=== PATIENT | female | born 1940 | race Caucasian/White ===

== ENCOUNTER → 2016-09-15 | Outpatient (REF) | payer MEDICARE ==
[~2016-09-15] MED LIST: ALPR0.5T3 OR; AMLO5TAB OR; ARTISOL OP; ASPI81TA83 OR; CALCCHW12 OR; CALCCHW12 PO; CELE20TA OR; DIGO0.12 PO; DIOV160T6 PO; GENTGEL OU; GLUC500T OR; GLUC500T PO; LOPE2TAB PO; LOPERAMIDE OR; LOPR50TA OR; MELOPOW OR; PENT500C PO; PENTASA OR; PRAV40TA PO; PRED10TA PO; PRED10TA2 OR; PRED10TA2 PO; PRED1TA PO; SPIR25TA2 PO; TEKTURNA OR; VIT D 2000 OR; VITAMIN B COMPLE1 OR; WELCHOL OR; cholecaciferol; prednisone
== END | disposition home or self-care (01) ==
LOC: M LAB REF 12:19
PROVIDERS: ATTEND Internal Medicine
DX: I48.0 Paroxysmal atrial fibrillation (principal); E78.00 Pure hypercholesterolemia, unspecified

== ENCOUNTER 2016-10-02 08:24 | Outpatient (RCR) | payer MEDICARE | END 2016-10-07 | LOC: M CR 08:24 | PROVIDERS: ATTEND Internal Medicine | DX: Z51.89 Encounter for other specified aftercare (principal); I25.10 Atherosclerotic heart disease of native coronary artery without angina pectoris ==

== ENCOUNTER 2016-10-17 12:54 | Outpatient (RCR) | payer MEDICARE | END 2016-11-07 | LOC: M CR 12:54 | PROVIDERS: ATTEND Internal Medicine | DX: Z51.89 Encounter for other specified aftercare (principal); I25.10 Atherosclerotic heart disease of native coronary artery without angina pectoris ==

== ENCOUNTER → 2017-03-16 | Outpatient (REF) | payer MEDICARE ==
[~2017-03-16] MED LIST changes: -ALPR0.5T3 OR; +ALPR0.5T3 PO; -ARTISOL OP; +ARTISOL OU; +ATOR40TA75 PO; +AZEL0.1S3; +CEFU1TAB20 PO; +CELE20TA PO; +CITA10TA5 PO; +COLE625TAB PO; +ELIQ2.5T PO; +LOPE2CAP PO; -LOPE2TAB PO; +MELO15TA4 PO; +METO25TA4 PO; +PANT40TA2 PO; +PRED20TA PO; +PRED5TA PO; +VITA100066 PO; -VITAMIN B COMPLE1 OR; +VITAMIN B COMPLE1 PO; +VITMTA PO
== END ==
LOC: M LAB REF 12:24
PROVIDERS: ATTEND Internal Medicine
DX: I48.0 Paroxysmal atrial fibrillation (principal)

== ENCOUNTER 2017-05-09 21:36 | Inpatient (IN) | payer MEDICARE ==
[~2017-05-09] VITALS: Ht 160 cm; Wt 92.1 kg
[~2017-05-09 21:36] MED LIST changes: -ATOR40TA75 PO; -AZEL0.1S3; -CEFU1TAB20 PO; -CELE20TA PO; -CITA10TA5 PO; -COLE625TAB PO; -ELIQ2.5T PO; -MELO15TA4 PO; -METO25TA4 PO; -PANT40TA2 PO; -PRED20TA PO; -PRED5TA PO; -VITA100066 PO; -VITMTA PO
--- NOTE | 2017-05-09 21:56 | ECGEPIP ---
Stationary ECG Study [facility] - ED Test Date: 2017-05-09 Pat Name: NEELA ARTIS Department: Room: - Gender: F Asset Protection Assistant: PetersonB: 1940 Requested By: NEELA Fleming Order Number: [id number] Reading MD: Hugo Vicente Measurements Intervals [place] Rate: 65 P: 33 MN: 134 QRS: 26 QRSD: 98 T: 33 QT: 371 QTc: 386 Interpretive Statements SINUS RHYTHM NONSPECIFIC ST & T-WAVE ABNORMALITY SIMILAR TO 09/15/14 Electronically Signed On 05-09-2017 21:55:43 EDT by Hugo Vicente
[2017-05-09] MEDS ORDERED: COLE625TAB PO (22:00)
[2017-05-09] MEDS ORDERED: CEFU1TAB20 PO (22:00)
[2017-05-09] MEDS ORDERED: METO25TA4 PO (22:00)
[2017-05-09] MEDS ORDERED: PRED20TA PO (22:00)
[2017-05-09] MEDS ORDERED: CELE20TA PO (22:00)
[2017-05-09] MEDS ORDERED: ASPIRIN 81 MG CHEW TABLET PO ONE (22:15)
[2017-05-09 22:26] LABS: MEAN CORPUSCULAR HGB CONC 31.4 g/dl (32.0-36.5); MEAN CORPUSCULAR VOLUME 98.5 fl (80.0-96.0); PLATELET COUNT, AUTOMATED 312 10^3/uL (150-450); RED CELL DISTRIBUTION WIDTH 14.4 % (11.5-14.5)
[2017-05-09 22:27] LABS: WHITE BLOOD COUNT 15.6 10^3/uL (4.0-10.0)
[2017-05-09 22:28] LABS: ADD MANUAL DIFFER YES; DIFF SLIDE NUMBER 196
[2017-05-09 22:39] LABS: ANION GAP 10 MEQ/L (8-16); BLOOD UREA NITROGEN 19 MG/DL (7-18); CALCIUM LEVEL 9.1 MG/DL (8.8-10.2); CARBON DIOXIDE LEVEL 23 MEQ/L (21-32); CHLORIDE LEVEL 107 MEQ/L (98-107); CREATININE FOR GFR 1.17 MG/DL (0.55-1.02); GLUCOSE, FASTING 256 MG/DL (83-110); POTASSIUM SERUM 4.1 MEQ/L (3.5-5.1); SODIUM LEVEL 140 MEQ/L (136-145)
[2017-05-09 22:50] LABS: DIGOXIN LEVEL 0.7 NG/ML (0.5-2.0)
[2017-05-10] MEDS ORDERED: GLUCOSE 4 GM CHEW TABLET PO PRN (04:45)
[2017-05-10] MEDS ORDERED: ACETAMINOPHEN TAB 650MG DOSE (2X325MG) PO PRN (04:45)
[2017-05-10] MEDS ORDERED: GLUCAGON FOR INJ 1 MG VIAL (J1610) SC PRN (04:45)
[2017-05-10] MEDS ORDERED: DEXTROSE 50% 50 ML SYRINGE IV PRN (04:45)
[2017-05-10] MEDS ORDERED: HEPARIN DRIP 25,000 UNITS in APPROPRIATE DILUENT 1 EA IV SCH (04:57)
[2017-05-10] MEDS ORDERED: VITA100066 PO (04:58)
[2017-05-10] MEDS ORDERED: CITA10TA5 PO (04:58)
[2017-05-10] MEDS ORDERED: AZELASTINE 137MCG NASAL SPY 30 ML (ASTELIN) PRN (05:00)
[2017-05-10] MEDS ORDERED: MELO15TA4 PO (05:00)
[2017-05-10] MEDS ORDERED: ATOR40TA75 PO (05:00)
[2017-05-10] MEDS ORDERED: VITMTA PO (05:00)
[2017-05-10] MEDS ORDERED: PANT40TA2 PO (05:00)
[2017-05-10] MEDS ORDERED: LOPERAMIDE 2 MG CAP PO PRN (05:00)
[2017-05-10] MEDS ORDERED: PRED5TA PO (05:00)
[2017-05-10] MEDS ORDERED: HEPARIN SOD (PORCINE) 5000 UNITS/ML VIAL IV PRN (05:00)
[2017-05-10] MEDS ORDERED: AZEL0.1S3 (05:00)
--- NOTE | 2017-05-10 06:06 | HPE ---
DATE OF ADMISSION: 05/10/2017 PRIMARY CARE PROVIDER: Dr. Jose Elias Keen. PIPE SMOKING MACHINE OFFBEARER: Dr. Gaston covered by Dr. Joel at [facility]. Cardiology at [facility], Dr. Jose Claros. CHIEF COMPLAINT: Chest discomfort, palpitations and racing heart. HISTORY OF PRESENT ILLNESS: This is a 76-year-old female patient with underlying medical history of paroxysmal atrial fibrillation not on anticoagulation, diabetes, Crohn's disease, coronary artery disease with stent April 2016, initially on aspirin, Plavix, Plavix was recently discontinued by patient's primary care provider, dyslipidemia. Patient, at around 9:15, developed an episode of chest discomfort, substernal pressure, no radiating, exacerbating factor, with also sensation of the heart is racing, similar to her previous atrial fibrillation episodes. Subsequently, presented to the emergency department (ED). Upon arrival, which is about 30 minutes later, patient reported that her chest pressure and palpitations have resolved. Subsequently, patient was evaluated in the emergency room. EKG that was done in the emergency room shows sinus rhythm with nonspecific ST segment changes. The patient was monitored in the emergency room with initially cardiac enzymes at 9:50 that were negative, but repeat cardiac enzymes 6 hours at 2:15 shows troponin elevation of 0.15. Subsequently, Dr. Jsoe Claros at [facility] was contacted for potential transfer and for possible cardiac catheterization. Patient, in the emergency room, denies any chest pain, pressure or discomfort. Denies any nausea, vomiting. Recently treated for sore throat with Ceftin. Currently reports that her sore throat has resolved. Denies any fevers, chills, nausea, vomiting, abdominal pain, diarrhea, constipation. Denies any shortness of breath. No history of congestive heart failure (CHF). No history of stroke or gastrointestinal (GI) bleed. The patient reported not on anticoagulation, but does not know why. She believes possibly related to her steroids she was told by her doctor. Case discussed with [facility] by ED provider. As per ED provider, [place] [facility] refused transfer. Recommending monitoring the patient with serial cardiac enzymes at [facility]. Subsequently, hospitalist was called for admission. ALLERGIES: To HYDROCHLOROTHIAZIDE, SULFA, and SULFA DRUG CROSS REACTORS. PAST MEDICAL HISTORY: 1. Atrial fibrillation. 2. Diabetes. 3. Dyslipidemia. 4. Crohn's disease. 5. Coronary artery disease. PAST SURGICAL HISTORY: 1. Breast biopsy times three times. 2. Cholecystectomy. 3. Hysterectomy. 4. Bowel resection times two. 5. Right knee replacement. 6. Right hip replacement. 7. Cardiac catheterization April 2016. SOCIAL HISTORY: Denies smoking, drinking or illicit drug use. FAMILY HISTORY: Noncontributory. REVIEW OF SYSTEMS: Initially reported palpitations, racing heart and chest pressure. All other review of systems have been negative. HOME MEDICATION: - Xanax 0.5 mg by mouth nightly - aspirin 81 mg by mouth daily - calcium/vitamin D one tablet by mouth daily - Keflex 250 mg by mouth twice a day - Celexa 30 mg by mouth daily - Welchol 625 mg by mouth daily - digoxin 0.25 mg by mouth daily - loperamide 4 mg by mouth four times a day as needed - Pentasa 1000 mg by mouth three times a day - metformin 500 mg by mouth daily - metoprolol 25 mg by mouth twice a day - artificial tears three times a day - Pravachol 40 mg by mouth nightly - prednisone 20 mg by mouth daily - spironolactone 12.5 mg by mouth every 2 hours - valsartan 160 mg by mouth daily - vitamin B complex by mouth daily - vitamin D 1000 units by mouth daily PHYSICAL EXAMINATION: VITAL SIGNS: Temperature 97.6, pulse on initial documentation was 144, but everything subsequent was around 66, respiration rate 20, blood pressure initial 193/125, pulse oximetry 98%. Repeat blood pressure is 170/76. GENERAL: Patient alert and oriented times three in no acute distress. HEENT: Normocephalic, atraumatic. PULMONARY: Bilaterally clear to auscultation. CARDIAC: Regular rate and rhythm. Normal S1, S2. No murmurs detected. ABDOMEN: Soft, nontender. Positive bowel sounds. EXTREMITIES: No clubbing, cyanosis or edema. EKG sinus rhythm at 57 with T wave inversions V4, V6. LABORATORY: WBC 15.6, hemoglobin and hematocrit 12.8/40.7, platelets 312. Chemistry: Sodium 140, potassium 4.1, chloride 107, bicarbonate 23, BUN 19, creatinine 1.17. Troponin 0.02, 0.15. Chest x-ray within normal limits. ASSESSMENT AND PLAN: This is a 76-year-old female patient with underlying medical history of paroxysmal atrial fibrillation, coronary artery disease, stent April 2016, diabetes, dyslipidemia, Crohn's disease, presented to the hospital with episode of palpitations and chest discomfort lasting 30 minutes, believed to be due to her atrial fibrillation, is currently in sinus. 1. Chest discomfort. Possibly secondary to atrial fibrillation with rapid ventricular response. Patient currently in sinus. Telemetry monitoring. Echocardiogram. Troponin mildly elevated at 0.15. Possibly secondary to demand ischemia. Case was presented to [facility] for potential transfer. Emergency room provider discussed the case with Dr. Jose Claros, who denied acute transfer, wanted to trend cardiac enzymes. If continue to elevate, will reconsider. Will continue digoxin, metoprolol. Echocardiogram has been ordered. Thyroid-stimulating hormone (TSH) has been ordered. Serial cardiac enzymes. Telemetry monitoring. Aspirin 81. Case was also discussed with Dr. Joel, flight reservations manager at [facility]. Given patient with elevated troponin, as well as CHADS-VASc 2 score of 6 with significant stroke risk, patient will need to be on anticoagulation. Patient was particularly concerned because she is on prednisone at home, which she was told by her doctor not to be on blood thinners. The patient denies history of intracranial hemorrhage, bleeding in the brain or bleeding from anywhere else on her body with stable hemoglobin and hematocrit. Therefore, will place the patient on heparin drip pending further assessment in terms of cardiac enzymes and further discussion with patient's primary care provider regarding anticoagulation. 2. Leukocytosis. Possibly secondary to steroids versus recently being treated for pharyngitis with Ceftin. Patient reported that her symptoms of pharyngitis have resolved. Will complete her course of Ceftin and followup cultures as ordered. 3. Elevated troponin. Possibly secondary to demand ischemia. Patient on aspirin, statin and heparin drip. Case discussed with [facility] cardiology, as well as Dr. Joel. Serial cardiac enzymes. Telemetry monitoring. Repeat EKG. 4. Hypertension. Will continue valsartan, spironolactone, metoprolol. Monitor blood pressure. 5. Paroxysmal atrial fibrillation. Continue digoxin, metoprolol. Patient on heparin drip. CHADS-VASc score of 2. This case discussed with Dr. Joel. Patient will need anticoagulation. Will also discuss with Dr. Keen during daytime to confirm that patient has no further contraindication, but given the history that was provided by the patient, further discussing with Dr. Joel, patient has no contraindication to anticoagulation. 6. Mild elevation of creatinine. Will continue to monitor. Oral hydration. 7. Diabetes. Holding oral medication, insulin as per protocol. 8. Dyslipidemia. Continue statin. 9. Coronary artery disease. Management as above. 10. Crohn's disease. Continue current medication. DISPOSITION: Pending repeat labs, echocardiogram. Will discuss the case with patient's primary care provider, Dr. Keen to determine if there is any additional contraindication for long-term anticoagulation. Will discuss with [place] if cardiac enzymes continue to be up-trending. Case discussed with Dr. Joel, as well as [place]'s cardiology, Dr. Jose Claros.
[2017-05-10 06:16] LABS: MEAN CORPUSCULAR HEMOGLOBIN 30.5 pg (27.0-33.0); MEAN CORPUSCULAR HGB CONC 31.6 g/dl (32.0-36.5); MEAN CORPUSCULAR VOLUME 96.3 fl (80.0-96.0); RED CELL DISTRIBUTION WIDTH 14.2 % (11.5-14.5); WHITE BLOOD COUNT 9.6 10^3/uL (4.0-10.0)
[2017-05-10 06:18] LABS: INR 1.14
[2017-05-10 06:28] LABS: ANION GAP 7 MEQ/L (8-16); BLOOD UREA NITROGEN 19 MG/DL (7-18); CALCIUM LEVEL 8.6 MG/DL (8.8-10.2); CARBON DIOXIDE LEVEL 25 MEQ/L (21-32); CHLORIDE LEVEL 110 MEQ/L (98-107); CREATININE FOR GFR 0.83 MG/DL (0.55-1.02); GLOMERULAR FILTRATION RATE > 60.0 (>39); GLUCOSE, FASTING 158 MG/DL (83-110); MAGNESIUM LEVEL 1.3 MG/DL (1.8-2.4); POTASSIUM SERUM 4.2 MEQ/L (3.5-5.1); SODIUM LEVEL 142 MEQ/L (136-145); T UPTAKE 39 % (30-39); THYROXINE (T4) 7.8 UG/DL (4.5-12.0)
[2017-05-10 06:35] VITALS: BP 183/78
[2017-05-10] MEDS: HumaLOG INSULIN (NovoLOG) PER UNIT SC SCH ×3 (07:54→17:48)
[2017-05-10 08:00] VITALS: BP 168/74
--- NOTE | 2017-05-10 08:11 | REP ---
Chest one-view HISTORY: Chest pain Comparison: 09/14/2014 The lungs are clear. The heart is normal in size. The pulmonary vasculature is normal in appearance. Impression: No acute disease. Signed by Henrik Jules MD 05/10/2017 08:03 A
[2017-05-10] MEDS ORDERED: VALSARTAN 80 MG TAB (DIOVAN) PO SCH (09:00)
[2017-05-10] MEDS: SENOKOT S TAB PO SCH ×2 (09:00→20:35)
[2017-05-10] MEDS: predniSONE 5 MG TAB PO SCH (09:02)
[2017-05-10] MEDS: MULTIVITAMINS/MINERALS THERAP 1 TAB PO SCH (09:02)
[2017-05-10] MEDS: ASPIRIN 81 MG ENTERIC TAB PO SCH (09:02)
[2017-05-10] MEDS: CEFUROXIME 250 MG TAB PO SCH ×2 (09:02→20:21)
[2017-05-10] MEDS: ATORVASTATIN 20 MG TAB PO SCH (09:02)
[2017-05-10] MEDS: COLESEVELAM 625 MG TAB (WELCHOL) PO SCH ×2 (09:02→17:49)
[2017-05-10] MEDS: PANTOPRAZOLE 40MG TAB (PROTONIX) PO SCH (09:02)
[2017-05-10] MEDS: MESALAMINE 250 MG CR CAP PO SCH ×3 (09:03→20:21)
[2017-05-10] MEDS: METOPROLOL TART 25 MG TABLET PO SCH ×2 (09:04→17:50)
[2017-05-10] MEDS: DIGOXIN 0.125 MG TAB PO SCH (09:04)
[2017-05-10] MEDS: POLYVINYL ALCOHOL OPHTH SOLN 15 ML(LIQUITEARS) OU SCH ×3 (09:06→20:22)
[2017-05-10] MEDS ORDERED: VALSARTAN 80 MG TAB (DIOVAN) PO ONE (09:45)
--- NOTE | 2017-05-10 11:07 | ECGEPIP ---
Stationary ECG Study [facility] Test Date: 2017-05-10 Pat Name: NEELA ARTIS Department: Room: [place] [address] Gender: F Skein Yarn Dyer: vandana : 1940 Requested By: MARIA A Montilla Order Number: [id number] Reading MD: Marco Joel Measurements Intervals [place] Rate: 58 P: -11 OR: 138 QRS: 4 QRSD: 93 T: -30 QT: 378 QTc: 374 Interpretive Statements SINUS BRADYCARDIA LOW QRS VOLTAGE IN PRECORDIAL LEADS NONSPECIFIC ST-T ABNORMALITY (Consider digoxin effect) Electronically Signed On 05-10-2017 11:07:15 EDT by Marco Joel
[2017-05-10 12:00] VITALS: BP 159/71
--- NOTE | 2017-05-10 15:08 | ECGEPIP ---
Stationary ECG Study [facility] - ED Test Date: 2017-05-10 Pat Name: NEELA ARTIS Department: Room: [place] [address] Gender: F Jacquard Fixer: PetersonB: 1940 Requested By: NELEA Fleming Order Number: [id number] Reading MD: Jacklyn Valentino Measurements Intervals [place] Rate: 52 P: 16 RI: 132 QRS: 22 QRSD: 98 T: -18 QT: 410 QTc: 383 Interpretive Statements SINUS BRADYCARDIA WITH SINUS ARRHYTHMIA NONSPECIFIC ST & T-WAVE ABNORMALITY SIMILAR 05/10/17 07:49 Electronically Signed On 05-10-2017 15:08:36 EDT by Jacklyn Valentino
--- NOTE | 2017-05-10 15:29 | IPN ---
DATE: 05/10/2017 76-year-old female patient of Dr. Keen's who presents to the emergency department with chest discomfort, palpitations, which is resolved. She does have a known history of atrial fibrillation and a CHADS2-Vasc score of 6. She is not currently anticoagulated. She does have a prior history of stent placement through [facility] She did have a slight increase in her troponin but no changes in her EKG and was admitted for observation for any further deterioration. The emergency room (ER) physician did contact cardiology at [facility] and recommended that this would be an acceptable course to monitor her. OBJECTIVE: Temperature is 98.1, pulse 71, respiratory rate 18, blood pressure is 159/71, SpO2 is 95% on room air. GENERAL: The patient appears to be in no acute distress, alert and oriented. HEENT: Unremarkable. LUNGS: Clear. HEART: Regular rate and rhythm. ABDOMEN: Soft. EXTREMITIES: No edema. No calf tenderness. LABORATORY DATA: White count is 9.6, hemoglobin 10.6, platelets 221. Sodium 142, potassium 4.2, chloride 110, bicarbonate 25, anion gap 7, BUN is 19, creatinine 0.83, glucose 158, hemoglobin A1c 8.4, magnesium 1.3, which was repleted, troponin 0.15, 0.19, 0.15. ASSESSMENT/PLAN: 1. Chest discomfort, resolved. She did have a slight increase in her troponin which does appear to be trending down. 12-lead EKG is not showing any significant change. We will continue to watch. 2. Atrial fibrillation. She does remain on telemetry. She does have a CHADS2-Vasc score of 6. I did discuss with her primary care provider Dr. Keen who agrees she needs to be anticoagulated. 3. Leukocytosis. Likely due to steroids. Was placed on Ceftin for pharyngitis. She appears to be doing well otherwise. 4. Elevated troponin. As outlined above, does appear to be trending down. She can followup with outpatient cardiology and we will watch her another 24 hours and likely discharge her home tomorrow. 5. Hypertension. Valsartan, spironolactone, metoprolol. Continue to monitor blood pressure. 6. Paroxysmal atrial fibrillation as outlined with CHADS2-Vasc score of 6. Will anticoagulate. 7. Mild elevation of creatinine. Does appear to be doing well with oral hydration. Continue to monitor her renal function. 8. Diabetes. Holding her oral medications. Continue with sliding scale insulin, fingersticks and consistent carbohydrate diet. 9. Dyslipidemia. Continue statin. 10. Coronary artery disease. Continue management as previously stated. 11. Crohn's disease. Continue current management. DISPOSITION: We will watch her overnight on telemetry. If she is doing well tomorrow, we will plan on discharging her. If she develops chest pain again or elevated troponin, would consider transfer to [facility].
[2017-05-10 16:22] VITALS: BP 155/68
[2017-05-10] MEDS: MAG SULF 1GM/100ML (MAG RUN) 1 GM in APPROPRIATE DILUENT 1 EA IV SCH ×2 (17:09→18:17)
[2017-05-10] MEDS ORDERED: CitaloPRAM (CeleXA) 10 MG TABLET PO SCH (18:00)
[2017-05-10] MEDS ORDERED: SPIRONOLACTONE 25 MG TAB PO SCH (18:00)
[2017-05-10] MEDS ORDERED: VITAMIN D 1,000 INTERNATIONAL UNITS TABLET PO SCH (18:00)
[2017-05-10 18:09] VITALS: BP 145/65
[2017-05-10] MEDS ORDERED: SLF 3 ML SYR IV PRN (19:00)
[2017-05-10 20:00] VITALS: BP 132/69
[2017-05-10] MEDS: APIXABAN 2.5 MG TAB (ELIQUIS) PO SCH (20:21)
[2017-05-10] MEDS: SLF 3 ML SYR IV SCH (20:23)
[2017-05-10] MEDS ORDERED: ALPRAZolam 0.5 MG TAB PO SCH (21:00)
[2017-05-10] MEDS ORDERED: HumaLOG INSULIN (NovoLOG) PER UNIT SC SCH (21:00)
[2017-05-11] VITALS: BP 138/61
[2017-05-11 04:00] VITALS: BP 163/71
[2017-05-11 05:07] LABS: MEAN CORPUSCULAR HEMOGLOBIN 31.3 pg (27.0-33.0); MEAN CORPUSCULAR HGB CONC 32.6 g/dl (32.0-36.5); RED CELL DISTRIBUTION WIDTH 14.3 % (11.5-14.5); WHITE BLOOD COUNT 8.9 10^3/uL (4.0-10.0)
[2017-05-11 05:27] LABS: INR 1.15
[2017-05-11 05:35] LABS: ANION GAP 6 MEQ/L (8-16); BLOOD UREA NITROGEN 15 MG/DL (7-18); CALCIUM LEVEL 8.5 MG/DL (8.8-10.2); CARBON DIOXIDE LEVEL 27 MEQ/L (21-32); CHLORIDE LEVEL 109 MEQ/L (98-107); CREATININE FOR GFR 0.82 MG/DL (0.55-1.02); GLOMERULAR FILTRATION RATE > 60.0 (>39); GLUCOSE, FASTING 108 MG/DL (83-110); MAGNESIUM LEVEL 1.8 MG/DL (1.8-2.4); POTASSIUM SERUM 3.9 MEQ/L (3.5-5.1); SODIUM LEVEL 142 MEQ/L (136-145)
[2017-05-11] MEDS: SLF 3 ML SYR IV SCH (05:47)
[2017-05-11 08:00] VITALS: BP 143/65
[2017-05-11 08:44] VITALS: BP 143/65
[2017-05-11] MEDS: MESALAMINE 250 MG CR CAP PO SCH ×2 (08:44→12:13)
[2017-05-11] MEDS: CEFUROXIME 250 MG TAB PO SCH (08:45)
[2017-05-11] MEDS: MULTIVITAMINS/MINERALS THERAP 1 TAB PO SCH (08:45)
[2017-05-11] MEDS: ASPIRIN 81 MG ENTERIC TAB PO SCH (08:45)
[2017-05-11] MEDS: predniSONE 5 MG TAB PO SCH (08:45)
[2017-05-11] MEDS: APIXABAN 2.5 MG TAB (ELIQUIS) PO SCH (08:45)
[2017-05-11] MEDS: DIGOXIN 0.125 MG TAB PO SCH (08:45)
[2017-05-11] MEDS: ATORVASTATIN 20 MG TAB PO SCH (08:46)
[2017-05-11] MEDS: SENOKOT S TAB PO SCH (08:46)
[2017-05-11] MEDS: PANTOPRAZOLE 40MG TAB (PROTONIX) PO SCH (08:46)
[2017-05-11] MEDS: COLESEVELAM 625 MG TAB (WELCHOL) PO SCH (08:46)
[2017-05-11] MEDS: POLYVINYL ALCOHOL OPHTH SOLN 15 ML(LIQUITEARS) OU SCH (08:46)
[2017-05-11] MEDS: METOPROLOL TART 25 MG TABLET PO SCH (08:46)
[2017-05-11] MEDS: HumaLOG INSULIN (NovoLOG) PER UNIT SC SCH ×2 (08:47→12:13)
[2017-05-11] MEDS ORDERED: VALSARTAN 80 MG TAB (DIOVAN) PO SCH (09:00)
[2017-05-11] MEDS ORDERED: ELIQ2.5T PO ×2 (09:19→10:05)
--- NOTE | 2017-05-11 10:25 | DSES ---
DATE OF ADMISSION: 05/10/2017 DATE OF DISCHARGE: PRIMARY CARE PROVIDER: Dr. Jose Elias Keen PRINCIPAL DIAGNOSIS: Atrial fibrillation, paroxysmal, converted to sinus rhythm in the emergency room. SECONDARY DIAGNOSES: 1. Elevated troponin/troponin "leak." 2. Hypertension. 3. History of Crohn's disease. 4. Chronic steroid therapy with mild leukocytosis. 5. Non Streptococcal pharyngitis, being treated with Ceftin with subsequent intertrigo. 6. Intertrigo in inguinal folds. 7. History of coronary artery disease. 8. History of hyperlipidemia. 9. History of type 2 diabetes. HISTORY: Rachael Vicente is a 76-year-old. She presented to the emergency room with chest discomfort, substernal pressure. She has a history of atrial fibrillation and it felt like atrial fibrillation to her. In the emergency room, her daughter was a bit aggressive wheeling her into her examination room, the wheelchair struck the entrance to the room. The patient received a "jolt" and felt herself convert back to sinus rhythm. She remained in sinus rhythm for the duration of her hospitalization. HOSPITAL COURSE: The patient was admitted to a telemetry bed. She converted to sinus rhythm in the emergency room with the wheelchair incident. She remained in strict sinus rhythm for the duration of her hospitalization. Her cardiac enzymes were normal on admission but she developed a slight rise in her troponin, going from less than 0.02 up to 0.15, peak was 0.19. She had no chest pain for the rest of her hospitalization. She was anticoagulated with Eliquis. She tolerated this well. She developed some intertrigo. She had been treated with Ceftin as an outpatient for pharyngitis. She did not have a strep screen done, apparently it was a clinical diagnosis. Her sore throat resolved and it was associated with nasal congestion and cough so it was unlikely to be strep, so I took the liberty of stopping her Ceftin, as it was causing some intertrigo. On the day of discharge, she is eager to go home. She is in sinus rhythm. Her blood pressure is 143/65, pulse 67, respiratory rate 18, 92% oxygen saturation. She has no jugular venous distention (JVD). Pharynx is unremarkable. LUNGS: Clear. HEART: Regular rate and rhythm. 1/6 systolic ejection murmur. ABDOMEN: Soft, nontender. There is trace peripheral edema. LABORATORY DATA: Sodium 142, potassium 3.9, BUN 15, creatinine 0.8, hemoglobin A1/c was 8.4 on admission. Magnesium was low on admission, 1.3 and it is up to 1.8 today. White count was 15.6 on admission, hemoglobin 10.9, platelets 230, INR 1.1. Blood sugars have been in the 200 range. Stool for occult blood is negative. Echocardiogram was performed, the results are pending. DISPOSITION: The patient is going to be discharged home to followup with Dr. Gaston, her coach wirer (I have a text out for him to call so I can discuss the case), as well as Dr. Keen. She should followup with each of them within 1 week. She is on a DASH diet. Her activity is as tolerated. Slight troponin leak can be evaluated by Dr. Gaston as an outpatient. I do not know when her last cardiac testing was. MEDICATIONS: Will continue to be: - alprazolam 0.5 mg at night - atorvastatin 40 mg daily - Astelin spray as needed - calcium with vitamin D - vitamin D 1000 units daily - Celexa 30 mg daily - WelChol 625 mg twice a day - Digoxin 0.125 mg daily - lopiramide 4 mg four times a day after each loose stool - Pentasa 1000 mg three times a day - metformin 500 mg twice a day - metoprolol 25 mg twice a day - Protonix 40 mg daily - prednisone 15 mg daily - spironolactone 25 mg daily - Diovan 160 mg daily - multivitamin - aspirin 81 mg daily The only new medication is Eliquis 2.5 mg twice a day. I have stopped her Ceftin 250 mg twice a day and meloxicam 15 mg daily due to increased bleeding risk on the anticoagulant. The only pending study at the time of this dictation is her echocardiogram.
[2017-05-11 12:00] VITALS: BP 128/58
== END 2017-05-11 12:52 | disposition home or self-care (01) | DRG 310 ==
LOC: M ED 21:36 → M ED INP 05-10 04:31 → M ICU 05-10 16:18
PROVIDERS: ADMIT Hospitalist; ATTEND Hospitalist
DX: I48.0 Paroxysmal atrial fibrillation (principal); E11.9 Type 2 diabetes mellitus without complications; J02.9 Acute pharyngitis, unspecified; I25.10 Atherosclerotic heart disease of native coronary artery without angina pectoris; D72.829 Elevated white blood cell count, unspecified; E78.5 Hyperlipidemia, unspecified; Z88.2 Allergy status to sulfonamides; Z88.8 Allergy status to other drugs, medicaments and biological substances; Z90.49 Acquired absence of other specified parts of digestive tract; Z90.710 Acquired absence of both cervix and uterus; Z96.651 Presence of right artificial knee joint; Z96.641 Presence of right artificial hip joint; Z79.82 Long term (current) use of aspirin; Z79.84 Long term (current) use of oral hypoglycemic drugs; Z79.52 Long term (current) use of systemic steroids; Z79.899 Other long term (current) drug therapy; Z95.9 Presence of cardiac and vascular implant and graft, unspecified

== ENCOUNTER → 2017-09-21 | Outpatient (REF) | payer MEDICARE | LOC: M LAB REF 13:09 | DX: I48.0 Paroxysmal atrial fibrillation (principal) | CPT/HCPCS: 80162 ==

== ENCOUNTER 2017-10-12 04:20 | Emergency (ER) | payer MEDICARE ==
[2017-10-12] MEDS: NS 1,000 ML IV (04:45)
[2017-10-12 05:12] LABS: BASO % 0.2 % (0.0-1.0); EOS # 0.1 10^3/uL (0.0-0.50); EOS % 0.5 % (0.0-3.0); HEMATOCRIT 36.4 % (36.0-47.0); HEMOGLOBIN 11.6 g/dl (12.0-16.0); IMMATURE GRANULOCYTE % 0.9 % (0-3.0); LYMPH # 2.6 10^3/uL (1.5-4.5); LYMPH % 25.6 % (24.0-44.0); MEAN CORPUSCULAR HEMOGLOBIN 30.9 pg (27.0-33.0); MEAN CORPUSCULAR HGB CONC 31.9 g/dl (32.0-36.5); MEAN CORPUSCULAR VOLUME 96.8 fl (80.0-96.0); MONO # 1.1 10^3/uL (0.0-0.8); MONO % 11.4 % (0.0-5.0); NEUTROPHILS # 6.2 10^3/uL (1.8-7.7); NEUTROPHILS % 61.4 % (36.0-66.0); PLATELET COUNT, AUTOMATED 238 10^3/uL (150-450); RED BLOOD COUNT 3.76 10^6/uL (4.00-5.40); RED CELL DISTRIBUTION WIDTH 14.3 % (11.5-14.5)
[2017-10-12 05:43] LABS: ALBUMIN 2.9 GM/DL (3.2-5.2); ALBUMIN/GLOBULIN RATIO 0.88 (1.00-1.93); ALKALINE PHOSPHATASE 78 U/L (45-117); ALT/SGPT 35 U/L (12-78); ANION GAP 11 MEQ/L (8-16); AST/SGOT 37 U/L (7-37); BILIRUBIN,DIRECT 0.3 MG/DL (0.0-0.2); BILIRUBIN,TOTAL 1.1 MG/DL (0.2-1.0); BLOOD UREA NITROGEN 30 MG/DL (7-18); CALCIUM LEVEL 8.5 MG/DL (8.8-10.2); CARBON DIOXIDE LEVEL 23 MEQ/L (21-32); CHLORIDE LEVEL 106 MEQ/L (98-107); CREATININE FOR GFR 1.02 MG/DL (0.55-1.30); GLOMERULAR FILTRATION RATE 56.1 (>39); GLUCOSE, FASTING 182 MG/DL (70-100); LIPASE 104 U/L (73-393); POTASSIUM SERUM 4.1 MEQ/L (3.5-5.1); SODIUM LEVEL 140 MEQ/L (136-145); TOTAL PROTEIN 6.2 GM/DL (6.4-8.2)
[2017-10-12 05:44] LABS: LACTIC ACID SEPSIS PROTOCOL 3.9 MMOL/L (0.4-2.0)
[2017-10-12] MEDS: METOPROLOL SUCC *XL* 25MG TAB (TopROL *XL*) PO (06:00)
[2017-10-12] MEDS: APIXABAN 2.5 MG TAB (ELIQUIS) PO (06:00)
[2017-10-12] MEDS: DIGOXIN 0.25 MG TAB PO (06:00)
[2017-10-12] MEDS ORDERED: DIGOXIN 0.125 MG TAB PO (06:00)
[2017-10-12 06:13] LABS: DIGOXIN LEVEL 0.5 NG/ML (0.5-2.0)
[2017-10-12] MEDS: ONDANSETRON 4MG/2ML VIAL (J2405) IV (06:35)
[2017-10-12] MEDS: NS 500 ML IV (06:40)
== END 2017-10-12 09:48 | disposition home or self-care (01) ==
LOC: M ED 04:20
DX: K52.9 Noninfective gastroenteritis and colitis, unspecified (principal); E11.9 Type 2 diabetes mellitus without complications; I10 Essential (primary) hypertension; I48.91 Unspecified atrial fibrillation; E78.5 Hyperlipidemia, unspecified; K50.90 Crohn's disease, unspecified, without complications; Z79.899 Other long term (current) drug therapy; Z79.82 Long term (current) use of aspirin; Z79.01 Long term (current) use of anticoagulants; Z88.2 Allergy status to sulfonamides; Z88.8 Allergy status to other drugs, medicaments and biological substances
CPT/HCPCS: J2405

== ENCOUNTER → 2018-02-08 | Outpatient (REF) | payer MEDICARE ==
[2018-02-08 12:58] LABS: DIGOXIN LEVEL 0.7 NG/ML (0.5-2.0)
== END ==
LOC: M LAB REF 12:12
DX: I48.0 Paroxysmal atrial fibrillation (principal)
CPT/HCPCS: 80162

== ENCOUNTER → 2018-05-31 | Outpatient (REF) | payer MEDICARE ==
[2018-05-31 18:20] LABS: DIGOXIN LEVEL 0.9 NG/ML (0.5-2.0)
== END ==
LOC: M LAB REF 16:37
DX: I48.0 Paroxysmal atrial fibrillation (principal)
CPT/HCPCS: 80162

== ENCOUNTER → 2018-11-08 | Outpatient (REF) | payer MEDICARE ==
[~2018-11-08] MED LIST changes: +ATOR40TA75 PO; +AZEL0.1S3; +CEFU1TAB20 PO; +CELE20TA PO; +CITA10TA5 PO; +COLE625TAB PO; +ELIQ2.5T PO; +MELO15TA28 PO; +METO25TA4 PO; +PANT40TA3 PO; +PRED20TA PO; +PRED5TA PO; +VITA100066 PO; +VITMTA PO; +ZOFR4TAB14 PO
[2018-11-08 17:30] LABS: PERCENT SATURATION 7.9 % (13.2-45.0)
== END ==
LOC: M LAB REF 16:42
PROVIDERS: ATTEND Internal Medicine
DX: D64.9 Anemia, unspecified (principal)

== ENCOUNTER → 2018-12-16 | Outpatient (REF) | payer MEDICARE ==
[~2018-12-16] MED LIST changes: +PRED-351 PO; -PRED10TA PO
[2018-12-16 17:34] LABS: PERCENT SATURATION 29.7 % (13.2-45.0)
== END ==
LOC: M LAB REF 17:02
PROVIDERS: ATTEND Internal Medicine
DX: D50.9 Iron deficiency anemia, unspecified (principal)

== ENCOUNTER → 2019-02-21 | Outpatient (REF) | payer MEDICARE ==
[2019-02-21 12:59] LABS: DIGOXIN LEVEL 0.7 NG/ML (0.5-2.0); TOTAL PROTEIN 6.4 GM/DL (6.4-8.2)
[2019-02-22 11:55] LABS: ALBUMIN 3.42 GM/DL (3.29-5.55); ALBUMIN % 53.5 % (55.8-66.1); ALPHA-1-GLOBULIN % 5.1 % (2.9-4.9); ALPHA-1-GLOBULINS 0.33 GM/DL (0.17-0.41); ALPHA-2-GLOBULINS 0.86 GM/DL (0.42-0.99); ALPHA-2-GLOBULINS % 13.5 % (7.1-11.8); BETA-1-GLOBULINS 0.53 GM/DL (0.28-0.60); BETA-1-GLOBULINS % 8.3 % (4.7-7.2); BETA-2-GLOBULINS 0.37 GM/DL (0.19-0.55); BETA-2-GLOBULINS % 5.8 % (3.2-6.5); GAMMA GLOBULIN % 13.8 % (11.1-18.8); GAMMA GLOBULINS 0.88 GM/DL (0.65-1.58)
[2019-02-22 12:57] LABS: IMMUNOTYPING SERUM IGG ABNORMAL (NORMAL); IMMUNOTYPING SERUM KAPPA ABNORMAL (NORMAL)
== END ==
LOC: M LAB REF 12:21
PROVIDERS: ATTEND Internal Medicine
DX: I48.0 Paroxysmal atrial fibrillation (principal); N18.3 Chronic kidney disease, stage 3 (moderate)

== ENCOUNTER → 2019-03-11 | Outpatient (CLI) | payer MEDICARE ==
--- NOTE | 2019-03-11 13:05 | REP ---
Clinical: Mid thoracic pain. Technique: AP, lateral views of the thoracic spine. Findings: Alignment and kyphosis is maintained. Vertebral bodies intact. No acute fracture / compression injury or subluxation. No degenerative changes. Paravertebral soft tissues are normal. Evidence of prior cholecystectomy. Impression: Normal thoracic spine series. Electronically Signed by Eduin Valdes MD 03/11/2019 12:57 P
--- NOTE | 2019-03-11 13:07 | REP ---
Neck pain. Technique: AP, lateral, flexion/extension, bilateral oblique, and open-mouth views of the cervical spine. Findings: Age-related osteopenia is appreciated. Advanced focal degenerative disc osteophyte complex at C5-6 noted. Grade 1 anterolisthesis suggested at C4-5 and C6-7 up to approximately 2.5 mm. No acute fracture / compression injury. Prevertebral soft tissues are within normal limits. Spinous processes are intact. Neural foraminal narrowing due to hypertrophic facet changes suggested. Open mouth view demonstrates normal C1-C2 articulation and odontoid process. Impression: Osteopenia and moderate to advanced multilevel degenerative spondylosis. Electronically Signed by Eduin Valdes MD 03/11/2019 12:59 P
== END ==
LOC: M WUC 12:27
PROVIDERS: ATTEND Internal Medicine
DX: M85.89 Other specified disorders of bone density and structure, multiple sites (principal); M47.892 Other spondylosis, cervical region

== ENCOUNTER → 2019-05-02 | Outpatient (REF) | payer MEDICARE ==
[~2019-05-02] MED LIST changes: +ACET-683 PO; +ALPR0.5T6 PO; +B-10TAB2 PO; +CALCCAP4 PO; +ELIQ5TAB PO; +FERR325T3 PO; +FOLGTAB5 PO; +GLIP-163 PO; +GNP250TA9 PO; +METO50TA7 PO; +OMEP40CA2 PO; +PRED10PA PO; +RANI1TAB38 PO; +SPIR-10 PO; +VALS1TAB68 PO
== END ==
LOC: M LAB REF 16:15
PROVIDERS: ATTEND Internal Medicine
DX: I48.0 Paroxysmal atrial fibrillation (principal)

== ENCOUNTER 2019-06-24 00:42 | Emergency (ER) | payer MEDICARE ==
[~2019-06-24] VITALS: Ht 157.5 cm; Wt 81.8 kg
[~2019-06-24 00:42] MED LIST changes: -OMEP40CA2 PO; +OMEP40CA97 PO
[2019-06-24] MEDS ORDERED: ASPIRIN 81 MG CHEW TABLET PO ONE ×2 (01:15→08:45)
[2019-06-24 01:33] LABS: BASO # 0.1 10^3/uL (0.0-0.2); BASO % 0.5 % (0.0-1.0); EOS # 0.1 10^3/uL (0.0-0.5); EOS % 0.6 % (0.0-3.0); LYMPH # 3.4 10^3/uL (1.5-5.0); MEAN CORPUSCULAR HEMOGLOBIN 30.5 pg (27.0-33.0); MEAN CORPUSCULAR HGB CONC 30.8 g/dl (32.0-36.5); MONO # 1.3 10^3/uL (0.0-0.8); MONO % 11.7 % (0.0-5.0); NEUTROPHILS % 54.2 % (36.0-66.0); PLATELET COUNT, AUTOMATED 247 10^3/uL (150-450); RED BLOOD COUNT 3.94 10^6/uL (4.00-5.40); WHITE BLOOD COUNT 11.1 10^3/uL (4.0-10.0)
[2019-06-24] MEDS: METOPROLOL 5 MG/5 ML VIAL IV SCH ×3 (01:33→02:02)
[2019-06-24 01:45] LABS: INR 1.17; PROTHROMBIN TIME 14.6 SECONDS (11.8-14.0)
[2019-06-24 01:46] LABS: PARTIAL THROMBOPLASTIN TIME 30.7 SECONDS (25.0-38.4)
[2019-06-24 02:02] VITALS: BP 166/83
[2019-06-24 02:13] LABS: BLOOD UREA NITROGEN 35 MG/DL (7-18); CALCIUM LEVEL 9.2 MG/DL (8.8-10.2); CARBON DIOXIDE LEVEL 28 MEQ/L (21-32); CHLORIDE LEVEL 104 MEQ/L (98-107); CK-MB VALUE MASS 2.2 NG/ML (<3.6); CPK CREATINE PHOSPHOKINASE 59 U/L (26-192); CREATININE FOR GFR 1.53 MG/DL (0.55-1.30); DIGOXIN LEVEL 0.6 NG/ML (0.5-2.0); GLUCOSE, FASTING 157 MG/DL (70-100); MAGNESIUM LEVEL 1.5 MG/DL (1.8-2.4); MB/CK RELATIVE INDEX 3.73 (< OR =4); SODIUM LEVEL 139 MEQ/L (136-145); TROPONIN I < 0.02 NG/ML (< 0.10)
[2019-06-24] MEDS ORDERED: MAG SULF 1GM/100ML (MAG RUN) 1 GM in IV 1 EA IV ONE (03:15)
[2019-06-24] MEDS ORDERED: MAGNESIUM OXIDE 400 MG TAB (MAG-OX) PO ONE (03:15)
[2019-06-24] MEDS ORDERED: METAL LOCK LOOP XX ONE (04:21)
[2019-06-24 05:25] LABS: CK-MB VALUE MASS 3.9 NG/ML (<3.6); MB/CK RELATIVE INDEX 5.27 (< OR =4); TROPONIN I 0.61 NG/ML (< 0.10)
[2019-06-24 08:34] LABS: CK-MB VALUE MASS 5.3 NG/ML (<3.6); MB/CK RELATIVE INDEX 6.31 (< OR =4); TROPONIN I 1.63 NG/ML (< 0.10)
--- NOTE | 2019-06-24 08:38 | REP ---
Portable chest x-ray: Single view. History: Chest pain. Comparison chest x-ray: May 09, 2017. Findings: The lungs are symmetrically aerated and clear. Pleural angles are sharp. Heart is not enlarged. The aorta is tortuous. Pleural angles are sharp. Pulmonary vasculature is not increased. Impression: No acute disease. Electronically Signed by Pacheco Parks MD 06/24/2019 08:30 A
[2019-06-24] MEDS ORDERED: CLOPIDOGREL 300 MG TAB (PLAVIX) PO ONE (08:45)
[2019-06-24] MEDS ORDERED: HEPARIN SOD (PORCINE) 5000 UNITS/ML VIAL IV ONE (08:45)
[2019-06-24] MEDS ORDERED: FAMOTIDINE 20 MG TAB PO ONE (08:45)
[2019-06-24] MEDS ORDERED: HEPARIN DRIP 25,000 UNITS in IV 1 EA IV SCH (08:45)
[2019-06-24 11:15] VITALS: BP 162/67
--- NOTE | 2019-06-24 19:00 | ECGEPIP ---
[facility] - ED Test Date: 2019-06-24 Pat Name: NEELA ARTIS Department: Room: - Gender: Female Chief Chemist: sb : 1940 Requested By: KIRAN Galvin Order Number: [id number] Reading MD: Jacklyn Valentino Measurements Intervals [place] Rate: 134 P: [place]: 0 QRS: 28 QRSD: 85 T: 0 QT: 242 QTc: 362 Interpretive Statements ATRIAL FIBRILLATION WITH RAPID VENTRICULAR RESPONSE NONSPECIFIC ST & T-WAVE ABNORMALITY ABNORMAL RHYTHM ECG PRIOR SINUS RHYTHM 05/10/17 Electronically Signed on 06-24-2019 18:59:37 EST by Jacklyn Valentino
--- NOTE | 2019-06-27 17:49 | ECGEPIP ---
[facility] - ED Test Date: 2019-06-24 Pat Name: NEELA ARTIS Department: Room: - Gender: Female Staffing Consultant: : 1940 Requested By: KIRAN Galvin Order Number: [id number] Reading MD: Jacklyn Valentino Measurements Intervals [place] Rate: 66 P: -23 UT: 150 QRS: 6 QRSD: 85 T: -5 QT: 368 QTc: 388 Interpretive Statements SINUS RHYTHM NONSPECIFIC ST & T-WAVE ABNORMALITY PRIOR 06/24/19 0:57 ATRIAL FIBRILLATION Electronically Signed on 06-27-2019 17:48:51 EST by Jacklyn Valentino
== END 2019-06-24 11:18 | disposition short-term general hospital (02) ==
LOC: M ED 00:42
DX: I21.4 Non-ST elevation (NSTEMI) myocardial infarction (principal); I48.91 Unspecified atrial fibrillation; R00.0 Tachycardia, unspecified; E11.9 Type 2 diabetes mellitus without complications; I10 Essential (primary) hypertension; E78.5 Hyperlipidemia, unspecified; K50.90 Crohn's disease, unspecified, without complications; Z95.5 Presence of coronary angioplasty implant and graft; Z88.2 Allergy status to sulfonamides; Z88.8 Allergy status to other drugs, medicaments and biological substances; Z79.899 Other long term (current) drug therapy; Z79.01 Long term (current) use of anticoagulants; Z79.52 Long term (current) use of systemic steroids
CPT/HCPCS: 71045; 80048; 80162; 82550; 82553; 83735; 84484; 85025; 85610; 85730; 93005; 93041; 94760; 96365; 96375; 99285; J3475

== ENCOUNTER 2019-07-02 23:54 | Emergency (ER) | payer MEDICARE ==
[~2019-07-02] VITALS: Ht 157.5 cm; Wt 81.8 kg
[2019-07-03 01:13] LABS: BASO % 0.2 % (0.0-1.0); EOS % 0.2 % (0.0-3.0); HEMATOCRIT 35.6 % (36.0-47.0); LYMPH # 2.5 10^3/uL (1.5-5.0); LYMPH % 24.5 % (24.0-44.0); MEAN CORPUSCULAR HEMOGLOBIN 30.2 pg (27.0-33.0); MEAN CORPUSCULAR HGB CONC 30.9 g/dl (32.0-36.5); MEAN CORPUSCULAR VOLUME 97.8 fl (80.0-96.0); MONO % 9.4 % (0.0-5.0); NEUTROPHILS # 6.6 10^3/uL (1.5-8.5); NEUTROPHILS % 64.2 % (36.0-66.0); PLATELET COUNT, AUTOMATED 307 10^3/uL (150-450); RED BLOOD COUNT 3.64 10^6/uL (4.00-5.40); WHITE BLOOD COUNT 10.3 10^3/uL (4.0-10.0)
[2019-07-03 01:38] LABS: CALCIUM LEVEL 8.9 MG/DL (8.8-10.2); CK-MB VALUE MASS 1.2 NG/ML (<3.6); CREATININE FOR GFR 1.6 MG/DL (0.55-1.30); GLOMERULAR FILTRATION RATE 33.3 (>39); MB/CK RELATIVE INDEX 1.64 (< OR =4); POTASSIUM SERUM 5.3 MEQ/L (3.5-5.1); TROPONIN I 0.05 NG/ML (< 0.10)
[2019-07-03] MEDS: SOD POLYSTYRENE SULFONATE SUSP 15 GM/60 ML UD PO ONE (02:09)
[2019-07-03 02:45] VITALS: BP 173/76
--- NOTE | 2019-07-03 06:35 | ECGEPIP ---
[facility] - ED Test Date: 2019-07-03 Pat Name: NEELA ARTIS Department: Room: - Gender: Female Cementer: : 1940 Requested By: ALVA BERMUDEZ Order Number: [id number] Reading MD: Raina Duvall Measurements Intervals [place] Rate: 63 P: -18 CO: 140 QRS: -7 QRSD: 84 T: -29 QT: 385 QTc: 395 Interpretive Statements SINUS RHYTHM WITH OCCASIONAL SUPRAVENTRICULAR PREMATURE COMPLEXES SHORT CO INTERVAL LEFT VENTRICULAR HYPERTROPHY AND ST-T CHANGE POOR R WAVE PROGRESSION NONSPECIFIC ST T WAVE CHANGES CW O9 RATE DECREASED NONSPECIFIC ST T WAVE CHANGES Electronically Signed on 07-03-2019 6:35:20 EST by Raina Duvall
--- NOTE | 2019-07-03 09:34 | REP ---
REASON: Chest pain. COMPARISON: 06/24/2019 The technique utilized in obtaining the radiograph has magnified the cardiac silhouette and accentuated the interstitial markings. The cardiac silhouette is magnified by technique. There is evidence of mild cardiomegaly. The lung malcolm are unchanged. No acute patchy parenchymal opacities or pleural effusions have developed. There is no change in the osseous structures. IMPRESSION: Cardiomegaly. No evidence of acute cardiopulmonary disease. Electronically Signed by Jairo Rodriguez DO 07/03/2019 09:53 A
== END 2019-07-03 03:04 | disposition home or self-care (01) ==
LOC: M ED 23:54
DX: E87.5 Hyperkalemia (principal); R94.31 Abnormal electrocardiogram [ECG] [EKG]; E11.9 Type 2 diabetes mellitus without complications; I10 Essential (primary) hypertension; I25.110 Atherosclerotic heart disease of native coronary artery with unstable angina pectoris; K21.9 Gastro-esophageal reflux disease without esophagitis; K50.90 Crohn's disease, unspecified, without complications; D50.9 Iron deficiency anemia, unspecified; Z79.899 Other long term (current) drug therapy; Z95.5 Presence of coronary angioplasty implant and graft; Z88.8 Allergy status to other drugs, medicaments and biological substances; Z88.2 Allergy status to sulfonamides

== ENCOUNTER 2019-07-07 01:20 | Emergency (ER) | payer MEDICARE ==
[~2019-07-07] VITALS: Ht 157.5 cm; Wt 83.6 kg
[2019-07-07] MEDS ORDERED: METOPROLOL 5 MG/5 ML VIAL IV SCH (01:30)
[2019-07-07] MEDS ORDERED: METOPROLOL TART 25 MG TABLET PO ONE (01:30)
[2019-07-07 01:37] LABS: HEMOGLOBIN 11.8 g/dl (12.0-15.5); MEAN CORPUSCULAR HEMOGLOBIN 30.6 pg (27.0-33.0); MEAN CORPUSCULAR HGB CONC 31.1 g/dl (32.0-36.5); MEAN CORPUSCULAR VOLUME 98.4 fl (80.0-96.0); PLATELET COUNT, AUTOMATED 379 10^3/uL (150-450); RED BLOOD COUNT 3.86 10^6/uL (4.00-5.40); WHITE BLOOD COUNT 13.9 10^3/uL (4.0-10.0)
[2019-07-07] MEDS ORDERED: METAL LOCK LOOP XX ONE (01:49)
[2019-07-07 01:52] LABS: ATYPICAL LYMPH 1 % (0-5); LYMPHOCYTES 32 % (16-44); METAMYELOCYTES 1 % (0-0); MONOCYTES 7 % (0-5); MYELOCYTES 1 % (0-0); NEUTROPHILS 57 % (28-66)
[2019-07-07 01:53] LABS: PLATELET ESTIMATE NORMAL (NORMAL)
[2019-07-07 02:14] LABS: BLOOD UREA NITROGEN 40 MG/DL (7-18); CALCIUM LEVEL 9.2 MG/DL (8.8-10.2); CARBON DIOXIDE LEVEL 19 MEQ/L (21-32); CHLORIDE LEVEL 106 MEQ/L (98-107); CK-MB VALUE MASS 2.1 NG/ML (<3.6); CPK CREATINE PHOSPHOKINASE 73 U/L (26-192); CREATININE FOR GFR 1.91 MG/DL (0.55-1.30); DIGOXIN LEVEL 0.8 NG/ML (0.5-2.0); GLOMERULAR FILTRATION RATE 27.1 (>39); GLUCOSE, FASTING 224 MG/DL (70-100); MAGNESIUM LEVEL 1.9 MG/DL (1.8-2.4); MB/CK RELATIVE INDEX 2.88 (< OR =4); NT-PRO BNP 564 PG/ML (<450); POTASSIUM SERUM 4.5 MEQ/L (3.5-5.1); SODIUM LEVEL 138 MEQ/L (136-145); TROPONIN I < 0.02 NG/ML (< 0.10)
[2019-07-07 03:07] VITALS: BP 124/64
[2019-07-07 04:15] VITALS: BP 171/75
--- NOTE | 2019-07-07 06:47 | REP ---
Clinical: Chest pain . Comparison: 07/03/2019 . Findings: The mediastinum and cardiac silhouette are stable and within normal limits for portable technique. The lung malcolm are clear without acute consolidation, effusion, or pneumothorax. Skeletal structures are intact. Impression: No acute cardiopulmonary process appreciated. Electronically Signed by Eduin Valdes MD 07/07/2019 06:38 A
--- NOTE | 2019-07-07 07:39 | ECGEPIP ---
[facility] - ED Test Date: 2019-07-07 Pat Name: NEELA ARTIS Department: Room: - Gender: Female Fur Stylist: sb : 1940 Requested By: KIRAN Galvin Order Number: [id number] Reading MD: Hugo Vicente Measurements Intervals [place] Rate: 137 P: [place]: 0 QRS: 42 QRSD: 82 T: -60 QT: 259 QTc: 392 Interpretive Statements ATRIAL FIBRILLATION WITH RAPID VENTRICULAR RESPONSE WIDESPREAD ST DEPRESSION WITH ST ELEVATION IN AVR: CONSIDER LMCA OCCLUSION Electronically Signed on 07-07-2019 7:39:32 EST by Hugo Vicente
--- NOTE | 2019-07-07 07:40 | ECGEPIP ---
[facility] - ED Test Date: 2019-07-07 Pat Name: NEELA ARTIS Department: Room: - Gender: Female Maltster: lr : 1940 Requested By: KIRAN Galvin Order Number: [id number] Reading MD: Hugo Vicente Measurements Intervals [place] Rate: 62 P: -14 ID: 143 QRS: 7 QRSD: 97 T: 0 QT: 298 QTc: 304 Interpretive Statements SINUS RHYTHM WITH OCCASIONAL SUPRAVENTRICULAR PREMATURE COMPLEXES NONSPECIFIC ST & T-WAVE ABNORMALITY RATE/RHYTHM CHANGE, WITH RESOLUTION OF ST CHANGES EXCEPT NONSPECIFIC LATERAL ST DEPRESSION Electronically Signed on 07-07-2019 7:40:36 EST by Hugo Vicente
== END 2019-07-07 04:39 | disposition home or self-care (01) ==
LOC: M ED 01:20
DX: I48.91 Unspecified atrial fibrillation (principal); E87.5 Hyperkalemia; E83.42 Hypomagnesemia; I25.10 Atherosclerotic heart disease of native coronary artery without angina pectoris; Z79.899 Other long term (current) drug therapy; Z79.01 Long term (current) use of anticoagulants; Z88.1 Allergy status to other antibiotic agents; Z88.2 Allergy status to sulfonamides; Z88.8 Allergy status to other drugs, medicaments and biological substances

== ENCOUNTER → 2019-12-09 | Outpatient (REF) | payer MEDICARE ==
[~2019-12-09] MED LIST changes: +DIGO0.123 PO
[2019-12-09 19:13] LABS: PERCENT SATURATION 11.3 % (13.2-45.0)
== END ==
LOC: M LAB REF 17:12
PROVIDERS: ATTEND Nurse Practitioner Adult Health
DX: M54.9 Dorsalgia, unspecified (principal); D50.9 Iron deficiency anemia, unspecified

== ENCOUNTER → 2019-12-12 | Outpatient (CLI) | payer MEDICARE ==
--- NOTE | 2019-12-12 14:56 | REP ---
REASON FOR EXAM: Pain. The latest prior for comparison is 07/07/2019. There is cardiomegaly. There is mild interstitial fibrotic change, status quo. No acute patchy parenchymal opacities or pleural effusions have developed. Degenerative change is seen involving the imaged spine. IMPRESSION: Chronic changes. Electronically Signed by Jairo Rodriguez DO 12/12/2019 04:05 P
--- NOTE | 2019-12-12 14:59 | REP ---
REASON FOR EXAM: Back pain. COMPARISON: 03/11/2019 A mild anterior wedge compression deformity might have developed involving T5 compared to the prior exam. This area is difficult to evaluate due to superimposition of other osseous structures. Vertebral body height and alignment is otherwise unchanged and again seen to be within normal limits. There is anterior lipping and anterior disc space narrowing, status quo. IMPRESSION: Possible T5 compression deformity, as described above. Consider MRI to search for marrow edema if an acute vertebral body compression abnormality is of clinical concern. Electronically Signed by Jairo Rodriguez DO 12/12/2019 04:05 P
== END ==
LOC: M WUC 13:53
PROVIDERS: ATTEND Internal Medicine
DX: I51.7 Cardiomegaly (principal); J84.10 Pulmonary fibrosis, unspecified; R93.7 Abnormal findings on diagnostic imaging of other parts of musculoskeletal system

== ENCOUNTER 2020-01-03 18:26 | Inpatient (IN) | payer MEDICARE ==
[~2020-01-03] VITALS: Ht 160 cm; Wt 90.9 kg
--- NOTE | 2020-01-03 19:11 | ECGEPIP ---
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
[2020-01-03 19:19] LABS: BASO % 0.1 % (0.0-1.0); HEMATOCRIT 33.6 % (36.0-47.0); HEMOGLOBIN 10.3 g/dl (12.0-15.5); LYMPH # 2.3 10^3/uL (1.5-5.0); LYMPH % 19.8 % (24.0-44.0); MEAN CORPUSCULAR HEMOGLOBIN 29.5 pg (27.0-33.0); MEAN CORPUSCULAR HGB CONC 30.7 g/dl (32.0-36.5); MEAN CORPUSCULAR VOLUME 96.3 fl (80.0-96.0); MONO # 0.7 10^3/uL (0.0-0.8); MONO % 5.5 % (0.0-5.0); NEUTROPHILS # 8.5 10^3/uL (1.5-8.5); NEUTROPHILS % 72.9 % (36.0-66.0); PLATELET COUNT, AUTOMATED 371 10^3/uL (150-450); RED BLOOD COUNT 3.49 10^6/uL (4.00-5.40); WHITE BLOOD COUNT 11.7 10^3/uL (4.0-10.0)
[2020-01-03 19:34] LABS: INR 1.53; PARTIAL THROMBOPLASTIN TIME 32.6 SECONDS (25.0-38.4); PROTHROMBIN TIME 18.1 SECONDS (11.8-14.0)
[2020-01-03] MEDS ORDERED: LIDOCAINE 5% (LIDODERM) PATCH TD STA (19:37)
[2020-01-03] MEDS ORDERED: MORPHINE 2 MG/ML 1ML VIAL (J2270) As Ordered ONE (19:39)
[2020-01-03] MEDS ORDERED: MORPHINE 2 MG/ML 1ML VIAL (J2270) IV ONE (19:45)
[2020-01-03 20:13] LABS: ALBUMIN 2.7 GM/DL (3.2-5.2); ALT/SGPT 28 U/L (12-78); BILIRUBIN,DIRECT 0.2 MG/DL (0.0-0.2); BILIRUBIN,TOTAL 0.7 MG/DL (0.2-1.0); BLOOD UREA NITROGEN 30 MG/DL (7-18); CALCIUM LEVEL 8.6 MG/DL (8.8-10.2); CARBON DIOXIDE LEVEL 23 MEQ/L (21-32); CHLORIDE LEVEL 104 MEQ/L (98-107); CK-MB VALUE MASS 1.9 NG/ML (<3.6); CPK CREATINE PHOSPHOKINASE 64 U/L (26-192); CREATININE FOR GFR 1.61 MG/DL (0.55-1.30); GLOMERULAR FILTRATION RATE 32.9 (>39); GLUCOSE, FASTING 232 MG/DL (70-100); MB/CK RELATIVE INDEX 2.97 (< OR =4); NT-PRO BNP 481 PG/ML (<450); POTASSIUM SERUM 5.2 MEQ/L (3.5-5.1); SODIUM LEVEL 136 MEQ/L (136-145); THYROID STIMULATING HORMONE 0.537 uIU/ML (0.358-3.740); TOTAL PROTEIN 6.2 GM/DL (6.4-8.2); TROPONIN I < 0.02 NG/ML (< 0.10)
--- NOTE | 2020-01-03 20:28 | REPVR ---
PROCEDURE INFORMATION: Exam: CT Thoracic Spine Without Contrast Exam date and time: 01/03/2020 8:12 PM Age: 79 years old Clinical indication: Pain in thoracic spine; Additional info: Severe mid back pain TECHNIQUE: Imaging protocol: Computed tomography images of the thoracic spine without contrast. Radiation optimization: All CT scans at this facility use at least one of these dose optimization techniques: automated exposure control; mA and/or kV adjustment per patient size (includes targeted exams where dose is matched to clinical indication); or iterative reconstruction. COMPARISON: CR SPINE THORACIC 3 VIEW 12/12/2019 2:05 PM FINDINGS: Vertebrae: Age-indeterminate compression deformity at T5. Mild anterolisthesis of T2 on T3 and T4 on T5. Findings likely degenerative. Discs/Spinal canal/Neural foramina: The spine demonstrates mild degenerative changes. Other bones/joints: Osteoporosis. Soft tissues: Unremarkable. Lungs: Bibasilar atelectasis. IMPRESSION: 1. Age-indeterminate compression deformity at T5. If acute fracture is suspected correlation with MRI of the spine suggested. 2. Mild anterolisthesis of T2 on T3 and T4 on T5. Findings likely degenerative. Electronically signed by: Andreas Hoyt On 01/03/2020 20:28:06 PM
[2020-01-03] MEDS ORDERED: **NOTE PATIENT COMMENT** MISC XX SCH (21:00)
[2020-01-03] MEDS: ATORVASTATIN 20 MG TAB PO SCH (21:00)
[2020-01-03] MEDS: MORPHINE 2 MG/ML 1ML VIAL (J2270) IV PRN ×2 (21:42→22:10)
[2020-01-03] MEDS ORDERED: ISOVUE-370 76% 100ML VIAL As Ordered ONE (22:32)
[2020-01-03] MEDS ORDERED: NS 500 ML IV ONE (23:00)
--- NOTE | 2020-01-03 23:23 | REPVR ---
PROCEDURE INFORMATION: Exam: CT Angiography Chest With Contrast Exam date and time: 01/03/2020 11:02 PM Age: 79 years old Clinical indication: Chest pain; Additional info: Severe mid back pain; R/O aaa/taa TECHNIQUE: Imaging protocol: Computed tomographic angiography of the chest with intravenous contrast. 3D rendering: MIP and/or 3D reconstructed images were created by the technologist. Radiation optimization: All CT scans at this facility use at least one of these dose optimization techniques: automated exposure control; mA and/or kV adjustment per patient size (includes targeted exams where dose is matched to clinical indication); or iterative reconstruction. Contrast material: ISO 370; Contrast volume: 100 ml; Contrast route: IV; COMPARISON: CT ANGIO CHEST 09/15/2014 2:42 AM FINDINGS: Pulmonary arteries: Normal. No pulmonary emboli. Aorta: Moderate atherosclerotic disease. No aortic aneurysm. No aortic dissection. Tracheobronchial tree: Visualized airway is unremarkable. Lungs: Dependent atelectasis in the lung. No acute consolidation. Pleural space: Unremarkable. No pneumothorax. No pleural effusion. Heart: Unremarkable. No cardiomegaly. No pericardial effusion. Lymph nodes: Unremarkable. No enlarged lymph nodes. Bones/joints: Degenerative changes of the left shoulder. Moderate degenerative spine. No acute fracture. Chronic compression deformity of T5 with moderate loss of height. There are incidental 13 rib-bearing vertebrae. Soft tissues: Unremarkable. IMPRESSION: 1. No aortic aneurysm or dissection. 2. Moderate atherosclerotic disease. 3. Chronic compression deformity of T5 with moderate loss of height. 4. Additional findings as described. 5. See also CT abdomen pelvis report. Electronically signed by: Gerardo Shaffer On 01/03/2020 23:23:05 PM
--- NOTE | 2020-01-03 23:34 | REPVR ---
PROCEDURE INFORMATION: Exam: CT Angiography Abdomen and Pelvis With Contrast Exam date and time: 01/03/2020 11:02 PM Age: 79 years old Clinical indication: Abdominal pain; Generalized; Additional info: Severe mid back pain; R/O aaa/taa TECHNIQUE: Imaging protocol: Computed tomographic angiography of the abdomen and pelvis with intravenous contrast material. 3D rendering: MIP and/or 3D reconstructed images were created by the technologist. Radiation optimization: All CT scans at this facility use at least one of these dose optimization techniques: automated exposure control; mA and/or kV adjustment per patient size (includes targeted exams where dose is matched to clinical indication); or iterative reconstruction. Contrast material: ISO 370; Contrast volume: 100 ml; Contrast route: IV; COMPARISON: No relevant prior studies available. FINDINGS: Lungs: Dependent atelectasis in the lung. Atherosclerotic [place]: Moderate atherosclerotic disease. Aorta: No aortic aneurysm. No aortic dissection. Celiac trunk and mesenteric arteries: Severe focal stenosis of the origin of the celiac trunk. Diffuse severe stenosis of the proximal 3.8 cm of the SMA. Inferior mesenteric artery is patent. Renal arteries: Severe focal stenosis or occlusion of the proximal right renal artery. Likely chronic. Right renal artery is otherwise diffusely small in caliber. Left renal artery is patent Right iliac arteries: Mild focal stenosis in the origin of the right common iliac artery. Moderate focal stenosis of the right internal iliac artery. Severe focal stenosis in the origin of the right external iliac artery. Right femoral/popliteal arteries: No occlusion or significant stenosis of the visualized common femoral artery. Left iliac arteries: Mild focal stenosis in the origin of the left common iliac artery. Moderate focal stenosis in the mid left common iliac artery. Left femoral/popliteal arteries: No occlusion or significant stenosis of the visualized common femoral artery. Liver: No mass. Gallbladder and bile ducts: Status post cholecystectomy. CBD measures 8 mm in diameter. Pancreas: Unremarkable. No mass. No ductal dilation. Spleen: Unremarkable. No splenomegaly. Adrenals: Unremarkable. No mass. Kidneys and ureters: Atrophic right kidney. Several benign-appearing cysts in the left kidney measuring up to 4.0 cm. Fatty lesion in the midpole of the left kidney measuring 11 mm. Stomach and bowel: No abnormal bowel dilatation. No abnormal bowel wall thickening. Copious stool in the colon. No evidence of bowel obstruction. Appendix: Status post appendectomy. Intraperitoneal space: Unremarkable. No free air. No significant fluid collection. Lymph nodes: Unremarkable. No enlarged lymph nodes. Bladder: Unremarkable. No mass. Reproductive: Status post hysterectomy. Bones/joints: Status post right hip arthroplasty. No acute fracture. Incidental 13 rib-bearing vertebrae. Severe degenerative spine. 5 mm anterolisthesis of L3-L4 and 7 mm anterolisthesis of L4-L5. Severe spinal stenosis at L3-L4 and L4-L5. There is suspected large extruded disc fragment at the L4-L5 level. Soft tissues: Status post ventral abdominal surgery. Small lower ventral abdominal hernia containing loop of small bowel just left of midline. No evidence of incarceration or obstruction. IMPRESSION: 1. No aortic aneurysm or dissection. 2. Severe focal stenosis of the origin of the celiac trunk. 3. Diffuse severe stenosis of the proximal 3.8 cm of the SMA. Stenosis appears chronic. 4. Atrophic right kidney. 5. Benign appearing left renal cysts. No follow-up is necessary. 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 No follow-up is necessary. 7. Small lower ventral abdominal hernia containing loop of small bowel just left of midline. No evidence of incarceration or obstruction. 8. Severe spinal stenosis at L3-L4 and L4-L5. 9. There is suspected large extruded disc fragment at the L4-L5 level. 10. Additional findings as described. Electronically signed by: Gerardo Shaffer On 01/03/2020 23:34:13 PM
[2020-01-04] MEDS ORDERED: MAALOX 30 ML SUSP *UDC PO PRN (01:00)
[2020-01-04] MEDS ORDERED: PERCOCET 5MG/325MG TAB PO PRN ×2 (01:00)
[2020-01-04] MEDS ORDERED: GLUCOSE 4GM CHEW TABLET PO PRN (01:00)
[2020-01-04] MEDS ORDERED: MOM 30ML SUSPENSION UDC PO PRN (01:00)
[2020-01-04] MEDS ORDERED: DEXTROSE 50% 50 ML SYRINGE IV PRN (01:00)
[2020-01-04] MEDS ORDERED: GLUCAGON INJ 1MG VIAL SC PRN (01:00)
[2020-01-04] MEDS ORDERED: ACETAMINOPHEN TAB 650MG DOSE (2X325MG) PO PRN (01:00)
[2020-01-04] MEDS ORDERED: OXYC-517 PO (01:09)
[2020-01-04] MEDS ORDERED: MAGN400T2 PO (01:09)
[2020-01-04] MEDS ORDERED: FAMO20TA PO (01:09)
[2020-01-04] MEDS ORDERED: PRED10TA2 PO (01:09)
[2020-01-04] MEDS ORDERED: GLIP5TAB8 PO (01:09)
[2020-01-04] MEDS ORDERED: SYST1SOL4 OU (01:09)
--- NOTE | 2020-01-04 01:15 | HPEPDOC ---
General Date of Admission January 03, 2020 at 18:27 Date of Service: January 04, 2020 Chief Complaint The patient is a 79-year-old female admitted with a reason for visit of Intractable Back Pain, Spinal Stenosis Of Lumbar. Source: Patient Timing/Duration: Other Severity: Moderate Associated Symptoms: Other (, back pain) History of Present Illness This is a 79 years old white female with past medical history of proximal atrial fibrillation, diabetes mellitus Crohn's disease, coronary artery disease with stent placement in 2016 has been following up with Dr. Keen follow her back pain and today again. She presented in ED chief complaints of back pain, upper and lower in nature with difficulty breathing, leg swelling last few days. She called Dr. Keen office and she was told to come to ED. At present, patient denies any chest pain, shortness of breath, nausea, vomiting. Patient's back pain has resolved with multiple doses of IV morphine given in the emergency room. Home Medications Scheduled Acetaminophen (Acetaminophen) 500 Mg Tablet, 2 TAB PO Q6H for fever, (Reported) Apixaban (Eliquis) 5 Mg Tablet, 1 TAB PO BID, (Reported) Atorvastatin Calcium (Atorvastatin Calcium) 40 Mg Tablet, 40 MG PO QPM, (Reported) Calcium Carbonate/Vitamin D3 (Calcium 600 + Vit D 400 Softgl) 1 Each Capsule, 1 CAP PO BID, (Reported) Citalopram Hydrobromide (Celexa) 20 Mg Tablet, 1.5 TAB PO DAILY, (Reported) Glipizide (Glipizide Xl) 2.5 Mg Tab.er.24, 1 TAB PO DAILY, (Reported) Mesalamine (Pentasa) 500 Mg Capsule.er, 1,000 MG PO DAILY, (Reported) Metoprolol Tartrate (Metoprolol Tartrate) 50 Mg Tablet, 50 MG PO BID, (Reported) Omeprazole (Omeprazole) 40 Mg Capsule.dr, 40 MG PO DAILY, (Reported) Prednisone (Prednisone) 10 Mg Tab.ds.pk, 15 MG PO DAILY, (Reported) Spironolactone (Spironolactone) 25 Mg Tablet, 0.5 MG PO DAILY, (Reported) Valsartan (Valsartan) 320 Mg Tablet, 160 MG PO DAILY, (Reported) Vit B Complex 100 Combo No.2 (B-100 Complex) 100 Mg Tablet.er, 1 TAB PO DAILY, (Reported) Scheduled PRN Alprazolam (Alprazolam ER) 0.5 Mg Tab.er.24h, 0.5 MG PO DAILYPRN PRN for ANXIETY, (Reported) Miscellaneous Medications Ferrous Sulfate (Ferrous Sulfate) 325 Mg Tablet.dr, 325 MG PO, (Reported) Allergies Coded Allergies: hydrocodone (Verified Allergy, Intermediate, 01/03/20) Sulfa (Sulfonamide Antibiotics) (Verified Allergy, Unknown, 07/03/19) hydrochlorothiazide (Verified Allergy, Unknown, 07/03/19) Past Medical History Medical History A. fib, diabetes mellitus, dyslipidemia, Crohn's disease, coronary artery disease Surgical History Breast biopsy 3, cholecystectomy, hysterectomy, bowel resection 2, right knee replacement, right hip replacement, cardiac catheterization 2015 Family History Family history reviewed. No history of diabetes or cancer Social History * Smoker: Denies Alcohol: Denies Drugs: denies A-FIB/CHADSVASC A-FIB History Current/History of A-Fib/PAF?: Yes Current PO Anticoag Therapy: Yes Review of Systems Constitutional: Denies: Chills, Fever, Malaise, Night Sweats, Weakness, Fatigue, Weight Loss, Lethargy, Other Eyes: Denies: Pain, Vision change, Conjunctivae inflammation, Eyelid inflammation, Redness, Other ENT: Denies: Head Aches, Ear Pain, Dysphagia, Sinus Congestion, Post Nasal Drip , Sore Throat, Epistaxis, Other Symptoms Skin: Denies: Rash, Lesions, Jaundice, Bruising, Itching, Dry, Breakdown, Nail Changes, Other Pulmonary: Reports: Dyspnea Cardiovascular: Reports: Edema Gastrointestinal: Denies: Nausea, Vomiting, Abdominal Pain, Diarrhea, Constipation, Melena, Hematochezia, Other Symptoms Genitourinary: Denies: Dysuria, Frequency, Incontinence, Hematuria, Retention, Other Symptoms Hematologic: Denies: Bruising, Bleeding Excessively Endocrine: Denies: Polydipsia, Polyphagia, Polyuria, Heat Intolerance, Cold Intolerance, Other Endocrine Sx Musculoskeletal: Reports: Back Pain, Other Symptoms (, bilateral leg swelling) Neurological: Denies: Weakness, Numbness, Incoordination, Change in speech, Confusion, Seizures, Other Symptoms Psych: Denies: Mood Normal, Anxiety, Depression, Memory Issues, Thoughts of Self Harm, Anger, Thoughts of Harming Other, Other Psych Physical Examination General Exam: Positive: Alert, Cooperative Eye Exam: Positive: PERRLA, Conjunctiva & lids normal ENT Exam: Positive: Atraumatic, Mucous membr. moist/pink Neck Exam: Positive: Supple Chest Exam: Positive: Clear to auscultation Heart Exam: Positive: Rate Normal, Normal S2 (`) Abdomen Exam: Positive: Normal bowel sounds, Soft Extremity Exam: Positive: Edema (1+ bipedal edema) Skin Exam: Positive: Nl turgor and temperature Neuro Exam: Positive: Strength at 5/5 X4 ext, Cranial Nerves 3-12 NL Psych Exam: Positive: Mood NL, Oriented x 3 Vital Signs Vital Signs Date Time Temp Pulse Resp B/P (MAP) Pulse Ox O2 Delivery O2 Flow Rate FiO2 01/03/20 23:53 54 18 166/64 (98) 96 Nasal Cannula 2.0 01/03/20 22:40 98.4 Laboratory Data Labs 24H Laboratory Tests 2 01/03/20 19:00: Immature Granulocyte % (Auto) 1.7, Neutrophils (%) (Auto) 72.9H, Lymphocytes (%) (Auto) 19.8L, Monocytes (%) (Auto) 5.5H, Eosinophils (%) (Auto) 0.0, Basophils (%) (Auto) 0.1, Neutrophils # (Auto) 8.5, Lymphocytes # (Auto) 2.3, Monocytes # (Auto) 0.7, Eosinophils # (Auto) 0.0, Basophils # (Auto) 0.0, Nucleated Red Blood Cells % (auto) 0.0, Prothrombin Time 18.1H, Prothromb Time International Ratio 1.53, Activated Partial Thromboplast Time 32.6, Anion Gap 9, Glomerular Filtration Rate 32.9L, Calcium Level 8.6L, Magnesium Level 2.0, Total Bilirubin 0.7, Direct Bilirubin 0.2, Aspartate Amino Transf (AST/SGOT) 22, Alanine A minotransferase (ALT/SGPT) 28, Alkaline Phosphatase 75, Total Creatine Kinase 64, Creatine Kinase MB 1.9, Creatine Kinase MB Relative Index 2.97, Troponin I < 0.02, FV-Pkl-Y-Type Natriuretic Peptide 481H, Total Protein 6.2L, Albumin 2.7L, Albumin/Globulin Ratio 0.8L, Thyroid Stimulating Hormone (TSH) 0.537 CBC/BMP Laboratory Tests 01/03/20 19:00 Problems (1) Intractable back pain Status: Acute Problem Text: Intractable back pain. She had a CTA in February of chest and abdomen and pelvis done in ED which showed no PE, no aortic aneurysm, but the stenosis of proximal 3.8 cm sma, also showed a spinal stenosis L3-L4, L4-L5, large extruded disc fragment L4-L5 , CBC, CMP, BNP and INR are within normal range Admit patient to observation to medical floor for pain management Are pain has improved with the multiple morphine sulfate injection in the emergency room Will continue lidocaine patch to lower back . Percocet tablets as per orders Physical therapy consultation has been requested Patient might benefit from transfer to the rehabilitation facility for some time before she is discharged back home Continue all home meds Activity ambulation with campus administrative assistant DVT prophylaxis Ev is already on anticoagulation for A. fib Diet consistent carbohydrate diet (2) Spinal stenosis of lumbar region Status: Acute Problem Text: Physical therapy consultation has been requested Pain management as per orders (3) Atrial fibrillation Status: Chronic Problem Text: Atrial fibrillation with controlled ventricular rate Continue home meds (4) Diabetes mellitus Status: Chronic Problem Text: Fingerstick blood sugar every before meals and at bedtime with coverage Continue home meds (5) Hyperlipidemia Status: Chronic Problem Text: Continue home meds Plan / VTE VTE Prophylaxis Ordered?: Yes SARWAT KAY MD January 04, 2020 01:15
[2020-01-04] MEDS ORDERED: FUROSEMIDE 40MG/4ML VIAL (J1940) As Ordered ONE (01:31)
--- NOTE | 2020-01-04 01:34 | REP ---
PORTABLE CHEST X-RAY, SINGLE VIEW: HISTORY: Dyspnea and cough. COMPARISON STUDY: 12/12/2019 FINDINGS: Monitoring electrodes are seen. The lungs are symmetrically aerated and free of infiltrate. Heart size is unchanged. Pleural angles are sharp. Pulmonary vasculature is not increased. The aorta is tortuous, as before. IMPRESSION: Mildly prominent heart, unchanged from the prior study. No active disease. Electronically Signed by Pacheco Parks MD 01/04/2020 08:24 A
[2020-01-04] MEDS ORDERED: FUROSEMIDE 20MG/2ML VIAL (J1940) IV ONE (01:45)
[2020-01-04] MEDS: HumaLOG INSULIN (NovoLOG) PER UNIT SC SCH ×5 (01:55→20:22)
[2020-01-04 02:00] LABS: HEMATOCRIT 32.1 % (36.0-47.0); HEMOGLOBIN 9.7 g/dl (12.0-15.5); MEAN CORPUSCULAR HEMOGLOBIN 29.2 pg (27.0-33.0); MEAN CORPUSCULAR HGB CONC 30.2 g/dl (32.0-36.5); MEAN CORPUSCULAR VOLUME 96.7 fl (80.0-96.0); PLATELET COUNT, AUTOMATED 309 10^3/uL (150-450); RED BLOOD COUNT 3.32 10^6/uL (4.00-5.40); WHITE BLOOD COUNT 10.9 10^3/uL (4.0-10.0)
[2020-01-04 02:35] VITALS: BP 151/58
[2020-01-04 02:39] LABS: ALBUMIN 2.6 GM/DL (3.2-5.2); BILIRUBIN,TOTAL 0.5 MG/DL (0.2-1.0); CALCIUM LEVEL 8.3 MG/DL (8.8-10.2); CREATININE FOR GFR 1.52 MG/DL (0.55-1.30); GLOMERULAR FILTRATION RATE 35.2 (>39); TOTAL PROTEIN 5.9 GM/DL (6.4-8.2)
[2020-01-04 06:00] VITALS: BP 152/49
[2020-01-04] MEDS: glipiZIDE (GLUCOTROL) 5 MG TAB PO SCH ×2 (07:52→17:38)
[2020-01-04] MEDS: MESALAMINE 250 MG CR CAP PO SCH ×3 (07:52→20:18)
[2020-01-04] MEDS: CitaloPRAM (CeleXA) 10 MG TABLET PO SCH (07:52)
[2020-01-04] MEDS: OMEPRAZOLE 20 MG CAP PO SCH (07:52)
[2020-01-04] MEDS: DOCUSATE SODIUM 100 MG CAP PO SCH ×2 (07:53→20:18)
[2020-01-04] MEDS: FAMOTIDINE 20 MG TAB PO SCH (07:53)
[2020-01-04] MEDS: MAGNESIUM OXIDE 400 MG TAB (MAG-OX) PO SCH ×2 (07:53→20:18)
[2020-01-04] MEDS: predniSONE 5 MG TAB PO SCH (07:54)
[2020-01-04] MEDS: METOPROLOL TART 50 MG TAB PO SCH ×2 (07:54→20:24)
[2020-01-04] MEDS: APIXABAN 5 MG TAB (ELIQUIS) PO SCH ×2 (07:54→20:20)
[2020-01-04] MEDS: VALSARTAN 80 MG TAB (DIOVAN) PO SCH (07:54)
[2020-01-04] MEDS: FERROUS SULFATE 325MG TAB PO SCH (07:54)
[2020-01-04] MEDS: SPIRONOLACTONE 12.5MG PER 1/2 TABLET PO SCH (07:55)
[2020-01-04] MEDS ORDERED: PREVNAR 13 VACCINE SYRINGE (CPT CODE:90670) IM ONE (09:00)
[2020-01-04] MEDS: **NOTE PATIENT COMMENT** MISC XX SCH (09:11)
[2020-01-04] MEDS ORDERED: MIRALAX *UNIT DOSE* 17GM PACKET PO PRN (10:45)
[2020-01-04] MEDS ORDERED: SENOKOT S TAB PO PRN (10:45)
[2020-01-04] MEDS ORDERED: BISACODYL 5 MG TAB PO PRN (10:45)
[2020-01-04] MEDS: ACETAMINOPHEN 500 MG TAB PO SCH ×3 (13:04→20:19)
[2020-01-04] MEDS: oxyCODONE 5MG TAB PO PRN ×2 (13:05→20:21)
[2020-01-04 14:00] VITALS: BP 141/75
[2020-01-04] MEDS ORDERED: ENTER DRUG NAME HERE (PATIENT'S OWN MED) OU SCH ×2 (17:00)
[2020-01-04] MEDS: LIDOCAINE 5% (LIDODERM) PATCH TD SCH (20:20)
[2020-01-04] MEDS: ATORVASTATIN 20 MG TAB PO SCH (20:20)
[2020-01-04 22:00] VITALS: BP 137/50
[2020-01-05] MEDS: oxyCODONE 5MG TAB PO PRN ×2 (01:01→07:57)
[2020-01-05 06:00] VITALS: BP 134/67
[2020-01-05] MEDS: HumaLOG INSULIN (NovoLOG) PER UNIT SC SCH ×4 (07:30→20:14)
[2020-01-05] MEDS: ACETAMINOPHEN 500 MG TAB PO SCH ×4 (07:53→20:36)
[2020-01-05] MEDS: CitaloPRAM (CeleXA) 10 MG TABLET PO SCH (07:53)
[2020-01-05] MEDS: MESALAMINE 250 MG CR CAP PO SCH ×3 (07:53→20:35)
[2020-01-05] MEDS: glipiZIDE (GLUCOTROL) 5 MG TAB PO SCH ×2 (07:54→18:00)
[2020-01-05] MEDS: DOCUSATE SODIUM 100 MG CAP PO SCH (07:55)
[2020-01-05] MEDS: FERROUS SULFATE 325MG TAB PO SCH (07:55)
[2020-01-05] MEDS: VALSARTAN 80 MG TAB (DIOVAN) PO SCH (07:55)
[2020-01-05] MEDS: predniSONE 5 MG TAB PO SCH (07:55)
[2020-01-05] MEDS: APIXABAN 5 MG TAB (ELIQUIS) PO SCH ×2 (07:56→20:35)
[2020-01-05] MEDS: OMEPRAZOLE 20 MG CAP PO SCH (07:56)
[2020-01-05] MEDS: FAMOTIDINE 20 MG TAB PO SCH (07:56)
[2020-01-05] MEDS: MAGNESIUM OXIDE 400 MG TAB (MAG-OX) PO SCH ×2 (07:56→20:35)
[2020-01-05] MEDS: METOPROLOL TART 50 MG TAB PO SCH ×2 (07:56→20:38)
[2020-01-05] MEDS: SPIRONOLACTONE 12.5MG PER 1/2 TABLET PO SCH (07:57)
[2020-01-05] MEDS: **NOTE PATIENT COMMENT** MISC XX SCH (07:57)
[2020-01-05] MEDS: POLYVINYL ALCOHOL OPHTH SOLN 15 ML(LIQUITEARS) OU PRN ×2 (07:58→11:58)
[2020-01-05] MEDS: oxyCODONE 10 MG CR TAB PO SCH ×2 (10:39→20:36)
[2020-01-05 14:00] VITALS: BP 133/65
[2020-01-05] MEDS: MIRALAX *UNIT DOSE* 17GM PACKET PO SCH ×2 (14:23→20:35)
[2020-01-05] MEDS: PREGABALIN 25 MG CAP (LYRICA) PO SCH ×2 (14:23→20:35)
[2020-01-05 14:39] LABS: HEMATOCRIT 35.9 % (36.0-47.0); HEMOGLOBIN 11.1 g/dl (12.0-15.5); MEAN CORPUSCULAR HEMOGLOBIN 30.7 pg (27.0-33.0); MEAN CORPUSCULAR HGB CONC 30.9 g/dl (32.0-36.5); MEAN CORPUSCULAR VOLUME 99.4 fl (80.0-96.0); PLATELET COUNT, AUTOMATED 385 10^3/uL (150-450); RED BLOOD COUNT 3.61 10^6/uL (4.00-5.40)
[2020-01-05 14:54] LABS: INR 1.44; PROTHROMBIN TIME 17.3 SECONDS (11.8-14.0)
[2020-01-05 14:55] LABS: PARTIAL THROMBOPLASTIN TIME 35.2 SECONDS (25.0-38.4)
[2020-01-05 15:09] LABS: CALCIUM LEVEL 8.7 MG/DL (8.8-10.2); CREATININE FOR GFR 1.78 MG/DL (0.55-1.30); GLOMERULAR FILTRATION RATE 29.3 (>39); POTASSIUM SERUM 5.1 MEQ/L (3.5-5.1)
[2020-01-05] MEDS ORDERED: NS 1,000 ML IV ONE (16:45)
[2020-01-05] MEDS: NS 1,000 ML IV SCH (18:01)
[2020-01-05] MEDS: metroNIDAZOLE 500 MG in IV 1 EA IV SCH (18:01)
[2020-01-05 19:02] LABS: HEMATOCRIT 30.5 % (36.0-47.0); HEMOGLOBIN 9.5 g/dl (12.0-15.5)
[2020-01-05 20:15] VITALS: BP 142/46
[2020-01-05] MEDS: CIPROFLOXACIN 200 MG in IV 1 EA IV SCH (20:33)
[2020-01-05] MEDS: ATORVASTATIN 20 MG TAB PO SCH (20:35)
[2020-01-05] MEDS: LIDOCAINE 5% (LIDODERM) PATCH TD SCH (20:36)
[2020-01-05] MEDS ORDERED: SENOKOT S TAB PO SCH (21:00)
--- NOTE | 2020-01-05 23:17 | IPN ---
DATE: 01/05/2020 Patient is still complaining of 8/10 pain, unalleviated by Percocet. Over the past 24 hours, she has used a total of 20 mg of oxycodone as well as Tylenol 1 gram before food and nightly along with a bowel regimen. Patient states that she had hemorrhoidal bleeding yesterday and requesting some assistance. Otherwise denies any dizziness, lightheadedness, chest pain or shortness of breath. The patient is unable to get out of bed or ambulate due to severe neuropathic pain, described as burning down the leg Temperature 98.3, pulse 53, respiratory rate 19, blood pressure 134/59, 93% on room air. Generally awake, alert, oriented to person, place and time. Answers questions appropriately. No jugular venous distention (JVD) or thyromegaly. Lungs are clear to auscultation. No wheezing, rales or rhonchi. Heart: S1, S2, sinus rhythm. Abdomen is obese, soft, nontender, nondistended. Positive bowel sounds. Extremities: No cyanosis or clubbing. Patient does have some tenderness around L3 to L5, as well as the upper back around T5. LABORATORY DATA: Microbiology: Admitting studies have been reviewed. ASSESSMENT AND PLAN: This is a 79-year-old female, history of paroxysmal atrial fibrillation, diabetes, Crohn's, coronary artery disease with stent, follows with Dr. Keen, admitted on 01/03/2020 due to complaints of intractable back pain, lower extremity edema along with difficulty ambulating, was found to have severe spinal stenosis and thoracic T5 deformity due to compression, loss of height. Moderate atherosclerotic disease without aneurysm or dissection. Patient had been under the care of Dr. Roque Flaherty who had recommended no surgical intervention as the patient has significant osteoporosis and surgery would not be beneficial. 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 Changes appear to be chronic. Patient currently does not complain of any acute weight loss or significant abdominal pain, and there are no signs of mesenteric ischemia. IMPRESSION: 1. Intractable back pain secondary to severe lumbar spinal stenosis with radiculopathy. Patient had been followed by Dr. Roque Flaherty, who is our orthopedic spinal specialist, who did not recommend any surgical intervention as the patient has osteoporosis and would not benefit from this. At this time, she is being tried on OxyContin 10 mg twice a day, Lyrica 25 mg twice a day and oxycodone 5 mg every 4 hours to determine the proper regimen for pain control. Acute rehab unit (ARU) has been consulted for rehabilitation services. 2. Paroxysmal atrial fibrillation. Currently sinus rhythm, on chronic Eliquis and metoprolol. 3. Osteoporosis. Patient is on chronic prednisone for her Crohn's disease, and is not a candidate for surgery due to significant osteoporosis. Still on calcium and vitamin D secondary to chronic prednisone use. 4. History of coronary artery disease, status post stenting. On atorvastatin, metoprolol, spironolactone and valsartan. No acute ischemic symptoms. 5. Severe peripheral arterial disease with SMA, as well as celiac trunk blockages She currently has no abdominal complaints. Refer to interventional radiology for possible stenting in the future if she does develop some symptoms. Will speak to her, and if she does have start of abdominal pain and chronic bloody diarrhea, will defer to interventional radiology, Dr. Hernandez, to discuss if she would benefit from stenting. 6. Disposition: The patient has been changed to inpatient as she has been unable to achieve good pain control. ARU has been consulted. We will need to further evaluate for any symptoms for mesenteric ischemia due to findings of severe SMA and celiac trunk stenosis. 7. Crohn's disease, history of hemorrhoidal bleeding, suspicious for possible ischemia. Will check a lactic acid, hemoglobin and hematocrit and interventional radiology (IR) consult for possible stenting. The patient is on chronic Eliquis, will need to be held if patient opts for treatment and patient is symptomatic from this ischemia. BRIANNAD
[2020-01-06] MEDS: metroNIDAZOLE 500 MG in IV 1 EA IV SCH ×3 (01:51→16:13)
[2020-01-06] MEDS: oxyCODONE 5MG TAB PO PRN ×2 (01:59→18:46)
[2020-01-06 05:46] VITALS: BP 158/56
[2020-01-06] MEDS: CIPROFLOXACIN 200 MG in IV 1 EA IV SCH ×2 (06:21→17:22)
[2020-01-06 07:05] LABS: HEMATOCRIT 30.6 % (36.0-47.0); HEMOGLOBIN 9.3 g/dl (12.0-15.5); MEAN CORPUSCULAR HEMOGLOBIN 29.7 pg (27.0-33.0); MEAN CORPUSCULAR HGB CONC 30.4 g/dl (32.0-36.5); MEAN CORPUSCULAR VOLUME 97.8 fl (80.0-96.0); PLATELET COUNT, AUTOMATED 341 10^3/uL (150-450); RED BLOOD COUNT 3.13 10^6/uL (4.00-5.40); WHITE BLOOD COUNT 12.9 10^3/uL (4.0-10.0)
[2020-01-06 07:28] LABS: CALCIUM LEVEL 8.1 MG/DL (8.8-10.2); CREATININE FOR GFR 1.58 MG/DL (0.55-1.30); GLOMERULAR FILTRATION RATE 33.7 (>39); POTASSIUM SERUM 4.2 MEQ/L (3.5-5.1)
[2020-01-06] MEDS: HumaLOG INSULIN (NovoLOG) PER UNIT SC SCH ×4 (07:30→21:00)
[2020-01-06] MEDS: NS 1,000 ML IV SCH ×2 (07:58→12:22)
[2020-01-06] MEDS: MOM 30ML SUSPENSION UDC PO SCH ×2 (07:58→11:00)
[2020-01-06] MEDS: glipiZIDE (GLUCOTROL) 5 MG TAB PO SCH (07:59)
[2020-01-06] MEDS: MESALAMINE 250 MG CR CAP PO SCH ×3 (07:59→21:51)
[2020-01-06] MEDS: ACETAMINOPHEN 500 MG TAB PO SCH ×4 (07:59→21:50)
[2020-01-06] MEDS: MIRALAX *UNIT DOSE* 17GM PACKET PO SCH ×2 (08:00→21:51)
[2020-01-06] MEDS: MAGNESIUM OXIDE 400 MG TAB (MAG-OX) PO SCH ×2 (08:00→21:49)
[2020-01-06] MEDS: PREGABALIN 25 MG CAP (LYRICA) PO SCH ×2 (08:00→21:49)
[2020-01-06] MEDS: OMEPRAZOLE 20 MG CAP PO SCH (08:01)
[2020-01-06] MEDS: SPIRONOLACTONE 12.5MG PER 1/2 TABLET PO SCH (08:01)
[2020-01-06 08:02] VITALS: BP 141/50
[2020-01-06] MEDS: FAMOTIDINE 20 MG TAB PO SCH (08:02)
[2020-01-06] MEDS: SENOKOT S TAB PO SCH ×2 (08:02→21:49)
[2020-01-06] MEDS: predniSONE 5 MG TAB PO SCH (08:02)
[2020-01-06] MEDS: METOPROLOL TART 50 MG TAB PO SCH ×2 (08:02→21:51)
[2020-01-06] MEDS: CitaloPRAM (CeleXA) 10 MG TABLET PO SCH (08:02)
[2020-01-06] MEDS: **NOTE PATIENT COMMENT** MISC XX SCH (08:03)
[2020-01-06] MEDS: FERROUS SULFATE 325MG TAB PO SCH (08:03)
[2020-01-06] MEDS: VALSARTAN 80 MG TAB (DIOVAN) PO SCH (08:03)
[2020-01-06] MEDS: oxyCODONE 10 MG CR TAB PO SCH (08:03)
[2020-01-06] MEDS: APIXABAN 5 MG TAB (ELIQUIS) PO SCH (08:03)
[2020-01-06] MEDS: ANUSOL HC 25MG SUPP PR SCH ×3 (09:37→21:51)
[2020-01-06 12:26] LABS: HEMATOCRIT 31.2 % (36.0-47.0); HEMOGLOBIN 9.6 g/dl (12.0-15.5)
[2020-01-06 14:00] VITALS: BP 141/50
[2020-01-06 18:11] LABS: HEMATOCRIT 31.1 % (36.0-47.0); HEMOGLOBIN 9.2 g/dl (12.0-15.5)
[2020-01-06 19:51] VITALS: BP 154/53
[2020-01-06] MEDS: oxyCODONE 15 MG CR TAB PO SCH (21:50)
[2020-01-06] MEDS: ATORVASTATIN 20 MG TAB PO SCH (21:51)
[2020-01-06] MEDS: LIDOCAINE 5% (LIDODERM) PATCH TD SCH (21:52)
[2020-01-06] MEDS ORDERED: FUROSEMIDE 20MG/2ML VIAL (J1940) IV ONE (22:45)
[2020-01-07] MEDS: metroNIDAZOLE 500 MG in IV 1 EA IV SCH ×2 (00:47→08:33)
[2020-01-07] MEDS: CIPROFLOXACIN 200 MG in IV 1 EA IV SCH (05:38)
[2020-01-07] MEDS: ANUSOL HC 25MG SUPP PR SCH ×3 (05:38→21:47)
[2020-01-07 05:47] VITALS: BP 165/76
[2020-01-07] MEDS: HumaLOG INSULIN (NovoLOG) PER UNIT SC SCH ×4 (07:30→21:00)
[2020-01-07 07:38] LABS: HEMATOCRIT 33.2 % (36.0-47.0); HEMOGLOBIN 10.1 g/dl (12.0-15.5); MEAN CORPUSCULAR HEMOGLOBIN 30.1 pg (27.0-33.0); MEAN CORPUSCULAR HGB CONC 30.4 g/dl (32.0-36.5); MEAN CORPUSCULAR VOLUME 99.1 fl (80.0-96.0); PLATELET COUNT, AUTOMATED 316 10^3/uL (150-450); RED BLOOD COUNT 3.35 10^6/uL (4.00-5.40); WHITE BLOOD COUNT 13.5 10^3/uL (4.0-10.0)
[2020-01-07 07:57] LABS: CALCIUM LEVEL 8.7 MG/DL (8.8-10.2); CREATININE FOR GFR 1.45 MG/DL (0.55-1.30); GLOMERULAR FILTRATION RATE 37.2 (>39); POTASSIUM SERUM 4.1 MEQ/L (3.5-5.1)
[2020-01-07] MEDS: MIRALAX *UNIT DOSE* 17GM PACKET PO SCH ×2 (08:33→21:47)
[2020-01-07] MEDS: FERROUS SULFATE 325MG TAB PO SCH (08:34)
[2020-01-07] MEDS: METOPROLOL TART 50 MG TAB PO SCH ×2 (08:34→21:46)
[2020-01-07] MEDS: PREGABALIN 25 MG CAP (LYRICA) PO SCH ×2 (08:34→21:46)
[2020-01-07] MEDS: MAGNESIUM OXIDE 400 MG TAB (MAG-OX) PO SCH ×2 (08:34→21:46)
[2020-01-07] MEDS: SPIRONOLACTONE 12.5MG PER 1/2 TABLET PO SCH (08:34)
[2020-01-07] MEDS: FAMOTIDINE 20 MG TAB PO SCH (08:34)
[2020-01-07] MEDS: MESALAMINE 250 MG CR CAP PO SCH ×3 (08:34→21:45)
[2020-01-07] MEDS: predniSONE 5 MG TAB PO SCH (08:35)
[2020-01-07] MEDS: VALSARTAN 80 MG TAB (DIOVAN) PO SCH (08:35)
[2020-01-07] MEDS: CitaloPRAM (CeleXA) 10 MG TABLET PO SCH (08:35)
[2020-01-07] MEDS: SENOKOT S TAB PO SCH ×2 (08:35→21:46)
[2020-01-07] MEDS: ACETAMINOPHEN 500 MG TAB PO SCH ×4 (08:36→21:46)
[2020-01-07] MEDS: oxyCODONE 15 MG CR TAB PO SCH ×2 (08:36→21:47)
[2020-01-07] MEDS: OMEPRAZOLE 20 MG CAP PO SCH (08:36)
[2020-01-07] MEDS: **NOTE PATIENT COMMENT** MISC XX SCH (08:37)
[2020-01-07 14:00] VITALS: BP 138/48
--- NOTE | 2020-01-07 15:04 | IPNPDOC ---
Date Seen The patient was seen on 01/07/20. Progress Note back pain 2/10 on oxycontin 15mg bid, c/o slight weakness , "but it's because I've been laying around not walking much." no dysuria, urgency, frequency. denies fevers. urine cx negative . abx discontinued. no abd pain, cough. slight sob without chest pain pressure or tightness. ivfluids discontinued. no recurrent brbpr, hct stable ac held. PE VS: see below Generally awake, alert, oriented to person, place and time. Answers questions appropriately. No jugular venous distention (JVD) or thyromegaly. Lungs are clear to auscultation. No wheezing, rales or rhonchi. Heart: S1, S2, sinus rhythm. Abdomen is obese, soft, nontender, nondistended. Positive bowel sounds. Extremities: No cyanosis or clubbing. Patient does have some tenderness around L3 to L5, as well as the upper back around T5. LABORATORY DATA: Microbiology: Admitting studies have been reviewed. ASSESSMENT AND PLAN: This is a 79-year-old female, history of paroxysmal atrial fibrillation, diabetes, Crohn's, coronary artery disease with stent, follows with Dr. Keen, admitted on 01/03/2020 due to complaints of intractable back pain, lower extremity edema along with difficulty ambulating, was found to have severe spinal stenosis and thoracic T5 deformity due to compression, loss of height. Moderate atherosclerotic disease without aneurysm or dissection. Patient had been under the care of Dr. Roque Flaherty who had recommended no surgical intervention as the patient has significant osteoporosis and surgery would not be beneficial. 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 Changes appear to be chronic. Patient currently does not complain of any acute weight loss or significant abdominal pain, and there are no signs of mesenteric ischemia. Neck and shoulder pain/ Back pain secondary to severe lumbar spinal stenosis with radiculopathy, improved. pt says it's "tolerable." Dr. Roque Flaherty, orthopedic spinal specialist, had seen the patient in the past and who did not recommend any surgical intervention as the patient has osteoporosis and would not benefit from this. At this time, she is on OxyContin 15 mg twice a day, Lyrica 25 mg twice a day and oxycodone 5 mg every 4 hours to determine the proper regimen for pain control. Cleared by physical therapy. Acute Blood loss anemia pt's AC held due to bright red blood after BM which pt says most likely from hemorrhoids. no recurrent episode. hgb decreased from 11 to 9.6. Acute LGI bleed most likely hemorrhoidal bleeding. no abd pain, or recurrent bloody diarrhea to suspect acute crohn's exacerbation. anusol suppositories. h&h dropped from 11 to 9.6 prompting discontinuation of pt's eliquis. if repeat bm without blood and no changes in hgb, will resume eliquis and dc home Thursday. Paroxysmal atrial fibrillation. Currently sinus rhythm, on metoprolol for rate control. held eliquis due to acute GI bleed. Osteoporosis. Patient is on chronic prednisone for her Crohn's disease, and is not a candidate for surgery due to significant osteoporosis. Still on calcium and vitamin D secondary to chronic prednisone use. History of coronary artery disease, status post stenting. On atorvastatin, metoprolol, spironolactone and valsartan. No acute ischemic symptoms. Severe peripheral arterial disease with SMA, as well as celiac trunk blockages She currently has no abdominal complaints. Refer to interventional radiology for possible stenting in the future if she does develop some symptoms. defer to interventional radiology, Dr. Hernandez, to discuss if she would benefit from stenting as outpt. Crohn's disease, compensated pt denies any abdominal pain or bloody diarrhea at this time. she is continued on her home medications. Disposition: dc home thursday w home care referral. VS, I&O, 24H, Fishbone Vital Signs/I&O Vital Signs Date Time Temp Pulse Resp B/P (MAP) Pulse Ox O2 Delivery O2 Flow Rate FiO2 01/07/20 08:36 18 01/07/20 08:35 165/76 01/07/20 08:34 50 01/07/20 05:47 98.1 96 Room Air 01/04/20 06:00 2.0 I&O- Last 24 Hours up to 6 AM 01/07/20 06:00 Intake Total 4340 ml Output Total 4650 ml Balance -310 ml Laboratory Data 24H LABS Laboratory Tests 2 01/06/20 16:32: Bedside Glucose (Misc Panel) 288H 01/06/20 19:45: Bedside Glucose (Misc Panel) 221H 01/07/20 07:07: Nucleated Red Blood Cells % (auto) 0.1H, Anion Gap 7L, Glomerular Filtration Rate 37.2L, Calcium Level 8.7L 01/07/20 11:31: Bedside Glucose (Misc Panel) 190H CBC/BMP Laboratory Tests 01/06/20 17:54 01/07/20 07:07 Microbiology Microbiology 01/06/20 Urine Culture - Final, Complete 01/06/20 Stool Occult Blood (KUSHAL) - Final, Complete DANNIE POP MD January 07, 2020 15:04
--- NOTE | 2020-01-07 15:48 | IPN ---
DATE: 01/06/2020 Patient says that she continues to have bowel movements which are bloody. She said that after evacuating she now has a gush of bright red blood in the rectum. No abdominal pain, weight loss, or fever or chills. Lactic acid yesterday was 5.1, white count of 12.9. She was given intravenous (IV) fluids with subsequent improving in lactic acid to 1.6. Patient denies nausea, vomiting, abdominal pain, chest pain, pressure, or tightness, shortness of breath, dizziness, lightheadedness, or generalized weakness. Pain in the back is slightly improved on OxyContin twice a day. Hemoccult stool, first one, is negative. VITAL SIGNS: Temperature 97.8, pulse 55, respiratory rate 18, blood pressure 141/50, 94% on room air. GENERAL: Patient is awake, alert, oriented to person, place, and time, answering questions appropriately. No pallor, icterus, or jaundice. No jugular venous distention (JVD). No thyromegaly. LUNGS: Clear to auscultation. No wheezes, rales, or rhonchi. HEART: S1, S2, sinus rhythm. ABDOMEN: Soft, nontender, nondistended. EXTREMITIES: No cyanosis or clubbing. LABORATORY DATA: White count 12.9, hemoglobin 9.6, hematocrit 31, platelet count 341. Creatinine 1.58, decreased from 1.78 yesterday. Glucose 47. Lactic acid of 5.9, improved to 1.6 today. Microbiology: Hemoccult stool negative. ASSESSMENT AND PLAN: This is a 79-year-old female who lives alone with a history of paroxysmal atrial fibrillation, on chronic anticoagulation, diabetes, Crohn's, coronary artery disease (CAD), hemorrhoids, admitted on January 02 due to intractable back pain, lower extremity edema, and difficulty ambulating. Was found to have severe spinal stenosis. Thoracic T5 deformity due to compression and loss of height. Patient was evaluated by Dr. Flaherty, who did not feel that surgical intervention would be beneficial due to significant osteoporosis. 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 Due to recent bright red blood per rectum, lactic acid was tracked, which was elevated with concerns for possible ischemia from known history of celiac artery and SMA stenosis; however, per Dr. Hernandez, interventional radiology, patient may followup in the office with recommendations for colonoscopy. At this time patient is refusing colonoscopy or flexible sigmoidoscopy. She says that she follows with Dr. Mancia as outpatient, and they had done upper gastrointestinal (GI) series with small-bowel follow-through in the past to evaluate her Crohn's. She does not do well with colonoscopies and is refraining despite persistent blood loss. IMPRESSION: 1. Acute blood loss secondary to gastrointestinal (GI) bleed, most likely due to hemorrhoidal bleeding with history of Crohn's disease. Patient at this time is agreeable to blood transfusion if needed. She is asymptomatic from her blood loss and denies any chest pain, pressure, or tightness, shortness of breath, dizziness, or palpitations. 2. Acute GI bleed secondary to hemorrhoidal bleeding in the setting of chronic Eliquis use. Patient's anticoagulation has been held due to anemia from GI bleed from her hemorrhoidal bleeding. Hemoglobin and hematocrit have been cycled. She has been consented for blood transfusion if needed. She is refusing colonoscopy, flexible sigmoidoscopy, and any invasive treatment. At this time she is agreeable to stopping her anticoagulation and blood transfusion until things resolve. 3. Hemorrhoids. Patient does not have any diarrhea. She says that she has a formed stool and then has blood after. She does not believe her Crohn's disease is active at this time. She is agreeable to treating the hemorrhoids for now with suppositories. She is refusing any GI evaluation, colonoscopy, or flexible sigmoidoscopy at this time. 4. Hyperglycemia. Hold the patient's glipizide for now. She was asymptomatic from that episode. Continue with sliding scale and consistent-carbohydrate diet. 5. Chronic osteoporosis with spinal stenosis. Pain is better controlled. Will continue to monitor. 6. Paroxysmal atrial fibrillation, currently rate controlled, but anticoagulation is being held due to acute blood loss anemia secondary to GI bleed from hemorrhoidal bleeding. 7. History of Crohn's disease. Is not having any diarrhea or abdominal pain. She is continued on her home dose of Pentasa. 8. Hypertension, on metoprolol 50 twice a day. Also being used for her history of chronic atrial fibrillation. 9. Chronic kidney disease, on valsartan, stable with current issues. 10. Under subjective patient complains of hematuria, therefore will check urinalysis (UA), urine culture and sensitivity (C and S). Patient is currently already on ciprofloxacin, which we will continue with renal dosing. Await result of the UA with reflex culture. DISPOSITION: Due to recent acute blood loss, patient will need to be monitored for the next 24-48 hours to see if she will need a blood transfusion and whether she would need rapid reversal with fresh frozen plasma (FFP) transfusion. We will need to wait for any sudden decompensation. MTDD
[2020-01-07] MEDS: ATORVASTATIN 20 MG TAB PO SCH (21:46)
[2020-01-07] MEDS: LIDOCAINE 5% (LIDODERM) PATCH TD SCH (21:47)
[2020-01-08] MEDS: oxyCODONE 5MG TAB PO PRN (02:51)
[2020-01-08] MEDS: ANUSOL HC 25MG SUPP PR SCH ×3 (05:53→22:10)
[2020-01-08 05:57] VITALS: BP 145/65
[2020-01-08 07:38] LABS: HEMOGLOBIN 10.4 g/dl (12.0-15.5); MEAN CORPUSCULAR HEMOGLOBIN 30.4 pg (27.0-33.0); MEAN CORPUSCULAR HGB CONC 30.6 g/dl (32.0-36.5); MEAN CORPUSCULAR VOLUME 99.4 fl (80.0-96.0); PLATELET COUNT, AUTOMATED 330 10^3/uL (150-450); RED BLOOD COUNT 3.42 10^6/uL (4.00-5.40); WHITE BLOOD COUNT 13.5 10^3/uL (4.0-10.0)
[2020-01-08 08:07] LABS: CALCIUM LEVEL 8.9 MG/DL (8.8-10.2); CREATININE FOR GFR 1.63 MG/DL (0.55-1.30); GLOMERULAR FILTRATION RATE 32.5 (>39); POTASSIUM SERUM 4.5 MEQ/L (3.5-5.1)
[2020-01-08] MEDS: HumaLOG INSULIN (NovoLOG) PER UNIT SC SCH ×4 (08:18→21:00)
[2020-01-08] MEDS: OMEPRAZOLE 20 MG CAP PO SCH (08:19)
[2020-01-08] MEDS: MIRALAX *UNIT DOSE* 17GM PACKET PO SCH ×2 (08:19→20:19)
[2020-01-08] MEDS: MESALAMINE 250 MG CR CAP PO SCH ×3 (08:19→20:18)
[2020-01-08] MEDS: FERROUS SULFATE 325MG TAB PO SCH (08:19)
[2020-01-08] MEDS: VALSARTAN 80 MG TAB (DIOVAN) PO SCH (08:20)
[2020-01-08] MEDS: SENOKOT S TAB PO SCH ×2 (08:20→20:20)
[2020-01-08] MEDS: MAGNESIUM OXIDE 400 MG TAB (MAG-OX) PO SCH ×2 (08:20→20:17)
[2020-01-08] MEDS: METOPROLOL TART 50 MG TAB PO SCH ×2 (08:21→20:21)
[2020-01-08] MEDS: FAMOTIDINE 20 MG TAB PO SCH (08:21)
[2020-01-08] MEDS: CitaloPRAM (CeleXA) 10 MG TABLET PO SCH (08:21)
[2020-01-08] MEDS: ACETAMINOPHEN 500 MG TAB PO SCH ×4 (08:21→20:18)
[2020-01-08] MEDS: PREGABALIN 25 MG CAP (LYRICA) PO SCH ×2 (08:21→20:17)
[2020-01-08] MEDS: predniSONE 5 MG TAB PO SCH (08:21)
[2020-01-08] MEDS: SPIRONOLACTONE 12.5MG PER 1/2 TABLET PO SCH (08:22)
[2020-01-08] MEDS: oxyCODONE 15 MG CR TAB PO SCH ×2 (08:22→20:20)
[2020-01-08] MEDS: **NOTE PATIENT COMMENT** MISC XX SCH (09:00)
[2020-01-08] MEDS: APIXABAN 5 MG TAB (ELIQUIS) PO SCH ×2 (10:23→20:17)
[2020-01-08] MEDS ORDERED: OXYC15TA66 PO (10:43)
[2020-01-08] MEDS ORDERED: OXYC-517 PO (10:43)
[2020-01-08] MEDS ORDERED: ANUSHCSU PR (10:43)
[2020-01-08 16:02] VITALS: BP 152/68
[2020-01-08] MEDS: ATORVASTATIN 20 MG TAB PO SCH (20:18)
[2020-01-08] MEDS: LIDOCAINE 5% (LIDODERM) PATCH TD SCH (20:21)
[2020-01-08 22:00] VITALS: BP 176/68
[2020-01-09 06:00] VITALS: BP 177/68
[2020-01-09] MEDS: ANUSOL HC 25MG SUPP PR SCH ×2 (06:00→14:00)
[2020-01-09 07:16] LABS: HEMOGLOBIN 10.8 g/dl (12.0-15.5); PLATELET COUNT, AUTOMATED 343 10^3/uL (150-450)
[2020-01-09 07:40] LABS: CREATININE FOR GFR 1.77 MG/DL (0.55-1.30); GLOMERULAR FILTRATION RATE 29.5 (>39); POTASSIUM SERUM 4.5 MEQ/L (3.5-5.1)
[2020-01-09] MEDS: ACETAMINOPHEN 500 MG TAB PO SCH ×2 (08:05→12:58)
[2020-01-09] MEDS: HumaLOG INSULIN (NovoLOG) PER UNIT SC SCH ×2 (08:05→12:58)
[2020-01-09] MEDS: MIRALAX *UNIT DOSE* 17GM PACKET PO SCH (08:05)
[2020-01-09] MEDS: SENOKOT S TAB PO SCH (08:07)
[2020-01-09] MEDS: OMEPRAZOLE 20 MG CAP PO SCH (08:07)
[2020-01-09] MEDS: FAMOTIDINE 20 MG TAB PO SCH (08:07)
[2020-01-09] MEDS: MAGNESIUM OXIDE 400 MG TAB (MAG-OX) PO SCH (08:07)
[2020-01-09] MEDS: SPIRONOLACTONE 12.5MG PER 1/2 TABLET PO SCH (08:07)
[2020-01-09] MEDS: MESALAMINE 250 MG CR CAP PO SCH (08:07)
[2020-01-09] MEDS: CitaloPRAM (CeleXA) 10 MG TABLET PO SCH (08:07)
[2020-01-09] MEDS: VALSARTAN 80 MG TAB (DIOVAN) PO SCH (08:08)
[2020-01-09] MEDS: FERROUS SULFATE 325MG TAB PO SCH (08:08)
[2020-01-09] MEDS: APIXABAN 5 MG TAB (ELIQUIS) PO SCH (08:08)
[2020-01-09] MEDS: predniSONE 5 MG TAB PO SCH (08:08)
[2020-01-09 08:09] VITALS: BP 155/70
[2020-01-09] MEDS: METOPROLOL TART 50 MG TAB PO SCH (08:09)
[2020-01-09] MEDS: oxyCODONE 15 MG CR TAB PO SCH (08:09)
[2020-01-09] MEDS: PREGABALIN 25 MG CAP (LYRICA) PO SCH (08:09)
[2020-01-09] MEDS: **NOTE PATIENT COMMENT** MISC XX SCH (08:09)
--- NOTE | 2020-01-09 11:46 | IPNPDOC ---
Date Seen The patient was seen on 01/08/20. Progress Note no sob/palpitations, pain controlled. no recurrent gi bleed. PE VS: see below Generally no pallor or cyanosis No jugular venous distention (JVD) or thyromegaly. Lungs are clear to auscultation. No wheezing, rales or rhonchi. Heart: S1, S2, sinus rhythm. Abdomen is obese, soft, nontender, nondistended. Positive bowel sounds. Extremities: No cyanosis or clubbing. Patient does have some tenderness around L3 to L5, as well as the upper back around T5. laboratory data, reviewed a/p 1. Acute blood loss secondary to gastrointestinal (GI) bleed, most likely due to hemorrhoidal bleeding with history of Crohn's disease. no need to transfuse. asx and hgb>8. pt does not want workup. back on oral AC. 2. Acute GI bleed secondary to hemorrhoidal bleeding in the setting of chronic Eliquis use. sees Dr. Mancia, and does not want any intervention. on ppi and carafate. 3. Hemorrhoids. anusol [place] 4. DM with low glucose. She was asymptomatic from that episode. Continue with sliding scale and consistent-carbohydrate diet. 5. Chronic osteoporosis with spinal stenosis. Pain is better controlled. Will continue to monitor. 6. Paroxysmal atrial fibrillation, currently rate controlled,back on oral AC 7. History of Crohn's disease. Is not having any diarrhea or abdominal pain. She is continued on her home dose of Pentasa. 8. Hypertension, on metoprolol 50 twice a day. Also being used for her history of chronic atrial fibrillation. 9. Chronic kidney disease, on valsartan, stable with current issues. 10. Dysuria . urine cx negative. antibiotics discontinued. 11. lactic acidosis s/p ivf, and s/p abx. no source 12. SMA celiac trunk stenosis, chronic. refused workup for now. per IR, outpt fu if pt wants workup and mgt. on oral AC. asx. disposition: dc home Thursday. VS, I&O, 24H, Fishbone Vital Signs/I&O Vital Signs Date Time Temp Pulse Resp B/P (MAP) Pulse Ox O2 Delivery O2 Flow Rate FiO2 01/08/20 08:22 18 01/08/20 08:21 52 145/65 01/08/20 05:57 99.1 97 Room Air 01/04/20 06:00 2.0 I&O- Last 24 Hours up to 6 AM 01/08/20 06:00 Intake Total 1920 ml Output Total 1900 ml Balance 20 ml Laboratory Data 24H LABS Laboratory Tests 2 01/07/20 11:31: Bedside Glucose (Misc Panel) 190H 01/07/20 16:31: Bedside Glucose (Misc Panel) 291H 01/07/20 20:39: Bedside Glucose (Misc Panel) 162H 01/08/20 07:15: Bedside Glucose (Misc Panel) 121H 01/08/20 07:24: Nucleated Red Blood Cells % (auto) 0.2H, Anion Gap 7L, Glomerular Filtration Rate 32.5L, Calcium Level 8.9 CBC/BMP Laboratory Tests 01/08/20 07:24 Microbiology Microbiology 01/06/20 Urine Culture - Final, Complete 01/06/20 Stool Occult Blood (KUSHAL) - Final, Complete DANNIE POP MD January 08, 2020 10:00
--- NOTE | 2020-01-09 11:52 | IPNPDOC ---
Date Seen The patient was seen on 01/08/20. Progress Note despite being on oral ac, no hematemesis, brbpr, black tarry stools. no n/v/abd pain. no fever or chills. abx d/c'ed due to neg urine cx. refused colonoscopy. "I don't want to do too much. Iwant to think about it." anxious to go home. GENERAL: awake, alert, oriented to person, place, and time, answering questions appropriately. No pallor, icterus, or jaundice. No jugular venous distention (JVD). No thyromegaly. no conversational dyspnea. LUNGS: Clear to auscultation. No wheezes, rales, or rhonchi. HEART: S1, S2, sinus rhythm.RRR ABDOMEN: Soft, nontender, nondistended. (+) bs. EXTREMITIES: No cyanosis or clubbing. LABORATORY DATA: see below ASSESSMENT AND PLAN: This is a 79-year-old female who lives alone with a history of paroxysmal atrial fibrillation, on chronic anticoagulation, diabetes, Crohn's, coronary artery disease (CAD), hemorrhoids, admitted on January 02 due to intractable back pain, lower extremity edema, and difficulty ambulating. Was found to have severe spinal stenosis. Thoracic T5 deformity due to compression and loss of height. Patient was evaluated by Dr. Flaherty, who did not feel that surgical intervention would be beneficial due to significant osteoporosis. 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 Due to recent bright red blood per rectum, lactic acid was tracked, which was elevated with concerns for possible ischemia from known history of celiac artery and SMA stenosis; however, per Dr. Hernandez, interventional radiology, patient may followup in the office with recommendations for colonoscopy. At this time patient is refusing colonoscopy or flexible sigmoidoscopy. She says that she follows with Dr. Mancia as outpatient, and they had done upper gastrointestinal (GI) series with small-bowel follow-through in the past to evaluate her Crohn's. She does not do well with colonoscopies and is refraining despite persistent blood loss. 1.Neck/Back pain 2.Hemorrhoidal Bleeding 3.Acute Blood loss anemia 4.Acute GI bleed 5.Lactic Acidosis 6. CKD3 7.SMA,Celiac trunk Stenosis, chronic 8. h/o Crohn's disease PLAN: -pt refusing gi workup, colonoscopy. fu w jenny as outpt. home care referral for sx monitoring -refusing eval of SMA and celiac stenoses, but to be referred to IR Dr. Hernandez as outpt -to call [facility] for chronic back pain. Dr. Flaherty, [facility] ortho fu. -no abx, urine cx negative -asx anemia and wants to hold off on invasive testing -passed HSE, december dc home with outpt fu w pcp within 5days. VS, I&O, 24H, Fishbone Vital Signs/I&O Vital Signs Date Time Temp Pulse Resp B/P (MAP) Pulse Ox O2 Delivery O2 Flow Rate FiO2 01/08/20 08:22 18 01/08/20 08:21 52 145/65 01/08/20 05:57 99.1 97 Room Air 01/04/20 06:00 2.0 I&O- Last 24 Hours up to 6 AM 01/08/20 06:00 Intake Total 1920 ml Output Total 1900 ml Balance 20 ml Laboratory Data 24H LABS Laboratory Tests 2 01/07/20 11:31: Bedside Glucose (Misc Panel) 190H 01/07/20 16:31: Bedside Glucose (Misc Panel) 291H 01/07/20 20:39: Bedside Glucose (Misc Panel) 162H 01/08/20 07:15: Bedside Glucose (Misc Panel) 121H 01/08/20 07:24: Nucleated Red Blood Cells % (auto) 0.2H, Anion Gap 7L, Glomerular Filtration Rate 32.5L, Calcium Level 8.9 CBC/BMP Laboratory Tests 01/08/20 07:24 Microbiology Microbiology 01/06/20 Urine Culture - Final, Complete 01/06/20 Stool Occult Blood (KUSHAL) - Final, Complete DANNIE POP MD January 08, 2020 10:05
--- NOTE | 2020-01-09 12:11 | IPNPDOC ---
Date Seen The patient was seen on 01/09/20. Progress Note DISCHARGE DIAGNOSES: Neck and shoulder pain Back pain severe lumbar spinal stenosis with radiculopathy Thoracic compression fracture Hemorrhoidal bleeding Acute blood loss Anemia Acute GI bleed Paroxysmal Atrial Fibrillation SMA, celiac stenoses DISCHARGE MEDICATIONS: pls see below DISCHARGE INSTRUCTIONS: Pt refusing full work-up and management of the following issues, and will defer to pcp fu appt 1 wk: 1-GI bleed-refer to Dr. Mancia for evaluation, may need repeat H&H, and blood transfusion, 2-SMA, Celiac Stenoses-refer to IR, Dr. Hernandez for stenting. 3-Upper back pain and Thoracic compression fracture-pt to call [facility] for novel rx. HOSPITAL COURSE: This is a 79-year-old female, history of paroxysmal atrial fibrillation, diabetes, Crohn's, coronary artery disease with stent, follows with Dr. Keen, admitted on 01/03/2020 due to complaints of intractable back pain, lower extremity edema along with difficulty ambulating, was found to have severe spinal stenosis and thoracic T5 deformity due to compression, loss of height. Moderate atherosclerotic disease without aneurysm or dissection. Patient had been under the care of Dr. Roque Flaherty who had recommended no surgical intervention as the patient has significant osteoporosis and surgery would not be beneficial. 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 Changes appear to be chronic. Patient currently does not complain of any acute weight loss or significant abdominal pain, and there are no signs of mesenteric ischemia. Neck and shoulder pain/ Back pain secondary to severe lumbar spinal stenosis with radiculopathy, improved. pt says it's "tolerable." Dr. Roque Flaherty, orthopedic spinal specialist, had seen the patient in the past and who did not recommend any surgical intervention as the patient has osteoporosis and would not benefit from this. At this time, she is on OxyContin 15 mg twice a day, Lyrica 25 mg twice a day and oxycodone 5 mg every 4 hours to determine the proper regimen for pain control. Cleared by physical therapy. Acute Blood loss anemia pt's AC initially held due to bright red blood after BM which pt says most likely from hemorrhoids. no recurrent episode. hgb decreased from 11 to 9.6, but remained stable with no recurrent episode. AC resumed, asx. no need for rbc transfusion. Acute LGI bleed most likely hemorrhoidal bleeding. no abd pain, or recurrent bloody diarrhea to suspect acute crohn's exacerbation. anusol suppositories. h&h dropped from 11 to 9.6 prompting discontinuation of pt's eliquis. resumed on eliquis and no sx's of anemia, refused colonoscopy, and wanted to fu outpt md. Paroxysmal atrial fibrillation. Currently sinus rhythm, on metoprolol for rate control.on eliquis Osteoporosis. Patient is on chronic prednisone for her Crohn's disease, and is not a candidate for surgery due to significant osteoporosis. Still on calcium and vitamin D secondary to chronic prednisone use. History of coronary artery disease, status post stenting. On atorvastatin, metoprolol, spironolactone and valsartan. No acute ischemic symptoms. Severe peripheral arterial disease with SMA, as well as celiac trunk blockages She currently has no abdominal complaints. Refer to interventional radiology for possible stenting in the future if she does develop some symptoms. defer to interventional radiology, Dr. Hernandez, to discuss if she would benefit from stenting as outpt. Crohn's disease, compensated pt denies any abdominal pain or bloody diarrhea at this time. she is continued on her home medications. DISCHARGE PHYSICAL EXAMINATION: VS: see below Generally awake, alert, oriented to person, place and time. Answers questions appropriately. No jugular venous distention (JVD) or thyromegaly. Lungs are clear to auscultation. No wheezing, rales or rhonchi. Heart: S1, S2, sinus rhythm. Abdomen is obese, soft, nontender, nondistended. Positive bowel sounds. Extremities: No cyanosis or clubbing. Patient does have some tenderness around L3 to L5, as well as the upper back around T5. LABORATORY DATA: SEE BELOW CT ANGIO ABD/PELVIS: COMPARISON: No relevant prior studies available. FINDINGS: Lungs: Dependent atelectasis in the lung. Atherosclerotic [place]: Moderate atherosclerotic disease. Aorta: No aortic aneurysm. No aortic dissection. Celiac trunk and mesenteric arteries: Severe focal stenosis of the origin of the celiac trunk. Diffuse severe stenosis of the proximal 3.8 cm of the SMA. Inferior mesenteric artery is patent. Renal arteries: Severe focal stenosis or occlusion of the proximal right renal artery. Likely chronic. Right renal artery is otherwise diffusely small in caliber. Left renal artery is patent Right iliac arteries: Mild focal stenosis in the origin of the right common iliac artery. Moderate focal stenosis of the right internal iliac artery. Severe focal stenosis in the origin of the right external iliac artery. Right femoral/popliteal arteries: No occlusion or significant stenosis of the visualized common femoral artery. Left iliac arteries: Mild focal stenosis in the origin of the left common iliac artery. Moderate focal stenosis in the mid left common iliac artery. Left femoral/popliteal arteries: No occlusion or significant stenosis of the visualized common femoral artery. Liver: No mass. Gallbladder and bile ducts: Status post cholecystectomy. CBD measures 8 mm in diameter. Pancreas: Unremarkable. No mass. No ductal dilation. Spleen: Unremarkable. No splenomegaly. Adrenals: Unremarkable. No mass. Kidneys and ureters: Atrophic right kidney. Several benign-appearing cysts in the left kidney measuring up to 4.0 cm. Fatty lesion in the midpole of the left kidney measuring 11 mm. Stomach and bowel: No abnormal bowel dilatation. No abnormal bowel wall thickening. Copious stool in the colon. No evidence of bowel obstruction. Appendix: Status post appendectomy. Intraperitoneal space: Unremarkable. No free air. No significant fluid collection. Lymph nodes: Unremarkable. No enlarged lymph nodes. Bladder: Unremarkable. No mass. Reproductive: Status post hysterectomy. Bones/joints: Status post right hip arthroplasty. No acute fracture. Incidental 13 rib-bearing vertebrae. Severe degenerative spine. 5 mm anterolisthesis of L3-L4 and 7 mm anterolisthesis of L4-L5. Severe spinal stenosis at L3-L4 and L4-L5. There is suspected large extruded disc fragment at the L4-L5 level. Soft tissues: Status post ventral abdominal surgery. Small lower ventral abdominal hernia containing loop of small bowel just left of midline. No evidence of incarceration or obstruction. IMPRESSION: 1. No aortic aneurysm or dissection. 2. Severe focal stenosis of the origin of the celiac trunk. 3. Diffuse severe stenosis of the proximal 3.8 cm of the SMA. Stenosis appears chronic. 4. Atrophic right kidney. 5. Benign appearing left renal cysts. No follow-up is necessary. 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 No follow-up is necessary. 7. Small lower ventral abdominal hernia containing loop of small bowel just left of midline. No evidence of incarceration or obstruction. 8. Severe spinal stenosis at L3-L4 and L4-L5. 9. There is suspected large extruded disc fragment at the L4-L5 level. 10. Additional findings as described. TIME SPENT ON DISCHARGE: 30 MINUTES VS, I&O, 24H, Fishbone Vital Signs/I&O Vital Signs Date Time Temp Pulse Resp B/P (MAP) Pulse Ox O2 Delivery O2 Flow Rate FiO2 01/09/20 08:09 18 01/09/20 08:09 66 155/70 01/09/20 06:00 97.7 95 Room Air 01/04/20 06:00 2.0 I&O- Last 24 Hours up to 6 AM 01/09/20 06:00 Intake Total 1820 ml Output Total 1400 ml Balance 420 ml Laboratory Data 24H LABS Laboratory Tests 2 01/08/20 12:15: Bedside Glucose (Misc Panel) 176H 01/08/20 14:59: Lactic Acid Followup at 4 Hours 2.7*H 01/08/20 16:34: Bedside Glucose (Misc Panel) 200H 01/08/20 19:53: Bedside Glucose (Misc Panel) 224H 01/09/20 06:56: Nucleated Red Blood Cells % (auto) 0.2H, Anion Gap 6L, Glomerular Filtration Rate 29.5L, Calcium Level 9.0 CBC/BMP Laboratory Tests 01/09/20 06:56 Microbiology Microbiology 01/06/20 Urine Culture - Final, Complete 01/06/20 Stool Occult Blood (KUSHAL) - Final, Complete DANNIE POP MD Jan 09, 2020 11:59
[2020-01-12] MEDS ORDERED: METAL LOCK LOOP XX ONE (03:57)
--- NOTE | 2020-01-12 21:56 | DS.PDOC ---
Discharge Summary General Date of Admission January 05, 2020 at 13:45 Date of Discharge 01/09/20 Discharge Summary DISCHARGE DIAGNOSES: Neck and shoulder pain Back pain severe lumbar spinal stenosis with radiculopathy Thoracic compression fracture Hemorrhoidal bleeding Acute blood loss Anemia Acute GI bleed Paroxysmal Atrial Fibrillation SMA, celiac stenoses DISCHARGE MEDICATIONS: pls see below DISCHARGE INSTRUCTIONS: Pt refusing full work-up and management of the following issues, and will defer to pcp fu appt 1 wk: 1-GI bleed-refer to Dr. Mancia for evaluation, may need repeat H&H, and blood transfusion, 2-SMA, Celiac Stenoses-refer to IR, Dr. Hernandez for stenting. 3-Upper back pain and Thoracic compression fracture-pt to call [facility] for novel rx. HOSPITAL COURSE: This is a 79-year-old female, history of paroxysmal atrial fibrillation, diabetes, Crohn's, coronary artery disease with stent, follows with Dr. Keen, admitted on 01/03/2020 due to complaints of intractable back pain, lower extremity edema along with difficulty ambulating, was found to have severe spinal stenosis and thoracic T5 deformity due to compression, loss of height. Moderate atherosclerotic disease without aneurysm or dissection. Patient had been under the care of Dr. Roque Flaherty who had recommended no surgical intervention as the patient has significant osteoporosis and surgery would not be beneficial. 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 Changes appear to be chronic. Patient currently does not complain of any acute weight loss or significant abdominal pain, and there are no signs of mesenteric ischemia. Neck and shoulder pain/ Back pain secondary to severe lumbar spinal stenosis with radiculopathy, improved. pt says it's "tolerable." Dr. Roque Flaherty, orthopedic spinal specialist, had seen the patient in the past and who did not recommend any surgical intervention as the patient has osteoporosis and would not benefit from this. At this time, she is on OxyContin 15 mg twice a day, Lyrica 25 mg twice a day and oxycodone 5 mg every 4 hours to determine the proper regimen for pain control. Cleared by physical therapy. Acute Blood loss anemia pt's AC initially held due to bright red blood after BM which pt says most likely from hemorrhoids. no recurrent episode. hgb decreased from 11 to 9.6, but remained stable with no recurrent episode. AC resumed, asx. no need for rbc transfusion. Acute LGI bleed most likely hemorrhoidal bleeding. no abd pain, or recurrent bloody diarrhea to suspect acute crohn's exacerbation. anusol suppositories. h&h dropped from 11 to 9.6 prompting discontinuation of pt's eliquis. resumed on eliquis and no sx's of anemia, refused colonoscopy, and wanted to fu outpt . Paroxysmal atrial fibrillation. Currently sinus rhythm, on metoprolol for rate control.on eliquis Osteoporosis. Patient is on chronic prednisone for her Crohn's disease, and is not a candidate for surgery due to significant osteoporosis. Still on calcium and vitamin D secondary to chronic prednisone use. History of coronary artery disease, status post stenting. On atorvastatin, metoprolol, spironolactone and valsartan. No acute ischemic symptoms. Severe peripheral arterial disease with SMA, as well as celiac trunk blockages She currently has no abdominal complaints. Refer to interventional radiology for possible stenting in the future if she does develop some symptoms. defer to interventional radiology, Dr. Hernandez, to discuss if she would benefit from stenting as outpt. Crohn's disease, compensated pt denies any abdominal pain or bloody diarrhea at this time. she is continued on her home medications. DISCHARGE PHYSICAL EXAMINATION: VS: see below Generally awake, alert, oriented to person, place and time. Answers questions appropriately. No jugular venous distention (JVD) or thyromegaly. Lungs are clear to auscultation. No wheezing, rales or rhonchi. Heart: S1, S2, sinus rhythm. Abdomen is obese, soft, nontender, nondistended. Positive bowel sounds. Extremities: No cyanosis or clubbing. Patient does have some tenderness around L3 to L5, as well as the upper back around T5. LABORATORY DATA: SEE BELOW CT ANGIO ABD/PELVIS: COMPARISON: No relevant prior studies available. FINDINGS: Lungs: Dependent atelectasis in the lung. Atherosclerotic [place]: Moderate atherosclerotic disease. Aorta: No aortic aneurysm. No aortic dissection. Celiac trunk and mesenteric arteries: Severe focal stenosis of the origin of the celiac trunk. Diffuse severe stenosis of the proximal 3.8 cm of the SMA. Inferior mesenteric artery is patent. Renal arteries: Severe focal stenosis or occlusion of the proximal right renal artery. Likely chronic. Right renal artery is otherwise diffusely small in caliber. Left renal artery is patent Right iliac arteries: Mild focal stenosis in the origin of the right common iliac artery. Moderate focal stenosis of the right internal iliac artery. Severe focal stenosis in the origin of the right external iliac artery. Right femoral/popliteal arteries: No occlusion or significant stenosis of the visualized common femoral artery. Left iliac arteries: Mild focal stenosis in the origin of the left common iliac artery. Moderate focal stenosis in the mid left common iliac artery. Left femoral/popliteal arteries: No occlusion or significant stenosis of the visualized common femoral artery. Liver: No mass. Gallbladder and bile ducts: Status post cholecystectomy. CBD measures 8 mm in diameter. Pancreas: Unremarkable. No mass. No ductal dilation. Spleen: Unremarkable. No splenomegaly. Adrenals: Unremarkable. No mass. Kidneys and ureters: Atrophic right kidney. Several benign-appearing cysts in the left kidney measuring up to 4.0 cm. Fatty lesion in the midpole of the left kidney measuring 11 mm. Stomach and bowel: No abnormal bowel dilatation. No abnormal bowel wall thickening. Copious stool in the colon. No evidence of bowel obstruction. Appendix: Status post appendectomy. Intraperitoneal space: Unremarkable. No free air. No significant fluid collection. Lymph nodes: Unremarkable. No enlarged lymph nodes. Bladder: Unremarkable. No mass. Reproductive: Status post hysterectomy. Bones/joints: Status post right hip arthroplasty. No acute fracture. Incidental 13 rib-bearing vertebrae. Severe degenerative spine. 5 mm anterolisthesis of L3-L4 and 7 mm anterolisthesis of L4-L5. Severe spinal stenosis at L3-L4 and L4-L5. There is suspected large extruded disc fragment at the L4-L5 level. Soft tissues: Status post ventral abdominal surgery. Small lower ventral abdominal hernia containing loop of small bowel just left of midline. No evidence of incarceration or obstruction. IMPRESSION: 1. No aortic aneurysm or dissection. 2. Severe focal stenosis of the origin of the celiac trunk. 3. Diffuse severe stenosis of the proximal 3.8 cm of the SMA. Stenosis appears chronic. 4. Atrophic right kidney. 5. Benign appearing left renal cysts. No follow-up is necessary. 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 No follow-up is necessary. 7. Small lower ventral abdominal hernia containing loop of small bowel just left of midline. No evidence of incarceration or obstruction. 8. Severe spinal stenosis at L3-L4 and L4-L5. 9. There is suspected large extruded disc fragment at the L4-L5 level. 10. Additional findings as described. TIME SPENT ON DISCHARGE: 30 MINUTES Vital Signs/I&Os Vital Signs Date Time Temp Pulse Resp B/P (MAP) Pulse Ox O2 Delivery O2 Flow Rate FiO2 01/09/20 08:09 18 01/09/20 08:09 66 155/70 01/09/20 06:00 97.7 95 Room Air Microbiology Microbiology 01/06/20 Urine Culture - Final, Complete 01/06/20 Stool Occult Blood (KUSHAL) - Final, Complete Discharge Medications Scheduled Apixaban (Eliquis) 5 Mg Tablet, 5 MG PO BID, (Reported) Atorvastatin Calcium (Atorvastatin Calcium) 40 Mg Tablet, 40 MG PO QPM, (Reported) Calcium Carbonate/Vitamin D3 (Calcium 600 + Vit D 400 Softgl) 1 Each Capsule, 1 CAP PO BID, (Reported) Citalopram Hydrobromide (Celexa) 20 Mg Tablet, 30 MG PO DAILY, (Reported) Famotidine (Famotidine) 20 Mg Tablet, 20 MG PO DAILY, (Reported) Ferrous Sulfate (Ferrous Sulfate) 325 Mg Tablet.dr, 325 MG PO DAILY, (Reported) Glipizide (Glipizide) 5 Mg Tablet, 5 MG PO BID, (Reported) Hydrocortisone Acetate (Anucort-Hc) 25 Mg Supp.rect, 25 MG [place] Q8H Magnesium Oxide (Magnesium Oxide) 400 Mg Tablet, 400 MG PO BID, (Reported) Mesalamine (Pentasa) 500 Mg Capsule.er, 1,000 MG PO TID, (Reported) Metoprolol Tartrate (Metoprolol Tartrate) 50 Mg Tablet, 50 MG PO BID, (Reported) Omeprazole (Omeprazole) 40 Mg Capsule.dr, 40 MG PO DAILY, (Reported) Oxycodone HCl (Oxycontin) 15 Mg Tab.er.12h, 15 MG PO BID Prednisone (Prednisone) 10 Mg Tablet, 15 MG PO DAILY, (Reported) Spironolactone (Spironolactone) 25 Mg Tablet, 12.5 MG PO DAILY, (Reported) Valsartan (Valsartan) 320 Mg Tablet, 160 MG PO DAILY, (Reported) Vit B Complex 100 Combo No.2 (B-100 Complex) 100 Mg Tablet.er, 100 MG PO DAILY, (Reported) Scheduled PRN Acetaminophen (Acetaminophen) 500 Mg Tablet, 1,000 MG PO Q6H PRN for PAIN, (Reported) Alprazolam (Alprazolam ER) 0.5 Mg Tab.er.24h, 0.5 MG PO DAILYPRN PRN for ANXIETY, (Reported) Oxycodone HCl (Oxycodone HCl) 5 Mg Tablet, 5 MG PO TID PRN for PAIN, (Reported) Oxycodone HCl (Oxycodone HCl) 5 Mg Tablet, 5 MG PO Q4HP PRN for PAIN Propylene Glycol/Peg 400/Pf (Systane 0.3-0.4% Eye Drop) 1 Each [place], 1 DROP OU QID PRN for DRY EYES, (Reported) Allergies Coded Allergies: hydrocodone (Verified Allergy, Intermediate, 01/03/20) Sulfa (Sulfonamide Antibiotics) (Verified Allergy, Unknown, 07/03/19) hydrochlorothiazide (Verified Allergy, Unknown, 07/03/19) DANNIE POP MD Jan 12, 2020 21:56
== END 2020-01-09 15:25 | disposition home or self-care (01) | DRG 552 ==
LOC: M ED 18:26 → M ED INP 18:27 → UNDOADMOB 18:27 → ENRESERV 01-04 01:38 → M MS5PR 01-04 02:35 → M ED INP 01-04 02:35 → M MS5PR 01-05 13:45 → UNDODISOB 01-09 15:25 → M ED INP 01-11 14:53 → M MS5PR 01-11 14:53
PROVIDERS: ADMIT General Practice; ATTEND Internal Medicine
DX: M48.061 Spinal stenosis, lumbar region without neurogenic claudication (principal); M80.08XA Age-related osteoporosis with current pathological fracture, vertebra(e), initial encounter for fracture; D62 Acute posthemorrhagic anemia; I77.4 Celiac artery compression syndrome; K50.90 Crohn's disease, unspecified, without complications; E87.2 Acidosis; G89.29 Other chronic pain; M54.2 Cervicalgia; M54.16 Radiculopathy, lumbar region; K64.8 Other hemorrhoids; I25.10 Atherosclerotic heart disease of native coronary artery without angina pectoris; Z79.01 Long term (current) use of anticoagulants; Z98.61 Coronary angioplasty status; Z79.899 Other long term (current) drug therapy; Z79.52 Long term (current) use of systemic steroids; E78.49 Other hyperlipidemia; Z88.2 Allergy status to sulfonamides; Z88.5 Allergy status to narcotic agent; Z88.8 Allergy status to other drugs, medicaments and biological substances; I48.0 Paroxysmal atrial fibrillation; E11.65 Type 2 diabetes mellitus with hyperglycemia; N18.9 Chronic kidney disease, unspecified; I12.9 Hypertensive chronic kidney disease with stage 1 through stage 4 chronic kidney disease, or unspecified chronic kidney disease

== ENCOUNTER 2020-01-14 05:21 | Inpatient (IN) | payer MEDICARE ==
[~2020-01-14] VITALS: Ht 160 cm; Wt 92.8 kg
[~2020-01-14 05:21] MED LIST changes: +ANUSHCSU PR; +FAMO20TA PO; +GLIP5TAB8 PO; +MAGN400T2 PO; +OXYC-517 PO; +OXYC15TA66 PO; +SYST1SOL4 OU
[2020-01-14] MEDS ORDERED: AMIO200T PO (05:52)
--- NOTE | 2020-01-14 05:54 | REPVR ---
PROCEDURE INFORMATION: Exam: CT Head Without Contrast Exam date and time: 01/14/2020 5:23 AM Age: 79 years old Clinical indication: Injury or trauma; Fall; Initial encounter; Concussion / head injury; Consciousness not specified TECHNIQUE: Imaging protocol: Computed tomography of the head without contrast. Radiation optimization: All CT scans at this facility use at least one of these dose optimization techniques: automated exposure control; mA and/or kV adjustment per patient size (includes targeted exams where dose is matched to clinical indication); or iterative reconstruction. COMPARISON: No relevant prior studies available. FINDINGS: Brain: Normal. No hemorrhage. Unremarkable white matter. No mass effect. Ventricles: There is age-related cerebral atrophy with secondary ventricular dilatation. Bones/joints: Unremarkable. No acute fracture. Sinuses: There is mild right sphenoid sinus mucosal thickening. Mastoid air cells: Visualized mastoid air cells are well aerated. Soft tissues: Unremarkable. IMPRESSION: 1. No CT evidence of acute intracranial hemorrhage, mass effect or midline shift. 2. Mild right sphenoid sinus mucoperiosteal thickening. Electronically signed by: Terrell Garcia On 01/14/2020 05:54:18 AM
--- NOTE | 2020-01-14 06:00 | REPVR ---
PROCEDURE INFORMATION: Exam: CT Cervical Spine Without Contrast Exam date and time: 01/14/2020 5:23 AM Age: 79 years old Clinical indication: Neck pain; Additional info: Fall TECHNIQUE: Imaging protocol: Computed tomography images of the cervical spine without contrast. Radiation optimization: All CT scans at this facility use at least one of these dose optimization techniques: automated exposure control; mA and/or kV adjustment per patient size (includes targeted exams where dose is matched to clinical indication); or iterative reconstruction. COMPARISON: CR SPINE CERVICAL COMPL 03/11/2019 12:39 PM FINDINGS: Vertebrae: There is a faint linear lucency across the base of the dense best seen on sagittal images 43 to 36 with a tiny bony fragment the right on sagittal image 37. There is grade 1 anterolisthesis of C3 on C4 and C4 on C5 and C6 on C7. There is significant degenerative changes of the upper thoracic spine. Discs/Spinal canal/Neural foramina: There is atlanto dense degenerative and productive changes. There is diffuse cervical spine facet degenerative and productive changes with apparent ankylosis of the right C2-C3 and C3-C4 facets. Other bones/joints: There is diffuse bony osteopenia. Prevertebral Space: There is significant prevertebral soft tissue swelling. Soft tissues: Unremarkable. Lungs: Lung apices are normal. IMPRESSION: 1. CT findings suggestive of subtle nondisplaced fracture at the base of the dense/type 2 with prevertebral soft tissue swelling. 2. Multilevel cervical spine disc and facet degenerative changes. Electronically signed by: Terrell Garcia On 01/14/2020 05:59:44 AM
[2020-01-14 06:25] LABS: HEMATOCRIT 33.1 % (36.0-47.0); HEMOGLOBIN 10.1 g/dl (12.0-15.5); MEAN CORPUSCULAR HEMOGLOBIN 30.2 pg (27.0-33.0); MEAN CORPUSCULAR HGB CONC 30.5 g/dl (32.0-36.5); MEAN CORPUSCULAR VOLUME 99.1 fl (80.0-96.0); PLATELET COUNT, AUTOMATED 261 10^3/uL (150-450); RED BLOOD COUNT 3.34 10^6/uL (4.00-5.40); WHITE BLOOD COUNT 11.6 10^3/uL (4.0-10.0)
[2020-01-14 06:29] LABS: INR 1.35; PROTHROMBIN TIME 16.4 SECONDS (11.8-14.0)
[2020-01-14 06:30] LABS: PARTIAL THROMBOPLASTIN TIME 31.8 SECONDS (25.0-38.4)
[2020-01-14 06:36] LABS: ALBUMIN 2.6 GM/DL (3.2-5.2); ALT/SGPT 22 U/L (12-78); BILIRUBIN,DIRECT 0.2 MG/DL (0.0-0.2); BILIRUBIN,TOTAL 0.5 MG/DL (0.2-1.0); BLOOD UREA NITROGEN 24 MG/DL (7-18); CALCIUM LEVEL 8.3 MG/DL (8.8-10.2); CARBON DIOXIDE LEVEL 27 MEQ/L (21-32); CHLORIDE LEVEL 105 MEQ/L (98-107); CK-MB VALUE MASS 1.8 NG/ML (<3.6); CPK CREATINE PHOSPHOKINASE 52 U/L (26-192); CREATININE FOR GFR 1.33 MG/DL (0.55-1.30); GLOMERULAR FILTRATION RATE 41.1 (>39); GLUCOSE, FASTING 92 MG/DL (70-100); LIPASE 115 U/L (73-393); MB/CK RELATIVE INDEX 3.46 (< OR =4); NT-PRO BNP 779 PG/ML (<450); POTASSIUM SERUM 4.3 MEQ/L (3.5-5.1); SODIUM LEVEL 140 MEQ/L (136-145); TROPONIN I < 0.02 NG/ML (< 0.10)
[2020-01-14] MEDS ORDERED: ONDANSETRON 4MG/2ML VIAL IV ONE (06:45)
--- NOTE | 2020-01-14 08:52 | HPEPDOC ---
[facility] Medical History & Physical Date of Admission Jan 14, 2020 Date of Service: Jan 14, 2020 Primary Care Physician: Jr Keen Collins Attending Physician: CHARLES PAIGE MD History and Physical TIME OF SERVICE: 9:30 AM CHIEF COMPLAINT: Fall HISTORY OF PRESENT ILLNESS: This is a 71 H old female that reported falling while trying to get up this morning around 3 AM. She usually embolus with a walker but unfortunately while standing up, she fell right into her walker. She denied having any dizziness, chest pain, shortness of breath, prior to the fall. She attributes her fall to one of her knees giving out. As a result of the fall she sustained a cervical spine fracture and has been given a c-collar. REVIEW OF SYSTEMS: 12 point review of systems negative except as listed in HPI PAST MEDICAL/ SURGICAL HISTORY: Paroxysmal atrial fibrillation. Diabetes Crohns Chronic HTN Chronic CAD/Dyslipidemia CKD3 CAD status post PCI Asymptomatic chronic mesentery artery stenosis Osteoporosis/ T5 compression fracture SOCIAL HISTORY: -tobacco -alcohol abuse -recreational drugs ALLERGIES: Please see below. HOME MEDICATIONS: Please see below. PHYSICAL EXAMINATION: VITAL SIGNS: Please see below. GEN: well-nourished / well developed HEENT: NCAT / neck in c-collar CVS: RRR/NMRG LUNGS: lungs are clear to auscultation bilaterally on room air soft & not tender with palpation MSK/EXTREMITIES: range of motion intact in all 4 extremities NEURO: CN 2-12 are grossly intact / speech is not dysarthric PSYCH: alert and oriented to person place and time/ able to understand and follow all commands LABORATORY DATA: See below. IMAGING: CT head IMPRESSION: 1. No CT evidence of acute intracranial hemorrhage, mass effect or midline shift. 2. Mild right sphenoid sinus mucoperiosteal thickening. CT cervical spine IMPRESSION: 1. CT findings suggestive of subtle nondisplaced fracture at the base of the dense/type 2 with prevertebral soft tissue swelling. 2. Multilevel cervical spine disc and facet degenerative changes. MICROBIOLOGY: Please see below. ASSESSMENT: Ms. Vicente is a 79-year-old with history of paroxysmal atrial fibrillation, diabetes, Crohns, Chronic CAD, HTN osteoporosis/T5 compression fracture who is admitted for evaluation of a fall resulting in a cervical spine fracture. PLAN: 1. Mechanical Fall The cause of the fall is unclear. It may be due to the weakness of her lower extremities and sedation due to pain meds and waking up in the middle the night Plan: Admit to medical floor / check orthostats while lying down flat and sitting up/ PT/OT consult to determine if she is a candidate for ARU / frequent neuro checks 2. C2 Dense fracture She has pre-existing Osteoporosis , likely due to chronic steroid use CT reports reviewed Plan: Follow-up with Dr. Flaherty and Jose Tim / decrease oxycodone from 5 mg every 4 hours to 5 mg every 8 8 hours and continue OxyContin 50 mg twice a day for neck pain 3. Osteoporosis - c/w calcium with vitamin D/follow up with PCP to select antiresorptive therapy 4. BLE Edema. Her BNP is elevated. - Request echo from Dr. Barrow office / elevate legs 5. Paroxysmal atrial fibrillation - amiodarone, apixaban 6. Diabetes - diabetic diet / f/u accuchecks / hypoglycemia protocol / sliding scale insulin / hold oral anti-glycemics 7. Crohns - mesalamine, prednisone 8. Chronic CAD/ Dyslipidemia - metoprolol, atorvastatin 9. Chronic HTN - valsartan, metoprolol, spirolactone 10. Obesity with BMI 31.6, complicates care DVT PROPHYLAXIS: n/a she is on AC for a fib DISPOSITION: Likely transfer to ARU Vital Signs Vital Signs Date Time Temp Pulse Resp B/P (MAP) Pulse Ox O2 Delivery O2 Flow Rate FiO2 01/14/20 06:51 57 92 01/14/20 05:50 98.5 20 186/75 (112) Room Air Laboratory Data Labs 24H Laboratory Tests 2 01/14/20 05:52: Nucleated Red Blood Cells % (auto) 0.0, Prothrombin Time 16.4H, Prothromb Time International Ratio 1.35, Activated Partial Thromboplast Time 31.8, Anion Gap 8, Glomerular Filtration Rate 41.1, Calcium Level 8.3L, Total Bilirubin 0.5, Direct Bilirubin 0.2, Aspartate Amino Transf (AST/SGOT) 12, Alanine Aminotransferase (ALT/SGPT) 22, Alkaline Phosphatase 63, Total Creatine Kinase 52, Creatine Kinase MB 1.8, Creatine Kinase MB Relative Index 3.46, Troponin I < 0.02, BT-Cqu-Q-Type Natriuretic Peptide 779H, Total Protein 6.0L, Albumin 2.6L, Albumin/Globulin Ratio 0.8L, Lipase 115 CBC/BMP Laboratory Tests 01/14/20 05:52 Home Medications Scheduled Amiodarone HCl (Amiodarone HCl) 200 Mg Tablet, 200 MG PO DAILY Apixaban (Eliquis) 5 Mg Tablet, 5 MG PO BID Atorvastatin Calcium (Atorvastatin Calcium) 40 Mg Tablet, 40 MG PO QPM Calcium Carbonate/Vitamin D3 (Calcium 600 + Vit D 400 Softgl) 1 Each Capsule, 1 CAP PO BID Cholecalciferol (Vitamin D3) (Vitamin D3) 1,000 Unit Tablet, 1,000 UNITS PO DAILY Citalopram Hydrobromide (Celexa) 20 Mg Tablet, 30 MG PO QPM Famotidine (Famotidine) 20 Mg Tablet, 20 MG PO DAILY Ferrous Sulfate (Ferrous Sulfate) 325 Mg Tablet.dr, 325 MG PO ASDIRECTED PATIENT ONLY TAKES TWO TO THREE TIMES PER WEEK Glipizide (Glipizide) 5 Mg Tablet, 5 MG PO BID Magnesium Oxide (Magnesium Oxide) 400 Mg Tablet, 400 MG PO BID Mesalamine (Pentasa) 500 Mg Capsule.er, 1,000 MG PO TID Metoprolol Tartrate (Metoprolol Tartrate) 50 Mg Tablet, 50 MG PO BID Omeprazole (Omeprazole) 40 Mg Capsule.dr, 40 MG PO DAILY Oxycodone HCl (Oxycontin) 15 Mg Tab.er.12h, 15 MG PO BID Prednisone (Prednisone) 10 Mg Tablet, 15 MG PO DAILY Propylene Glycol/Peg 400/Pf (Systane 0.3-0.4% Eye Drop) 1 Each Droperette, 1 DROP OU QID Spironolactone (Spironolactone) 25 Mg Tablet, 12.5 MG PO DAILY Valsartan (Valsartan) 320 Mg Tablet, 160 MG PO DAILY Vit B Complex 100 Combo No.2 (B-100 Complex) 100 Mg Tablet.er, 100 MG PO DAILY Scheduled PRN Acetaminophen (Acetaminophen) 500 Mg Tablet, 1,000 MG PO Q6H PRN for PAIN Alprazolam (Alprazolam) 0.5 Mg Tablet, 0.5 MG PO QID PRN for ANXIETY Lidocaine (Salonpas) 1 Each Adh..patch, 1 PATCH TOP DAILY PRN for PAIN APPLY TO RIGHT SHOULDER BLADE Lidocaine (Lidocaine) 5% Adh..patch, 1 PATCH TD DAILY PRN for neck pain Oxycodone HCl (Oxycodone HCl) 5 Mg Tablet, 5 MG PO Q4H PRN for PAIN Allergies Coded Allergies: hydrocodone (Verified Allergy, Intermediate, 01/03/20) Sulfa (Sulfonamide Antibiotics) (Verified Allergy, Unknown, 07/03/19) hydrochlorothiazide (Verified Allergy, Unknown, 07/03/19) A-FIB/CHADSVASC A-FIB History Current/History of A-Fib/PAF?: Yes Current PO Anticoag Therapy: Yes CHARLES PAIGE MD Jan 14, 2020 08:52
[2020-01-14] MEDS ORDERED: LIDOCAINE 5% (LIDODERM) PATCH TD ONE (09:00)
[2020-01-14] MEDS ORDERED: MAALOX 30 ML SUSP *UDC PO PRN (09:00)
[2020-01-14] MEDS ORDERED: ACETAMINOPHEN 500 MG TAB PO ONE (09:00)
[2020-01-14] MEDS ORDERED: VITAD1000T PO (09:14)
[2020-01-14] MEDS ORDERED: LIDO1ADH16 TOP (09:14)
[2020-01-14] MEDS ORDERED: OXYC15TA66 PO (09:14)
[2020-01-14] MEDS ORDERED: ALPR0.5T3 PO (09:14)
[2020-01-14] MEDS ORDERED: OXYC-517 PO (09:14)
[2020-01-14 10:20] VITALS: BP 155/46
[2020-01-14] MEDS: HumaLOG INSULIN (NovoLOG) PER UNIT SC SCH ×3 (12:00→21:00)
[2020-01-14] MEDS ORDERED: GLUCAGON INJ 1MG VIAL SC PRN (12:30)
[2020-01-14] MEDS ORDERED: GLUCOSE 4GM CHEW TABLET PO PRN (12:30)
[2020-01-14] MEDS ORDERED: DEXTROSE 50% 50 ML SYRINGE IV PRN (12:30)
[2020-01-14] MEDS: oxyCODONE 5MG TAB PO PRN (12:46)
[2020-01-14 12:48] VITALS: BP 150/42
[2020-01-14 12:52] VITALS: BP 116/51
[2020-01-14] MEDS: SPIRONOLACTONE 12.5MG PER 1/2 TABLET PO SCH (13:56)
[2020-01-14] MEDS: VALSARTAN 80 MG TAB (DIOVAN) PO SCH (13:57)
[2020-01-14] MEDS: oxyCODONE 15 MG CR TAB PO SCH ×2 (13:58→21:37)
[2020-01-14] MEDS: OMEPRAZOLE 20 MG CAP PO SCH (13:58)
[2020-01-14] MEDS: predniSONE 5 MG TAB PO SCH (13:59)
[2020-01-14] MEDS: FAMOTIDINE 20 MG TAB PO SCH (13:59)
[2020-01-14 14:00] VITALS: BP 119/48
[2020-01-14] MEDS: AMIODARONE 200 MG TAB (PACERONE) PO SCH (14:06)
[2020-01-14] MEDS: ALPRAZolam 0.5 MG TAB PO PRN ×2 (15:34→21:36)
[2020-01-14] MEDS: ATORVASTATIN 20 MG TAB PO SCH (16:48)
[2020-01-14] MEDS: MESALAMINE 250 MG CR CAP PO SCH ×2 (16:48→21:37)
[2020-01-14] MEDS: CitaloPRAM (CeleXA) 10 MG TABLET PO SCH (16:49)
[2020-01-14 20:00] VITALS: BP 113/52
[2020-01-14 20:52] VITALS: BP 113/52
[2020-01-14] MEDS ORDERED: **NOTE PATIENT COMMENT** MISC XX SCH (21:00)
[2020-01-14 21:12] LABS: CALCIUM LEVEL 8.2 MG/DL (8.8-10.2); CREATININE FOR GFR 1.48 MG/DL (0.55-1.30); GLOMERULAR FILTRATION RATE 36.3 (>39); POTASSIUM SERUM 5.2 MEQ/L (3.5-5.1)
[2020-01-14] MEDS: MAGNESIUM OXIDE 400 MG TAB (MAG-OX) PO SCH (21:36)
[2020-01-14] MEDS: APIXABAN 5 MG TAB (ELIQUIS) PO SCH (21:36)
[2020-01-14] MEDS: METOPROLOL TART 50 MG TAB PO SCH (21:36)
[2020-01-14] MEDS: CALCIUM/VITAMIN D 500 MG TAB PO SCH (21:36)
[2020-01-14] MEDS: **NOTE PATIENT COMMENT** MISC XX SCH (21:37)
[2020-01-14] MEDS: ACETAMINOPHEN 650MG ER TAB (TYLENOL ARTHRITIS) PO PRN (23:28)
[2020-01-15 06:00] VITALS: BP 131/54
[2020-01-15 07:00] LABS: BASO % 0.1 % (0.0-1.0); EOS % 0.2 % (0.0-3.0); HEMATOCRIT 30.2 % (36.0-47.0); HEMOGLOBIN 9.1 g/dl (12.0-15.5); LYMPH # 1.9 10^3/uL (1.5-5.0); LYMPH % 19.5 % (24.0-44.0); MEAN CORPUSCULAR HGB CONC 30.1 g/dl (32.0-36.5); MEAN CORPUSCULAR VOLUME 99.7 fl (80.0-96.0); MONO # 1.2 10^3/uL (0.0-0.8); MONO % 12.4 % (0.0-5.0); NEUTROPHILS # 6.6 10^3/uL (1.5-8.5); NEUTROPHILS % 67.1 % (36.0-66.0); PLATELET COUNT, AUTOMATED 222 10^3/uL (150-450); RED BLOOD COUNT 3.03 10^6/uL (4.00-5.40); WHITE BLOOD COUNT 9.8 10^3/uL (4.0-10.0)
[2020-01-15 07:24] LABS: CALCIUM LEVEL 8.3 MG/DL (8.8-10.2); CREATININE FOR GFR 1.47 MG/DL (0.55-1.30); GLOMERULAR FILTRATION RATE 36.6 (>39); POTASSIUM SERUM 4.7 MEQ/L (3.5-5.1)
[2020-01-15] MEDS: HumaLOG INSULIN (NovoLOG) PER UNIT SC SCH ×4 (09:05→21:00)
[2020-01-15] MEDS: MESALAMINE 250 MG CR CAP PO SCH ×3 (09:05→22:26)
[2020-01-15] MEDS: VALSARTAN 80 MG TAB (DIOVAN) PO SCH ×2 (09:07→09:26)
[2020-01-15] MEDS: MAGNESIUM OXIDE 400 MG TAB (MAG-OX) PO SCH ×2 (09:08→22:25)
[2020-01-15] MEDS: OMEPRAZOLE 20 MG CAP PO SCH (09:08)
[2020-01-15] MEDS: SPIRONOLACTONE 12.5MG PER 1/2 TABLET PO SCH (09:08)
[2020-01-15] MEDS: predniSONE 5 MG TAB PO SCH (09:08)
[2020-01-15] MEDS: APIXABAN 5 MG TAB (ELIQUIS) PO SCH ×2 (09:09→22:25)
[2020-01-15] MEDS: VITAMIN D 1,000 INTERNATIONAL UNITS TABLET PO SCH (09:09)
[2020-01-15] MEDS: FAMOTIDINE 20 MG TAB PO SCH (09:10)
[2020-01-15] MEDS: oxyCODONE 15 MG CR TAB PO SCH ×2 (09:10→22:25)
[2020-01-15] MEDS: CALCIUM/VITAMIN D 500 MG TAB PO SCH ×2 (09:10→22:24)
[2020-01-15 09:19] VITALS: BP 146/67
[2020-01-15] MEDS: ALPRAZolam 0.5 MG TAB PO PRN ×2 (09:19→22:25)
[2020-01-15] MEDS: AMIODARONE 200 MG TAB (PACERONE) PO SCH (09:25)
[2020-01-15] MEDS: METOPROLOL TART 50 MG TAB PO SCH ×2 (09:34→22:26)
[2020-01-15] MEDS ORDERED: LIDOCAINE 5% (LIDODERM) PATCH TD PRN (10:30)
--- NOTE | 2020-01-15 12:21 | ECGEPIP ---
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
[2020-01-15 14:00] VITALS: BP 145/68
[2020-01-15] MEDS ORDERED: POLYVINYL ALCOHOL OPHTH SOLN 15 ML(LIQUITEARS) OU PRN (15:45)
[2020-01-15] MEDS ORDERED: MIRALAX *UNIT DOSE* 17GM PACKET PO PRN (15:45)
--- NOTE | 2020-01-15 15:46 | IPNPDOC ---
Text Note Date of Service The patient was seen on 01/15/20. NOTE Time of service 12:50 PM Subjective: The patient had a neck brace adjusted yesterday but continues to have neck and mouth discomfort. Other than that she denies having any acute complaints. Objective: GEN: NAD. HEENT: NCAT/Neck brace in place. CVS: RRR/NRMG LUNGS: CTAB MSK: ROMIt 4 Labs and vitals: see below Assessment: Ms. Vicente is a 79-year-old with history of paroxysmal atrial fibrillation, diabetes, Crohns, CAD, osteoporosis/T5 compression fracture, CKD3 who is a dmitted for evaluation of a fall resulting in a cervical spine fracture. Plan: 1. Mechanical Fall Possibly due to a combination of weakness of her lower extremities, sedation due to waking up in the middle the night and orthostasis (BP 150/42 lying down and 116/51 sitting up) - 500ml IVF / PT/OT consult to determine if she is a candidate for ARU 2. C2 fx (at the base of the dense). She has pre-existing Osteoporosis 2/2 chronic steroid use - f/u Dr. Flaherty and Jose Tim / oxycodone 5 mg every 8 hours and OxyContin 50 mg twice a day for neck pain 3. Osteoporosis - c/w calcium with vitamin D/follow up with PCP to select antiresorptive therapy 4. BLE Edema. Her BNP is elevated. - Request echo from Dr. Barrow office / elevate legs 5. Paroxysmal atrial fibrillation - amiodarone, apixaban 6. Diabetes - diabetic diet / f/u accuchecks & A1C / hypoglycemia protocol / sliding scale insulin / hold oral anti-glycemics 7. Crohns - mesalamine, prednisone 8. CAD - metoprolol, atorvastatin 9. CKD 3 10. Anemia. Drop in Hg possibly iatrogenic - will not repeat blood work until Thu 11. Obesity with BMI 31.6. complicates care DVT PROPHYLAXIS: n/a she is on AC DISPOSITION: Likely transfer to ARU pending PT/OT recs VS,Devontebone, I+O VS, Fishbone, I+O Laboratory Tests 01/14/20 20:15 01/15/20 06:30 Vital Signs Date Time Temp Pulse Resp B/P (MAP) Pulse Ox O2 Delivery O2 Flow Rate FiO2 01/15/20 14:00 98.6 60 18 145/68 (93) 95 Nasal Cannula 1.0 I&O- Last 24 Hours up to 6 AM 01/15/20 06:00 Intake Total 1140 ml Output Total 0 ml Balance 1140 ml CHARLES PAIGE MD Jan 15, 2020 15:46
[2020-01-15 17:33] LABS: HEMOGLOBIN A1c 7.3 %
[2020-01-15] MEDS: ATORVASTATIN 20 MG TAB PO SCH (17:52)
[2020-01-15] MEDS: NS 500 ML IV SCH (17:52)
[2020-01-15] MEDS: CitaloPRAM (CeleXA) 10 MG TABLET PO SCH (17:52)
[2020-01-15 20:56] VITALS: BP 155/58
[2020-01-15] MEDS: **NOTE PATIENT COMMENT** MISC XX SCH (21:00)
[2020-01-16] MEDS: NS 500 ML IV SCH (03:30)
[2020-01-16] MEDS: ALPRAZolam 0.5 MG TAB PO PRN ×3 (05:23→22:08)
[2020-01-16] MEDS: oxyCODONE 5MG TAB PO PRN ×2 (05:23→15:06)
[2020-01-16 06:02] VITALS: BP 156/56
[2020-01-16] MEDS: MESALAMINE 250 MG CR CAP PO SCH ×3 (07:59→22:08)
[2020-01-16] MEDS: VITAMIN D 1,000 INTERNATIONAL UNITS TABLET PO SCH (07:59)
[2020-01-16] MEDS: CALCIUM/VITAMIN D 500 MG TAB PO SCH ×2 (08:00→22:10)
[2020-01-16] MEDS: MAGNESIUM OXIDE 400 MG TAB (MAG-OX) PO SCH ×2 (08:00→22:09)
[2020-01-16] MEDS: predniSONE 5 MG TAB PO SCH (08:00)
[2020-01-16] MEDS: VALSARTAN 80 MG TAB (DIOVAN) PO SCH (08:00)
[2020-01-16] MEDS: OMEPRAZOLE 20 MG CAP PO SCH (08:01)
[2020-01-16] MEDS: FAMOTIDINE 20 MG TAB PO SCH (08:01)
[2020-01-16] MEDS: METOPROLOL TART 50 MG TAB PO SCH ×2 (08:03→22:09)
[2020-01-16] MEDS: oxyCODONE 15 MG CR TAB PO SCH ×2 (08:03→22:10)
[2020-01-16] MEDS: AMIODARONE 200 MG TAB (PACERONE) PO SCH (08:03)
[2020-01-16] MEDS: APIXABAN 5 MG TAB (ELIQUIS) PO SCH ×2 (08:04→22:09)
[2020-01-16] MEDS: SPIRONOLACTONE 12.5MG PER 1/2 TABLET PO SCH (08:04)
[2020-01-16] MEDS: HumaLOG INSULIN (NovoLOG) PER UNIT SC SCH ×4 (08:05→21:00)
[2020-01-16] MEDS ORDERED: FERROUS SULFATE 325MG TAB PO SCH (09:00)
--- NOTE | 2020-01-16 10:07 | REP ---
REASON FOR EXAM: Hypoxia. COMPARISON: Multiple, the latest 01/03/2020. Preliminary report given by Dr. Valdes. The technique utilized in obtaining the radiograph has magnified the cardiac silhouette and accentuated the interstitial markings. The cardiac silhouette is enlarged and magnified by technique. There is a subtle left basilar opacity with blunting of the left CP angle. The right CP angle is clear. The interstitial markings are slightly diffuse increased, status quo. There is no change in the osseous structures. IMPRESSION: 1. Mild fibrotic changes are suspected, correlate clinically to rule out the possibility of acute disease superimposed upon chronic change. 2. Left lower lobe opacity and small left pleural effusion. Atelectasis versus pneumonia versus combination of both. Correlate clinically with appropriate followup. Electronically Signed by Jairo Rodriguez DO 01/16/2020 10:56 A
[2020-01-16 14:00] VITALS: BP 155/54
--- NOTE | 2020-01-16 14:32 | IPNPDOC ---
Text Note Date of Service The patient was seen on 01/16/20. NOTE Time of service 9 5 AM Subjective: Other than some discomfort from her neck brace the patient denies having any acute complaints. Objective: GEN: NAD. HEENT: NCAT/Neck brace in place. CVS: RRR/NRMG LUNGS: CTAB MSK: TERE 4 NEURO: Speech not dysarthric. PSYCH: A&O x3 Labs and vitals: see below Assessment: Ms. Vicente is a 79-year-old with history of paroxysmal atrial fibrillation, diab etes, Crohns, chronic CAD, chronic HTN, osteoporosis with recentT5 compression fracture & CKD3 who is admitted for evaluation of a fall resulting in a C2 fracture. Plan: 1. Mechanical Fall. Possibly due to a combination of weakness of her lower extremities, sedation due to waking up in the middle the night and orthostasis. CT of the head negative for acute stroke. We gave her some IV fluids yesterday - f/u w PT/OT to determine if she is a candidate for ARU 2. C2 fx (at the base of the dense). She was evaluated by Dr. Flaherty confirmed. She's not a surgical candidate. Her neck brace was placed by Jose Tim - c/w oxycodone 5 mg Q8H PRN (was reduced from 5mg Q4H PRN) and OxyContin 50 mg twice a day 3. Osteoporosis. She has pre-existing Osteoporosis 2/2 chronic steroid use. She was recently diagnosed witha T5 compression fx - c/w calcium with vitamin D/ she can follow up with her PCP to select antiresorptive therapy 4. BLE Edema possibly 2/2 CHF. Her BNP is elevated. Didn't give lasix bc orthostats were positive. - Request echo from Dr. Barrow office / elevate legs / c/w spironolactone 5. Paroxysmal atrial fibrillation - amiodarone, apixaban 6. Diabetes (A1C 7.3%) - diabetic diet / f/u accuchecks & / hypoglycemia protocol / sliding scale insulin / hold oral anti-glycemics 7. Crohns - mesalamine, prednisone w PPI for GI Px 8. CAD - metoprolol, atorvastatin 9. CKD 3 - f/u BMP tomorrow 10. Chronic HTN - valsartan, metoprolol, spironolactone 11. Macrocytic Anemia. - f/u CBC in the morning / c/w PO Iron 12. Obesity with BMI 31.6. complicates care DVT PROPHYLAXIS: n/a she is on AC DISPOSITION: Anticipate transfer to ARU pending PT/OT recs VS,Fishbone, I+O VS, Fishbone, I+O Vital Signs Date Time Temp Pulse Resp B/P (MAP) Pulse Ox O2 Delivery O2 Flow Rate FiO2 01/16/20 08:03 18 Room Air 01/16/20 08:03 54 156/56 01/16/20 06:02 98.3 94 1.0 I&O- Last 24 Hours up to 6 AM 01/16/20 06:00 Intake Total 1290 ml Output Total 1400 ml Balance -110 ml CHARLES PAIGE MD Jan 16, 2020 14:32
[2020-01-16] MEDS: ACETAMINOPHEN 650MG ER TAB (TYLENOL ARTHRITIS) PO PRN (15:05)
[2020-01-16] MEDS: CitaloPRAM (CeleXA) 10 MG TABLET PO SCH (18:24)
[2020-01-16] MEDS: ATORVASTATIN 20 MG TAB PO SCH (18:25)
[2020-01-16] MEDS: **NOTE PATIENT COMMENT** MISC XX SCH (21:00)
[2020-01-16 22:00] VITALS: BP 159/53
[2020-01-16] MEDS ORDERED: PREPARATION H OINTMENT (HEMORRHOID) PR PRN (22:00)
[2020-01-16] MEDS ORDERED: PREPARATION H SUPP (HEMORRHOID) PR PRN (22:00)
[2020-01-16] MEDS: DOCUSATE SODIUM 100 MG CAP PO SCH (22:10)
[2020-01-16] MEDS: NYSTATIN 100,000 UNITS/GM TOPICAL PWD 15 GM TOP SCH (22:30)
[2020-01-17] MEDS: oxyCODONE 5MG TAB PO PRN (02:08)
[2020-01-17] MEDS: ALPRAZolam 0.5 MG TAB PO PRN (05:16)
[2020-01-17 06:00] VITALS: BP 198/67
[2020-01-17 06:38] LABS: BASO % 0.1 % (0.0-1.0); EOS # 0.1 10^3/uL (0.0-0.5); HEMATOCRIT 32.2 % (36.0-47.0); HEMOGLOBIN 9.7 g/dl (12.0-15.5); LYMPH # 1.8 10^3/uL (1.5-5.0); LYMPH % 21.3 % (24.0-44.0); MEAN CORPUSCULAR HEMOGLOBIN 30.1 pg (27.0-33.0); MEAN CORPUSCULAR HGB CONC 30.1 g/dl (32.0-36.5); MONO # 1.1 10^3/uL (0.0-0.8); MONO % 13.2 % (0.0-5.0); NEUTROPHILS # 5.5 10^3/uL (1.5-8.5); NEUTROPHILS % 63.8 % (36.0-66.0); PLATELET COUNT, AUTOMATED 227 10^3/uL (150-450); RED BLOOD COUNT 3.22 10^6/uL (4.00-5.40); WHITE BLOOD COUNT 8.6 10^3/uL (4.0-10.0)
[2020-01-17 06:57] LABS: CALCIUM LEVEL 8.4 MG/DL (8.8-10.2); CREATININE FOR GFR 1.4 MG/DL (0.55-1.30); GLOMERULAR FILTRATION RATE 38.7 (>39); POTASSIUM SERUM 4.4 MEQ/L (3.5-5.1)
[2020-01-17] MEDS: MESALAMINE 250 MG CR CAP PO SCH (08:32)
[2020-01-17] MEDS: MAGNESIUM OXIDE 400 MG TAB (MAG-OX) PO SCH (08:32)
[2020-01-17] MEDS: AMIODARONE 200 MG TAB (PACERONE) PO SCH (08:32)
[2020-01-17 08:33] VITALS: BP 198/67
[2020-01-17] MEDS: VITAMIN D 1,000 INTERNATIONAL UNITS TABLET PO SCH (08:33)
[2020-01-17] MEDS: CALCIUM/VITAMIN D 500 MG TAB PO SCH (08:33)
[2020-01-17] MEDS: METOPROLOL TART 50 MG TAB PO SCH (08:33)
[2020-01-17] MEDS: OMEPRAZOLE 20 MG CAP PO SCH (08:33)
[2020-01-17] MEDS: VALSARTAN 80 MG TAB (DIOVAN) PO SCH (08:33)
[2020-01-17] MEDS: FAMOTIDINE 20 MG TAB PO SCH (08:33)
[2020-01-17] MEDS: APIXABAN 5 MG TAB (ELIQUIS) PO SCH (08:33)
[2020-01-17] MEDS: SPIRONOLACTONE 12.5MG PER 1/2 TABLET PO SCH (08:33)
[2020-01-17] MEDS: HumaLOG INSULIN (NovoLOG) PER UNIT SC SCH ×2 (08:34→12:37)
[2020-01-17] MEDS: oxyCODONE 15 MG CR TAB PO SCH (08:34)
[2020-01-17] MEDS: predniSONE 5 MG TAB PO SCH (08:34)
[2020-01-17] MEDS: DOCUSATE SODIUM 100 MG CAP PO SCH (08:34)
[2020-01-17] MEDS: NYSTATIN 100,000 UNITS/GM TOPICAL PWD 15 GM TOP SCH (08:35)
[2020-01-17] MEDS ORDERED: LIDO5TD TD (09:50)
[2020-01-17 11:45] VITALS: BP 144/55
--- NOTE | 2020-01-18 16:33 | DSES ---
DATE OF ADMISSION: 01/14/2020 DATE OF DISCHARGE TO ACUTE REHABILITATION UNIT: 01/17/2020 PRIMARY DISCHARGE DIAGNOSES: 1. Fall from standing position due to lower extremity weakness. 2. C2 fracture at the base of dense. 3. Osteoporosis. 4. Bilateral lower extremity edema due to congestive heart failure (CHF). 5. Paroxysmal atrial fibrillation (AFib). 6. Diabetes. 7. Crohn disease. 8. CAD 9. Chronic kidney disease (CKD) III. 10. Chronic hypertension. 11. Macrocytic anemia. 12. Obesity with body mass index (BMI) of 31.6. 13. Severe lumbar spinal stenosis with radiculopathy. 14. Thoracic compression fracture, chronic. 15. Hemorrhoidal bleeding with history of acute blood loss anemia on discharge on 01/09/2020. 15. Paroxysmal atrial fibrillation. 16.Asymptomatic SMA and celiac truck stenoses. DISCHARGE MEDICATIONS: - lidocaine patch daily as needed - acetaminophen 1 gram every 6 as needed - alprazolam 0.5 four times a day as needed - amiodarone 200 daily - Eliquis 5 mg twice a day - atorvastatin 40 every evening - calcium with vitamin D 1 capsule twice a day - vitamin D 3000 units daily - Celexa 30 mg every evening - famotidine 20 mg daily - ferrous sulfate 325 - glipizide 5 mg twice a day - magnesium oxide 400 twice a day - Pentasa 1 gram three times a day - metoprolol 50 twice a day - omeprazole 40 daily - oxycodone 5 every 4 hours as needed - OxyContin 15 mg twice a day - prednisone 15 daily - Systane eye drop both eyes twice a day - spironolactone 12.5 daily - valsartan 160 daily - vitamin B 100 mg daily HOSPITAL COURSE: This is a 79-year-old who presented to the emergency room after a fall at home. Was walking with a walker. When she stood she fell right into her walker. Denied chest pain, pressure, tightness, dizziness, lightheadedness prior to the fall. Patient was found to have a cervical spine collar and was given a cervical collar in the emergency room. Patient was not orthostatic. She had a C2 dense fracture likely due to chronic steroid use. Patient had a cervical spine collar put on. Was kept on oxycodone and OxyContin, calcium and vitamin D for osteoporosis. Her brain natriuretic peptide (BNP) was elevated on admission and she was kept on her spironolactone. Amiodarone and apixaban controlled her paroxysmal atrial fibrillation. She was kept on chronic anticoagulation to prevent CVA. Patient had no gastrointestinal (GI) bleed and was continued on methylamine and prednisone. DISCHARGE PHYSICAL EXAMINATION: Temperature 98.2, pulse 54, respiratory rate 19, blood pressure is 198/67, 96% on room air. Generally awake, alert, oriented to times three. Patient has a cervical collar on. Lungs are clear to auscultation. No wheezing, rales or rhonchi. Heart: S1, S2, sinus rhythm. Abdomen is obese, soft, nontender, nondistended. Positive bowel sounds times four quadrants. Extremities: 2+ pitting edema bilateral lower extremities. No cyanosis or clubbing. DISCHARGE LABORATORY DATA: White count 8.6, hemoglobin 9.7, hematocrit 32, platelet count 227. Sodium 141, potassium 4.4, chloride 105, bicarbonate 29, BUN 24, creatinine 1.4, glucose of 169. IMAGING STUDIES: Cervical spine CT 01/14/2020: Nondisplaced fracture at the base, type 2, prevertebral soft tissue swelling, multilevel cervical spine disc and facet degenerative changes. CT of the head 01/14/2020: No CT evidence of any hemorrhage, mass effect or midline shift. Mild right sphenoid sinus mucoperiosteal thickening. Chest x-ray 01/14/2020: Left lower lobe opacities, small left pleural effusion, atelectasis versus pneumonia versus combination of both. Mild fibrotic changes are suspected, clinically rule out acute disease superimposed on chronic disease. TIME SPENT ON DISCHARGE: 30 minutes. MARISSA
== END 2020-01-17 13:35 | DRG 552 ==
LOC: M ED 05:21 → M ED INP 08:47 → M MS5PR 10:25
PROVIDERS: ADMIT Internal Medicine; ATTEND General Practice
DX: S12.112A Nondisplaced Type II dens fracture, initial encounter for closed fracture (principal); K50.90 Crohn's disease, unspecified, without complications; I13.0 Hypertensive heart and chronic kidney disease with heart failure and stage 1 through stage 4 chronic kidney disease, or unspecified chronic kidney disease; I77.4 Celiac artery compression syndrome; I48.0 Paroxysmal atrial fibrillation; E11.9 Type 2 diabetes mellitus without complications; I25.10 Atherosclerotic heart disease of native coronary artery without angina pectoris; E78.5 Hyperlipidemia, unspecified; N18.3 Chronic kidney disease, stage 3 (moderate); W18.09XA Striking against other object with subsequent fall, initial encounter; Y92.003 Bedroom of unspecified non-institutional (private) residence as the place of occurrence of the external cause; Y99.8 Other external cause status; I50.9 Heart failure, unspecified; E66.9 Obesity, unspecified; M48.061 Spinal stenosis, lumbar region without neurogenic claudication; D53.9 Nutritional anemia, unspecified; M80.08XD Age-related osteoporosis with current pathological fracture, vertebra(e), subsequent encounter for fracture with routine healing; Z68.31 Body mass index [BMI] 31.0-31.9, adult; Z79.52 Long term (current) use of systemic steroids; Z79.01 Long term (current) use of anticoagulants; Z79.84 Long term (current) use of oral hypoglycemic drugs; Z79.891 Long term (current) use of opiate analgesic; Z79.899 Other long term (current) drug therapy; Z88.5 Allergy status to narcotic agent; Z88.2 Allergy status to sulfonamides; Z88.8 Allergy status to other drugs, medicaments and biological substances

== ENCOUNTER 2020-01-17 11:01 | Inpatient (IN) | payer MEDICARE ==
[~2020-01-17] VITALS: Ht 160 cm; Wt 85.9 kg
[~2020-01-17 11:01] MED LIST changes: +AMIO200T PO; +LIDO1ADH16 TOP; +LIDO5TD TD; +VITAD1000T PO
[2020-01-17 13:40] VITALS: BP 152/68
[2020-01-17] MEDS ORDERED: GLUCOSE 4GM CHEW TABLET PO PRN (16:00)
[2020-01-17] MEDS ORDERED: BISACODYL 10 MG SUPP PR PRN (16:00)
[2020-01-17] MEDS ORDERED: DEXTROSE 50% 50 ML SYRINGE IV PRN (16:00)
[2020-01-17] MEDS: POLYVINYL ALCOHOL OPHTH SOLN 15 ML(LIQUITEARS) OU SCH ×2 (16:00→20:41)
[2020-01-17] MEDS: MESALAMINE 250 MG CR CAP PO SCH ×2 (16:00→20:41)
[2020-01-17] MEDS: REMEDY PHYTOPLEX Z-GUARD PASTE 113GM TUBE (FROM STOREROOM PRODUCT) TOP SCH ×2 (16:00→20:42)
[2020-01-17] MEDS ORDERED: BISACODYL 5 MG TAB PO PRN (16:00)
[2020-01-17] MEDS ORDERED: GLUCAGON INJ 1MG VIAL SC PRN (16:00)
[2020-01-17] MEDS: ATORVASTATIN 20 MG TAB PO SCH (17:06)
[2020-01-17] MEDS: CitaloPRAM (CeleXA) 10 MG TABLET PO SCH (17:06)
[2020-01-17] MEDS: glipiZIDE (GLUCOTROL) 5 MG TAB PO SCH (17:06)
[2020-01-17] MEDS: ACETAMINOPHEN 500 MG TAB PO SCH ×2 (17:07→20:39)
[2020-01-17] MEDS: HumaLOG INSULIN (NovoLOG) PER UNIT SC SCH ×2 (17:08→21:00)
[2020-01-17] MEDS: IPRATROPIUM 0.5MG/ALBUTEROL 2.5MG INH SOL UD 3ML (DUONEB) NEB SCH (19:44)
[2020-01-17 20:00] VITALS: BP 158/69
[2020-01-17] MEDS: OMEPRAZOLE 20 MG CAP PO SCH (20:38)
[2020-01-17] MEDS: MAGNESIUM OXIDE 400 MG TAB (MAG-OX) PO SCH (20:39)
[2020-01-17] MEDS: APIXABAN 5 MG TAB (ELIQUIS) PO SCH (20:39)
[2020-01-17] MEDS: METOPROLOL TART 50 MG TAB PO SCH (20:40)
[2020-01-17] MEDS: CALCIUM/VITAMIN D 500 MG TAB PO SCH (20:40)
[2020-01-17] MEDS: SENNA 8.6 MG TAB (SENOKOT) PO SCH (20:40)
[2020-01-17] MEDS: oxyCODONE 15 MG CR TAB PO SCH (20:40)
[2020-01-17] MEDS: DOCUSATE SODIUM 100 MG CAP PO SCH (20:40)
[2020-01-17] MEDS: NYSTATIN 100,000 UNITS/GM TOPICAL PWD 15 GM TOP SCH (20:41)
[2020-01-17] MEDS: **NOTE PATIENT COMMENT** MISC XX SCH (20:42)
[2020-01-18 06:00] VITALS: BP 161/67
[2020-01-18] MEDS: IPRATROPIUM 0.5MG/ALBUTEROL 2.5MG INH SOL UD 3ML (DUONEB) NEB SCH ×3 (06:12→19:19)
[2020-01-18 07:20] LABS: BASO % 0.2 % (0.0-1.0); EOS # 0.1 10^3/uL (0.0-0.5); HEMATOCRIT 33.1 % (36.0-47.0); HEMOGLOBIN 9.8 g/dl (12.0-15.5); LYMPH # 1.9 10^3/uL (1.5-5.0); LYMPH % 20.1 % (24.0-44.0); MEAN CORPUSCULAR HEMOGLOBIN 29.4 pg (27.0-33.0); MEAN CORPUSCULAR HGB CONC 29.6 g/dl (32.0-36.5); MEAN CORPUSCULAR VOLUME 99.4 fl (80.0-96.0); MONO # 1.3 10^3/uL (0.0-0.8); MONO % 13.8 % (0.0-5.0); NEUTROPHILS # 6.1 10^3/uL (1.5-8.5); PLATELET COUNT, AUTOMATED 233 10^3/uL (150-450); RED BLOOD COUNT 3.33 10^6/uL (4.00-5.40); WHITE BLOOD COUNT 9.5 10^3/uL (4.0-10.0)
[2020-01-18] MEDS: HumaLOG INSULIN (NovoLOG) PER UNIT SC SCH ×4 (07:30→20:59)
[2020-01-18 07:54] LABS: ALBUMIN 2.4 GM/DL (3.2-5.2); BILIRUBIN,TOTAL 0.5 MG/DL (0.2-1.0); CALCIUM LEVEL 8.5 MG/DL (8.8-10.2); CREATININE FOR GFR 1.56 MG/DL (0.55-1.30); GLOMERULAR FILTRATION RATE 34.2 (>39); TOTAL PROTEIN 5.8 GM/DL (6.4-8.2)
[2020-01-18] MEDS: NYSTATIN 100,000 UNITS/GM TOPICAL PWD 15 GM TOP SCH ×2 (08:00→21:05)
[2020-01-18] MEDS: REMEDY PHYTOPLEX Z-GUARD PASTE 113GM TUBE (FROM STOREROOM PRODUCT) TOP SCH ×3 (08:00→21:05)
[2020-01-18] MEDS: LIDOCAINE 5% (LIDODERM) PATCH TD SCH (08:41)
[2020-01-18] MEDS: MESALAMINE 250 MG CR CAP PO SCH ×3 (08:41→20:58)
[2020-01-18] MEDS: OMEPRAZOLE 20 MG CAP PO SCH ×2 (08:42→20:58)
[2020-01-18] MEDS: VITAMIN B COMPLEX/VIT C CAP PO SCH (08:42)
[2020-01-18] MEDS: FERROUS SULFATE 325MG TAB PO SCH (08:42)
[2020-01-18] MEDS: APIXABAN 5 MG TAB (ELIQUIS) PO SCH ×2 (08:42→20:58)
[2020-01-18] MEDS: VITAMIN D 1,000 INTERNATIONAL UNITS TABLET PO SCH (08:42)
[2020-01-18] MEDS: MAGNESIUM OXIDE 400 MG TAB (MAG-OX) PO SCH ×2 (08:42→20:58)
[2020-01-18] MEDS: CALCIUM/VITAMIN D 500 MG TAB PO SCH ×2 (08:42→20:58)
[2020-01-18] MEDS: AMIODARONE 200 MG TAB (PACERONE) PO SCH (08:43)
[2020-01-18] MEDS: METOPROLOL TART 50 MG TAB PO SCH ×3 (08:43→21:04)
[2020-01-18] MEDS: oxyCODONE 15 MG CR TAB PO SCH ×2 (08:44→20:59)
[2020-01-18] MEDS: predniSONE 5 MG TAB PO SCH (08:45)
[2020-01-18] MEDS: ACETAMINOPHEN 500 MG TAB PO SCH ×3 (08:46→20:59)
[2020-01-18] MEDS: POLYVINYL ALCOHOL OPHTH SOLN 15 ML(LIQUITEARS) OU SCH ×3 (08:46→21:05)
[2020-01-18] MEDS: glipiZIDE (GLUCOTROL) 5 MG TAB PO SCH (08:46)
[2020-01-18] MEDS ORDERED: amLODIPine 5 MG TAB PO SCH (09:00)
[2020-01-18] MEDS ORDERED: VALSARTAN 80 MG TAB (DIOVAN) PO SCH (09:00)
[2020-01-18] MEDS ORDERED: SPIRONOLACTONE 12.5MG PER 1/2 TABLET PO SCH (09:00)
[2020-01-18] MEDS: DOCUSATE SODIUM 100 MG CAP PO SCH ×2 (09:00→20:57)
[2020-01-18] MEDS: MIRALAX *UNIT DOSE* 17GM PACKET PO SCH (09:00)
--- NOTE | 2020-01-18 11:05 | HPEPDOC ---
Process Lead Note DATE OF ADMISSION: 01-17-20 DATE OF SERVICE: 01-17-20 TIME OF ADMISSION: Please refer to physician's admission order. SOURCE OF ADMISSION INFORMATION: [facility] record and patient CHIEF COMPLAINT: cervical fracture HISTORY OF PRESENT ILLNESS: 71F pmh paroxysmal Afib, DM, HTN, CAD s/p PCI, CKD3, chronic mesenteric artery stenosis, Crohns osteoporosis due to longstanding steroid use with T5 compression fracture who fell at home without pre-syncopal symptoms and presented to [facility] ED and diagnosed with a C2 fracture with Xray showing, subtle nondisplaced fracture at the base of the dense/type 2 with prevertebral soft tissue swellingMultilevel cervical spine disc and facet degenerative changes. She was seen by orthopedics who recommended she wear a cervical brace and treat neck pain with oral analgesics. She required supplemental 02 with CXR showing, Left lower lobe opacity and small left pleural effusion. Atelectasis versus pneumonia versus combination of both, but did not receive treatment as there was no clinical suspicion for pneumonia. She was evaluated by therapy, noted to have impairments in mobility and ADLs and deemed medically appropriate for discharge to ARU on 01-17-20. REVIEW OF SYSTEMS: The following is a completed review of systems and has been reviewed. Review of systems otherwise unremarkable. PAIN: Patient self reports +neck pain EYES: No recent vision changes EARS, NOSE, & THROAT: No throat pain, or dysphagia, or rhinorrhea CARDIOVASCULAR: Denies chest pain or palpitations PULMONARY: Denies shortness of breath GASTROINTESTINAL:+ constipation GENITOURINARY: denies dysuria MUSCULOSKELETAL: generalized weakness NEUROLOGICAL:denies paresthesias or tremor HEMATOLOGICAL: denies easy bruising SKIN: abdominal fold rash PSYCHIATRIC: Unremarkable All other review of systems found to be negative. PAST MEDICAL HISTORY: as per HPI ALLERGIES: Please see below. MEDICATIONS: Please see below. SOCIAL HISTORY: No etoh/illicit drugs/smoking DIET: low sodium, fluid restrict PHYSICAL EXAMINATION: VITAL SIGNS: Please see below. GENERAL: Pleasant and cooperative. No acute distress. HEENT: PERRL. Extraocular movements intact. Clear conjunctiva CARDIOVASCULAR: Regular rate and rhythm. No murmurs, rubs, or gallops LUNGS: Clear to auscultation bilaterally. No wheezes. No rhonchi ABDOMEN: Soft, nontender, nondistended. Positive bowel sounds. Normal active bowel sounds NEUROLOGICAL: Alert and oriented times three. Cranial nerves II through XII grossly intact. Sensation grossly intact EXTREMITIES: 5\5 strength bilateral upper extremities. 5\5 strength right lower extremity. 5/5 strength in left lower extremity. +bilat LE edema SKIN: intact LABORATORY DATA: Please see below. IMAGING:Imaging documentation personally reviewed by record FUNCTIONAL STATUS: Premorbid: Independent with all activities of daily life as well as mobility On Admission: Contact-guard to standby assist for functional transfers , min assist for bed mobility, min assist for ambulation 90ft GOALS: Mod-I community distances, stairs, functional transfers, dressing, toileting, bathing ASSESSMENT:79-year-old F with past medical history of Afib who presents status post fall with C2 fracture PLAN: 1. Rehab-pT/OT advance gait and ADLs, cervical collar to be worn when OOB, strengthen/stretch.maintain ROM all 4 limbs 2. Cardiac- Afib c/u amiodarone, eliquis and beta-erna- medicine consulted to assist in overall management -chronic CHF patient follows with Dr. Denton and had elevated BNP on acute side, will fluid restrict, daily weights, and c/u aldactone -HTN c/u Valsartan -HLD- c/u statin 3. Resp: encourgae incentive spirometry, Duonebs, monitor for infection 4. Ortho- s/p fall with C2-fracture cervical brace to be worn when OOB -T5 compression fracture- chronic 5. Renal- patient with CKD, monitor for FAUSTO 6. GI- hx of ulcerative colitis c/u mesalamine and oral prednisone -prilosec 40mg BID whil damaso steroids 7. Endo- DM c/u glipizide and ISS 8. PAin- lidoderm patch to neck, OxyContin, and oxycodone 9. - monitor PVRs 10. Dispo: TBD POST ADMISSION PHYSICIAN EVALUATION: Medical and functional status: Description of medical status, medical assessment: As above. Rehabilitation diagnosis and current and prior cold morbid medical conditions as above. Risk of complications and plans to mitigate them as above. Description of functional status current status is as above. Prior status as above. Status compared to preadmission: There are no clinically significant differences between the patient's current status and the information described on the preadmission screening document. Treatment plan anticipated: Treatment plan is as described above. Required disciplines including physical therapy, occupational therapy, others as noted above. Intensity of services: 3 hours a day, 6 days a week. Special considerations: There are no specific special or safety considerations that would likely preclude immediate implementation of an intensive rehabilitation program or subsequently influence the plan of care ATTESTATION: Considering all the information above, it is my best judgment that this patient requires intensive rehabilitation therapy as described above and an inpatient hospital environment due to the complexity of nursing, medical, and rehabilitation needs required by the patient. Furthermore, this patient can reasonably be expected to participate in an benefit from an inpatient rehabilitation stay with an interdisciplinary team approach to the delivery of rehabilitation care under the direction and supervision of rehabilitation physician. PROGNOSIS: Excellent ESTIMATED LENGTH OF STAY:7-10 days. PROJECTED DISCHARGE DESTINATION: Home with family support and any durable medical equipment required to increase functional safety and mobility. TIME SPENT COUNSELING AND COORDINATING INITIAL CARE: Greater than 70 minutes. Vital Signs Vital Sign - Last 24 Hours 01/17/20 01/17/20 01/17/20 01/17/20 13:40 20:00 20:40 20:40 Temp 96.6 96.2 Pulse 53 62 62 Resp 18 18 18 B/P (MAP) 152/68 (96) 158/69 (98) 158/59 Pulse Ox 95 95 O2 Delivery Room Air Room Air Room Air 01/18/20 01/18/20 01/18/20 06:00 08:43 08:44 Temp 95.7 Pulse 60 60 Resp 18 20 B/P (MAP) 161/67 (98) 161/67 Pulse Ox 94 O2 Delivery Room Air Room Air Laboratory Data CBC/BMP Laboratory Tests 01/18/20 06:19 Labs 24H Laboratory Tests 2 01/17/20 16:42: Bedside Glucose (Misc Panel) 149H 01/17/20 21:44: Bedside Glucose (Misc Panel) 115H 01/18/20 06:19: Immature Granulocyte % (Auto) 0.9, Neutrophils (%) (Auto) 64.0, Lymphocytes (%) (Auto) 20.1L, Monocytes (%) (Auto) 13.8H, Eosinophils (%) (Auto) 1.0, Basophils (%) (Auto) 0.2, Neutrophils # (Auto) 6.1, Lymphocytes # (Auto) 1.9, Monocytes # (Auto) 1.3H, Eosinophils # (Auto) 0.1, Basophils # (Auto) 0.0, Nucleated Red Blood Cells % (auto) 0.0, Anion Gap 5L, Glomerular Filtration Rate 34.2L, Calcium Level 8.5L, Total Bilirubin 0.5, Aspartate Amino Transf (AST/SGOT) 13, Alanine Aminotransferase (ALT/SGPT) 22, Alkaline Phosphatase 57, Total Protein 5.8L, Albumin 2.4L, Albumin/Globulin Ratio 0.7L 01/18/20 06:53: Bedside Glucose (Misc Panel) 69L FSBS Laboratory Tests Test 01/17/20 16:42 01/17/20 21:44 01/18/20 06:53 Range/Units Bedside Glucose (Misc Panel) 149 115 69 83-110 MG/DL Home Medications Scheduled Amiodarone HCl (Amiodarone HCl) 200 Mg Tablet, 200 MG PO DAILY, (Reported) Apixaban (Eliquis) 5 Mg Tablet, 5 MG PO BID, (Reported) Atorvastatin Calcium (Atorvastatin Calcium) 40 Mg Tablet, 40 MG PO QPM, (Reported) Calcium Carbonate/Vitamin D3 (Calcium 600 + Vit D 400 Softgl) 1 Each Capsule, 1 CAP PO BID, (Reported) Cholecalciferol (Vitamin D3) (Vitamin D3) 1,000 Unit Tablet, 1,000 UNITS PO DAILY, (Reported) Citalopram Hydrobromide (Celexa) 20 Mg Tablet, 30 MG PO QPM, (Reported) Famotidine (Famotidine) 20 Mg Tablet, 20 MG PO DAILY, (Reported) Ferrous Sulfate (Ferrous Sulfate) 325 Mg Tablet.dr, 325 MG PO ASDIRECTED, (Reported) PATIENT ONLY TAKES TWO TO THREE TIMES PER WEEK Glipizide (Glipizide) 5 Mg Tablet, 5 MG PO BID, (Reported) Magnesium Oxide (Magnesium Oxide) 400 Mg Tablet, 400 MG PO BID, (Reported) Mesalamine (Pentasa) 500 Mg Capsule.er, 1,000 MG PO TID, (Reported) Metoprolol Tartrate (Metoprolol Tartrate) 50 Mg Tablet, 50 MG PO BID, (Reported) Omeprazole (Omeprazole) 40 Mg Capsule.dr, 40 MG PO DAILY, (Reported) Oxycodone HCl (Oxycontin) 15 Mg Tab.er.12h, 15 MG PO BID, (Reported) Prednisone (Prednisone) 10 Mg Tablet, 15 MG PO DAILY, (Reported) Propylene Glycol/Peg 400/Pf (Systane 0.3-0.4% Eye Drop) 1 Each Droperette, 1 DROP OU QID, (Reported) Spironolactone (Spironolactone) 25 Mg Tablet, 12.5 MG PO DAILY, (Reported) Valsartan (Valsartan) 320 Mg Tablet, 160 MG PO DAILY, (Reported) Vit B Complex 100 Combo No.2 (B-100 Complex) 100 Mg Tablet.er, 100 MG PO DAILY, (Reported) Scheduled PRN Acetaminophen (Acetaminophen) 500 Mg Tablet, 1,000 MG PO Q6H PRN for PAIN, (Reported) Alprazolam (Alprazolam) 0.5 Mg Tablet, 0.5 MG PO QID PRN for ANXIETY, (Reported) Lidocaine (Salonpas) 1 Each Adh..patch, 1 PATCH TOP DAILY PRN for PAIN, (Reported) APPLY TO RIGHT SHOULDER BLADE Lidocaine (Lidocaine) 5% Adh..patch, 1 PATCH TD DAILY PRN for neck pain Oxycodone HCl (Oxycodone HCl) 5 Mg Tablet, 5 MG PO Q4H PRN for PAIN, (Reported) Allergies Coded Allergies: hydrocodone (Verified Allergy, Intermediate, 01/03/20) Sulfa (Sulfonamide Antibiotics) (Verified Allergy, Unknown, 07/03/19) hydrochlorothiazide (Verified Allergy, Unknown, 07/03/19) A-FIB/CHADSVASC A-FIB History Current/History of A-Fib/PAF?: Yes Current PO Anticoag Therapy: Yes MANOJ DE LA CRUZ MD Jan 18, 2020 11:05
[2020-01-18] MEDS ORDERED: PREPARATION H SUPP (HEMORRHOID) PR PRN (13:30)
--- NOTE | 2020-01-18 13:36 | IPNPDOC ---
PM&R Progress Note DATE OF SERVICE: Jan 18, 2020 [employer] Progress Note Subjective: Patient reporting she feels a little short of breath with exertion and cannot say if the breathing treatments are helping. REVIEW OF SYSTEMS: The following is a completed review of systems and has been reviewed. Review of systems otherwise unremarkable. PAIN: Patient self reports +neck pain EYES: No recent vision changes EARS, NOSE, & THROAT: No throat pain, or dysphagia, or rhinorrhea CARDIOVASCULAR: Denies chest pain or palpitations PULMONARY: Denies shortness of breath GASTROINTESTINAL:+ constipation GENITOURINARY: denies dysuria MUSCULOSKELETAL: generalized weakness NEUROLOGICAL:denies paresthesias or tremor HEMATOLOGICAL: denies easy bruising SKIN: abdominal fold rash PSYCHIATRIC: Unremarkable All other review of systems found to be negative. PHYSICAL EXAMINATION: VITAL SIGNS: Please see below. GENERAL: Pleasant and cooperative. No acute distress. HEENT: PERRL. Extraocular movements intact. Clear conjunctiva CARDIOVASCULAR: Regular rate and rhythm. No murmurs, rubs, or gallops LUNGS: Clear to auscultation bilaterally. No wheezes. No rhonchi ABDOMEN: Soft, nontender, nondistended. Positive bowel sounds. Normal active bowel sounds NEUROLOGICAL: Alert and oriented times three. Cranial nerves II through XII grossly intact. Sensation grossly intact EXTREMITIES: 5\5 strength bilateral upper extremities. 5\5 strength right lower extremity. 5/5 strength in left lower extremity. +bilat LE edema SKIN: intact LABORATORY DATA: Please see below. ASSESSMENT:79-year-old F with past medical history of Afib who presents status post fall with C2 fracture PLAN: 1. Rehab-pT/OT advance gait and ADLs, cervical collar to be worn when OOB, strengthen/stretch.maintain ROM all 4 limbs 2. Cardiac- Afib c/u amiodarone, eliquis and beta-erna- medicine consulted to assist in overall management -chronic CHF patient follows with Dr. Denton and had elevated BNP on acute side, will fluid restrict, daily weights, and c/u aldactone- [place] wrap bilat LE and eelvate -HTN c/u Valsartan at lwoer dose due to slightly worsening kidney function, will increase frequency of metoprolol dosing and add amlodipine -HLD- c/u statin 3. Resp: encourgae incentive spirometry, Duonebs, monitor for infection -donna dd flonase and ocean SN drops as patient reporting sinus congestin 4. Ortho- s/p fall with C2-fracture cervical brace to be worn when OOB -T5 compression fracture- chronic 5. Renal- patient with CKD, monitor for FAUSTO 6. GI- hx of ulcerative colitis c/u mesalamine and oral prednisone -prilosec 40mg BID while on steroids -prep-H and tucks for hemorrhoids 7. Endo- DM c/u glipizide and ISS 8. PAin- lidoderm patch to neck, OxyContin, and oxycodone 9. - monitor PVRs 10. Dispo: TBD Allergies Coded Allergies: hydrocodone (Verified Allergy, Intermediate, 01/03/20) Sulfa (Sulfonamide Antibiotics) (Verified Allergy, Unknown, 07/03/19) hydrochlorothiazide (Verified Allergy, Unknown, 07/03/19) Vital Signs Vital Signs Date Time Temp Pulse Resp B/P (MAP) Pulse Ox O2 Delivery O2 Flow Rate FiO2 01/18/20 08:44 20 Room Air 01/18/20 08:43 60 161/67 01/18/20 06:00 95.7 94 Laboratory Data CBC/BMP Laboratory Tests 01/18/20 06:19 Labs 24H Laboratory Tests 2 01/17/20 16:42: Bedside Glucose (Misc Panel) 149H 01/17/20 21:44: Bedside Glucose (Misc Panel) 115H 01/18/20 06:19: Immature Granulocyte % (Auto) 0.9, Neutrophils (%) (Auto) 64.0, Lymphocytes (%) (Auto) 20.1L, Monocytes (%) (Auto) 13.8H, Eosinophils (%) (Auto) 1.0, Basophils (%) (Auto) 0.2, Neutrophils # (Auto) 6.1, Lymphocytes # (Auto) 1.9, Monocytes # (Auto) 1.3H, Eosinophils # (Auto) 0.1, Basophils # (Auto) 0.0, Nucleated Red Blood Cells % (auto) 0.0, Anion Gap 5L, Glomerular Filtration Rate 34.2L, Calcium Level 8.5L, Total Bilirubin 0.5, Aspartate Amino Transf (AST/SGOT) 13, Alanine Aminotransferase (ALT/SGPT) 22, Alkaline Phosphatase 57, Total Protein 5 .8L, Albumin 2.4L, Albumin/Globulin Ratio 0.7L 01/18/20 06:53: Bedside Glucose (Misc Panel) 69L 01/18/20 11:30: Bedside Glucose (Misc Panel) 150H Current Medications Current Medications Current Medications Medications (Trade) Dose Ordered Sig/Annie Route PRN Reason Start Time Stop Time Status Last Admin Dose Admin Acetaminophen (Tylenol Tab) 1,000 mg TID PO 01/17/20 16:00 01/18/20 08:46 Albuterol/ Ipratropium (Duoneb (Ipr 0.5mg/Alb 2.5mg)) 3 ml RTID NEB 01/17/20 20:00 01/18/20 06:12 Amiodarone HCl (Pacerone, Cordarone) 200 mg DAILY PO 01/18/20 09:00 01/18/20 08:43 Amlodipine Besylate (Norvasc) 5 mg DAILY PO 01/18/20 09:00 Apixaban (Eliquis) 5 mg BID PO 01/17/20 21:00 01/18/20 08:42 Artificial Tears (Akwa Tears) 2 drop TID OU 01/17/20 16:00 01/17/20 20:41 Atorvastatin Calcium (Lipitor) 40 mg DAILY@1800 PO 01/17/20 18:00 01/17/20 17:06 Bisacodyl (Dulcolax Suppository) 10 mg DAILYPRN PRN AR CONSTIPATION 01/17/20 16:00 01/17/20 18:10 Bisacodyl (Dulcolax Tab) 5 mg DAILYPRN PRN PO CONSTIPATION 01/17/20 16:00 Calcium/Vitamin D (Oscal D) 500 mg BID PO 01/17/20 21:00 01/18/20 08:42 Citalopram Hydrobromide (CeleXA) 30 mg DAILY@1800 PO 01/17/20 18:00 01/17/20 17:06 Dextrose (Dextrose 50%) 25 ml ASDIRECTED PRN IV SEE LABEL COMMENTS 01/17/20 16:00 Docusate Sodium (Colace) 100 mg BID PO 01/17/20 21:00 01/17/20 20:40 Ferrous Sulfate (Ferrous Sulfate) 325 mg MoWeFr@0900 PO 01/18/20 09:00 01/18/20 08:42 Glipizide (Glucotrol) 5 mg BID@0730,1730 PO 01/17/20 17:30 01/18/20 08:46 Glucagon (Glucagon) 1 mg ASDIRECTED PRN SC SEE LABEL COMMENTS 01/17/20 16:00 Glucose (Glucose) 16 GM ASDIRECTED PRN PO SEE LABEL COMMENTS 01/17/20 16:00 Insulin Human Lispro (HumaLOG INSULIN) SEE PROTOCOL TABLE AC SC 01/17/20 17:30 01/17/20 17:08 Insulin Human Lispro (HumaLOG INSULIN) SEE PROTOCOL TABLE QHS SC 01/17/20 21:00 Lidocaine (Lidoderm Patch) 1 patch DAILY TD 01/18/20 09:00 01/18/20 08:41 Magnesium Oxide (Mag-Ox) 400 mg BID PO 01/17/20 21:00 01/18/20 08:42 Mesalamine (Pentasa) 1,000 mg TID PO 01/17/20 16:00 01/18/20 08:41 Metoprolol Tartrate (Lopressor) 50 mg BID PO 01/17/20 21:00 01/18/20 09:52 DC 01/18/20 08:43 Metoprolol Tartrate (Lopressor) 50 mg Q8H PO 01/18/20 14:00 Non-Formulary Medication ( See Comment Field Below ) REMOVE LIDODERM PATCH DAILY@21 XX 01/17/20 21:00 Nystatin (Mycostatin Powder, Nystop) apply to abdominal folds ... BID TOP 01/17/20 21:00 01/17/20 20:41 Omeprazole (PriLOSEC) 40 mg BID PO 01/17/20 21:00 01/18/20 08:42 Oxycodone HCl (OxyCONTIN) 15 mg BID PO 01/17/20 21:00 01/18/20 08:44 Oxycodone HCl (Roxicodone, Oxyir) 5 mg Q8HP PRN PO PAIN 01/17/20 16:00 Prednisone (Deltasone) 15 mg DAILY PO 01/18/20 09:00 01/18/20 08:45 Senna (Senokot) 1 tab QHS PO 01/17/20 21:00 01/17/20 20:40 Spironolactone (Aldactone) 12.5 mg DAILY PO 01/18/20 09:00 01/18/20 08:42 Valsartan (Diovan) 80 mg DAILY PO 01/19/20 09:00 Valsartan (Diovan) 160 mg DAILY PO 01/18/20 09:00 01/18/20 09:52 DC 01/18/20 08:43 Vitamin B Complex/ Vitamin C (Therapeutic B Complex w/C) 1 cap DAILY PO 01/18/20 09:00 01/18/20 08:42 Vitamin D (Vitamin D) 1,000 units DAILY PO 01/18/20 09:00 01/18/20 08:42 MANOJ DE LA CRUZ MD Jan 18, 2020 13:36
[2020-01-18 14:00] VITALS: BP 164/82
--- NOTE | 2020-01-18 16:42 | HPE ---
DATE OF ADMISSION: 01/18/2020 Patient is admitted to the acute rehabilitation unit. She currently complains of neck pain rated at 3/10. 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 Patient had refused further workup at that time and says that she follows with Dr. Mancia as outpatient and was discharged home after pain was controlled on OxyContin 10 twice a day and oxycodone as needed. Patient says that she was going to followup with [facility] in [place] for the back pain. She then presented to the emergency room on 01/14/2020 after having a fall from standing and was found to have a C2 cervical spine fracture, for which she was given a cervical collar. A nondisplaced fracture at the base of the dens type 2 with prevertebral soft tissue swelling was treated conservatively with pain medications. She had no other acute medical issues and was subsequently transferred to the acute rehabilitation unit. Patient, however, says that since hospital discharge she has had increasing lower extremity edema. No paroxysmal nocturnal dyspnea (PND), orthopnea, chest pain, pressure, or tightness. PAST MEDICAL HISTORY: 1. 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 2. Crohn's disease. 3. Hemorrhoidal bleeding. 4. Acute gastrointestinal (GI) bleed secondary to hemorrhoids. 5. Paroxysmal atrial fibrillation. 6. Diabetes. 7. Chronic hypertension. 8. CAD status post PCI. 9. Dyslipidemia. 10. Chronic kidney disease, stage III. 11. Osteoporosis. 12. T5 compression fracture. PAST SURGICAL HISTORY: 1. Colonoscopies by Dr. Mancia. 2. Breast biopsy times three. 3. Cholecystectomy. 4. Hysterectomy. 5. Bowel resection times two. 6. Right knee replacement. 7. Right hip replacement 8. Coronary angiogram 2016. ALLERGIES: HYDROCODONE, SULFA, HYDROCHLOROTHIAZIDE. HOME MEDICATIONS: - Eliquis 5 mg twice a day - atorvastatin 40 every evening - calcium with vitamin D one tablet twice a day - citalopram 20 mg one and one-half tablets daily - glipizide 2.5 mg daily - Pentasa 500 mg tablet, 1 gram daily - metoprolol 50 mg twice a day - Prilosec 40 daily - prednisone 15 mg daily - spironolactone 0.5 daily - valsartan 160 mg daily - vitamin B 100 complex one tablet daily - acetaminophen 500 two tablets every 6 as needed for pain - OxyContin 10 mg twice a day - oxycodone 5 mg every 4 as needed - spironolactone 12.5 mg daily REVIEW OF SYSTEMS: Per history of present illness (HPI). A 12-point system otherwise negative. FAMILY HISTORY: Noncontributory due to advanced age. PHYSICAL EXAMINATION: Temperature 95.7, pulse 68, respiratory rate 20, blood pressure 148/70, 94% on room air. GENERAL: Patient is awake, alert, oriented times three, answering questions appropriately. Pupils round, reactive to light and accommodation. Extraocular muscles are intact. No jugular venous distention (JVD) or thyromegaly. No cervical lymphadenopathy. LUNGS: Clear to auscultation. No wheezes, rales, or rhonchi. HEART: S1, S2, regular rate and rhythm. ABDOMEN: Obese, soft, nontender, nondistended. Positive bowel sounds. EXTREMITIES: Positive 3+ lower extremity edema to the sacrum. LABORATORY DATA: White count 9.5, hemoglobin 9.8, hematocrit 33.1, platelet count 233. Sodium 141, potassium 4, chloride 105, bicarbonate 31, BUN 26, creatinine 1.56, glucose 72. IMAGING STUDY: Chest x-ray January 2020: Mild fibrotic changes suspected. Rule out possibility of acute disease superimposed on chronic change. Left lower lobe opacity. Small left pleural effusion. Atelectasis versus pneumonia versus combination of both. ASSESSMENT AND PLAN: A 79-year-old female who lives alone with history of T7 compression fracture, recently admitted due to intractable back pain, found to have an asymptomatic SMA and celiac trunk stenosis, hemorrhoidal bleeding. Was discharged home on OxyContin and oxycodone as needed. Had a fall from standing and subsequently admitted for C2 neck fracture. Patient lives alone and could not perform activities of daily living (ADLs) and was subsequently transferred to acute rehabilitation unit (ARU). CURRENT ACUTE ISSUES: 1. C2 cervical spine fracture. Patient is to wear cervical brace when out of bed. Per patient, Dr. Roque Flaherty had managed her T5 compression fracture and says that she would not be a surgical candidate due to chronic medical problems, and more importantly, due to history of osteoporosis, surgical intervention would not be beneficial. 2. History of paroxysmal atrial fibrillation, on chronic anticoagulation. Appears to be sinus rhythm at this time. Currently on metoprolol 50 every 8 hours. 3. She is resumed on her home dose of amiodarone. 4. Chronic lower extremity edema. Due to risk of lower extremity edema, Norvasc will discontinue. Glipizide as well. Will continue on siding scale for now with coverage and metformin. 5. History of Crohn's disease. Patient does not have any bloody diarrhea. Asymptomatic. Outpatient followup with Dr. Mancia if symptoms should occur. 6. Hemorrhoidal bleeding. Patient continues to have bleeding when she moves her bowels. No abdominal pain, however. Due to increased risk of stroke being off anticoagulant, she is continued on Eliquis. Her anemia is stable. Is not requiring any red blood cells (RBC) transfusion. Currently on a bowel regimen and stool softeners. 7. Chronic lower extremity edema. Trial of diuretic. Strict intake and output, daily weights, and fluid restriction. 8. Hypertension. Currently on valsartan 80 daily. Patient's spironolactone has been discontinued as well as Norvasc. Trial of Lasix for diuresis. 9. Type 2 diabetes. Hold off on glipizide. Continue on sliding-scale and consistent-carbohydrate diet. 10. Dyslipidemia. Continue on statins. 11. Chronic kidney disease, stage III, at baseline creatinine. 12. Osteoporosis, T5 compression fracture. No surgical intervention. Per Dr. Roque Flaherty as outpatient. Patient wanted to have a second opinion at [facility] in [place]. Outpatient followup once she is ready for hospital discharge. 13. Depression, on Celexa. 14. Vitamin D deficiency, on calcium with vitamin D supplementation. 15. Bowel regimen, on Dulcolax and Colace. [facility]
[2020-01-18] MEDS ORDERED: metOLazone 2.5 MG TAB PO ONE (17:00)
[2020-01-18] MEDS: ATORVASTATIN 20 MG TAB PO SCH (17:16)
[2020-01-18] MEDS: SODIUM CHLORIDE NASAL 0.65% SPRAY BTL (OCEAN) SCH ×2 (17:16→21:05)
[2020-01-18] MEDS: CitaloPRAM (CeleXA) 10 MG TABLET PO SCH (17:18)
[2020-01-18] MEDS ORDERED: TORSEMIDE 10 MG TABLET PO ONE (17:30)
[2020-01-18] MEDS: SENNA 8.6 MG TAB (SENOKOT) PO SCH (20:58)
[2020-01-18 21:00] VITALS: BP 184/68
[2020-01-18] MEDS: FLUTICASONE PROP 0.05% NASAL SPRAY 16 GM (FLONASE) NARES SCH (21:05)
[2020-01-18] MEDS: **NOTE PATIENT COMMENT** MISC XX SCH (21:06)
[2020-01-18] MEDS ORDERED: ALPRAZolam 0.25 MG TAB PO ONE (22:45)
[2020-01-18 23:30] LABS: CALCIUM LEVEL 8.6 MG/DL (8.8-10.2); CREATININE FOR GFR 1.48 MG/DL (0.55-1.30); GLOMERULAR FILTRATION RATE 36.3 (>39); MAGNESIUM LEVEL 1.8 MG/DL (1.8-2.4); POTASSIUM SERUM 4.3 MEQ/L (3.5-5.1)
[2020-01-19] VITALS (8 sets, daily range): BP systolic 123–204; BP diastolic 50–88
[2020-01-19] MEDS ORDERED: VALSARTAN 80 MG TAB (DIOVAN) PO SCH (06:23)
[2020-01-19] MEDS: METOPROLOL TART 50 MG TAB PO SCH ×3 (07:00→21:23)
[2020-01-19] MEDS: IPRATROPIUM 0.5MG/ALBUTEROL 2.5MG INH SOL UD 3ML (DUONEB) NEB SCH ×3 (07:18→19:51)
[2020-01-19 07:20] LABS: CALCIUM LEVEL 8.5 MG/DL (8.8-10.2); CREATININE FOR GFR 1.63 MG/DL (0.55-1.30); GLOMERULAR FILTRATION RATE 32.5 (>39); MAGNESIUM LEVEL 1.6 MG/DL (1.8-2.4)
[2020-01-19] MEDS ORDERED: cloNIDine 0.1 MG TAB PO STA (07:29)
[2020-01-19] MEDS ORDERED: MAG SULF 1GM/100ML (MAG RUN) 1 GM in IV 1 EA IV ONE (08:00)
[2020-01-19] MEDS: HumaLOG INSULIN (NovoLOG) PER UNIT SC SCH ×4 (08:45→21:24)
[2020-01-19] MEDS: MIRALAX *UNIT DOSE* 17GM PACKET PO SCH (08:45)
[2020-01-19] MEDS: VITAMIN B COMPLEX/VIT C CAP PO SCH (08:47)
[2020-01-19] MEDS: DOCUSATE SODIUM 100 MG CAP PO SCH ×2 (08:47→21:22)
[2020-01-19] MEDS: APIXABAN 5 MG TAB (ELIQUIS) PO SCH ×2 (08:47→21:22)
[2020-01-19] MEDS: CALCIUM/VITAMIN D 500 MG TAB PO SCH ×2 (08:47→21:22)
[2020-01-19] MEDS: MESALAMINE 250 MG CR CAP PO SCH ×3 (08:47→21:24)
[2020-01-19] MEDS: AMIODARONE 200 MG TAB (PACERONE) PO SCH (08:48)
[2020-01-19] MEDS: MAGNESIUM OXIDE 400 MG TAB (MAG-OX) PO SCH ×2 (08:48→21:22)
[2020-01-19] MEDS: OMEPRAZOLE 20 MG CAP PO SCH ×2 (08:49→21:22)
[2020-01-19] MEDS: VITAMIN D 1,000 INTERNATIONAL UNITS TABLET PO SCH (08:49)
[2020-01-19] MEDS: predniSONE 5 MG TAB PO SCH (08:49)
[2020-01-19] MEDS: ACETAMINOPHEN 500 MG TAB PO SCH ×3 (08:49→21:23)
[2020-01-19] MEDS: oxyCODONE 15 MG CR TAB PO SCH ×2 (08:50→21:22)
[2020-01-19] MEDS: POLYVINYL ALCOHOL OPHTH SOLN 15 ML(LIQUITEARS) OU SCH ×3 (08:54→21:25)
[2020-01-19] MEDS: FLUTICASONE PROP 0.05% NASAL SPRAY 16 GM (FLONASE) NARES SCH ×2 (08:55→21:25)
[2020-01-19] MEDS: LIDOCAINE 5% (LIDODERM) PATCH TD SCH (08:55)
[2020-01-19] MEDS: SODIUM CHLORIDE NASAL 0.65% SPRAY BTL (OCEAN) SCH ×3 (08:55→21:25)
[2020-01-19] MEDS: NYSTATIN 100,000 UNITS/GM TOPICAL PWD 15 GM TOP SCH ×2 (12:22→21:25)
[2020-01-19] MEDS: REMEDY PHYTOPLEX Z-GUARD PASTE 113GM TUBE (FROM STOREROOM PRODUCT) TOP SCH ×3 (12:23→21:26)
[2020-01-19] MEDS: CitaloPRAM (CeleXA) 10 MG TABLET PO SCH (17:34)
[2020-01-19] MEDS: ATORVASTATIN 20 MG TAB PO SCH (17:35)
[2020-01-19] MEDS ORDERED: ALPRAZolam 0.25 MG TAB PO ONE (20:45)
[2020-01-19] MEDS: SENNA 8.6 MG TAB (SENOKOT) PO SCH (21:24)
[2020-01-19] MEDS: **NOTE PATIENT COMMENT** MISC XX SCH (21:26)
[2020-01-20 06:00] VITALS: BP 158/64
[2020-01-20] MEDS: METOPROLOL TART 50 MG TAB PO SCH ×3 (06:00→20:25)
[2020-01-20] MEDS: VALSARTAN 80 MG TAB (DIOVAN) PO SCH (06:36)
[2020-01-20] MEDS: IPRATROPIUM 0.5MG/ALBUTEROL 2.5MG INH SOL UD 3ML (DUONEB) NEB SCH ×3 (07:12→19:42)
[2020-01-20 07:56] LABS: BASO % 0.2 % (0.0-1.0); EOS # 0.1 10^3/uL (0.0-0.5); EOS % 1.2 % (0.0-3.0); HEMATOCRIT 31.5 % (36.0-47.0); HEMOGLOBIN 9.7 g/dl (12.0-15.5); LYMPH # 2.9 10^3/uL (1.5-5.0); LYMPH % 29.1 % (24.0-44.0); MEAN CORPUSCULAR HEMOGLOBIN 30.4 pg (27.0-33.0); MEAN CORPUSCULAR HGB CONC 30.8 g/dl (32.0-36.5); MEAN CORPUSCULAR VOLUME 98.7 fl (80.0-96.0); MONO # 1.1 10^3/uL (0.0-0.8); MONO % 11.1 % (0.0-5.0); NEUTROPHILS # 5.7 10^3/uL (1.5-8.5); NEUTROPHILS % 57.4 % (36.0-66.0); PLATELET COUNT, AUTOMATED 249 10^3/uL (150-450); RED BLOOD COUNT 3.19 10^6/uL (4.00-5.40); WHITE BLOOD COUNT 9.9 10^3/uL (4.0-10.0)
[2020-01-20] MEDS: DOCUSATE SODIUM 100 MG CAP PO SCH ×2 (08:12→20:25)
[2020-01-20] MEDS: MAGNESIUM OXIDE 400 MG TAB (MAG-OX) PO SCH ×2 (08:12→20:24)
[2020-01-20] MEDS: MESALAMINE 250 MG CR CAP PO SCH ×3 (08:12→20:25)
[2020-01-20] MEDS: VITAMIN D 1,000 INTERNATIONAL UNITS TABLET PO SCH (08:12)
[2020-01-20] MEDS: CALCIUM/VITAMIN D 500 MG TAB PO SCH ×2 (08:12→20:24)
[2020-01-20] MEDS: OMEPRAZOLE 20 MG CAP PO SCH ×2 (08:13→20:24)
[2020-01-20] MEDS: predniSONE 5 MG TAB PO SCH (08:13)
[2020-01-20] MEDS: APIXABAN 5 MG TAB (ELIQUIS) PO SCH ×2 (08:13→20:26)
[2020-01-20] MEDS: FERROUS SULFATE 325MG TAB PO SCH (08:13)
[2020-01-20] MEDS: ACETAMINOPHEN 500 MG TAB PO SCH ×3 (08:13→20:24)
[2020-01-20] MEDS: VITAMIN B COMPLEX/VIT C CAP PO SCH (08:13)
[2020-01-20] MEDS: oxyCODONE 15 MG CR TAB PO SCH ×2 (08:14→20:26)
[2020-01-20] MEDS: MIRALAX *UNIT DOSE* 17GM PACKET PO SCH (08:14)
[2020-01-20] MEDS: HumaLOG INSULIN (NovoLOG) PER UNIT SC SCH ×4 (08:15→20:26)
[2020-01-20 08:17] LABS: CALCIUM LEVEL 8.7 MG/DL (8.8-10.2); CREATININE FOR GFR 1.72 MG/DL (0.55-1.30); GLOMERULAR FILTRATION RATE 30.5 (>39); POTASSIUM SERUM 4.3 MEQ/L (3.5-5.1)
[2020-01-20] MEDS: NYSTATIN 100,000 UNITS/GM TOPICAL PWD 15 GM TOP SCH ×2 (08:22→20:27)
[2020-01-20] MEDS: POLYVINYL ALCOHOL OPHTH SOLN 15 ML(LIQUITEARS) OU SCH ×3 (08:22→20:27)
[2020-01-20] MEDS: SODIUM CHLORIDE NASAL 0.65% SPRAY BTL (OCEAN) SCH ×3 (08:23→20:27)
[2020-01-20] MEDS: FLUTICASONE PROP 0.05% NASAL SPRAY 16 GM (FLONASE) NARES SCH ×2 (08:23→20:27)
[2020-01-20] MEDS: REMEDY PHYTOPLEX Z-GUARD PASTE 113GM TUBE (FROM STOREROOM PRODUCT) TOP SCH ×3 (08:24→20:29)
[2020-01-20] MEDS: LIDOCAINE 5% (LIDODERM) PATCH TD SCH (08:24)
[2020-01-20] MEDS: AMIODARONE 200 MG TAB (PACERONE) PO SCH (08:28)
[2020-01-20 11:00] VITALS: BP 128/60
[2020-01-20 14:26] VITALS: BP 160/62
[2020-01-20] MEDS: CitaloPRAM (CeleXA) 10 MG TABLET PO SCH (17:25)
[2020-01-20] MEDS: ATORVASTATIN 20 MG TAB PO SCH (17:25)
[2020-01-20 18:02] VITALS: BP 142/66
[2020-01-20] MEDS: SENNA 8.6 MG TAB (SENOKOT) PO SCH (20:25)
[2020-01-20] MEDS: **NOTE PATIENT COMMENT** MISC XX SCH (20:29)
[2020-01-20 22:00] VITALS: BP 152/65
[2020-01-21 06:00] VITALS: BP 160/50
[2020-01-21] MEDS: METOPROLOL TART 50 MG TAB PO SCH ×3 (06:06→21:26)
[2020-01-21] MEDS: IPRATROPIUM 0.5MG/ALBUTEROL 2.5MG INH SOL UD 3ML (DUONEB) NEB SCH ×3 (08:00→19:24)
[2020-01-21] MEDS: LIDOCAINE 5% (LIDODERM) PATCH TD SCH (08:35)
[2020-01-21] MEDS: MIRALAX *UNIT DOSE* 17GM PACKET PO SCH (08:36)
[2020-01-21] MEDS: DOCUSATE SODIUM 100 MG CAP PO SCH ×2 (08:37→21:29)
[2020-01-21] MEDS: ACETAMINOPHEN 500 MG TAB PO SCH ×3 (08:38→21:28)
[2020-01-21] MEDS: predniSONE 5 MG TAB PO SCH (08:38)
[2020-01-21] MEDS: MAGNESIUM OXIDE 400 MG TAB (MAG-OX) PO SCH ×2 (08:39→21:29)
[2020-01-21] MEDS: AMIODARONE 200 MG TAB (PACERONE) PO SCH (08:39)
[2020-01-21] MEDS: VALSARTAN 80 MG TAB (DIOVAN) PO SCH (08:39)
[2020-01-21] MEDS: VITAMIN D 1,000 INTERNATIONAL UNITS TABLET PO SCH (08:39)
[2020-01-21] MEDS: MESALAMINE 250 MG CR CAP PO SCH ×3 (08:40→21:24)
[2020-01-21] MEDS: APIXABAN 5 MG TAB (ELIQUIS) PO SCH ×2 (08:40→21:25)
[2020-01-21] MEDS: CALCIUM/VITAMIN D 500 MG TAB PO SCH ×2 (08:40→21:25)
[2020-01-21] MEDS: OMEPRAZOLE 20 MG CAP PO SCH ×2 (08:41→21:25)
[2020-01-21] MEDS: oxyCODONE 15 MG CR TAB PO SCH ×2 (08:41→21:25)
[2020-01-21] MEDS: HumaLOG INSULIN (NovoLOG) PER UNIT SC SCH ×4 (08:42→21:00)
[2020-01-21] MEDS: SODIUM CHLORIDE NASAL 0.65% SPRAY BTL (OCEAN) SCH ×3 (08:46→21:27)
[2020-01-21] MEDS: FLUTICASONE PROP 0.05% NASAL SPRAY 16 GM (FLONASE) NARES SCH ×2 (08:46→21:27)
[2020-01-21] MEDS: NYSTATIN 100,000 UNITS/GM TOPICAL PWD 15 GM TOP SCH ×2 (08:47→21:28)
[2020-01-21] MEDS: REMEDY PHYTOPLEX Z-GUARD PASTE 113GM TUBE (FROM STOREROOM PRODUCT) TOP SCH ×3 (08:47→21:29)
[2020-01-21] MEDS: POLYVINYL ALCOHOL OPHTH SOLN 15 ML(LIQUITEARS) OU SCH ×3 (08:48→21:27)
[2020-01-21] MEDS: VITAMIN B COMPLEX/VIT C CAP PO SCH (12:12)
[2020-01-21 14:00] VITALS: BP 123/67
[2020-01-21] MEDS: CitaloPRAM (CeleXA) 10 MG TABLET PO SCH (17:11)
[2020-01-21] MEDS: ATORVASTATIN 20 MG TAB PO SCH (17:11)
[2020-01-21 20:00] VITALS: BP 160/76
[2020-01-21] MEDS: SENNA 8.6 MG TAB (SENOKOT) PO SCH (21:25)
[2020-01-21] MEDS: **NOTE PATIENT COMMENT** MISC XX SCH (21:26)
[2020-01-22] MEDS: oxyCODONE 5MG TAB PO PRN (02:07)
[2020-01-22] MEDS: METOPROLOL TART 50 MG TAB PO SCH ×3 (05:51→20:51)
[2020-01-22 06:00] VITALS: BP 176/77
[2020-01-22] MEDS: IPRATROPIUM 0.5MG/ALBUTEROL 2.5MG INH SOL UD 3ML (DUONEB) NEB SCH ×3 (07:22→19:27)
[2020-01-22] MEDS: LIDOCAINE 5% (LIDODERM) PATCH TD SCH (09:00)
[2020-01-22] MEDS: DOCUSATE SODIUM 100 MG CAP PO SCH ×2 (09:12→20:51)
[2020-01-22] MEDS: MAGNESIUM OXIDE 400 MG TAB (MAG-OX) PO SCH ×2 (09:12→20:50)
[2020-01-22] MEDS: OMEPRAZOLE 20 MG CAP PO SCH ×2 (09:12→20:51)
[2020-01-22] MEDS: MESALAMINE 250 MG CR CAP PO SCH ×3 (09:13→20:50)
[2020-01-22] MEDS: CALCIUM/VITAMIN D 500 MG TAB PO SCH ×2 (09:13→20:52)
[2020-01-22] MEDS: VALSARTAN 80 MG TAB (DIOVAN) PO SCH (09:13)
[2020-01-22] MEDS: VITAMIN D 1,000 INTERNATIONAL UNITS TABLET PO SCH (09:13)
[2020-01-22] MEDS: VITAMIN B COMPLEX/VIT C CAP PO SCH (09:14)
[2020-01-22] MEDS: predniSONE 5 MG TAB PO SCH (09:14)
[2020-01-22] MEDS: APIXABAN 5 MG TAB (ELIQUIS) PO SCH ×2 (09:15→20:51)
[2020-01-22] MEDS: oxyCODONE 15 MG CR TAB PO SCH ×2 (09:16→20:53)
[2020-01-22] MEDS: SODIUM CHLORIDE NASAL 0.65% SPRAY BTL (OCEAN) SCH ×3 (09:18→20:54)
[2020-01-22] MEDS: POLYVINYL ALCOHOL OPHTH SOLN 15 ML(LIQUITEARS) OU SCH ×3 (09:18→20:54)
[2020-01-22] MEDS: FLUTICASONE PROP 0.05% NASAL SPRAY 16 GM (FLONASE) NARES SCH ×2 (09:18→20:54)
[2020-01-22] MEDS: ACETAMINOPHEN 500 MG TAB PO SCH ×3 (09:18→20:52)
[2020-01-22] MEDS: NYSTATIN 100,000 UNITS/GM TOPICAL PWD 15 GM TOP SCH ×2 (09:19→20:56)
[2020-01-22] MEDS: REMEDY PHYTOPLEX Z-GUARD PASTE 113GM TUBE (FROM STOREROOM PRODUCT) TOP SCH ×3 (09:20→20:55)
[2020-01-22] MEDS: HumaLOG INSULIN (NovoLOG) PER UNIT SC SCH ×4 (09:21→20:54)
[2020-01-22] MEDS: AMIODARONE 200 MG TAB (PACERONE) PO SCH (09:22)
[2020-01-22] MEDS: MIRALAX *UNIT DOSE* 17GM PACKET PO SCH (09:22)
[2020-01-22 14:00] VITALS: BP 170/60
[2020-01-22] MEDS: ALPRAZolam 0.25 MG TAB PO PRN (15:04)
[2020-01-22] MEDS: ATORVASTATIN 20 MG TAB PO SCH (17:44)
[2020-01-22] MEDS: CitaloPRAM (CeleXA) 10 MG TABLET PO SCH (17:45)
[2020-01-22 18:38] VITALS: BP 183/76
[2020-01-22] MEDS: SENNA 8.6 MG TAB (SENOKOT) PO SCH (20:50)
[2020-01-22] MEDS: **NOTE PATIENT COMMENT** MISC XX SCH (20:55)
[2020-01-22 21:00] VITALS: BP 180/72
[2020-01-22 22:00] VITALS: BP 145/82
[2020-01-23 06:00] VITALS: BP 170/90
[2020-01-23] MEDS: METOPROLOL TART 50 MG TAB PO SCH (06:44)
[2020-01-23] MEDS: HumaLOG INSULIN (NovoLOG) PER UNIT SC SCH ×4 (06:46→20:54)
[2020-01-23] MEDS: IPRATROPIUM 0.5MG/ALBUTEROL 2.5MG INH SOL UD 3ML (DUONEB) NEB SCH ×2 (07:29→14:00)
[2020-01-23] MEDS: REMEDY PHYTOPLEX Z-GUARD PASTE 113GM TUBE (FROM STOREROOM PRODUCT) TOP SCH ×3 (09:00→20:55)
[2020-01-23] MEDS: DOCUSATE SODIUM 100 MG CAP PO SCH ×2 (09:35→20:53)
[2020-01-23] MEDS: FERROUS SULFATE 325MG TAB PO SCH (09:35)
[2020-01-23] MEDS: CALCIUM/VITAMIN D 500 MG TAB PO SCH ×2 (09:38→20:51)
[2020-01-23] MEDS: APIXABAN 5 MG TAB (ELIQUIS) PO SCH ×2 (09:38→20:53)
[2020-01-23] MEDS: oxyCODONE 15 MG CR TAB PO SCH ×2 (09:38→20:53)
[2020-01-23] MEDS: ALPRAZolam 0.25 MG TAB PO PRN (09:38)
[2020-01-23] MEDS: VITAMIN D 1,000 INTERNATIONAL UNITS TABLET PO SCH (09:38)
[2020-01-23] MEDS: OMEPRAZOLE 20 MG CAP PO SCH ×2 (09:38→20:54)
[2020-01-23] MEDS: ACETAMINOPHEN 500 MG TAB PO SCH ×3 (09:39→20:52)
[2020-01-23] MEDS: predniSONE 5 MG TAB PO SCH (09:39)
[2020-01-23] MEDS: VITAMIN B COMPLEX/VIT C CAP PO SCH (09:39)
[2020-01-23] MEDS: AMIODARONE 200 MG TAB (PACERONE) PO SCH (09:39)
[2020-01-23] MEDS: MAGNESIUM OXIDE 400 MG TAB (MAG-OX) PO SCH ×2 (09:39→20:52)
[2020-01-23] MEDS: MESALAMINE 250 MG CR CAP PO SCH ×3 (09:40→20:53)
[2020-01-23] MEDS: LIDOCAINE 5% (LIDODERM) PATCH TD SCH (09:40)
[2020-01-23] MEDS: VALSARTAN 80 MG TAB (DIOVAN) PO SCH (09:40)
[2020-01-23] MEDS: MIRALAX *UNIT DOSE* 17GM PACKET PO SCH (09:40)
[2020-01-23] MEDS: POLYVINYL ALCOHOL OPHTH SOLN 15 ML(LIQUITEARS) OU SCH ×3 (09:41→20:55)
[2020-01-23] MEDS: FLUTICASONE PROP 0.05% NASAL SPRAY 16 GM (FLONASE) NARES SCH ×2 (09:41→20:55)
[2020-01-23] MEDS: SODIUM CHLORIDE NASAL 0.65% SPRAY BTL (OCEAN) SCH ×3 (09:41→20:55)
[2020-01-23] MEDS: NYSTATIN 100,000 UNITS/GM TOPICAL PWD 15 GM TOP SCH ×2 (09:42→20:55)
[2020-01-23] MEDS: **hydrALAZINE HCL** 25 MG TAB PO SCH ×2 (11:54→18:31)
[2020-01-23 12:42] LABS: BASO % 0.2 % (0.0-1.0); EOS # 0.2 10^3/uL (0.0-0.5); EOS % 1.5 % (0.0-3.0); HEMATOCRIT 32.9 % (36.0-47.0); HEMOGLOBIN 9.9 g/dl (12.0-15.5); LYMPH # 1.8 10^3/uL (1.5-5.0); LYMPH % 14.7 % (24.0-44.0); MEAN CORPUSCULAR HEMOGLOBIN 29.8 pg (27.0-33.0); MEAN CORPUSCULAR HGB CONC 30.1 g/dl (32.0-36.5); MEAN CORPUSCULAR VOLUME 99.1 fl (80.0-96.0); MONO # 0.9 10^3/uL (0.0-0.8); MONO % 7.7 % (0.0-5.0); NEUTROPHILS # 9.1 10^3/uL (1.5-8.5); NEUTROPHILS % 74.7 % (36.0-66.0); PLATELET COUNT, AUTOMATED 245 10^3/uL (150-450); RED BLOOD COUNT 3.32 10^6/uL (4.00-5.40); WHITE BLOOD COUNT 12.1 10^3/uL (4.0-10.0)
[2020-01-23 13:10] LABS: CALCIUM LEVEL 9.3 MG/DL (8.8-10.2); CREATININE FOR GFR 1.59 MG/DL (0.55-1.30); GLOMERULAR FILTRATION RATE 33.4 (>39); POTASSIUM SERUM 4.3 MEQ/L (3.5-5.1)
[2020-01-23 14:00] VITALS: BP 148/52
--- NOTE | 2020-01-23 14:35 | IPNPDOC ---
PM&R Progress Note DATE OF SERVICE: Jan 23, 2020 Stroke Coordinator Progress Note Subjective: Patient reporting she is concerned about her leg swelling and cannot seem to get the brace on on her own. She does not want a hospital bed when she goes home despite it helping her with fluid management and donning of brace. REVIEW OF SYSTEMS: The following is a completed review of systems and has been reviewed. Review of systems otherwise unremarkable. PAIN: Patient self reports +neck pain EYES: No recent vision changes EARS, NOSE, & THROAT: No throat pain, or dysphagia, or rhinorrhea CARDIOVASCULAR: Denies chest pain or palpitations PULMONARY: Denies shortness of breath GASTROINTESTINAL:no diarrhea/constipation GENITOURINARY: denies dysuria MUSCULOSKELETAL: generalized weakness NEUROLOGICAL:denies paresthesias or tremor HEMATOLOGICAL: denies easy bruising SKIN: abdominal fold rash PSYCHIATRIC: Unremarkable All other review of systems found to be negative. PHYSICAL EXAMINATION: VITAL SIGNS: Please see below. GENERAL: Pleasant and cooperative. No acute distress. HEENT: PERRL. Extraocular movements intact. Clear conjunctiva CARDIOVASCULAR: Regular rate and rhythm. No murmurs, rubs, or gallops LUNGS: Clear to auscultation bilaterally. No wheezes. No rhonchi ABDOMEN: Soft, nontender, nondistended. Positive bowel sounds. Normal active bowel sounds NEUROLOGICAL: Alert and oriented times three. Cranial nerves II through XII grossly intact. Sensation grossly intact EXTREMITIES: 5\5 strength bilateral upper extremities. 5\5 strength right lower extremity. 5/5 strength in left lower extremity. +bilat LE edema SKIN: intact LABORATORY DATA: Please see below. ASSESSMENT:79-year-old F with past medical history of Afib who presents status post fall with C2 fracture PLAN: 1. Rehab-pT/OT advance gait and ADLs, cervical collar to be worn when OOB, strengthen/stretch.maintain ROM all 4 limbs 2. Cardiac- Afib c/u amiodarone, eliquis and beta-erna- medicine consulted to assist in overall management -chronic CHF patient follows with Dr. Denton and had elevated BNP on acute side, will fluid restrict, daily weights- UASTIN wrap bilat LE qhs, TEds daily, and elevate -poorly controlled BPs, increasing metoprolol too 100mg BID, c/u hydralazine q6h, and will add daily lasix and monitor for FAUSTO- patient at kidney function baseline -HLD- c/u statin 3. Resp: encourgae incentive spirometry, Duonebs, monitor for infection -c/u flonase and ocean SN drops as patient reporting sinus congestion 4. Ortho- s/p fall with C2-fracture cervical brace to be worn when OOB -T5 compression fracture- chronic 5. Renal- patient with CKD, patient's [employer] at baseline, will go ahead and start diuretics for edema, hold ARB altogether, and refer to renal on dc 6. GI- hx of ulcerative colitis c/u mesalamine and oral prednisone -prilosec 40mg BID while on steroids -prep-H and tucks for hemorrhoids -patient with bloody BM over the weekend likely due to known hemorrhoids, Hgb stable, c/u to follow 7. Endo- DM c/u ISS and adjust prn 8. PAin- lidoderm patch to neck, OxyContin, and oxycodone 9. - monitor PVRs 20. Psych- c/u celexa for depression, added Xanax prn for anxiety at half the dose she took at home 0.25 qh prn for donning of brace 10. Dispo: TBD Allergies Coded Allergies: hydrocodone (Verified Allergy, Intermediate, 01/03/20) Sulfa (Sulfonamide Antibiotics) (Verified Allergy, Unknown, 07/03/19) hydrochlorothiazide (Verified Allergy, Unknown, 07/03/19) Vital Signs Vital Signs Date Time Temp Pulse Resp B/P (MAP) Pulse Ox O2 Delivery O2 Flow Rate FiO2 01/23/20 11:54 148/52 01/23/20 09:38 18 01/23/20 06:44 57 01/23/20 06:00 97.7 94 Room Air Laboratory Data CBC/BMP Laboratory Tests 01/23/20 12:17 Labs 24H Laboratory Tests 2 01/22/20 16:17: Bedside Glucose (Misc Panel) 315H 01/22/20 20:33: Bedside Glucose (Misc Panel) 145H 01/23/20 06:14: Bedside Glucose (Misc Panel) 116H 01/23/20 11:39: Bedside Glucose (Misc Panel) 191H 01/23/20 12:17: Immature Granulocyte % (Auto) 1.2, Neutrophils (%) (Auto) 74.7H, Lymphocytes (%) (Auto) 14.7L, Monocytes (%) (Auto) 7.7H, Eosinophils (%) (Auto) 1.5, Basophils (%) (Auto) 0.2, Neutrophils # (Auto) 9.1H, Lymphocytes # (Auto) 1.8, Monocytes # (Auto) 0.9H, Eosinophils # (Auto) 0.2, Basophils # (Auto) 0.0, Nucleated Red Blood Cells % (auto) 0.0, Anion Gap 7L, Glomerular Filtration Rate 33.4L, Calcium Level 9.3 Current Medications Current Medications Current Medications Medications (Trade) Dose Ordered Sig/Annie Route PRN Reason Start Time Stop Time Status Last Admin Dose Admin Acetaminophen (Tylenol Tab) 1,000 mg TID PO 01/17/20 16:00 01/23/20 09:39 Albuterol/ Ipratropium (Duoneb (Ipr 0.5mg/Alb 2.5mg)) 3 ml RTID NEB 01/17/20 20:00 01/23/20 07:29 Alprazolam (Xanax) 0.25 mg Q12HP PRN PO ANXIETY 01/22/20 15:00 01/23/20 09:38 Amiodarone HCl (Pacerone, Cordarone) 200 mg DAILY PO 01/18/20 09:00 01/23/20 09:39 Amlodipine Besylate (Norvasc) 5 mg DAILY PO 01/18/20 09:00 01/18/20 15:53 DC 01/18/20 08:46 Apixaban (Eliquis) 5 mg BID PO 01/17/20 21:00 01/23/20 09:38 Artificial Tears ([place] Tears) 2 drop TID OU 01/17/20 16:00 01/23/20 09:41 Atorvastatin Calcium (Lipitor) 40 mg DAILY@1800 PO 01/17/20 18:00 01/22/20 17:44 Bisacodyl (Dulcolax Suppository) 10 mg DAILYPRN PRN [place] CONSTIPATION 01/17/20 16:00 01/17/20 18:10 Bisacodyl (Dulcolax Tab) 5 mg DAILYPRN PRN PO CONSTIPATION 01/17/20 16:00 Calcium/Vitamin D (Oscal D) 500 mg BID PO 01/17/20 21:00 01/23/20 09:38 Citalopram Hydrobromide (CeleXA) 30 mg DAILY@1800 PO 01/17/20 18:00 01/22/20 17:45 Clonidine HCl (Catapres) 0.1 mg STAT STAT PO 01/19/20 07:29 01/19/20 07:32 DC 01/19/20 08:48 Dextrose (Dextrose 50%) 25 ml ASDIRECTED PRN IV SEE LABEL COMMENTS 01/17/20 16:00 Docusate Sodium (Colace) 100 mg BID PO 01/17/20 21:00 01/18/20 16:02 DC 01/17/20 20:40 Docusate Sodium (Colace) 200 mg BID PO 01/18/20 21:00 01/23/20 09:35 Ferrous Sulfate (Ferrous Sulfate) 325 mg MoWeFr@0900 PO 01/18/20 09:00 01/23/20 09:35 Fluticasone Propionate (Flonase 0.05% Nasal [place]) 1 spray BID NARES 01/18/20 21:00 01/23/20 09:41 Glipizide (Glucotrol) 5 mg BID@0730,1730 PO 01/17/20 17:30 01/18/20 15:49 DC 01/18/20 08:46 Glucagon (Glucagon) 1 mg ASDIRECTED PRN SC SEE LABEL COMMENTS 01/17/20 16:00 Glucose (Glucose) 16 GM ASDIRECTED PRN PO SEE LABEL COMMENTS 01/17/20 16:00 Hydralazine HCl (Apresoline) 25 mg Q6H PO 01/23/20 12:00 01/23/20 11:54 Insulin Human Lispro (HumaLOG INSULIN) SEE PROTOCOL TABLE AC SC 01/17/20 17:30 01/23/20 11:51 Insulin Human Lispro (HumaLOG INSULIN) SEE PROTOCOL TABLE QHS SC 01/17/20 21:00 01/19/20 21:24 Lidocaine (Lidoderm Patch) 1 patch DAILY TD 01/18/20 09:00 01/23/20 09:40 Magnesium Oxide (Mag-Ox) 400 mg BID PO 01/17/20 21:00 01/23/20 09:39 Mesalamine (Pentasa) 1,000 mg TID PO 01/17/20 16:00 01/23/20 09:40 Metoprolol Tartrate (Lopressor) 50 mg BID PO 01/17/20 21:00 01/18/20 09:52 DC 01/18/20 08:43 Metoprolol Tartrate (Lopressor) 50 mg Q8H PO 01/18/20 14:00 01/19/20 07:33 DC 01/18/20 21:04 Metoprolol Tartrate (Lopressor) 50 mg Q8H PO 01/19/20 06:00 01/23/20 10:11 DC 01/23/20 06:44 Metoprolol Tartrate (Lopressor) 100 mg BID PO 01/23/20 21:00 Non-Formulary Medication ( See Comment Field Below ) REMOVE LIDODERM PATCH DAILY@21 XX 01/17/20 21:00 01/22/20 20:55 Nystatin (Mycostatin Powder, Nystop) apply to abdominal folds ... BID TOP 01/17/20 21:00 01/23/20 09:42 Omeprazole (PriLOSEC) 40 mg BID PO 01/17/20 21:00 01/23/20 09:38 Oxycodone HCl (OxyCONTIN) 15 mg BID PO 01/17/20 21:00 01/23/20 09:38 Oxycodone HCl (Roxicodone, Oxyir) 5 mg Q8HP PRN PO PAIN 01/17/20 16:00 01/22/20 02:07 Phenylephrine HCl (Preparation H Supp) 1 sup DAILY PRN DC anal pain 01/18/20 13:30 Polyethylene Glycol (Miralax) 1 pkt DAILY PO 01/18/20 09:00 01/23/20 09:40 Prednisone (Deltasone) 15 mg DAILY PO 01/18/20 09:00 01/23/20 09:39 Senna (Senokot) 1 tab QHS PO 01/17/20 21:00 01/22/20 20:50 Sodium Chloride ([place] Nasal [place]) 2 spray TID NA 01/18/20 16:00 01/23/20 09:41 Spironolactone (Aldactone) 12.5 mg DAILY PO 01/18/20 09:00 01/18/20 15:49 DC 01/18/20 08:42 Valsartan (Diovan) 80 mg DAILY PO 01/19/20 06:23 01/19/20 07:33 DC 01/19/20 06:26 Valsartan (Diovan) 80 mg DAILY PO 01/20/20 06:30 01/23/20 09:40 Valsartan (Diovan) 160 mg DAILY PO 01/18/20 09:00 01/18/20 09:52 DC 01/18/20 08:43 Vitamin B Complex/ Vitamin C (Therapeutic B Complex w/C) 1 cap DAILY PO 01/18/20 09:00 01/23/20 09:39 Vitamin D (Vitamin D) 1,000 units DAILY PO 01/18/20 09:00 01/23/20 09:38 MANOJ DE LA CRUZ MD Jan 23, 2020 14:35
[2020-01-23] MEDS: FUROSEMIDE 40 MG TAB PO SCH (15:56)
[2020-01-23] MEDS: CitaloPRAM (CeleXA) 10 MG TABLET PO SCH (18:31)
[2020-01-23] MEDS: ATORVASTATIN 20 MG TAB PO SCH (18:31)
[2020-01-23] MEDS: LEVALBUTEROL 1.25 MG/0.5 ML CONCENTRATE NEB INH SCH (19:22)
[2020-01-23 20:00] VITALS: BP 160/64
[2020-01-23] MEDS: METOPROLOL TARTRATE 100 MG TAB PO SCH (20:52)
[2020-01-23] MEDS: SENNA 8.6 MG TAB (SENOKOT) PO SCH (20:53)
[2020-01-23] MEDS: **NOTE PATIENT COMMENT** MISC XX SCH (20:56)
[2020-01-24] VITALS: BP 164/60
[2020-01-24] MEDS: **hydrALAZINE HCL** 25 MG TAB PO SCH ×4 (00:31→18:53)
[2020-01-24 06:00] VITALS: BP 140/62
[2020-01-24] MEDS: LEVALBUTEROL 1.25 MG/0.5 ML CONCENTRATE NEB INH SCH ×3 (07:11→20:00)
[2020-01-24] MEDS: REMEDY PHYTOPLEX Z-GUARD PASTE 113GM TUBE (FROM STOREROOM PRODUCT) TOP SCH ×3 (09:00→21:00)
[2020-01-24] MEDS: HumaLOG INSULIN (NovoLOG) PER UNIT SC SCH ×4 (09:29→20:34)
[2020-01-24] MEDS: FUROSEMIDE 40 MG TAB PO SCH (09:30)
[2020-01-24] MEDS: OMEPRAZOLE 20 MG CAP PO SCH ×2 (09:30→21:30)
[2020-01-24] MEDS: MESALAMINE 250 MG CR CAP PO SCH ×3 (09:30→21:30)
[2020-01-24] MEDS: VITAMIN B COMPLEX/VIT C CAP PO SCH (09:30)
[2020-01-24] MEDS: AMIODARONE 200 MG TAB (PACERONE) PO SCH (09:30)
[2020-01-24] MEDS: predniSONE 5 MG TAB PO SCH (09:30)
[2020-01-24] MEDS: CALCIUM/VITAMIN D 500 MG TAB PO SCH ×2 (09:31→21:30)
[2020-01-24] MEDS: VITAMIN D 1,000 INTERNATIONAL UNITS TABLET PO SCH (09:31)
[2020-01-24] MEDS: APIXABAN 5 MG TAB (ELIQUIS) PO SCH ×2 (09:31→21:30)
[2020-01-24] MEDS: MAGNESIUM OXIDE 400 MG TAB (MAG-OX) PO SCH ×2 (09:31→21:30)
[2020-01-24] MEDS: ACETAMINOPHEN 500 MG TAB PO SCH ×3 (09:32→21:00)
[2020-01-24] MEDS: METOPROLOL TARTRATE 100 MG TAB PO SCH ×2 (09:32→20:35)
[2020-01-24] MEDS: MIRALAX *UNIT DOSE* 17GM PACKET PO SCH (09:33)
[2020-01-24] MEDS: DOCUSATE SODIUM 100 MG CAP PO SCH ×2 (09:33→21:00)
[2020-01-24] MEDS: LIDOCAINE 5% (LIDODERM) PATCH TD SCH (09:33)
[2020-01-24] MEDS: oxyCODONE 15 MG CR TAB PO SCH ×2 (09:33→21:31)
[2020-01-24] MEDS: POLYVINYL ALCOHOL OPHTH SOLN 15 ML(LIQUITEARS) OU SCH ×3 (09:34→21:32)
[2020-01-24] MEDS: FLUTICASONE PROP 0.05% NASAL SPRAY 16 GM (FLONASE) NARES SCH ×2 (09:34→21:32)
[2020-01-24] MEDS: SODIUM CHLORIDE NASAL 0.65% SPRAY BTL (OCEAN) SCH ×3 (09:34→21:32)
[2020-01-24] MEDS: NYSTATIN 100,000 UNITS/GM TOPICAL PWD 15 GM TOP SCH ×2 (09:35→21:32)
[2020-01-24 14:00] VITALS: BP 164/50
--- NOTE | 2020-01-24 15:05 | IPNPDOC ---
Date Seen The patient was seen on 01/24/20. Progress Note SUBJECTIVE: Patient's BP systolic between 140-160's, diuresing currently with lasix daily. Valsartan held. BS better controlled over the past 24 hours. She denies chest pain, shortness of breath, n/v/d, fevers or chills. OBJECTIVE: VITAL SIGNS: Please see below PHYSICAL EXAMINATION: CONSTITUTIONAL: No acute distress, resting comfortably, AAO x 3 EYES: PERRLA, EOM intact HENT, MOUTH: Normocephalic, atraumatic, moist mucous membranes NECK: SUPPLE, no JVD, no lymphadenopathy, no carotid bruit CV: Regular rate and rhythm, S1S2 normal, no murmurs/rubs/gallops RESPIRATORY: Clear to auscultation bilaterally, no rales/rhonchi/wheezes GI: obese abdomen, BS positive in 4 quadrants, soft, nontender, nondistended, no rebound or guarding, no organomegaly : Deferred MUSCULOSKELETAL: ROM not tested of back or joints. No cyanosis, clubbing, swelling, joint deformity, +1 pitting extremity edema INTEGUMENTARY: Intact, no rashes, no lesions, no erythema NEUROLOGIC: Cranial Nerves II-XII are intact, no focal deficits, Strength 5/5 in all upper and lower ext, sensory and motor intact PSYCHIATRIC: Mood and affect are normal CURRENT MEDICATIONS: Please see below LABORATORY DATA: Please see below IMAGING: No new imaging. ASSESSMENT: 79 y/o F currently undergoing rehabilitation for C2 cervical spine fracture. PLAN: 1. C2 cervical spine fracture. Cervical brace OOB, PT/OT. Per patient, Dr. Roque Flaherty had managed her T5 compression fracture and says that she would not be a surgical candidate due to chronic medical problems. 2. Paroxysmal atrial fibrillation, on chronic anticoagulation. Stable and currently in sinus rhythm. C/w BB, amiodarone. 3. HTN. Valsartan stopped when lasix started daily. Still high systolic with BP 140-160s. Goal BP in her age would be 150 systolic. Consider adding valsartan back at lower dose with diuresis. 4. Lower extremity edema, chronic. Increased since this admission; however. C/w lasix, diuresed -800 since 12 AM. CCB and glipizide were stopped recently. Recommend daily wt, strict I&O's. 5. DM type 2. Hold off on glipizide. BS improved slightly; however, she remains on low dose predisone with BS ranging between 190-300 at times. If remains high, would consider low dose levemir 8 U SC daily along with ISS, AC/HS blood sugar checks, consistent carb diet. 6. History of Crohn's disease. Asymptomatic. Outpatient follow-up with Dr. Mancia. 7. Hemorrhoids. Stable. C/w Eliquis. Her anemia is stable. Currently on a bowel regimen and stool softeners. Can add anusol [place] PRN. 8. Dyslipidemia. C/w statin. 9. Chronic kidney disease, stage III. Baseline creatinine. 10. Osteoporosis, T5 compression fracture. No surgical intervention. Per Dr. Roque Flaherty f/u as outpatient. Patient wanted to have a second opinion at [facility] in [place]. Outpatient followup once she is ready for hospital discharge. 11. Depression. Stable. C/w celexa. 12. Vitamin D deficiency. C/w calcium with vitamin D supplementation. 13. DVT px. Eliquis. VS, I&O, 24H, Fishbone Vital Signs/I&O Vital Signs Date Time Temp Pulse Resp B/P (MAP) Pulse Ox O2 Delivery O2 Flow Rate FiO2 01/24/20 14:00 97.3 57 18 164/50 (88) 93 Room Air I&O- Last 24 Hours up to 6 AM 01/24/20 05:59 Intake Total 720 ml Output Total 1600 ml Balance -880 ml Laboratory Data 24H LABS Laboratory Tests 2 01/23/20 16:37: Bedside Glucose (Misc Panel) 297H 01/23/20 20:17: Bedside Glucose (Misc Panel) 314H 01/24/20 05:40: Bedside Glucose (Misc Panel) 119H 01/24/20 11:27: Bedside Glucose (Misc Panel) 164H Current Medications Current Medications Medications (Trade) Dose Ordered Sig/Annie Route PRN Reason Start Time Stop Time Status Last Admin Dose Admin Acetaminophen (Tylenol Tab) 1,000 mg TID PO 01/17/20 16:00 01/24/20 09:32 Albuterol/ Ipratropium (Duoneb (Ipr 0.5mg/Alb 2.5mg)) 3 ml RTID NEB 01/17/20 20:00 01/23/20 16:15 DC 01/23/20 07:29 Alprazolam (Xanax) 0.25 mg Q12HP PRN PO ANXIETY 01/22/20 15:00 01/23/20 14:34 DC 01/23/20 09:38 Alprazolam (Xanax) 0.25 mg Q8H PRN PO ANXIETY 01/23/20 14:30 Amiodarone HCl (Pacerone, Cordarone) 200 mg DAILY PO 01/18/20 09:00 01/24/20 09:30 Amlodipine Besylate (Norvasc) 5 mg DAILY PO 01/18/20 09:00 01/18/20 15:53 DC 01/18/20 08:46 Apixaban (Eliquis) 5 mg BID PO 01/17/20 21:00 01/24/20 09:31 Artificial Tears ([place] Tears) 2 drop TID OU 01/17/20 16:00 01/24/20 09:34 Atorvastatin Calcium (Lipitor) 40 mg DAILY@1800 PO 01/17/20 18:00 01/23/20 18:31 Bisacodyl (Dulcolax Suppository) 10 mg DAILYPRN PRN [place] CONSTIPATION 01/17/20 16:00 01/17/20 18:10 Bisacodyl (Dulcolax Tab) 5 mg DAILYPRN PRN PO CONSTIPATION 01/17/20 16:00 Calcium/Vitamin D (Oscal D) 500 mg BID PO 01/17/20 21:00 01/24/20 09:31 Citalopram Hydrobromide (CeleXA) 30 mg DAILY@1800 PO 01/17/20 18:00 01/23/20 18:31 Clonidine HCl (Catapres) 0.1 mg STAT STAT PO 01/19/20 07:29 01/19/20 07:32 DC 01/19/20 08:48 Dextrose (Dextrose 50%) 25 ml ASDIRECTED PRN IV SEE LABEL COMMENTS 01/17/20 16:00 Docusate Sodium (Colace) 100 mg BID PO 01/17/20 21:00 01/18/20 16:02 DC 01/17/20 20:40 Docusate Sodium (Colace) 200 mg BID PO 01/18/20 21:00 01/24/20 09:33 Ferrous Sulfate (Ferrous Sulfate) 325 mg MoWeFr@0900 PO 01/18/20 09:00 01/23/20 09:35 Fluticasone Propionate (Flonase 0.05% Nasal [place]) 1 spray BID NARES 01/18/20 21:00 01/24/20 09:34 Furosemide (Lasix) 40 mg DAILY PO 01/23/20 15:00 01/24/20 09:30 Glipizide (Glucotrol) 5 mg BID@0730,1730 PO 01/17/20 17:30 01/18/20 15:49 DC 01/18/20 08:46 Glucagon (Glucagon) 1 mg ASDIRECTED PRN SC SEE LABEL COMMENTS 01/17/20 16:00 Glucose (Glucose) 16 GM ASDIRECTED PRN PO SEE LABEL COMMENTS 01/17/20 16:00 Hydralazine HCl (Apresoline) 25 mg Q6H PO 01/23/20 12:00 01/24/20 12:46 Insulin Human Lispro (HumaLOG INSULIN) SEE PROTOCOL TABLE AC SC 01/17/20 17:30 01/24/20 12:46 Insulin Human Lispro (HumaLOG INSULIN) SEE PROTOCOL TABLE QHS SC 01/17/20 21:00 01/23/20 20:54 Levalbuterol HCl (Xopenex Neb) 0.63 mg RTID INH 01/23/20 20:00 01/24/20 13:47 Lidocaine (Lidoderm Patch) 1 patch DAILY TD 01/18/20 09:00 01/24/20 09:33 Magnesium Oxide (Mag-Ox) 400 mg BID PO 01/17/20 21:00 01/24/20 09:31 Mesalamine (Pentasa) 1,000 mg TID PO 01/17/20 16:00 01/24/20 09:30 Metoprolol Tartrate (Lopressor) 50 mg BID PO 01/17/20 21:00 01/18/20 09:52 DC 01/18/20 08:43 Metoprolol Tartrate (Lopressor) 50 mg Q8H PO 01/18/20 14:00 01/19/20 07:33 DC 01/18/20 21:04 Metoprolol Tartrate (Lopressor) 50 mg Q8H PO 01/19/20 06:00 01/23/20 10:11 DC 01/23/20 06:44 Metoprolol Tartrate (Lopressor) 100 mg BID PO 01/23/20 21:00 01/24/20 09:32 Non-Formulary Medication ( See Comment Field Below ) REMOVE LIDODERM PATCH DAILY@21 XX 01/17/20 21:00 01/23/20 20:56 Nystatin (Mycostatin Powder, Nystop) apply to abdominal folds ... BID TOP 01/17/20 21:00 01/24/20 09:35 Omeprazole (PriLOSEC) 40 mg BID PO 01/17/20 21:00 01/24/20 09:30 Oxycodone HCl (OxyCONTIN) 15 mg BID PO 01/17/20 21:00 01/24/20 09:33 Oxycodone HCl (Roxicodone, Oxyir) 5 mg Q8HP PRN PO PAIN 01/17/20 16:00 01/22/20 02:07 Phenylephrine HCl (Preparation H Supp) 1 sup DAILY PRN WA anal pain 01/18/20 13:30 Polyethylene Glycol (Miralax) 1 pkt DAILY PO 01/18/20 09:00 01/24/20 09:33 Prednisone (Deltasone) 15 mg DAILY PO 01/18/20 09:00 01/24/20 09:30 Senna (Senokot) 1 tab QHS PO 01/17/20 21:00 01/23/20 20:53 Sodium Chloride ([place] Nasal [place]) 2 spray TID NA 01/18/20 16:00 01/24/20 09:34 Spironolactone (Aldactone) 12.5 mg DAILY PO 01/18/20 09:00 01/18/20 15:49 DC 01/18/20 08:42 Valsartan (Diovan) 80 mg DAILY PO 01/19/20 06:23 01/19/20 07:33 DC 01/19/20 06:26 Valsartan (Diovan) 80 mg DAILY PO 01/20/20 06:30 01/23/20 14:34 DC 01/23/20 09:40 Valsartan (Diovan) 160 mg DAILY PO 01/18/20 09:00 01/18/20 09:52 DC 01/18/20 08:43 Vitamin B Complex/ Vitamin C (Therapeutic B Complex w/C) 1 cap DAILY PO 01/18/20 09:00 01/24/20 09:30 Vitamin D (Vitamin D) 1,000 units DAILY PO 01/18/20 09:00 01/24/20 09:31 Allergies Coded Allergies: hydrocodone (Verified Allergy, Intermediate, 01/03/20) Sulfa (Sulfonamide Antibiotics) (Verified Allergy, Unknown, 07/03/19) hydrochlorothiazide (Verified Allergy, Unknown, 07/03/19) Miladys Rai MD Jan 24, 2020 15:05
[2020-01-24] MEDS: CitaloPRAM (CeleXA) 10 MG TABLET PO SCH (18:53)
[2020-01-24] MEDS: ATORVASTATIN 20 MG TAB PO SCH (18:53)
[2020-01-24 20:00] VITALS: BP 164/76
[2020-01-24] MEDS: SENNA 8.6 MG TAB (SENOKOT) PO SCH (21:00)
[2020-01-24] MEDS: ALPRAZolam 0.25 MG TAB PO PRN (21:31)
[2020-01-24] MEDS: **NOTE PATIENT COMMENT** MISC XX SCH (21:36)
[2020-01-25] MEDS: **hydrALAZINE HCL** 25 MG TAB PO SCH ×4 (00:13→17:10)
[2020-01-25 06:00] VITALS: BP 138/60
[2020-01-25 06:45] LABS: BASO % 0.3 % (0.0-1.0); EOS # 0.1 10^3/uL (0.0-0.5); EOS % 1.4 % (0.0-3.0); HEMATOCRIT 33.6 % (36.0-47.0); HEMOGLOBIN 10.3 g/dl (12.0-15.5); LYMPH # 2.7 10^3/uL (1.5-5.0); LYMPH % 26.5 % (24.0-44.0); MEAN CORPUSCULAR HEMOGLOBIN 29.9 pg (27.0-33.0); MEAN CORPUSCULAR HGB CONC 30.7 g/dl (32.0-36.5); MEAN CORPUSCULAR VOLUME 97.4 fl (80.0-96.0); MONO # 1.2 10^3/uL (0.0-0.8); NEUTROPHILS # 5.9 10^3/uL (1.5-8.5); NEUTROPHILS % 58.7 % (36.0-66.0); PLATELET COUNT, AUTOMATED 229 10^3/uL (150-450); RED BLOOD COUNT 3.45 10^6/uL (4.00-5.40)
[2020-01-25 07:12] LABS: CALCIUM LEVEL 8.3 MG/DL (8.8-10.2); CREATININE FOR GFR 1.54 MG/DL (0.55-1.30); GLOMERULAR FILTRATION RATE 34.7 (>39); POTASSIUM SERUM 3.7 MEQ/L (3.5-5.1)
[2020-01-25] MEDS: LEVALBUTEROL 1.25 MG/0.5 ML CONCENTRATE NEB INH SCH ×3 (07:13→19:51)
[2020-01-25] MEDS: HumaLOG INSULIN (NovoLOG) PER UNIT SC SCH ×4 (07:30→21:00)
[2020-01-25] MEDS: MAGNESIUM OXIDE 400 MG TAB (MAG-OX) PO SCH ×2 (09:51→21:24)
[2020-01-25] MEDS: FERROUS SULFATE 325MG TAB PO SCH (09:51)
[2020-01-25] MEDS: APIXABAN 5 MG TAB (ELIQUIS) PO SCH ×2 (09:52→21:23)
[2020-01-25] MEDS: DOCUSATE SODIUM 100 MG CAP PO SCH ×2 (09:52→21:23)
[2020-01-25] MEDS: ALPRAZolam 0.25 MG TAB PO PRN (09:52)
[2020-01-25] MEDS: VITAMIN D 1,000 INTERNATIONAL UNITS TABLET PO SCH (09:52)
[2020-01-25] MEDS: CALCIUM/VITAMIN D 500 MG TAB PO SCH ×2 (09:52→21:24)
[2020-01-25] MEDS: VITAMIN B COMPLEX/VIT C CAP PO SCH (09:52)
[2020-01-25] MEDS: OMEPRAZOLE 20 MG CAP PO SCH ×2 (09:52→21:23)
[2020-01-25] MEDS: ACETAMINOPHEN 500 MG TAB PO SCH ×3 (09:53→21:24)
[2020-01-25] MEDS: oxyCODONE 15 MG CR TAB PO SCH ×2 (09:53→21:23)
[2020-01-25] MEDS: MESALAMINE 250 MG CR CAP PO SCH ×3 (09:53→21:21)
[2020-01-25] MEDS: predniSONE 5 MG TAB PO SCH (09:54)
[2020-01-25] MEDS: FUROSEMIDE 40 MG TAB PO SCH (09:54)
[2020-01-25] MEDS: AMIODARONE 200 MG TAB (PACERONE) PO SCH (09:54)
[2020-01-25] MEDS: MIRALAX *UNIT DOSE* 17GM PACKET PO SCH (09:54)
[2020-01-25] MEDS: REMEDY PHYTOPLEX Z-GUARD PASTE 113GM TUBE (FROM STOREROOM PRODUCT) TOP SCH ×3 (09:54→21:30)
[2020-01-25] MEDS: LIDOCAINE 5% (LIDODERM) PATCH TD SCH (09:54)
[2020-01-25] MEDS: NYSTATIN 100,000 UNITS/GM TOPICAL PWD 15 GM TOP SCH ×2 (09:55→21:27)
[2020-01-25] MEDS: METOPROLOL TARTRATE 100 MG TAB PO SCH ×2 (10:02→21:24)
[2020-01-25] MEDS: FLUTICASONE PROP 0.05% NASAL SPRAY 16 GM (FLONASE) NARES SCH ×2 (10:03→21:27)
[2020-01-25] MEDS: SODIUM CHLORIDE NASAL 0.65% SPRAY BTL (OCEAN) SCH ×3 (10:04→21:27)
[2020-01-25] MEDS: POLYVINYL ALCOHOL OPHTH SOLN 15 ML(LIQUITEARS) OU SCH ×3 (10:04→21:27)
--- NOTE | 2020-01-25 12:49 | IPNPDOC ---
PM&R Progress Note DATE OF SERVICE: Jan 25, 2020 Anodic Treater Progress Note Subjective: Patient reporting she feels her leg swelling is better and that she is open to having a hospital bed to help her with her leg swelling and overall positioning. REVIEW OF SYSTEMS: The following is a completed review of systems and has been reviewed. Review of systems otherwise unremarkable. PAIN: Patient self reports +neck pain EYES: No recent vision changes EARS, NOSE, & THROAT: No throat pain, or dysphagia, or rhinorrhea CARDIOVASCULAR: Denies chest pain or palpitations PULMONARY: Denies shortness of breath GASTROINTESTINAL:no diarrhea/constipation GENITOURINARY: denies dysuria MUSCULOSKELETAL: generalized weakness NEUROLOGICAL:denies paresthesias or tremor HEMATOLOGICAL: denies easy bruising SKIN: abdominal fold rash PSYCHIATRIC: Unremarkable All other review of systems found to be negative. PHYSICAL EXAMINATION: VITAL SIGNS: Please see below. GENERAL: Pleasant and cooperative. No acute distress. HEENT: PERRL. Extraocular movements intact. Clear conjunctiva CARDIOVASCULAR: Regular rate and rhythm. No murmurs, rubs, or gallops LUNGS: Clear to auscultation bilaterally. No wheezes. No rhonchi ABDOMEN: Soft, nontender, nondistended. Positive bowel sounds. Normal active bowel sounds NEUROLOGICAL: Alert and oriented times three. Cranial nerves II through XII grossly intact. Sensation grossly intact EXTREMITIES: 5\5 strength bilateral upper extremities. 5\5 strength right lower extremity. 5/5 strength in left lower extremity. +bilat LE edema (improving) SKIN: intact LABORATORY DATA: Please see below. ASSESSMENT:79-year-old F with past medical history of Afib who presents status post fall with C2 fracture PLAN: 1. Rehab-pT/OT advance gait and ADLs, cervical collar to be worn when OOB, strengthen/stretch.maintain ROM all 4 limbs, ambulating 200 feet with RW 2. Cardiac- Afib c/u amiodarone, eliquis and beta-erna- medicine consulted to assist in overall management -chronic CHF patient follows with Dr. Denton and had elevated BNP on acute side, will fluid restrict, daily weights- [place] wrap bilat LE qhs, TEds daily, and elevate, edema improving with leg elevation and addition of diuretic -BPs improving, c/u metoprolol 100mg BID, c/u hydralazine q6h, and daily Lasix -HLD- c/u statin 3. Resp: encourage incentive spirometry, Duonebs, monitor for infection -c/u flonase and ocean SN drops as patient reporting sinus congestion 4. Ortho- s/p fall with C2-fracture cervical brace to be worn when OOB -T5 compression fracture- chronic 5. 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 GI- hx of ulcerative colitis c/u mesalamine and oral prednisone -prilosec 40mg BID while on steroids -prep-H and tucks for hemorrhoids -patient with bloody BM over the weekend likely due to known hemorrhoids, Hgb stable with no further episodes, c/u to follow 7. Endo- DM c/u ISS and adjust prn 8. PAin- lidoderm patch to neck, OxyContin, and oxycodone 9. - monitor PVRs 20. Psych- c/u celexa for depression, added Xanax prn for anxiety at half the dose she took at home 0.25 q8h prn for donning of brace 10. Dispo: To home 01-27-20 DME patient will require an electric hospital bed. She has bilateral lower extremity edema in the setting of chronic CHF and is at risk of developing skin break down and pressure ulcers due to her edema and history of diabetes. Having a hospital bed will help her elevate her legs and do frequent weight shift to prevent worsening swelling and prevent pressure ulcers. Given her CHF she also needs the head of the bed elevated to assist with breathing and prevent pulmonary edema. Allergies Coded Allergies: hydrocodone (Verified Allergy, Intermediate, 01/03/20) Sulfa (Sulfonamide Antibiotics) (Verified Allergy, Unknown, 07/03/19) hydrochlorothiazide (Verified Allergy, Unknown, 07/03/19) Vital Signs Vital Signs Date Time Temp Pulse Resp B/P (MAP) Pulse Ox O2 Delivery O2 Flow Rate FiO2 01/25/20 12:20 152/68 01/25/20 10:02 70 01/25/20 09:53 20 Room Air 01/25/20 06:00 97.6 95 Laboratory Data CBC/BMP Laboratory Tests 01/25/20 06:05 Labs 24H Laboratory Tests 2 01/24/20 16:40: Bedside Glucose (Misc Panel) 245H 01/24/20 20:01: Bedside Glucose (Misc Panel) 244H 01/25/20 05:50: Bedside Glucose (Misc Panel) 119H 01/25/20 06:05: Immature Granulocyte % (Auto) 1.1, Neutrophils (%) (Auto) 58.7, Lymphocytes (%) (Auto) 26.5, Monocytes (%) (Auto) 12.0H, Eosinophils (%) (Auto) 1.4, Basophils (%) (Auto) 0.3, Neutrophils # (Auto) 5.9, Lymphocytes # (Auto) 2.7, Monocytes # (Auto) 1.2H, Eosinophils # (Auto) 0.1, Basophils # (Auto) 0.0, Nucleated Red Blood Cells % (auto) 0.0, Anion Gap 8, Glomerular Filtration Rate 34.7L, Calcium Level 8.3L 01/25/20 09:42: Bedside Glucose (Misc Panel) 209H 01/25/20 12:12: Bedside Glucose (Misc Panel) 205H Current Medications Current Medications Current Medications Medications (Trade) Dose Ordered Sig/Annie Route PRN Reason Start Time Stop Time Status Last Admin Dose Admin Acetaminophen (Tylenol Tab) 1,000 mg TID PO 01/17/20 16:00 01/25/20 09:53 Albuterol/ Ipratropium (Duoneb (Ipr 0.5mg/Alb 2.5mg)) 3 ml RTID NEB 01/17/20 20:00 01/23/20 16:15 DC 01/23/20 07:29 Alprazolam (Xanax) 0.25 mg Q12HP PRN PO ANXIETY 01/22/20 15:00 01/23/20 14:34 DC 01/23/20 09:38 Alprazolam (Xanax) 0.25 mg Q8H PRN PO ANXIETY 01/23/20 14:30 01/25/20 09:52 Amiodarone HCl (Pacerone, Cordarone) 200 mg DAILY PO 01/18/20 09:00 01/25/20 09:54 Amlodipine Besylate (Norvasc) 5 mg DAILY PO 01/18/20 09:00 01/18/20 15:53 DC 01/18/20 08:46 Apixaban (Eliquis) 5 mg BID PO 01/17/20 21:00 01/25/20 09:52 Artificial Tears (Akwa Tears) 2 drop TID OU 01/17/20 16:00 01/25/20 10:04 Atorvastatin Calcium (Lipitor) 40 mg DAILY@1800 PO 01/17/20 18:00 01/24/20 18:53 Bisacodyl (Dulcolax Suppository) 10 mg DAILYPRN PRN NM CONSTIPATION 01/17/20 16:00 01/17/20 18:10 Bisacodyl (Dulcolax Tab) 5 mg DAILYPRN PRN PO CONSTIPATION 01/17/20 16:00 Calcium/Vitamin D (Oscal D) 500 mg BID PO 01/17/20 21:00 01/25/20 09:52 Citalopram Hydrobromide (CeleXA) 30 mg DAILY@1800 PO 01/17/20 18:00 01/24/20 18:53 Clonidine HCl (Catapres) 0.1 mg STAT STAT PO 01/19/20 07:29 01/19/20 07:32 DC 01/19/20 08:48 Dextrose (Dextrose 50%) 25 ml ASDIRECTED PRN IV SEE LABEL COMMENTS 01/17/20 16:00 Docusate Sodium (Colace) 100 mg BID PO 01/17/20 21:00 01/18/20 16:02 DC 01/17/20 20:40 Docusate Sodium (Colace) 200 mg BID PO 01/18/20 21:00 01/25/20 09:52 Ferrous Sulfate (Ferrous Sulfate) 325 mg MoWeFr@0900 PO 01/18/20 09:00 01/25/20 09:51 Fluticasone Propionate (Flonase 0.05% Nasal [place]) 1 spray BID NARES 01/18/20 21:00 01/25/20 10:03 Furosemide (Lasix) 40 mg DAILY PO 01/23/20 15:00 01/25/20 09:54 Glipizide (Glucotrol) 5 mg BID@0730,1730 PO 01/17/20 17:30 01/18/20 15:49 DC 01/18/20 08:46 Glucagon (Glucagon) 1 mg ASDIRECTED PRN SC SEE LABEL COMMENTS 01/17/20 16:00 Glucose (Glucose) 16 GM ASDIRECTED PRN PO SEE LABEL COMMENTS 01/17/20 16:00 Hydralazine HCl (Apresoline) 25 mg Q6H PO 01/23/20 12:00 01/25/20 12:20 Insulin Human Lispro (HumaLOG INSULIN) SEE PROTOCOL TABLE AC SC 01/17/20 17:30 01/25/20 12:20 Insulin Human Lispro (HumaLOG INSULIN) SEE PROTOCOL TABLE QHS SC 01/17/20 21:00 01/23/20 20:54 Levalbuterol HCl (Xopenex Neb) 0.63 mg RTID INH 01/23/20 20:00 01/25/20 07:13 Lidocaine (Lidoderm Patch) 1 patch DAILY TD 01/18/20 09:00 01/25/20 09:54 Magnesium Oxide (Mag-Ox) 400 mg BID PO 01/17/20 21:00 01/25/20 09:51 Mesalamine (Pentasa) 1,000 mg TID PO 01/17/20 16:00 01/25/20 09:53 Metoprolol Tartrate (Lopressor) 50 mg BID PO 01/17/20 21:00 01/18/20 09:52 DC 01/18/20 08:43 Metoprolol Tartrate (Lopressor) 50 mg Q8H PO 01/18/20 14:00 01/19/20 07:33 DC 01/18/20 21:04 Metoprolol Tartrate (Lopressor) 50 mg Q8H PO 01/19/20 06:00 01/23/20 10:11 DC 01/23/20 06:44 Metoprolol Tartrate (Lopressor) 100 mg BID PO 01/23/20 21:00 01/25/20 10:02 Non-Formulary Medication ( See Comment Field Below ) REMOVE LIDODERM PATCH DAILY@21 XX 01/17/20 21:00 01/24/20 21:36 Nystatin (Mycostatin Powder, Nystop) apply to abdominal folds ... BID TOP 01/17/20 21:00 01/25/20 09:55 Omeprazole (PriLOSEC) 40 mg BID PO 01/17/20 21:00 01/25/20 09:52 Oxycodone HCl (OxyCONTIN) 15 mg BID PO 01/17/20 21:00 01/25/20 09:53 Oxycodone HCl (Roxicodone, Oxyir) 5 mg Q8HP PRN PO PAIN 01/17/20 16:00 01/22/20 02:07 Phenylephrine HCl (Preparation H Supp) 1 sup DAILY PRN NM anal pain 01/18/20 13:30 Polyethylene Glycol (Miralax) 1 pkt DAILY PO 01/18/20 09:00 01/25/20 09:54 Prednisone (Deltasone) 15 mg DAILY PO 01/18/20 09:00 01/25/20 09:54 Senna (Senokot) 1 tab QHS PO 01/17/20 21:00 01/23/20 20:53 Sodium Chloride ([place] Nasal [place]) 2 spray TID NA 01/18/20 16:00 01/25/20 10:04 Spironolactone (Aldactone) 12.5 mg DAILY PO 01/18/20 09:00 01/18/20 15:49 DC 01/18/20 08:42 Valsartan (Diovan) 80 mg DAILY PO 01/19/20 06:23 01/19/20 07:33 DC 01/19/20 06:26 Valsartan (Diovan) 80 mg DAILY PO 01/20/20 06:30 01/23/20 14:34 DC 01/23/20 09:40 Valsartan (Diovan) 160 mg DAILY PO 01/18/20 09:00 01/18/20 09:52 DC 01/18/20 08:43 Vitamin B Complex/ Vitamin C (Therapeutic B Complex w/C) 1 cap DAILY PO 01/18/20 09:00 01/25/20 09:52 Vitamin D (Vitamin D) 1,000 units DAILY PO 01/18/20 09:00 01/25/20 09:52 MANOJ DE LA CRUZ MD Jan 25, 2020 12:49
[2020-01-25 14:00] VITALS: BP 120/60
[2020-01-25] MEDS: CitaloPRAM (CeleXA) 10 MG TABLET PO SCH (17:06)
[2020-01-25] MEDS: ATORVASTATIN 20 MG TAB PO SCH (17:06)
[2020-01-25] MEDS: oxyCODONE 5MG TAB PO PRN (17:15)
[2020-01-25 20:34] VITALS: BP 150/70
[2020-01-25] MEDS: SENNA 8.6 MG TAB (SENOKOT) PO SCH (21:24)
[2020-01-25] MEDS: **NOTE PATIENT COMMENT** MISC XX SCH (21:30)
[2020-01-26] VITALS: BP 170/80
[2020-01-26] MEDS: **hydrALAZINE HCL** 25 MG TAB PO SCH ×4 (00:15→17:31)
[2020-01-26 05:33] VITALS: BP 160/80
[2020-01-26] MEDS: LEVALBUTEROL 1.25 MG/0.5 ML CONCENTRATE NEB INH SCH ×3 (07:36→20:00)
[2020-01-26] MEDS: MESALAMINE 250 MG CR CAP PO SCH ×3 (08:27→21:45)
[2020-01-26] MEDS: VITAMIN D 1,000 INTERNATIONAL UNITS TABLET PO SCH (08:28)
[2020-01-26] MEDS: OMEPRAZOLE 20 MG CAP PO SCH ×2 (08:28→21:47)
[2020-01-26] MEDS: VITAMIN B COMPLEX/VIT C CAP PO SCH (08:28)
[2020-01-26] MEDS: SODIUM CHLORIDE NASAL 0.65% SPRAY BTL (OCEAN) SCH ×3 (08:28→21:51)
[2020-01-26] MEDS: DOCUSATE SODIUM 100 MG CAP PO SCH ×2 (08:28→21:46)
[2020-01-26] MEDS: POLYVINYL ALCOHOL OPHTH SOLN 15 ML(LIQUITEARS) OU SCH ×3 (08:28→21:51)
[2020-01-26] MEDS: predniSONE 5 MG TAB PO SCH (08:29)
[2020-01-26] MEDS: CALCIUM/VITAMIN D 500 MG TAB PO SCH ×2 (08:29→21:47)
[2020-01-26] MEDS: APIXABAN 5 MG TAB (ELIQUIS) PO SCH ×2 (08:29→21:47)
[2020-01-26] MEDS: AMIODARONE 200 MG TAB (PACERONE) PO SCH (08:29)
[2020-01-26] MEDS: FLUTICASONE PROP 0.05% NASAL SPRAY 16 GM (FLONASE) NARES SCH ×2 (08:29→21:51)
[2020-01-26] MEDS: MAGNESIUM OXIDE 400 MG TAB (MAG-OX) PO SCH ×2 (08:29→21:47)
[2020-01-26] MEDS: ACETAMINOPHEN 500 MG TAB PO SCH ×3 (08:30→21:47)
[2020-01-26] MEDS: oxyCODONE 15 MG CR TAB PO SCH ×2 (08:30→21:47)
[2020-01-26] MEDS: FUROSEMIDE 40 MG TAB PO SCH (08:30)
[2020-01-26] MEDS: MIRALAX *UNIT DOSE* 17GM PACKET PO SCH (08:31)
[2020-01-26] MEDS: LIDOCAINE 5% (LIDODERM) PATCH TD SCH (08:31)
[2020-01-26] MEDS: METOPROLOL TARTRATE 100 MG TAB PO SCH ×2 (08:31→21:48)
[2020-01-26] MEDS: HumaLOG INSULIN (NovoLOG) PER UNIT SC SCH ×4 (08:32→21:48)
[2020-01-26] MEDS: NYSTATIN 100,000 UNITS/GM TOPICAL PWD 15 GM TOP SCH ×2 (08:38→21:51)
[2020-01-26] MEDS: REMEDY PHYTOPLEX Z-GUARD PASTE 113GM TUBE (FROM STOREROOM PRODUCT) TOP SCH ×3 (08:38→21:52)
--- NOTE | 2020-01-26 08:42 | CR ---
DATE OF CONSULTATION: 01/25/2020 REASON FOR CONSULTATION: I was asked to see the patient by Dr. Rodarte in the acute rehab unit in consultation for her brace. HISTORY: Ms. Cano sustained a nondisplaced type 2 odontoid fracture approximately 10 days ago, was seen in the hospital. We placed her in a cervicothoracic orthosis/sternal occipital mandibular immobilizer (SOMI) brace to mobilize this further. The patient is uncomfortable with the brace, not that the brace iself is uncomfortable, but she has trouble getting it on and off and wants to know about going into a soft. I explained to the patient that this type of cervical mobilization is what is recommended for this fracture. Alternatives to this will include a Halo brace which she does not want. Not wearing a brace or using soft collar would not be indicated mobilization. I explained to the patient that it is her right, as the patient, to declined brace wear and she might do acceptably well and go on to heal and developed a fibrous union. However, that it is not something that I can recommend, that would have to be her decision. The patient elects to stick with her brace. I plan on continued followup in the office including additional imaging to assess the fracture.
[2020-01-26] MEDS: ALPRAZolam 0.25 MG TAB PO PRN (08:45)
--- NOTE | 2020-01-26 10:10 | IPNPDOC ---
PM&R Progress Note DATE OF SERVICE: Jan 26, 2020 Voice Systems Engineer Progress Note DATE OF ADMISSION: Jan 17, 2020 at 13:40 INPATIENT REHABILITATION ADMISSION DAY: # SUBJECTIVE: Patient is a -year-old with . ALLERGIES: See Below MEDICATIONS: Reviewed, see below. OBJECTIVE: VITAL SIGNS: Please see below. PHYSICAL EXAMINATION: GENERAL: [Cachectic, well developed, sitting up in bed, no acute distress]. HEENT: [Normocephalic, atraumatic]. [No facial droop]. [Poor dentition, missing teeth. PERRL, EOMI]. CARDIOVASCULAR: [S1, S2, irregular rate]. [No lower limb edema or calf tendernes s]. LUNGS: [Decreased breath sounds, coarse throughout]. ABDOMEN: [Soft, nontender, nondistended. Normoactive bowel sounds throughout]. MUSCULOSKELETAL: MMT: /5 strength proximally bilateral shoulder abduction, forward flexion and bilateral hip flexion. /5 strength bilateral elbow flexion, knee flexion, /5 bilateral elbow extension and knee extension. /5 steel roller, dorsiflexion, plantar flexion. NEUROLOGICAL: [Alert and oriented times three]. [Answers all question appropriately]. SKIN: . LABORATORY DATA: Reviewed. Please see below. MICROBIOLOGY: Please see below. IMAGING: ASSESSMENT AND PLAN: 1. . 2. . 3. . TIME SPENT: Chart Review, examination and documentation minutes. Allergies Coded Allergies: hydrocodone (Verified Allergy, Intermediate, 01/03/20) Sulfa (Sulfonamide Antibiotics) (Verified Allergy, Unknown, 07/03/19) hydrochlorothiazide (Verified Allergy, Unknown, 07/03/19) Vital Signs Vital Signs Date Time Temp Pulse Resp B/P (MAP) Pulse Ox O2 Delivery O2 Flow Rate FiO2 01/26/20 08:31 63 154/72 01/26/20 08:30 17 Room Air 01/26/20 05:33 97.4 93 Laboratory Data Labs 24H Laboratory Tests 2 01/25/20 12:12: Bedside Glucose (Misc Panel) 205H 01/25/20 16:23: Bedside Glucose (Misc Panel) 349H 01/25/20 20:15: Bedside Glucose (Misc Panel) 246H 01/26/20 06:10: Bedside Glucose (Misc Panel) 117H Current Medications Current Medications Current Medications Medications (Trade) Dose Ordered Sig/Annie Route PRN Reason Start Time Stop Time Status Last Admin Dose Admin Acetaminophen (Tylenol Tab) 1,000 mg TID PO 01/17/20 16:00 01/26/20 08:30 Albuterol/ Ipratropium (Duoneb (Ipr 0.5mg/Alb 2.5mg)) 3 ml RTID NEB 01/17/20 20:00 01/23/20 16:15 DC 01/23/20 07:29 Alprazolam (Xanax) 0.25 mg Q12HP PRN PO ANXIETY 01/22/20 15:00 01/23/20 14:34 DC 01/23/20 09:38 Alprazolam (Xanax) 0.25 mg Q8H PRN PO ANXIETY 01/23/20 14:30 01/26/20 08:45 Amiodarone HCl (Pacerone, Cordarone) 200 mg DAILY PO 01/18/20 09:00 01/26/20 08:29 Amlodipine Besylate (Norvasc) 5 mg DAILY PO 01/18/20 09:00 01/18/20 15:53 DC 01/18/20 08:46 Apixaban (Eliquis) 5 mg BID PO 01/17/20 21:00 01/26/20 08:29 Artificial Tears (Akwa Tears) 2 drop TID OU 01/17/20 16:00 01/26/20 08:28 Atorvastatin Calcium (Lipitor) 40 mg DAILY@1800 PO 01/17/20 18:00 01/25/20 17:06 Bisacodyl (Dulcolax Suppository) 10 mg DAILYPRN PRN NC CONSTIPATION 01/17/20 16:00 01/17/20 18:10 Bisacodyl (Dulcolax Tab) 5 mg DAILYPRN PRN PO CONSTIPATION 01/17/20 16:00 Calcium/Vitamin D (Oscal D) 500 mg BID PO 01/17/20 21:00 01/26/20 08:29 Citalopram Hydrobromide (CeleXA) 30 mg DAILY@1800 PO 01/17/20 18:00 01/25/20 17:06 Clonidine HCl (Catapres) 0.1 mg STAT STAT PO 01/19/20 07:29 01/19/20 07:32 DC 01/19/20 08:48 Dextrose (Dextrose 50%) 25 ml ASDIRECTED PRN IV SEE LABEL COMMENTS 01/17/20 16:00 Docusate Sodium (Colace) 100 mg BID PO 01/17/20 21:00 01/18/20 16:02 DC 01/17/20 20:40 Docusate Sodium (Colace) 200 mg BID PO 01/18/20 21:00 01/26/20 08:28 Ferrous Sulfate (Ferrous Sulfate) 325 mg MoWeFr@0900 PO 01/18/20 09:00 01/25/20 09:51 Fluticasone Propionate (Flonase 0.05% Nasal [place]) 1 spray BID NARES 01/18/20 21:00 01/26/20 08:29 Furosemide (Lasix) 40 mg DAILY PO 01/23/20 15:00 01/26/20 08:30 Glipizide (Glucotrol) 5 mg BID@0730,1730 PO 01/17/20 17:30 01/18/20 15:49 DC 01/18/20 08:46 Glucagon (Glucagon) 1 mg ASDIRECTED PRN SC SEE LABEL COMMENTS 01/17/20 16:00 Glucose (Glucose) 16 GM ASDIRECTED PRN PO SEE LABEL COMMENTS 01/17/20 16:00 Hydralazine HCl (Apresoline) 25 mg Q6H PO 01/23/20 12:00 01/26/20 10:09 DC 01/26/20 05:38 Hydralazine HCl (Apresoline) 50 mg Q6H PO 01/26/20 12:00 UNV Insulin Human Lispro (HumaLOG INSULIN) SEE PROTOCOL TABLE AC SC 01/17/20 17:30 01/26/20 08:32 Insulin Human Lispro (HumaLOG INSULIN) SEE PROTOCOL TABLE QHS SC 01/17/20 21:00 01/23/20 20:54 Levalbuterol HCl (Xopenex Neb) 0.63 mg RTID INH 01/23/20 20:00 01/26/20 07:36 Lidocaine (Lidoderm Patch) 1 patch DAILY TD 01/18/20 09:00 01/26/20 08:31 Magnesium Oxide (Mag-Ox) 400 mg BID PO 01/17/20 21:00 01/26/20 08:29 Mesalamine (Pentasa) 1,000 mg TID PO 01/17/20 16:00 01/26/20 08:27 Metoprolol Tartrate (Lopressor) 50 mg BID PO 01/17/20 21:00 01/18/20 09:52 DC 01/18/20 08:43 Metoprolol Tartrate (Lopressor) 50 mg Q8H PO 01/18/20 14:00 01/19/20 07:33 DC 01/18/20 21:04 Metoprolol Tartrate (Lopressor) 50 mg Q8H PO 01/19/20 06:00 01/23/20 10:11 DC 01/23/20 06:44 Metoprolol Tartrate (Lopressor) 100 mg BID PO 01/23/20 21:00 01/26/20 08:31 Non-Formulary Medication ( See Comment Field Below ) REMOVE LIDODERM PATCH DAILY@21 XX 01/17/20 21:00 01/25/20 21:30 Nystatin (Mycostatin Powder, Nystop) apply to abdominal folds ... BID TOP 01/17/20 21:00 01/26/20 08:38 Omeprazole (PriLOSEC) 40 mg BID PO 01/17/20 21:00 01/26/20 08:28 Oxycodone HCl (OxyCONTIN) 15 mg BID PO 01/17/20 21:00 01/26/20 08:30 Oxycodone HCl (Roxicodone, Oxyir) 5 mg Q8HP PRN PO PAIN 01/17/20 16:00 01/25/20 17:15 Phenylephrine HCl (Preparation H Supp) 1 sup DAILY PRN NC anal pain 01/18/20 13:30 Polyethylene Glycol (Miralax) 1 pkt DAILY PO 01/18/20 09:00 01/26/20 08:31 Prednisone (Deltasone) 15 mg DAILY PO 01/18/20 09:00 01/26/20 08:29 Senna (Senokot) 1 tab QHS PO 01/17/20 21:00 01/25/20 21:24 Sodium Chloride ([place] Nasal [place]) 2 spray TID NA 01/18/20 16:00 01/26/20 08:28 Spironolactone (Aldactone) 12.5 mg DAILY PO 01/18/20 09:00 01/18/20 15:49 DC 01/18/20 08:42 Valsartan (Diovan) 80 mg DAILY PO 01/19/20 06:23 01/19/20 07:33 DC 01/19/20 06:26 Valsartan (Diovan) 80 mg DAILY PO 01/20/20 06:30 01/23/20 14:34 DC 01/23/20 09:40 Valsartan (Diovan) 160 mg DAILY PO 01/18/20 09:00 01/18/20 09:52 DC 01/18/20 08:43 Vitamin B Complex/ Vitamin C (Therapeutic B Complex w/C) 1 cap DAILY PO 01/18/20 09:00 01/26/20 08:28 Vitamin D (Vitamin D) 1,000 units DAILY PO 01/18/20 09:00 01/26/20 08:28 MANOJ DE LA CRUZ MD Jan 26, 2020 10:10
[2020-01-26] MEDS ORDERED: DOCU100C16 PO (10:38)
[2020-01-26] MEDS ORDERED: FLUTISP NARES (10:38)
[2020-01-26] MEDS ORDERED: FERR325T18 PO (10:38)
[2020-01-26] MEDS ORDERED: PENT500C PO (10:38)
[2020-01-26] MEDS ORDERED: AMIO200T PO (10:38)
[2020-01-26] MEDS ORDERED: ALPR0.25 PO (10:38)
[2020-01-26] MEDS ORDERED: ELIQ5TAB PO (10:38)
[2020-01-26] MEDS ORDERED: ACET-683 PO (10:38)
[2020-01-26] MEDS ORDERED: OXYC-517 PO (10:39)
[2020-01-26] MEDS ORDERED: LOPR1TAB7 PO (10:39)
[2020-01-26] MEDS ORDERED: OXYC15TA66 PO (10:39)
[2020-01-26] MEDS ORDERED: HYDR25TA PO (10:39)
[2020-01-26] MEDS ORDERED: FURO40TA2 PO (10:39)
[2020-01-26] MEDS ORDERED: INSUHUMDS SC ×2 (10:39)
[2020-01-26] MEDS ORDERED: OMEP-218 PO (10:39)
[2020-01-26] MEDS ORDERED: PRED5TA PO (10:39)
[2020-01-26] MEDS ORDERED: NYST10006 TOP (10:39)
[2020-01-26] MEDS ORDERED: LEVA12INH INH (10:39)
[2020-01-26] MEDS ORDERED: MAG400TA PO (10:39)
[2020-01-26 12:19] VITALS: BP 136/60
[2020-01-26 14:00] VITALS: BP 152/70
[2020-01-26] MEDS: CitaloPRAM (CeleXA) 10 MG TABLET PO SCH (17:26)
[2020-01-26] MEDS: ATORVASTATIN 20 MG TAB PO SCH (17:26)
[2020-01-26 20:40] VITALS: BP 180/90
[2020-01-26] MEDS: SENNA 8.6 MG TAB (SENOKOT) PO SCH (21:46)
[2020-01-26] MEDS: **NOTE PATIENT COMMENT** MISC XX SCH (21:52)
[2020-01-27] MEDS: ALPRAZolam 0.25 MG TAB PO PRN (02:17)
[2020-01-27 05:39] VITALS: BP 154/78
[2020-01-27] MEDS: **hydrALAZINE HCL** 25 MG TAB PO SCH ×2 (05:56)
[2020-01-27] MEDS: LEVALBUTEROL 1.25 MG/0.5 ML CONCENTRATE NEB INH SCH (07:19)
[2020-01-27] MEDS: HumaLOG INSULIN (NovoLOG) PER UNIT SC SCH (08:36)
[2020-01-27] MEDS: MIRALAX *UNIT DOSE* 17GM PACKET PO SCH (08:37)
[2020-01-27] MEDS: LIDOCAINE 5% (LIDODERM) PATCH TD SCH (08:38)
[2020-01-27] MEDS: predniSONE 5 MG TAB PO SCH (08:38)
[2020-01-27] MEDS: MESALAMINE 250 MG CR CAP PO SCH (08:39)
[2020-01-27] MEDS: CALCIUM/VITAMIN D 500 MG TAB PO SCH (08:39)
[2020-01-27] MEDS: FERROUS SULFATE 325MG TAB PO SCH (08:39)
[2020-01-27] MEDS: ACETAMINOPHEN 500 MG TAB PO SCH (08:39)
[2020-01-27] MEDS: DOCUSATE SODIUM 100 MG CAP PO SCH (08:39)
[2020-01-27] MEDS: VITAMIN D 1,000 INTERNATIONAL UNITS TABLET PO SCH (08:39)
[2020-01-27] MEDS: VITAMIN B COMPLEX/VIT C CAP PO SCH (08:39)
[2020-01-27 08:40] VITALS: BP 154/78
[2020-01-27] MEDS: MAGNESIUM OXIDE 400 MG TAB (MAG-OX) PO SCH (08:40)
[2020-01-27] MEDS: AMIODARONE 200 MG TAB (PACERONE) PO SCH (08:40)
[2020-01-27] MEDS: oxyCODONE 15 MG CR TAB PO SCH (08:40)
[2020-01-27] MEDS: SODIUM CHLORIDE NASAL 0.65% SPRAY BTL (OCEAN) SCH (08:41)
[2020-01-27] MEDS: FUROSEMIDE 40 MG TAB PO SCH (08:41)
[2020-01-27] MEDS: FLUTICASONE PROP 0.05% NASAL SPRAY 16 GM (FLONASE) NARES SCH (08:41)
[2020-01-27] MEDS: OMEPRAZOLE 20 MG CAP PO SCH (08:41)
[2020-01-27] MEDS: APIXABAN 5 MG TAB (ELIQUIS) PO SCH (08:41)
[2020-01-27] MEDS: NYSTATIN 100,000 UNITS/GM TOPICAL PWD 15 GM TOP SCH (08:42)
[2020-01-27] MEDS: REMEDY PHYTOPLEX Z-GUARD PASTE 113GM TUBE (FROM STOREROOM PRODUCT) TOP SCH (08:43)
[2020-01-27] MEDS: POLYVINYL ALCOHOL OPHTH SOLN 15 ML(LIQUITEARS) OU SCH (08:43)
[2020-01-27 08:58] VITALS: BP 150/70
[2020-01-27] MEDS: METOPROLOL TARTRATE 100 MG TAB PO SCH (08:58)
== END 2020-01-27 11:20 | DRG 560 ==
LOC: M PM&R 13:40
PROVIDERS: ADMIT Physical Medicine & Rehabilitation; ATTEND Physical Medicine & Rehabilitation
DX: S12.112D Nondisplaced Type II dens fracture, subsequent encounter for fracture with routine healing (principal); K55.1 Chronic vascular disorders of intestine; K50.90 Crohn's disease, unspecified, without complications; I13.0 Hypertensive heart and chronic kidney disease with heart failure and stage 1 through stage 4 chronic kidney disease, or unspecified chronic kidney disease; W19.XXXD Unspecified fall, subsequent encounter; Y92.009 Unspecified place in unspecified non-institutional (private) residence as the place of occurrence of the external cause; I48.0 Paroxysmal atrial fibrillation; E11.22 Type 2 diabetes mellitus with diabetic chronic kidney disease; I25.10 Atherosclerotic heart disease of native coronary artery without angina pectoris; N18.3 Chronic kidney disease, stage 3 (moderate); M80.88XD Other osteoporosis with current pathological fracture, vertebra(e), subsequent encounter for fracture with routine healing; K59.00 Constipation, unspecified; F32.9 Major depressive disorder, single episode, unspecified; R21 Rash and other nonspecific skin eruption; R53.1 Weakness; R60.0 Localized edema; R26.2 Difficulty in walking, not elsewhere classified; I50.9 Heart failure, unspecified; K64.8 Other hemorrhoids; Z70.1 Counseling related to patient's sexual behavior and orientation; Z79.52 Long term (current) use of systemic steroids; Z79.891 Long term (current) use of opiate analgesic; Z79.899 Other long term (current) drug therapy; Z88.2 Allergy status to sulfonamides; Z88.5 Allergy status to narcotic agent; Z88.8 Allergy status to other drugs, medicaments and biological substances; Z96.651 Presence of right artificial knee joint; Z96.641 Presence of right artificial hip joint; Z90.49 Acquired absence of other specified parts of digestive tract; Z11.59 Encounter for screening for other viral diseases

== ENCOUNTER → 2020-02-01 | Outpatient (REF) ==
[~2020-02-01] MED LIST changes: +ACET500T15 PO; +ALPR0.25 PO; -AMIO200T PO; +AMIO200T3 PO; +D31000TA2 PO; +DOCU100C16 PO; +FERR325T18 PO; +FLUT15.820; +FLUTISP NARES; +FURO40TA2 PO; +HYDR-3910 PO; +HYDR20VI2 IV; +HYDR25TA PO; +HYDR50TA PO; +INSUHUMDS SC; +KEPP500I IV; +LEVA12INH INH; +LOPR1TAB7 PO; +LOVE0.6I2 SC; +MAGN400T35 PO; +METO100T5 PO; +METO10TA2 PO; +METO1TAB87 PO; +METOCLOPRAMIDE INJection IV; +MIRT1TAB PO; +MORP4INJ2 IV; +NYST10006 TOP; +NYST1POW9 TOP; +NYST50SS SS; +OMEP-218 PO; +OMEP-221 PO; +OMEP1CAP73 PO; +ONDA-83 PO; +OXYC-141 PO; +OXYC1CAP PO; +PANT40TA29 PO; -PANT40TA3 PO; +PHEN26CR PR; +PROC5TAB57 PO; -VITAD1000T PO; +VITATAB73 PO; +ZOFR4TAB16 PO
[2020-02-01 11:25] LABS: HEMATOCRIT 35.8 % (36.0-47.0); HEMOGLOBIN 10.8 g/dl (12.0-15.5); MEAN CORPUSCULAR HEMOGLOBIN 29.7 pg (27.0-33.0); MEAN CORPUSCULAR HGB CONC 30.2 g/dl (32.0-36.5); MEAN CORPUSCULAR VOLUME 98.4 fl (80.0-96.0); PLATELET COUNT, AUTOMATED 290 10^3/uL (150-450); RED BLOOD COUNT 3.64 10^6/uL (4.00-5.40); WHITE BLOOD COUNT 12.6 10^3/uL (4.0-10.0)
[2020-02-01 11:58] LABS: CALCIUM LEVEL 8.7 MG/DL (8.8-10.2); CREATININE FOR GFR 1.81 MG/DL (0.55-1.30); GLOMERULAR FILTRATION RATE 28.8 (>39); POTASSIUM SERUM 3.3 MEQ/L (3.5-5.1)
== END ==
PROVIDERS: ATTEND Internal Medicine
DX: I48.91 Unspecified atrial fibrillation (principal)

== ENCOUNTER → 2020-02-02 | Outpatient (REF) | PROVIDERS: ATTEND Physician Assistant | DX: R07.0 Pain in throat (principal) ==

== ENCOUNTER → 2020-02-08 | Outpatient (REF) ==
[~2020-02-08] MED LIST changes: -ACET500T15 PO; +AMIO200T PO; -AMIO200T3 PO; -D31000TA2 PO; -FLUT15.820; -HYDR-3910 PO; -HYDR20VI2 IV; -HYDR50TA PO; -KEPP500I IV; -LOVE0.6I2 SC; +MAG400TA PO; -MAGN400T35 PO; -METO100T5 PO; -METO10TA2 PO; -METO1TAB87 PO; -METOCLOPRAMIDE INJection IV; -MIRT1TAB PO; -MORP4INJ2 IV; -NYST1POW9 TOP; -NYST50SS SS; -OMEP-221 PO; -OMEP1CAP73 PO; -ONDA-83 PO; -OXYC-141 PO; -OXYC1CAP PO; -PANT40TA29 PO; +PANT40TA3 PO; -PHEN26CR PR; -PROC5TAB57 PO; +VITAD1000T PO; -VITATAB73 PO; -ZOFR4TAB16 PO
[2020-02-08 10:01] LABS: HEMATOCRIT 37.2 % (36.0-47.0); HEMOGLOBIN 11.3 g/dl (12.0-15.5); MEAN CORPUSCULAR HEMOGLOBIN 29.4 pg (27.0-33.0); MEAN CORPUSCULAR HGB CONC 30.4 g/dl (32.0-36.5); MEAN CORPUSCULAR VOLUME 96.6 fl (80.0-96.0); PLATELET COUNT, AUTOMATED 329 10^3/uL (150-450); RED BLOOD COUNT 3.85 10^6/uL (4.00-5.40); WHITE BLOOD COUNT 11.5 10^3/uL (4.0-10.0)
[2020-02-08 10:20] LABS: CALCIUM LEVEL 9.1 MG/DL (8.8-10.2); CREATININE FOR GFR 1.77 MG/DL (0.55-1.30); GLOMERULAR FILTRATION RATE 29.5 (>39); POTASSIUM SERUM 3.8 MEQ/L (3.5-5.1)
== END ==
PROVIDERS: ATTEND Internal Medicine
DX: I48.91 Unspecified atrial fibrillation (principal)

== ENCOUNTER 2020-02-21 20:13 | Inpatient (IN) | payer MEDICARE, OTHER ==
[~2020-02-21] VITALS: Ht 160 cm; Wt 86.7 kg
[2020-02-21] MEDS ORDERED: NS 1,000 ML IV SCH (20:57)
[2020-02-21] MEDS ORDERED: METOPROLOL TARTRATE 100 MG TAB PO ONE (21:00)
[2020-02-21] MEDS ORDERED: ONDANSETRON 4MG/2ML VIAL IV ONE (21:00)
[2020-02-21 21:26] LABS: BASO % 0.4 % (0.0-1.0); EOS # 0.1 10^3/uL (0.0-0.5); EOS % 0.7 % (0.0-3.0); HEMATOCRIT 34.8 % (36.0-47.0); HEMOGLOBIN 10.6 g/dl (12.0-15.5); LYMPH # 3.1 10^3/uL (1.5-5.0); LYMPH % 29.1 % (24.0-44.0); MEAN CORPUSCULAR HEMOGLOBIN 29.4 pg (27.0-33.0); MEAN CORPUSCULAR HGB CONC 30.5 g/dl (32.0-36.5); MEAN CORPUSCULAR VOLUME 96.7 fl (80.0-96.0); MONO # 1.4 10^3/uL (0.0-0.8); MONO % 13.4 % (0.0-5.0); NEUTROPHILS % 55.8 % (36.0-66.0); PLATELET COUNT, AUTOMATED 250 10^3/uL (150-450); WHITE BLOOD COUNT 10.7 10^3/uL (4.0-10.0)
[2020-02-21 21:51] LABS: ALBUMIN 2.2 GM/DL (3.2-5.2); ALT/SGPT 23 U/L (12-78); BILIRUBIN,DIRECT 0.2 MG/DL (0.0-0.2); BILIRUBIN,TOTAL 0.6 MG/DL (0.2-1.0); BLOOD UREA NITROGEN 14 MG/DL (7-18); CALCIUM LEVEL 8.5 MG/DL (8.8-10.2); CARBON DIOXIDE LEVEL 33 MEQ/L (21-32); CHLORIDE LEVEL 103 MEQ/L (98-107); CREATININE FOR GFR 1.29 MG/DL (0.55-1.30); GLOMERULAR FILTRATION RATE 42.6 (>39); GLUCOSE, FASTING 83 MG/DL (70-100); LIPASE 78 U/L (73-393); POTASSIUM SERUM 3.4 MEQ/L (3.5-5.1); SODIUM LEVEL 142 MEQ/L (136-145); TOTAL PROTEIN 5.5 GM/DL (6.4-8.2)
[2020-02-21] MEDS ORDERED: POTASSIUM CHLORIDE 10 MEQ SR TABLET PO ONE (22:00)
[2020-02-21] MEDS ORDERED: LABETALOL 100MG/20ML VIAL IV STA (22:27)
[2020-02-21] MEDS ORDERED: ACETAMINOPHEN TAB 650MG DOSE (2X325MG) PO PRN (22:45)
[2020-02-21 22:47] LABS: CK-MB VALUE MASS < 1.0 NG/ML (<3.6); CPK CREATINE PHOSPHOKINASE 47 U/L (26-192); MB/CK RELATIVE INDEX 2.13 (< OR =4); TROPONIN I 0.03 NG/ML (< 0.10)
--- NOTE | 2020-02-21 23:05 | HPEPDOC ---
General Date of Admission Feb 21, 2020 at 22:43 Date of Service: Feb 21, 2020 Chief Complaint The patient is a 79-year-old female admitted with a reason for visit of Afib, Diabetes Mellitus, Hypertensive Emergency. 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 Patient stated that for past few hours she developed severe dry heaves, she was not able to eat. In ER patient was found to have significantly elevated blood pressure 220/110, mild leukocytosis, potassium 3.4. EKG did not show any acute ischemic changes. Patient denied fever, chills, chest pain, dysuria Home Medications Scheduled Acetaminophen (Acetaminophen) 500 Mg Tablet, 1,000 MG PO TID Amiodarone HCl (Amiodarone HCl) 200 Mg Tablet, 200 MG PO DAILY, (Reported) Amiodarone HCl (Amiodarone HCl) 200 Mg Tablet, 200 MG PO DAILY Apixaban (Eliquis) 5 Mg Tablet, 5 MG PO BID, (Reported) Apixaban (Eliquis) 5 Mg Tablet, 5 MG PO BID Atorvastatin Calcium (Atorvastatin Calcium) 40 Mg Tablet, 40 MG PO QPM, (Reporte d) Calcium Carbonate/Vitamin D3 (Calcium 600 + Vit D 400 Softgl) 1 Each Capsule, 1 CAP PO BID, (Reported) Cholecalciferol (Vitamin D3) (Vitamin D3) 1,000 Unit Tablet, 1,000 UNITS PO DAILY, (Reported) Citalopram Hydrobromide (Celexa) 20 Mg Tablet, 30 MG PO QPM, (Reported) Docusate Sodium (Docusate Sodium) 100 Mg Capsule, 200 MG PO BID Ferrous Sulfate (Ferrous Sulfate) 325 Mg Tablet.dr, 325 MG PO ASDIRECTED, (Reported) PATIENT ONLY TAKES TWO TO THREE TIMES PER WEEK Ferrous Sulfate (Ferrous Sulfate) 325 Mg Tablet, 325 MG PO [id number] Fluticasone Propionate (Fluticasone Propionate) 16 Gm Conklin.susp, 1 SPRAY NARES BID Furosemide (Furosemide) 40 Mg Tablet, 40 MG PO DAILY Hydralazine HCl (Hydralazine HCl) 25 Mg Tablet, 50 MG PO Q6H Insulin Human Lispro (Humalog) 100 Unit/1 Ml Vial, 0 UNITS SC AC 101-150 2units, 151-200 4units, 201-250 6units, 251-300 8 units, 301-350 10 units, 351-400 12 units, >400 14 units, >500 go to ED Insulin Human Lispro (Humalog) 100 Unit/1 Ml Vial, 0 UNITS SC QHS 251-300 2 units, 301-350 4 units, 351-400 6 units, >400 8 units, >500 go to ED Levalbuterol Hydrochloride (Xopenex Concentrate) 1.25 Mg/0.5 Ml Vial.neb, 0.63 MG INH RTID Magnesium Oxide (Magnesium Oxide) 400 Mg Tablet, 400 MG PO BID, (Reported) Magnesium Oxide (Magnesium Oxide) 400 Mg Tablet, 400 MG PO BID Mesalamine (Pentasa) 500 Mg Capsule.er, 1,000 MG PO TID Metoprolol Tartrate (Lopressor) 100 Mg Tablet, 100 MG PO BID Nystatin (Nystop) 60 Gm Powder, 0 DOSE TOP BID apply to abdominal folds and groin Omeprazole (Omeprazole) 20 Mg Capsule.dr, 40 MG PO BID Oxycodone HCl (Oxycontin) 15 Mg Tab.er.12h, 15 MG PO BID, (Reported) Oxycodone HCl (Oxycontin) 15 Mg Tab.er.12h, 15 MG PO BID Prednisone (Prednisone) 10 Mg Tablet, 15 MG PO DAILY, (Reported) Prednisone (Prednisone) 5 Mg Tablet, 15 MG PO DAILY Propylene Glycol/Peg 400/Pf (Systane 0.3-0.4% Eye Drop) 1 Each Droperette, 1 DROP OU QID, (Reported) Vit B Complex 100 Combo No.2 (B-100 Complex) 100 Mg Tablet.er, 100 MG PO DAILY, (Reported) Scheduled PRN Alprazolam (Alprazolam) 0.25 Mg Tablet, 0.25 MG PO Q8H PRN for ANXIETY Lidocaine (Salonpas) 1 Each Adh..patch, 1 PATCH TOP DAILY PRN for PAIN, (Reported) APPLY TO RIGHT SHOULDER BLADE Oxycodone HCl (Oxycodone HCl) 5 Mg Tablet, 5 MG PO Q8HP PRN for PAIN Allergies Coded Allergies: hydrocodone (Verified Allergy, Intermediate, 01/03/20) Sulfa (Sulfonamide Antibiotics) (Verified Allergy, Unknown, 07/03/19) hydrochlorothiazide (Verified Allergy, Unknown, 07/03/19) Past Medical History Medical History 1. 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 2. Crohn's disease. 3. Hemorrhoidal bleeding. 4. Acute gastrointestinal (GI) bleed secondary to hemorrhoids. 5. Paroxysmal atrial fibrillation. 6. Diabetes. 7. Chronic hypertension. 8. CAD status post PCI. 9. Dyslipidemia. 10. Chronic kidney disease, stage III. 11. Osteoporosis. 12. T5 compression fracture. Surgical History PAST SURGICAL HISTORY: 1. Colonoscopies by Dr. Mancia. 2. Breast biopsy times three. 3. Cholecystectomy. 4. Hysterectomy. 5. Bowel resection times two. 6. Right knee replacement. 7. Right hip replacement Family History I personally reviewed family history and found not pertinent Social History * Smoker: Denies Alcohol: Denies Drugs: denies A-FIB/CHADSVASC A-FIB History Current/History of A-Fib/PAF?: Yes Current PO Anticoag Therapy: Yes Review of Systems Constitutional: Denies: Chills, Fever Eyes: Denies: Pain ENT: Denies: Head Aches Skin: Denies: Rash, Lesions Pulmonary: Denies: Dyspnea Cardiovascular: Denies: Chest Pain Gastrointestinal: Reports: Other Symptoms (dry heaves) Genitourinary: Denies: Dysuria Hematologic: Denies: Bruising Endocrine: Denies: Polyphagia Musculoskeletal: Denies: Muscle Pain Neurological: Denies: Weakness, Change in speech Psych: Reports: Mood Normal Physical Examination General Exam: Positive: Alert, Cooperative Eye Exam: Positive: PERRLA ENT Exam: Positive: Tongue Midline Neck Exam: Positive: Supple; Negative: JVD Chest Exam: Positive: Clear to auscultation Heart Exam: Positive: Irregular Rhythm Telemetry: Positive: Atrial fibrillation Abdomen Exam: Positive: Normal bowel sounds Extremity Exam: Negative: Clubbing, Cyanosis Skin Exam: Positive: Nl turgor and temperature Neuro Exam: Positive: Normal Gait, Cranial Nerves 3-12 NL Psych Exam: Positive: Mental status NL Vital Signs Vital Signs Date Time Temp Pulse Resp B/P (MAP) Pulse Ox O2 Delivery O2 Flow Rate FiO2 02/21/20 21:30 65 174/77 02/21/20 20:26 97.5 18 98 Room Air Laboratory Data Labs 24H Laboratory Tests 2 02/21/20 21:06: Immature Granulocyte % (Auto) 0.6, Neutrophils (%) (Auto) 55.8, Lymphocytes (%) (Auto) 29.1, Monocytes (%) (Auto) 13.4H, Eosinophils (%) (Auto) 0.7, Basophils (%) (Auto) 0.4, Neutrophils # (Auto) 6.0, Lymphocytes # (Auto) 3.1, Monocytes # (Auto) 1.4H, Eosinophils # (Auto) 0.1, Basophils # (Auto) 0.0, Nucleated Red Blood Cells % (auto) 0.0, Anion Gap 6L, Glomerular Filtration Rate 42.6, Calcium Level 8.5L, Total Bilirubin 0.6, Direct Bilirubin 0.2, Aspartate Amino Transf (AST/SGOT) 33, Alanine Aminotransferase (ALT/SGPT) 23, Alkaline Phosphatase 80, Total Creatine Kinase 47, Creatine Kinase MB < 1.0, Creatine Kinase MB Relative Index 2.13, Troponin I 0.03, Total Protein 5.5L, Albumin 2.2L, Albumin/Globulin Ratio 0.7L, Lipase 78 CBC/BMP Laboratory Tests 02/21/20 21:06 Assessment/Plan This is a 79-year-old female with a history of paroxysmal atrial fibrillation, diabetes, Crohn's, heart disease, dyslipidemia, chronic hypertension, chronic kidney disease (CKD), 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 Patient stated that for past few hours she developed severe dry heaves, she was not able to eat. In ER patient was found to have significantly elevated blood pressure 220/110, mild leukocytosis, potassium 3.4. EKG did not show any acute ischemic changes. Patient denied fever, chills, chest pain, dysuria Problems (1) Hypertensive emergency Status: Acute Problem Text: Associated with dry heaves IV labetalol with parameters Continue home cardioprotective medications (2) Atrial fibrillation Status: Chronic Problem Text: Continue oral anticoagulation therapy Heart rate is under control (3) Diabetes mellitus Status: Chronic Problem Text: Insulin sliding scale Diabetes diet Plan / VTE VTE Prophylaxis Ordered?: No (patient takes oral anticoagulation) ROMEO KWONG DO Feb 21, 2020 23:05
[2020-02-21] MEDS ORDERED: ONDANSETRON 4MG/2ML VIAL IV PRN (23:15)
[2020-02-21] MEDS ORDERED: METO100T5 PO (23:24)
[2020-02-21] MEDS ORDERED: PENT500C PO (23:24)
[2020-02-21] MEDS ORDERED: OXYC-517 PO (23:24)
[2020-02-21] MEDS ORDERED: FLUT15.820 (23:24)
[2020-02-21] MEDS ORDERED: ACET500T15 PO (23:24)
[2020-02-21] MEDS ORDERED: ALPR0.5T3 PO (23:24)
[2020-02-21] MEDS ORDERED: HYDR50TA PO (23:24)
[2020-02-21] MEDS ORDERED: OMEP1CAP73 PO (23:24)
[2020-02-21] MEDS ORDERED: PRED5TA PO (23:24)
[2020-02-21] MEDS ORDERED: OXYC-141 PO (23:24)
[2020-02-21] MEDS ORDERED: NYST1POW9 TOP (23:24)
[2020-02-21] MEDS ORDERED: FURO40TA2 PO (23:26)
[2020-02-21] MEDS ORDERED: SPIR-10 PO (23:26)
[2020-02-21] MEDS ORDERED: VITATAB73 PO (23:31)
[2020-02-21] MEDS ORDERED: PROC5TA PO (23:45)
[2020-02-21] MEDS ORDERED: NYST50SS SS (23:45)
[2020-02-21] MEDS ORDERED: PHEN26CR PR (23:45)
[2020-02-21] MEDS ORDERED: ALPR0.25 PO (23:45)
[2020-02-22] VITALS (15 sets, daily range): BP systolic 116–182; BP diastolic 55–87
[2020-02-22] MEDS ORDERED: NYSTATIN 100,000 UNITS/GM TOPICAL PWD 15 GM TOP PRN
[2020-02-22] MEDS: OMEPRAZOLE 20 MG CAP PO SCH ×3 (01:11→21:07)
[2020-02-22] MEDS: ATORVASTATIN 20 MG TAB PO SCH ×2 (01:11→20:23)
[2020-02-22] MEDS: APIXABAN 5 MG TAB (ELIQUIS) PO SCH ×3 (01:11→20:23)
[2020-02-22] MEDS: METOPROLOL TARTRATE 100 MG TAB PO SCH ×3 (01:12→20:25)
[2020-02-22] MEDS: CitaloPRAM (CeleXA) 20 MG TAB PO SCH ×2 (01:12→20:23)
[2020-02-22] MEDS: **hydrALAZINE** 50 MG TAB PO SCH ×4 (01:12→18:38)
[2020-02-22] MEDS: oxyCODONE 10 MG CR TAB PO SCH ×3 (01:14→20:24)
[2020-02-22] MEDS: MAGNESIUM OXIDE 400 MG TAB (MAG-OX) PO SCH ×3 (01:18→20:22)
[2020-02-22] MEDS: MESALAMINE 250 MG CR CAP PO SCH ×4 (05:07→20:22)
[2020-02-22] MEDS: ALPRAZolam 0.25 MG TAB PO PRN ×2 (05:11→20:23)
[2020-02-22] MEDS: NYSTATIN 500,000 U/5 ML SUSP UDC SS SCH ×5 (05:11→20:23)
[2020-02-22 05:18] LABS: HEMATOCRIT 33.6 % (36.0-47.0); HEMOGLOBIN 10.2 g/dl (12.0-15.5); MEAN CORPUSCULAR HEMOGLOBIN 29.4 pg (27.0-33.0); MEAN CORPUSCULAR HGB CONC 30.4 g/dl (32.0-36.5); MEAN CORPUSCULAR VOLUME 96.8 fl (80.0-96.0); PLATELET COUNT, AUTOMATED 238 10^3/uL (150-450); RED BLOOD COUNT 3.47 10^6/uL (4.00-5.40); WHITE BLOOD COUNT 9.5 10^3/uL (4.0-10.0)
[2020-02-22 06:05] LABS: ALBUMIN 2.2 GM/DL (3.2-5.2); BILIRUBIN,TOTAL 0.8 MG/DL (0.2-1.0); CALCIUM LEVEL 8.3 MG/DL (8.8-10.2); CREATININE FOR GFR 1.31 MG/DL (0.55-1.30); GLOMERULAR FILTRATION RATE 41.8 (>39); MAGNESIUM LEVEL 1.6 MG/DL (1.8-2.4); POTASSIUM SERUM 3.4 MEQ/L (3.5-5.1); TOTAL PROTEIN 5.2 GM/DL (6.4-8.2)
[2020-02-22] MEDS: ONDANSETRON 4MG/2ML VIAL IV PRN ×2 (08:06→16:24)
[2020-02-22] MEDS ORDERED: HEPARIN SOD (PORCINE) 5000UNITS/ML VIAL (J1644 PER 1000UNITS) SC SCH (09:00)
[2020-02-22] MEDS: FERROUS SULFATE 325MG TAB PO SCH (09:04)
[2020-02-22] MEDS: VITAMIN D 1,000 INTERNATIONAL UNITS TABLET PO SCH (09:05)
[2020-02-22] MEDS: AMIODARONE 200 MG TAB (PACERONE) PO SCH (09:05)
[2020-02-22] MEDS: predniSONE 5 MG TAB PO SCH (09:06)
--- NOTE | 2020-02-22 12:02 | IPNPDOC ---
Text Note Date of Service The patient was seen on 02/22/20. NOTE She was seen and examined this morning. This patient states that she is having difficulty sleeping with the brace. Wanted to know whether she can take it off. PHYSICAL EXAMINATION: General: The patient is awake, alert, oriented x3, sitting up in the bed in no apparent distress. Her cervical braces on Head and Neck Exam: Extraocular muscles intact. Pupils equally round and reactive to light. Mucous membranes are moist. Neck movement restricted because of the brace Neck is supple. There is no jugular venous distention (JVD). Cardiovascular: S1 and S2, regular rate. Trace edema of the bilateral lower extremities. Respiratory: Mild inspiratory crackles at the right base, mildly decreased breath sounds at the left side. Abdomen: Soft. Positive bowel sounds. Nontender. No organomegaly. Musculoskeletal: Clubbing of the fingernails, no cyanosis was noted. Central Nervous System (CUSTOM VAN CONVERTER): No focal deficit. Power is 5/5 in all extremities. 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 Patient stated that for past few hours she developed severe dry heaves, she was not able to eat. In ER patient was found to have significantly elevated blood pressure 220/110, for which she was placed in ICU and currently is doing better once her home and His medications were started (1) Hypertensive emergency: Currently doing much better. Her blood pressures are in 160s. We will continue to titrate. She has been started on IV labetalol and her home medications have been continued. Will rule out any other secondary causes of hypertension by doing renal arterial Dopplers. (2) Atrial fibrillation: Currently rate controlled. She continues to be on oral anti-continent. (3) Diabetes mellitus: Continue sliding scale insulin. Oral hyperglycemic some hold. 4) C 25 compression fractures. She continues to wear the brace. Has been advised that she can take the brace out while sleeping. 5) dry heaves and vomiting. CT scan of the abdominal be done to rule out any small bowel or gastric outlet issues as the patient does carry a history of Crohn's. She also has a very uncomfortable and could be resulting in difficulty in swallowing. If the CT scan of the abdomen is normal. The patient will be getting a swallow evaluation to rule out any pharyngeal issues. Disposition home in the next 24-48 hours VS,Fishbone, I+O VS, Fishbone, I+O Laboratory Tests 02/21/20 21:06 02/22/20 05:07 Vital Signs Date Time Temp Pulse Resp B/P (MAP) Pulse Ox O2 Delivery O2 Flow Rate FiO2 02/22/20 09:10 64 18 180/87 Nasal Cannula 2.0 02/22/20 05:00 97 02/22/20 04:00 97.2 I&O- Last 24 Hours up to 6 AM 02/22/20 05:59 Intake Total 405 ml Output Total 50 ml Balance 355 ml CHAN ALBA MD Feb 22, 2020 12:02
--- NOTE | 2020-02-22 14:55 | REP ---
REASON: Vomiting. The lung bases are unchanged from chest CT 01/03/2020. The lack of administration of intravenous contrast and oral bowel preparatory contrast significantly limits the exam. There is significant spray artifact arising from a right hip prosthesis limiting the images of the pelvis significantly. The patient is status post cholelithiasis. The patient is status post right lower quadrant bowel surgery. Limited evaluation of the liver, spleen, pancreas, adrenal glands, and kidneys show no evidence of acute disease. There are three left renal cysts. One is singularly thinly septated and that cyst measures 4 cm in its greatest dimension and has slightly higher than water density Hounsfield unit readings. There is a focal fatty lesion in the left kidney as well measuring a centimeter. There is no other evidence of hydronephrosis. There is no nephroliths. The abdominal aorta and para-aortic regions are within normal limits. There is no evidence of free fluid or free air in the abdomen or pelvis. There is a ventral hernia in the left lower abdomen just to the left of midline through which small bowel is seen. There is no evidence of intestinal obstruction. There is no evidence of an intra-abdominal or intrapelvic mass. Bone window technique throughout the exam shows chronic changes. There is a tiny ventral hernia superior to the aforementioned lower abdominal ventral hernia. The aperture measures a centimeter and through which only mesentery protrudes. IMPRESSION: 1. Chronic lung base changes with an unchanged 5 mm sized peripherally-based nodule in the right middle lobe. 2. There is no evidence of acute intra-abdominal or intrapelvic disease on this limited exam. 3. Ventral hernias as described above without evidence of intestinal obstruction. 4. Left renal cysts and a small left renal angiomyolipoma. 5. Other findings as described above. Electronically Signed by Jairo Rodriguez DO 02/22/2020 04:10 P
[2020-02-22] MEDS ORDERED: SLF 3 ML SYR IV PRN (15:00)
[2020-02-22] MEDS: LABETALOL 100MG/20ML VIAL IV SCH (16:09)
--- NOTE | 2020-02-22 17:45 | ECGEPIP ---
[facility] - ED Test Date: 2020-02-21 Pat Name: NEELA ARTIS Department: Room: [place] [address] Gender: Female Paratransit Operator: piper : [id number] Requested By: JERED Garcia Order Number: [id number] Reading MD: Jacklyn Valentino Measurements Intervals [place] Rate: 63 P: 31 MT: 147 QRS: -3 QRSD: 86 T: -32 QT: 413 QTc: 424 Interpretive Statements SINUS RHYTHM LOW QRS VOLTAGE IN PRECORDIAL LEADS LEFT VENTRICULAR HYPERTROPHY AND ST-T CHANGE INFERIOR MYOCARDIAL INFARCTION, PROBABLY OLD NSTTW abnormalities Electronically Signed on 02-22-2020 17:44:42 EDT by Jacklyn Valentino
[2020-02-22] MEDS: SLF 3 ML SYR IV SCH (21:07)
[2020-02-23] VITALS: BP 127/58
[2020-02-23] MEDS: NS 1,000 ML IV SCH ×2 (00:52→09:52)
[2020-02-23] MEDS: **hydrALAZINE** 50 MG TAB PO SCH ×4 (00:56→17:38)
[2020-02-23 04:00] VITALS: BP 160/66
[2020-02-23 05:22] LABS: HEMATOCRIT 31.7 % (36.0-47.0); HEMOGLOBIN 9.6 g/dl (12.0-15.5); MEAN CORPUSCULAR HEMOGLOBIN 29.5 pg (27.0-33.0); MEAN CORPUSCULAR HGB CONC 30.3 g/dl (32.0-36.5); MEAN CORPUSCULAR VOLUME 97.5 fl (80.0-96.0); PLATELET COUNT, AUTOMATED 231 10^3/uL (150-450); RED BLOOD COUNT 3.25 10^6/uL (4.00-5.40); WHITE BLOOD COUNT 8.1 10^3/uL (4.0-10.0)
[2020-02-23] MEDS: ALPRAZolam 0.25 MG TAB PO PRN (05:51)
[2020-02-23] MEDS: NYSTATIN 500,000 U/5 ML SUSP UDC SS SCH ×5 (05:51→20:37)
[2020-02-23] MEDS: SLF 3 ML SYR IV SCH ×3 (05:51→20:40)
[2020-02-23 06:00] LABS: ALBUMIN 2.2 GM/DL (3.2-5.2); BILIRUBIN,TOTAL 0.7 MG/DL (0.2-1.0); CALCIUM LEVEL 8.7 MG/DL (8.8-10.2); CREATININE FOR GFR 1.63 MG/DL (0.55-1.30); GLOMERULAR FILTRATION RATE 32.5 (>39); POTASSIUM SERUM 3.4 MEQ/L (3.5-5.1); TOTAL PROTEIN 5.2 GM/DL (6.4-8.2)
[2020-02-23 08:00] VITALS: BP 152/66
[2020-02-23] MEDS: MAGNESIUM OXIDE 400 MG TAB (MAG-OX) PO SCH ×2 (09:52→20:38)
[2020-02-23] MEDS: predniSONE 5 MG TAB PO SCH (09:52)
[2020-02-23] MEDS: VITAMIN D 1,000 INTERNATIONAL UNITS TABLET PO SCH (09:52)
[2020-02-23] MEDS: OMEPRAZOLE 20 MG CAP PO SCH ×2 (09:52→20:38)
[2020-02-23] MEDS: APIXABAN 5 MG TAB (ELIQUIS) PO SCH ×2 (09:52→20:37)
[2020-02-23] MEDS: METOPROLOL TARTRATE 100 MG TAB PO SCH ×2 (09:53→20:39)
[2020-02-23] MEDS: AMIODARONE 200 MG TAB (PACERONE) PO SCH (09:53)
[2020-02-23] MEDS: MESALAMINE 250 MG CR CAP PO SCH ×3 (09:53→20:38)
[2020-02-23] MEDS: oxyCODONE 10 MG CR TAB PO SCH ×2 (09:54→20:39)
--- NOTE | 2020-02-23 10:49 | REP ---
RENAL ULTRASOUND WITH DUPLEX DOPPLER RENAL ARTERY EVALUATION: Real-time ultrasound evaluation of the kidneys performed. The kidneys are somewhat increased in echotexture suggests medical renal disease. There is cortical thinning bilaterally, especially on the right. Right kidney measures 8.3 x 4.0 x 4.2 cm and left kidney 11.7 x 4.7 x 6.4 cm. There is no hydronephrosis bilaterally. In the left lower pole, there is a hyperechoic nodule 2 cm in diameter consistent with angiomyolipoma. There are renal cysts containing mild debris and two of these are seen in the upper pole, one containing a thin septation measuring 2.1 cm. The other measures 2.8 cm. There is a cyst in the lower pole 2.4 cm. The urinary bladder is empty. Real-time sonographic evaluation and duplex Doppler interrogation of renal arteries is performed bilaterally. Peak systolic velocity of the abdominal aorta at the level of the renal arteries is 72.3 cm/s. Distal main right renal artery is not visualized. At the origin of the peak systolic velocity is 71.1 cm/s, renal to aortic ratio 1.0. Resistive index in the mid right kidney is 0.61 and acceleration time 0.078. These values could not be obtained in the upper and lower poles due to overlying bowel gas. Peak systolic velocity of the main left renal artery is 135.4 cm/s, renal to aortic ratio 1.9. Resistive indices left kidney range between 0.49 and 0.82. Acceleration times range between 0.030 and 0.050. IMPRESSION: Right renal atrophy. Hyperechoic echotexture of both kidneys suggest medical renal disease. Left renal cysts. Angiomyolipoma lower pole left kidney. No hydronephrosis. Limited evaluation of the right renal artery due to overlying bowel gas. No compelling duplex Doppler sonographic evidence of significant left renal artery stenosis. Electronically Signed by Hipolito Starr MD 02/26/2020 11:35 P
--- NOTE | 2020-02-23 11:07 | IPNPDOC ---
Text Note Date of Service The patient was seen on 02/23/20. NOTE She was seen and examined this morning. This patient states that she slept very well last night. As the brace was taken out. . She also states that she's feeling much better today, but continues to have nausea PHYSICAL EXAMINATION: General: The patient is awake, alert, oriented x3, sitting up in the bed in no apparent distress. Her cervical braces are on Head and Neck Exam: Extraocular muscles intact. Pupils equally round and reactive to light. Mucous membranes are moist. Neck movement restricted because of the brace Neck is supple. There is no jugular venous distention (JVD). Cardiovascular: S1 and S2, regular rate. Trace edema of the bilateral lower extremities. Respiratory: Mild inspiratory crackles at the right base, mildly decreased breath sounds at the left side. Abdomen: Soft. Positive bowel sounds. Nontender. No organomegaly. Musculoskeletal: Clubbing of the fingernails, no cyanosis was noted. Central Nervous System (HEALTH EDUCATION DIRECTOR): No focal deficit. Power is 5/5 in all extremities. 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 Patient stated that for past few hours she developed severe dry heaves, she was not able to eat. In ER patient was found to have significantly elevated blood pressure 220/110, for which she was placed in ICU and after home medications were started with losartan and metoprolol. Her blood pressure has been stabilized and she has been stepped down to PCU. Her nausea and dry heaves have improved but she still having difficulty keeping anything down and for that reason, abdomen, pelvis CAT scan yesterday was done which did not show us any acute intra-abdominal pathology. Today she is scheduled for a modified. Swallow to see if there is any pharyngeal issues going on. . She also has mild AK today because she has not been eating or drinking well and for that reason, she has been started on IV fluids. Losartan discontinued as this could just be prerenal, but if the kidney function continues to worsen, will DC losartan (1) Hypertensive emergency: Improved Currently doing much better. Her blood pressures are in 140s. We will continue to titrate. She has been started on IV labetalol and her home medications have been continued. . She required only 1 dose of IV labetalol in the last 12 hours. Will rule out any other secondary causes of hypertension by doing renal arterial Dopplers which are still pending. (2) Atrial fibrillation: Currently rate controlled with metoprolol. She continues to be on oral anti-continent. This and benefits of anti-cognition explained in detail (3) Diabetes mellitus: Continue sliding scale insulin. Oral hyperglycemic some hold. 4) C 2 compression fractures. She continues to wear the brace. Has been advised that she can take the brace out while sleeping. Nurse spoke with the neurosurgery yesterday and they're okay with taking the brace out while she is sleeping 5) dry heaves and vomiting. CT scan of the abdominal be done to rule out any small bowel or gastric outlet issues was done as the patient does carry a history of Crohn's and it came out to be negative. She also has a very uncomfortable and could be resulting in difficulty in swallowing. As CT scan of the abdomen is normal. The patient will be getting a swallow evaluation to rule out any pharyngeal issues. 6) FAUSTO. Her creatinine has slightly bumped up to 1.63 from 1.2. She has not been maintaining good oral intake and for that reason. IV fluids will be started. I will continue her losartan for now as this could just be prerenal and the fluid should take care of it. If the creatinine worsens, we'll discontinue ARB's. There is no suprapubic distention or any urinary retention noticed on physical examination Disposition home in the next 24-48 hours, correctional case records supervisor on board and patient potentially might go home with services Odalys TIRADO, I+O VSOdalys I+O Laboratory Tests 02/23/20 05:13 Vital Signs Date Time Temp Pulse Resp B/P (MAP) Pulse Ox O2 Delivery O2 Flow Rate FiO2 02/23/20 09:54 16 Room Air 02/23/20 09:53 68 152/66 02/23/20 08:00 97.1 98 1.0 I&O- Last 24 Hours up to 6 AM 02/23/20 06:00 Intake Total 240 ml Balance 240 ml CHAN ALBA MD Feb 23, 2020 11:07
[2020-02-23 12:00] VITALS: BP 82/78
[2020-02-23] MEDS: ONDANSETRON 4MG/2ML VIAL IV PRN (12:44)
[2020-02-23] MEDS ORDERED: VARIBAR NECTAR 40% w/v 240ML SUSP BTL As Ordered ONE (14:04)
[2020-02-23] MEDS ORDERED: VARIBAR PUDDING 40% w/v 230ML TUBE As Ordered ONE (14:04)
[2020-02-23] MEDS ORDERED: BARIUM SULFATE 700 MG TABLET (E-Z-DISK) As Ordered ONE (14:04)
[2020-02-23] MEDS ORDERED: E-Z-PAQUE 96% w/w SUSP 176GM BTL As Ordered ONE (14:04)
[2020-02-23 20:00] VITALS: BP_SYST 125; BP_SYST 165; BP_DIAS 70; BP_DIAS 82
[2020-02-23] MEDS: CitaloPRAM (CeleXA) 20 MG TAB PO SCH (20:38)
[2020-02-23] MEDS: ATORVASTATIN 20 MG TAB PO SCH (20:38)
[2020-02-23] MEDS ORDERED: PILL CUTTER 1 EACH XX PRN (21:00)
[2020-02-24] VITALS: BP 142/68
[2020-02-24] MEDS: **hydrALAZINE** 50 MG TAB PO SCH ×5 (00:05→23:53)
[2020-02-24 04:00] VITALS: BP 140/72
[2020-02-24] MEDS: SLF 3 ML SYR IV SCH ×3 (05:49→20:35)
[2020-02-24] MEDS: NYSTATIN 500,000 U/5 ML SUSP UDC SS SCH ×5 (05:49→20:35)
[2020-02-24 06:16] LABS: HEMATOCRIT 31.1 % (36.0-47.0); HEMOGLOBIN 9.5 g/dl (12.0-15.5); MEAN CORPUSCULAR HEMOGLOBIN 29.7 pg (27.0-33.0); MEAN CORPUSCULAR HGB CONC 30.5 g/dl (32.0-36.5); MEAN CORPUSCULAR VOLUME 97.2 fl (80.0-96.0); PLATELET COUNT, AUTOMATED 239 10^3/uL (150-450); WHITE BLOOD COUNT 8.3 10^3/uL (4.0-10.0)
[2020-02-24 06:54] LABS: ALBUMIN 2.2 GM/DL (3.2-5.2); BILIRUBIN,TOTAL 0.6 MG/DL (0.2-1.0); CALCIUM LEVEL 8.3 MG/DL (8.8-10.2); CREATININE FOR GFR 1.55 MG/DL (0.55-1.30); GLOMERULAR FILTRATION RATE 34.4 (>39); POTASSIUM SERUM 3.7 MEQ/L (3.5-5.1); TOTAL PROTEIN 5.2 GM/DL (6.4-8.2)
[2020-02-24 08:00] VITALS: BP 152/67
[2020-02-24] MEDS: FERROUS SULFATE 325MG TAB PO SCH ×3 (09:00→09:50)
[2020-02-24] MEDS: MESALAMINE 250 MG CR CAP PO SCH ×3 (09:36→20:34)
[2020-02-24] MEDS: OMEPRAZOLE 20 MG CAP PO SCH ×2 (09:36→20:34)
[2020-02-24] MEDS: VITAMIN D 1,000 INTERNATIONAL UNITS TABLET PO SCH (09:38)
[2020-02-24] MEDS: oxyCODONE 10 MG CR TAB PO SCH ×2 (09:38→20:34)
[2020-02-24] MEDS: METOPROLOL TARTRATE 100 MG TAB PO SCH ×2 (09:38→20:35)
[2020-02-24] MEDS: MAGNESIUM OXIDE 400 MG TAB (MAG-OX) PO SCH ×2 (09:38→20:34)
[2020-02-24] MEDS: APIXABAN 5 MG TAB (ELIQUIS) PO SCH ×2 (09:39→20:35)
[2020-02-24] MEDS: AMIODARONE 200 MG TAB (PACERONE) PO SCH (09:39)
[2020-02-24] MEDS: predniSONE 5 MG TAB PO SCH (09:39)
[2020-02-24 12:00] VITALS: BP 168/62
[2020-02-24] MEDS ORDERED: OXYMETAZOLINE NASAL SPRAY (AFRIN) PRN (12:00)
[2020-02-24] MEDS: NS 1,000 ML IV SCH (14:05)
[2020-02-24 16:00] VITALS: BP 130/64
[2020-02-24 20:00] VITALS: BP 170/89
--- NOTE | 2020-02-24 20:19 | IPNPDOC ---
Date Seen The patient was seen on 02/24/20. Progress Note SUBJECTIVE: Improved Cr further, bedside swallow to bed done. Denies chest pain, n/v/d, fevers, shortness of breath, chills. OBJECTIVE: VITAL SIGNS: Please see below PHYSICAL EXAMINATION: General: The patient is awake, alert, oriented x3, laying in the bed in no apparent distress. Her cervical braces are off Head and Neck Exam: Extraocular muscles intact. Pupils equally round and tara ctive to light. Mucous membranes are moist. Neck movement restricted because of the brace Neck is supple. There is no jugular venous distention (JVD). Cardiovascular: S1 and S2, regular rate. Trace edema of the bilateral lower extremities. Respiratory: Mild inspiratory crackles at the right base, mildly decreased breath sounds at the left side. Abdomen: Soft. Positive bowel sounds. Nontender. No organomegaly. Musculoskeletal: Clubbing of the fingernails, no cyanosis was noted. 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 Power is 5/5 in all extremities. 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 PLAN: (1) FAUSTO likely prerenal due to decreased PO intake -Improving slowly -Remains on gentle IVF hydration, holding ARB -Daily labs 2. Hypertensive emergency/uncontrolled HTN. -Improved. -C/w current medications -Renal US neg for renal artery stenosis. 3. Dysphagia, could be cause of decreased PO intake -Concern with n/v that this could be 2/2 to swallowing issue -R/o with bedside speech/swallow -F/u recommendations 4. Atrial fibrillation -Rate controlled -C/w current medications. 5. Diabetes mellitus -Controlled -C/w ISS. 6. C2 compression fractures - She continues to wear the brace -OK to take off brace while sleeping per neurosurgery . 7. GERD -Prilosec 8. DVT px -Eliquis DISPOSITION: Plan is home with services when acute medical issues are improved. PT/OT while here. VS, I&O, 24H, [place] Vital Signs/I&O Vital Signs Date Time Temp Pulse Resp B/P (MAP) Pulse Ox O2 Delivery O2 Flow Rate FiO2 02/24/20 17:22 134/60 02/24/20 16:00 96.7 56 16 99 Room Air 02/23/20 08:00 1.0 I&O- Last 24 Hours up to 6 AM 02/24/20 06:00 Intake Total 300 ml Output Total 0 ml Balance 300 ml Laboratory Data 24H LABS Laboratory Tests 2 02/24/20 05:32: Nucleated Red Blood Cells % (auto) 0.0, Anion Gap 7L, Glomerular Filtration Rate 34.4L, Calcium Level 8.3L, Total Bilirubin 0.6, Aspartate Amino Transf (AST/SGOT) 16, Alanine Aminotransferase (ALT/SGPT) 17, Alkaline Phosphatase 62, Total Protein 5.2L, Albumin 2.2L, Albumin/Globulin Ratio 0.7L CBC/BMP Laboratory Tests 02/24/20 05:32 Current Medications Current Medications Medications (Trade) Dose Ordered Sig/Annie Route PRN Reason Start Time Stop Time Status Last Admin Dose Admin Acetaminophen (Tylenol Tab) 650 mg Q4H PRN PO PAIN OR FEVER 02/21/20 22:45 Alprazolam (Xanax) 0.25 mg Q8H PRN PO ANXIETY 02/22/20 00:00 02/23/20 05:51 Amiodarone HCl (Pacerone, Cordarone) 200 mg DAILY PO 02/22/20 09:00 02/24/20 09:39 Apixaban (Eliquis) 5 mg BID PO 02/21/20 21:00 02/24/20 09:39 Atorvastatin Calcium (Lipitor) 40 mg QHS PO 02/21/20 21:00 02/23/20 20:38 Citalopram Hydrobromide (CeleXA) 30 mg QHS PO 02/21/20 21:00 02/23/20 20:38 Ferrous Sulfate (Ferrous Sulfate) 325 mg MoWeFr@0900 PO 02/22/20 09:00 02/22/20 09:04 Heparin Sodium (Porcine) (Heparin) 5,000 units Q12H SC 02/22/20 09:00 02/21/20 23:10 DC Home Med (Med Rec Complete!) ASDIRECTED XX 02/21/20 23:45 02/21/20 23:50 DC Hydralazine HCl (Apresoline) 50 mg Q6H PO 02/22/20 00:00 02/24/20 17:22 Labetalol HCl (Normodyne, Trandate) 10 mg STAT STAT IV 02/21/20 22:27 02/21/20 22:28 Cancel Labetalol HCl (Normodyne, Trandate) 20 mg ASDIRECTED IV 02/21/20 22:45 02/22/20 16:09 Magnesium Oxide (Mag-Ox) 400 mg BID PO 02/21/20 21:00 02/24/20 09:38 Mesalamine (Pentasa) 1,000 mg TID PO 02/21/20 21:00 02/24/20 17:22 Metoprolol Tartrate (Lopressor) 100 mg BID PO 02/21/20 21:00 02/24/20 09:38 Nystatin (Mycostatin Powder, Nystop) TO ABD FOLDS , GROI... BID PRN TOP RASH 02/22/20 00:00 Nystatin (Mycostatin) 5 ml 5XD SS 02/22/20 06:00 02/24/20 17:21 Omeprazole (PriLOSEC) 40 mg BID PO 02/21/20 21:00 02/24/20 09:36 Ondansetron HCl (ZOFRAN INJection) 2 mg Q4HP PRN IV NAUSEA OR VOMITING 02/21/20 23:15 02/22/20 07:58 DC 02/22/20 01:26 Ondansetron HCl (ZOFRAN INJection) 4 mg Q6HP PRN IV NAUSEA OR VOMITING 02/22/20 08:00 02/23/20 12:44 Oxycodone HCl (OxyCONTIN) 10 mg BID PO 02/21/20 21:00 02/24/20 09:38 Oxymetazoline HCl (Afrin) 2 spray ASDIRECTED PRN NA SEE LABEL COMMENTS 02/24/20 12:00 Prednisone (Deltasone) 15 mg DAILY PO 02/22/20 09:00 02/24/20 09:39 Sodium Chloride 1,000 ml @ 50 mls/hr Q20H IV 02/23/20 08:45 02/24/20 14:05 Sodium Chloride 1,000 ml @ 150 mls/hr Q6H40M IV 02/21/20 20:57 02/22/20 00:55 DC 02/21/20 21:31 Sodium Chloride (Saline Lock Flush) 2 ml ASDIRECTED PRN IV SEE LABEL COMMENTS 02/22/20 15:00 Sodium Chloride (Saline Lock Flush) 2 ml SLF IV 02/22/20 22:00 02/23/20 13:36 Vitamin D (Vitamin D) 1,000 units DAILY PO 02/22/20 09:00 02/24/20 09:38 Allergies Coded Allergies: hydrocodone (Verified Allergy, Intermediate, 01/03/20) Sulfa (Sulfonamide Antibiotics) (Verified Allergy, Unknown, 07/03/19) hydrochlorothiazide (Verified Allergy, Unknown, 07/03/19) Miladys Rai MD Feb 24, 2020 20:19
[2020-02-24] MEDS: ATORVASTATIN 20 MG TAB PO SCH (20:33)
[2020-02-24] MEDS: CitaloPRAM (CeleXA) 20 MG TAB PO SCH (20:35)
[2020-02-25] VITALS: BP 176/72
[2020-02-25 04:00] VITALS: BP 164/90
[2020-02-25] MEDS: ONDANSETRON 4MG/2ML VIAL IV PRN (05:15)
[2020-02-25] MEDS: NYSTATIN 500,000 U/5 ML SUSP UDC SS SCH ×5 (05:41→21:49)
[2020-02-25] MEDS: SLF 3 ML SYR IV SCH ×3 (05:41→21:51)
[2020-02-25] MEDS: **hydrALAZINE** 50 MG TAB PO SCH ×4 (05:41→23:25)
[2020-02-25 06:45] LABS: HEMATOCRIT 33.7 % (36.0-47.0); HEMOGLOBIN 10.2 g/dl (12.0-15.5); MEAN CORPUSCULAR HEMOGLOBIN 29.1 pg (27.0-33.0); MEAN CORPUSCULAR HGB CONC 30.3 g/dl (32.0-36.5); MEAN CORPUSCULAR VOLUME 96.3 fl (80.0-96.0); PLATELET COUNT, AUTOMATED 241 10^3/uL (150-450); WHITE BLOOD COUNT 8.8 10^3/uL (4.0-10.0)
[2020-02-25 07:08] LABS: ALBUMIN 2.1 GM/DL (3.2-5.2); BILIRUBIN,TOTAL 0.4 MG/DL (0.2-1.0); CALCIUM LEVEL 8.5 MG/DL (8.8-10.2); CREATININE FOR GFR 1.37 MG/DL (0.55-1.30); GLOMERULAR FILTRATION RATE 39.7 (>39); POTASSIUM SERUM 3.8 MEQ/L (3.5-5.1); TOTAL PROTEIN 5.8 GM/DL (6.4-8.2)
[2020-02-25 08:00] VITALS: BP 162/68
[2020-02-25] MEDS: predniSONE 5 MG TAB PO SCH (09:23)
[2020-02-25] MEDS: OMEPRAZOLE 20 MG CAP PO SCH ×2 (09:23→21:50)
[2020-02-25] MEDS: AMIODARONE 200 MG TAB (PACERONE) PO SCH (09:23)
[2020-02-25] MEDS: MAGNESIUM OXIDE 400 MG TAB (MAG-OX) PO SCH ×2 (09:23→21:00)
[2020-02-25] MEDS: MESALAMINE 250 MG CR CAP PO SCH ×3 (09:23→21:50)
[2020-02-25] MEDS: METOPROLOL TARTRATE 100 MG TAB PO SCH ×2 (09:24→21:00)
[2020-02-25] MEDS: VITAMIN D 1,000 INTERNATIONAL UNITS TABLET PO SCH (09:24)
[2020-02-25] MEDS: APIXABAN 5 MG TAB (ELIQUIS) PO SCH ×2 (09:24→21:51)
[2020-02-25] MEDS: LOSARTAN 25 MG TAB PO SCH (09:24)
[2020-02-25] MEDS: oxyCODONE 10 MG CR TAB PO SCH ×2 (09:27→21:50)
[2020-02-25 12:00] VITALS: BP 164/70
[2020-02-25 16:00] VITALS: BP 190/70
[2020-02-25] MEDS: LABETALOL 100MG/20ML VIAL IV SCH (16:32)
--- NOTE | 2020-02-25 19:13 | IPNPDOC ---
Date Seen The patient was seen on 02/25/20. Progress Note SUBJECTIVE: Swallowing evaluation showed patient is eating and drinking well, regular solids and thin liquids. Chin needs to be raised in brace when eating. Cr further improved; however, I believe this Cr is even better than where she is normally. Starting lasix and losartan again because BP is not controlled and concern for fluid retention. Denies chest pain, n/v/d, fevers, shortness of breath, chills. OBJECTIVE: VITAL SIGNS: Please see below PHYSICAL EXAMINATION: General: The patient is awake, alert, oriented x3, laying in the bed in no apparent distress. Her cervical brace is on Head and Neck Exam: Extraocular muscles intact. Pupils equally round and reactive to light. Mucous membranes are moist. Neck movement restricted because of the brace Neck is supple. There is no jugular venous distention (JVD). Cardiovascular: S1 and S2, regular rate. Trace edema of the bilateral lower extremities. Respiratory: Mild inspiratory crackles at the right base, mildly decreased breath sounds at the left side. Abdomen: Soft. Positive bowel sounds. Nontender. No organomegaly. Musculoskeletal: Clubbing of the fingernails, no cyanosis was noted. 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 Power is 5/5 in all extremities. 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 PLAN: 1. FAUSTO likely prerenal due to decreased PO intake -Improved slowly, now believed to be near normal/baseline -IVFs stopped, ARB restarted along with daily diuretic -Patient likely has CKD stage III underlying and will need nephrology referral after discharge from PCP - F/u Daily labs 2. Uncontrolled HTN -Restarted losartan, added diuretic -Systolic 170-190 -Renal US neg for renal artery stenosis. 3. Atrial fibrillation -Rate controlled -C/w current medications. 4. Diabetes mellitus -Controlled -C/w ISS. 5. C2 compression fractures - She continues to wear the brace -OK to take off brace while sleeping per neurosurgery . -PT/OT 6. GERD -Prilosec 7. DVT px -Eliquis DISPOSITION: Plan is home with services when acute medical issues are improved, hopefully in AM. PT/OT as o/p already set up. VS, I&O, 24H, [place]bone Vital Signs/I&O Vital Signs Date Time Temp Pulse Resp B/P (MAP) Pulse Ox O2 Delivery O2 Flow Rate FiO2 02/25/20 17:06 178/70 02/25/20 16:32 58 02/25/20 16:00 96.5 18 95 Room Air 02/23/20 08:00 1.0 I&O- Last 24 Hours up to 6 AM 02/25/20 06:00 Intake Total 845 ml Output Total 800 ml Balance 45 ml Laboratory Data 24H LABS Laboratory Tests 2 02/25/20 06:32: Nucleated Red Blood Cells % (auto) 0.0, Anion Gap 7L, Glomerular Filtration Rate 39.7, Calcium Level 8.5L, Total Bilirubin 0.4, Aspartate Amino Transf (AST/SGOT) 11, Alanine Aminotransferase (ALT/SGPT) 17, Alkaline Phosphatase 62, Total Protein 5.8L, Albumin 2.1L, Albumin/Globulin Ratio 0.6L CBC/BMP Laboratory Tests 02/25/20 06:32 Current Medications Current Medications Medications (Trade) Dose Ordered Sig/Annie Route PRN Reason Start Time Stop Time Status Last Admin Dose Admin Acetaminophen (Tylenol Tab) 650 mg Q4H PRN PO PAIN OR FEVER 02/21/20 22:45 Alprazolam (Xanax) 0.25 mg Q8H PRN PO ANXIETY 02/22/20 00:00 02/23/20 05:51 Amiodarone HCl (Pacerone, Cordarone) 200 mg DAILY PO 02/22/20 09:00 02/25/20 09:23 Apixaban (Eliquis) 5 mg BID PO 02/21/20 21:00 02/25/20 09:24 Atorvastatin Calcium (Lipitor) 40 mg QHS PO 02/21/20 21:00 02/24/20 20:33 Citalopram Hydrobromide (CeleXA) 30 mg QHS PO 02/21/20 21:00 02/24/20 20:35 Ferrous Sulfate (Ferrous Sulfate) 325 mg MoWeFr@0900 PO 02/22/20 09:00 02/22/20 09:04 Heparin Sodium (Porcine) (Heparin) 5,000 units Q12H SC 02/22/20 09:00 02/21/20 23:10 DC Home Med (Med Rec Complete!) ASDIRECTED XX 02/21/20 23:45 02/21/20 23:50 DC Hydralazine HCl (Apresoline) 50 mg Q6H PO 02/22/20 00:00 02/25/20 17:06 Labetalol HCl (Normodyne, Trandate) 10 mg STAT STAT IV 02/21/20 22:27 02/21/20 22:28 Cancel Labetalol HCl (Normodyne, Trandate) 20 mg ASDIRECTED IV 02/21/20 22:45 02/25/20 16:32 Losartan Potassium (Cozaar) 25 mg DAILY PO 02/25/20 09:00 02/25/20 09:24 Magnesium Oxide (Mag-Ox) 400 mg BID PO 02/21/20 21:00 02/25/20 09:23 Mesalamine (Pentasa) 1,000 mg TID PO 02/21/20 21:00 02/25/20 17:06 Metoprolol Tartrate (Lopressor) 100 mg BID PO 02/21/20 21:00 02/25/20 09:24 Nystatin (Mycostatin Powder, Nystop) TO ABD FOLDS , GROI... BID PRN TOP RASH 02/22/20 00:00 Nystatin (Mycostatin) 5 ml 5XD SS 02/22/20 06:00 02/25/20 17:06 Omeprazole (PriLOSEC) 40 mg BID PO 02/21/20 21:00 02/25/20 09:23 Ondansetron HCl (ZOFRAN INJection) 2 mg Q4HP PRN IV NAUSEA OR VOMITING 02/21/20 23:15 02/22/20 07:58 DC 02/22/20 01:26 Ondansetron HCl (ZOFRAN INJection) 4 mg Q6HP PRN IV NAUSEA OR VOMITING 02/22/20 08:00 02/25/20 05:15 Oxycodone HCl (OxyCONTIN) 10 mg BID PO 02/21/20 21:00 02/25/20 09:27 Oxymetazoline HCl (Afrin) 2 spray ASDIRECTED PRN NA SEE LABEL COMMENTS 02/24/20 12:00 Prednisone (Deltasone) 15 mg DAILY PO 02/22/20 09:00 02/25/20 09:23 Sodium Chloride 1,000 ml @ 50 mls/hr Q20H IV 02/23/20 08:45 02/25/20 05:38 DC 02/24/20 14:05 Sodium Chloride 1,000 ml @ 150 mls/hr Q6H40M IV 02/21/20 20:57 02/22/20 00:55 DC 02/21/20 21:31 Sodium Chloride (Saline Lock Flush) 2 ml ASDIRECTED PRN IV SEE LABEL COMMENTS 02/22/20 15:00 Sodium Chloride (Saline Lock Flush) 2 ml SLF IV 02/22/20 22:00 02/25/20 14:00 Vitamin D (Vitamin D) 1,000 units DAILY PO 02/22/20 09:00 02/25/20 09:24 Allergies Coded Allergies: hydrocodone (Verified Allergy, Intermediate, 01/03/20) Sulfa (Sulfonamide Antibiotics) (Verified Allergy, Unknown, 07/03/19) hydrochlorothiazide (Verified Allergy, Unknown, 07/03/19) Miladys Rai MD Feb 25, 2020 19:13
[2020-02-25 20:00] VITALS: BP 156/88
[2020-02-25] MEDS: ATORVASTATIN 20 MG TAB PO SCH (21:49)
[2020-02-25] MEDS: CitaloPRAM (CeleXA) 20 MG TAB PO SCH (21:50)
[2020-02-25] MEDS: FUROSEMIDE 40MG/4ML VIAL (J1940) IV SCH (22:38)
[2020-02-26] VITALS: BP 160/64
[2020-02-26 04:00] VITALS: BP 152/68
[2020-02-26] MEDS: **hydrALAZINE** 50 MG TAB PO SCH ×2 (05:22→12:36)
[2020-02-26] MEDS: NYSTATIN 500,000 U/5 ML SUSP UDC SS SCH ×4 (05:22→12:36)
[2020-02-26] MEDS: SLF 3 ML SYR IV SCH (05:24)
[2020-02-26 05:34] LABS: HEMATOCRIT 32.1 % (36.0-47.0); HEMOGLOBIN 9.8 g/dl (12.0-15.5); MEAN CORPUSCULAR HEMOGLOBIN 29.7 pg (27.0-33.0); MEAN CORPUSCULAR HGB CONC 30.5 g/dl (32.0-36.5); MEAN CORPUSCULAR VOLUME 97.3 fl (80.0-96.0); PLATELET COUNT, AUTOMATED 241 10^3/uL (150-450); WHITE BLOOD COUNT 8.9 10^3/uL (4.0-10.0)
[2020-02-26 05:59] LABS: ALBUMIN 2.2 GM/DL (3.2-5.2); BILIRUBIN,TOTAL 0.6 MG/DL (0.2-1.0); CALCIUM LEVEL 8.4 MG/DL (8.8-10.2); CREATININE FOR GFR 1.44 MG/DL (0.55-1.30); GLOMERULAR FILTRATION RATE 37.5 (>39); POTASSIUM SERUM 3.4 MEQ/L (3.5-5.1); TOTAL PROTEIN 5.7 GM/DL (6.4-8.2)
[2020-02-26 08:00] VITALS: BP_SYST 120; BP_SYST 160; BP_DIAS 60; BP_DIAS 62
[2020-02-26] MEDS: APIXABAN 5 MG TAB (ELIQUIS) PO SCH (09:03)
[2020-02-26] MEDS: OMEPRAZOLE 20 MG CAP PO SCH (09:04)
[2020-02-26] MEDS: MESALAMINE 250 MG CR CAP PO SCH (09:04)
[2020-02-26] MEDS: MAGNESIUM OXIDE 400 MG TAB (MAG-OX) PO SCH (09:04)
[2020-02-26] MEDS: METOPROLOL TARTRATE 100 MG TAB PO SCH (09:04)
[2020-02-26] MEDS: FUROSEMIDE 40MG/4ML VIAL (J1940) IV SCH (09:05)
[2020-02-26] MEDS: VITAMIN D 1,000 INTERNATIONAL UNITS TABLET PO SCH (09:05)
[2020-02-26] MEDS: predniSONE 5 MG TAB PO SCH (09:05)
[2020-02-26] MEDS: AMIODARONE 200 MG TAB (PACERONE) PO SCH (09:05)
[2020-02-26] MEDS: LOSARTAN 25 MG TAB PO SCH (09:05)
[2020-02-26] MEDS: oxyCODONE 10 MG CR TAB PO SCH (09:06)
[2020-02-26] MEDS ORDERED: POTASSIUM CHLORIDE 10 MEQ SR TABLET PO ONE (10:00)
[2020-02-26] MEDS ORDERED: ZOFR4TAB16 PO (10:13)
[2020-02-26 12:36] VITALS: BP 180/70
--- NOTE | 2020-02-26 12:59 | DS.PDOC ---
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 Patient stated that for past few hours she developed severe dry heaves, she was not able to eat. In ER patient was found to have significantly elevated blood pressure 220/110, mild leukocytosis, potassium 3.4. EKG did not show any acute ischemic changes. Patient denied fever, chills, chest pain, dysuria. Patient was admitted for hypertensive emergency, acute kidney injury. HOSPITAL COURSE: Patient was initially in the ICU. Her home medications were restarted: losartan and metoprolol. Her blood pressure had later improved to 150-170 mmHg systolic- this is believed to be her baseline. Patient's PCP has struggled "for years" according to patient with uncontrolled blood pressure. She has had chronic nausea and dry heaves, there was some concern with dysphagia with cervical brace needing to be worn for compression fx. Swallowing evaluation was done; however, there was not believed to b a mechanical cause of nausea/vomiting. It was recommended for her to continue you a regular consistency, thin liquid diet. CT abd/pelvis did not show an acute intra-abdominal pathology causing nausea with occasional vomiting. Cr was trended and patient is believed to have CKD Stage IIIb with GFR 38. Lower ext edema increased and home lasix was resumed, as Cr was believed to be at baseline (b/n 1.3-1.8). She was eating and hydrating well, Cr was 1.4. BP fluctuated b/n 150-170 mmHg; however, again, this is her baseline. Renal US was unremarkable; however, not the best quality. She was discharged home and it was encouraged to f/u with PCP within 1-2 weeks after discharge. It is strongly suggested that she be referred to nephrology so help manage both her CKD and HTN. On the day of discharge, patient denied chest pain, shortness of breath, n/v/d, dysphagia, increased nausea from baseline. ROS: Negative except for what is mentioned above PMH: 1. 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 2. Crohn's disease. 3. Hemorrhoidal bleeding. 4. Acute gastrointestinal (GI) bleed secondary to hemorrhoids. 5. Paroxysmal atrial fibrillation. 6. Diabetes. 7. Chronic hypertension. 8. CAD status post PCI. 9. Dyslipidemia. 10. Chronic kidney disease, stage III. 11. Osteoporosis. 12. T5 compression fracture. PAST SURGICAL HISTORY: 1. Colonoscopies by Dr. Mancia. 2. Breast biopsy times three. 3. Cholecystectomy. 4. Hysterectomy. 5. Bowel resection times two. 6. Right knee replacement. 7. Right hip replacement FAMILY HISTORY: No pertinent family history SOCIAL HISTORY: Smoker: Denies Alcohol: Denies Drugs: denies ALLERGIES: Please see below. DISCHARGE MEDICATIONS: Please see below. PHYSICAL EXAMINATION: VS: Please see below General: The patient is awake, alert, oriented x3, laying in the bed in no apparent distress. Her cervical brace is on Head and Neck Exam: Extraocular muscles intact. Pupils equally round and reactive to light. Mucous membranes are moist. Neck movement restricted because of the brace Neck is supple. There is no jugular venous distention (JVD). Cardiovascular: S1 and S2, regular rate. Trace edema of the bilateral lower extremities. Respiratory: Mild inspiratory crackles at the right base, mildly decreased breath sounds at the left side. Abdomen: Soft. Positive bowel sounds. Nontender. No organomegaly. Musculoskeletal: Clubbing of the fingernails, no cyanosis was noted. 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 Power is 5/5 in all extremities. LABORATORY: IMAGING: Renal US: Right renal atrophy. Hyperechoic echotexture of both kidneys suggest medical renal disease. Left renal cysts. Angiomyolipoma lower pole left kidney. No hydronephrosis. Limited evaluation of the right renal artery due to overlying bowel gas. No compelling duplex Doppler sonographic evidence of significant left renal artery stenosis. CT abd/pelvis: 1. Chronic lung base changes with an unchanged 5 mm sized peripherally-based nodule in the right middle lobe. 2. There is no evidence of acute intra-abdominal or intrapelvic disease on this limited exam. 3. Ventral hernias as described above without evidence of intestinal obstruction. 4. Left renal cysts and a small left renal angiomyolipoma. 5. Other findings as described above. 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 PLAN: 1. Uncontrolled HTN, chronic -150-170 mmHg, intermittently fluctuates, asymptomatic. -According to patient, it has been a struggle for her PCP to control her HTN as well. -Renal US neg for renal artery stenosis -Will need additional workup, nephrology referral again recommended to help manage this as well. -C/w home antihypertensives 2. CKD Stage IIIb. -Although it appears her Cr was normal on admission, it is clear she has been within 1.3-1.8 in 01/2018 and very frequently even in the months before that. It is not completely true if we call this FAUSTO; as she likely has underlying CKD, possibly secondary to uncontrolled HTN. -Cr 1.4 this AM, GFR 38 -Renal US above, no significant proof of stenosis -Will discharge today and she will need close f/u with PCP and a referral for nephrology for sure. -If possible, avoid adding nephrotoxic medications to regimen 3. Atrial fibrillation -Rate controlled -C/w current medications. 4. Diabetes mellitus -Controlled 5. C2 compression fractures - She continues to wear the brace -OK to take off brace while sleeping per neurosurgery . -PT/OT o/p 6. GERD -Prilosec DISPOSITION: Discharging home today in improved condition. BP is still high intermittently; however, this is a chronic issue and needs to be closely monitored by both her primary care physician and a geophysical operator. She will be needing nephrology referral by PCP. She had home services reinstated prior to discharge. TIME SPENT ON DISCHARGE: Greater than 30 minutes. Vital Signs/I&Os Vital Signs Date Time Temp Pulse Resp B/P (MAP) Pulse Ox O2 Delivery O2 Flow Rate FiO2 02/26/20 12:36 180/70 02/26/20 09:06 16 Room Air 02/26/20 09:04 63 02/26/20 08:00 97.7 99 02/23/20 08:00 1.0 I&O- Last 24 Hours up to 6 AM 02/26/20 06:00 Intake Total 120 ml Output Total 1900 ml Balance -1780 ml Laboratory Data Labs 24H Laboratory Tests 2 02/26/20 05:18: Nucleated Red Blood Cells % (auto) 0.0, Anion Gap 4L, Glomerular Filtration Rate 37.5L, Calcium Level 8.4L, Total Bilirubin 0.6, Aspartate Amino Transf (AST/SGOT) 13, Alanine Aminotransferase (ALT/SGPT) 13, Alkaline Phosphatase 57, Total Protein 5.7L, Albumin 2.2L, Albumin/Globulin Ratio 0.6L CBC/BMP Laboratory Tests 02/26/20 05:18 Discharge Medications Scheduled Acetaminophen (Acetaminophen) 500 Mg Tablet, 1,000 MG PO TID, (Reported) Amiodarone HCl (Amiodarone HCl) 200 Mg Tablet, 200 MG PO DAILY, (Reported) Apixaban (Eliquis) 5 Mg Tablet, 5 MG PO BID, (Reported) Atorvastatin Calcium (Atorvastatin Calcium) 40 Mg Tablet, 40 MG PO QHS, (Reported) Calcium Carbonate/Vitamin D3 (Calcium 600 + Vit D 400 Softgl) 1 Each Capsule, 1 CAP PO BID, (Reported) Cholecalciferol (Vitamin D3) (Vitamin D3) 1,000 Unit Tablet, 1,000 UNITS PO DAILY, (Reported) Citalopram Hydrobromide (Celexa) 20 Mg Tablet, 30 MG PO QHS, (Reported) Ferrous Sulfate (Ferrous Sulfate) 325 Mg Tablet.dr, 325 MG PO 3XW, (Reported) THURSDAY, THURSDAY AND THURSDAY Furosemide (Furosemide) 40 Mg Tablet, 40 MG PO DAILY, (Reported) Hydralazine HCl (Hydralazine HCl) 50 Mg Tablet, 50 MG PO Q6H, (Reported) Magnesium Oxide (Magnesium Oxide) 400 Mg Tablet, 400 MG PO BID, (Reported) Mesalamine (Pentasa) 500 Mg Capsule.er, 1,000 MG PO TID, (Reported) Metoprolol Tartrate (Metoprolol Tartrate) 100 Mg Tablet, 100 MG PO BID, (Reported) Nystatin (Nystatin Oral Susp) 100,000 Unit/1 Ml Oral.susp, 5 ML SS 5XD, (Reported) STARTED 02/21/2020 Omeprazole (Omeprazole) 20 Mg Capsule.dr, 40 MG PO BID, (Reported) Ondansetron HCl (Zofran) 4 Mg Tablet, 4 MG PO Q6H for nausea Oxycodone HCl (Oxycontin) 10 Mg Tab.er.12h, 10 MG PO BID, (Reported) Prednisone (Prednisone) 5 Mg Tablet, 15 MG PO DAILY, (Reported) Propylene Glycol/Peg 400/Pf (Systane 0.3-0.4% Eye Drop) 1 Each Droperette, 1 DROP OU QID, (Reported) Vitamin B Complex (Vitamin B Complex) 1 Each Tablet, 1 TAB PO DAILY, (Reported) Scheduled PRN Alprazolam (Alprazolam) 0.25 Mg Tablet, 0.25 MG PO Q8H PRN for ANXIETY, (Reported) Fluticasone Propionate (Fluticasone Propionate) 15.8 Ml [facility].susp, 1 SPRAY NA BID PRN for NASAL CONGESTION, (Reported) Lidocaine (Salonpas) 1 Each Adh..patch, 1 PATCH TOP DAILY PRN for PAIN, (Reported) APPLY TO RIGHT SHOULDER BLADE Nystatin (Nystatin Powder) 15 Gm Powder, 1 DOSE TOP BID PRN for RASH, (Reported) USES ON ABDOMINAL FOLDS, GROIN OR UNDER BREASTS Phenyleph/Pramoxin/Glycr/W.pet (Preparation H Cream) 26 Gm Cream..g., 1 DOSE UT TID PRN for HEMORRHOIDS, (Reported) Allergies Coded Allergies: hydrocodone (Verified Allergy, Intermediate, 01/03/20) Sulfa (Sulfonamide Antibiotics) (Verified Allergy, Unknown, 07/03/19) hydrochlorothiazide (Verified Allergy, Unknown, 07/03/19) Miladys Rai MD Feb 26, 2020 12:59
== END 2020-02-26 14:41 | disposition home health service (06) | DRG 305 ==
LOC: M ED 20:13 → M ED INP 22:43 → ENRESERV 23:47 → M ICU 02-22 00:54 → M PCU 02-22 13:49
PROVIDERS: ADMIT Internal Medicine; ATTEND Internal Medicine
DX: I16.1 Hypertensive emergency (principal); I48.20 Chronic atrial fibrillation, unspecified; K50.90 Crohn's disease, unspecified, without complications; I77.4 Celiac artery compression syndrome; N17.9 Acute kidney failure, unspecified; M80.08XD Age-related osteoporosis with current pathological fracture, vertebra(e), subsequent encounter for fracture with routine healing; E11.22 Type 2 diabetes mellitus with diabetic chronic kidney disease; I12.9 Hypertensive chronic kidney disease with stage 1 through stage 4 chronic kidney disease, or unspecified chronic kidney disease; I25.10 Atherosclerotic heart disease of native coronary artery without angina pectoris; E78.5 Hyperlipidemia, unspecified; N18.3 Chronic kidney disease, stage 3 (moderate); R11.10 Vomiting, unspecified; K21.9 Gastro-esophageal reflux disease without esophagitis; R13.10 Dysphagia, unspecified; Z79.01 Long term (current) use of anticoagulants; Z79.4 Long term (current) use of insulin; Z79.52 Long term (current) use of systemic steroids; Z79.891 Long term (current) use of opiate analgesic; Z79.899 Other long term (current) drug therapy; Z88.2 Allergy status to sulfonamides; Z88.5 Allergy status to narcotic agent; Z88.8 Allergy status to other drugs, medicaments and biological substances; Z96.641 Presence of right artificial hip joint; Z96.651 Presence of right artificial knee joint; Z95.1 Presence of aortocoronary bypass graft

== ENCOUNTER 2020-02-27 23:19 | Inpatient (IN) | payer MEDICARE ==
[~2020-02-27] VITALS: Ht 160 cm; Wt 81.4 kg
[~2020-02-27 23:19] MED LIST changes: +ACET500T15 PO; -AMIO200T PO; +AMIO200T3 PO; +D31000TA2 PO; +FLUT15.820; +HYDR50TA PO; +METO100T5 PO; +NYST1POW9 TOP; +NYST50SS SS; +OMEP1CAP73 PO; +OXYC-141 PO; +PANT40TA29 PO; -PANT40TA3 PO; +PHEN26CR PR; +PROC5TAB57 PO; -VITAD1000T PO; +VITATAB73 PO; +ZOFR4TAB16 PO
[2020-02-28 00:13] LABS: BASO % 0.3 % (0.0-1.0); EOS % 0.4 % (0.0-3.0); HEMATOCRIT 34.6 % (36.0-47.0); HEMOGLOBIN 10.9 g/dl (12.0-15.5); LYMPH % 29.3 % (24.0-44.0); MEAN CORPUSCULAR HEMOGLOBIN 29.7 pg (27.0-33.0); MEAN CORPUSCULAR HGB CONC 31.5 g/dl (32.0-36.5); MEAN CORPUSCULAR VOLUME 94.3 fl (80.0-96.0); MONO % 9.3 % (0.0-5.0); NEUTROPHILS # 6.1 10^3/uL (1.5-8.5); NEUTROPHILS % 59.6 % (36.0-66.0); PLATELET COUNT, AUTOMATED 296 10^3/uL (150-450); RED BLOOD COUNT 3.67 10^6/uL (4.00-5.40); WHITE BLOOD COUNT 10.2 10^3/uL (4.0-10.0)
[2020-02-28] MEDS ORDERED: hydrALAZINE 20MG/ML 1ML VIAL (J0360 PER 20MG) IV ONE ×2 (00:30→02:15)
[2020-02-28] MEDS ORDERED: ONDANSETRON 4MG/2ML VIAL As Ordered ONE (00:38)
[2020-02-28] MEDS ORDERED: ONDANSETRON 4MG/2ML VIAL IV ONE (00:45)
[2020-02-28] MEDS ORDERED: GLIP5TAB8 PO (00:57)
[2020-02-28 01:10] LABS: ALBUMIN 2.6 GM/DL (3.2-5.2); BILIRUBIN,DIRECT 0.2 MG/DL (0.0-0.2); BILIRUBIN,TOTAL 0.7 MG/DL (0.2-1.0); FREE T4 1.98 NG/DL (0.76-1.46); THYROID STIMULATING HORMONE 1.22 uIU/ML (0.358-3.740)
[2020-02-28] MEDS: MORPHINE 2 MG/ML 1ML VIAL (J2270) IV PRN ×2 (01:28→02:27)
[2020-02-28] MEDS ORDERED: PROMETHAZINE INJ 25 MG/ML VIAL (J2550) IV ONE (01:45)
[2020-02-28] MEDS ORDERED: FUROSEMIDE 40MG/4ML VIAL (J1940) IV ONE (01:45)
[2020-02-28] MEDS ORDERED: ONDA-83 PO (02:28)
[2020-02-28] MEDS ORDERED: ALPRAZolam 0.25 MG TAB PO PRN (04:15)
[2020-02-28] MEDS ORDERED: GLUCAGON INJ 1MG VIAL SC PRN (04:15)
[2020-02-28] MEDS ORDERED: DEXTROSE 50% 50 ML SYRINGE IV PRN (04:15)
[2020-02-28] MEDS ORDERED: NYSTATIN 100,000 UNITS/GM TOPICAL PWD 15 GM TOP PRN (04:15)
[2020-02-28] MEDS ORDERED: GLUCOSE 4GM CHEW TABLET PO PRN (04:15)
--- NOTE | 2020-02-28 04:21 | HPEPDOC ---
General Date of Admission 02/28/2020 Date of Service: Feb 28, 2020 Chief Complaint The patient is a 79-year-old female who presented to the hospital with persistent nausea, vomiting and elevated blood pressure History of Present Illness Patient is a 79-year-old female with PMHx Paroxysmal A. 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 Patient was recently admitted on 02/20 and discharged on 02/25 for similar presen tation. During that hospitalization. Patient was found to have an elevated blood pressure was in the [facility] for IV blood pressure control. Patient was subsequently discharged after transitioning to oral medications. She was discharged home with furosemide 40 daily, hydralazine 50 every 6 hours and metoprolol tartrate 100 twice a day. Patient reported that while at home. Her blood pressure didnt respond to oral medications and she continued to experience dry heaves. Patient ultimately emergency room because her blood pressure remains elevated. Currently patient denies any chest pain, palpitations, change in her baseline shortness of breath or cough. Denies any fevers or chills. Does not express any abdominal pain. Does report intermittent diarrhea that she attributes to her Crohns disease. Reports some difficulty with urination and has had a Ya catheter placed in the emergency room. Patient denies any lightheadedness or dizziness. Patient reports that prior to all this, her appetite was fairly normal and currently she is experiencing weight gain. Home Medications Scheduled Acetaminophen (Acetaminophen) 500 Mg Tablet, 1,000 MG PO TID, (Reported) Amiodarone HCl (Amiodarone HCl) 200 Mg Tablet, 200 MG PO DAILY, (Reported) Apixaban (Eliquis) 5 Mg Tablet, 5 MG PO BID, (Reported) Atorvastatin Calcium (Atorvastatin Calcium) 40 Mg Tablet, 40 MG PO QHS, (Reported) Calcium Carbonate/Vitamin D3 (Calcium 600 + Vit D 400 Softgl) 1 Each Capsule, 1 CAP PO BID, (Reported) Cholecalciferol (Vitamin D3) (Vitamin D3) 1,000 Unit Tablet, 1,000 UNITS PO DAILY, (Reported) Citalopram Hydrobromide (Celexa) 20 Mg Tablet, 30 MG PO QHS, (Reported) Ferrous Sulfate (Ferrous Sulfate) 325 Mg Tablet.dr, 325 MG PO 3XW, (Reported) THURSDAY, THURSDAY AND THURSDAY Furosemide (Furosemide) 40 Mg Tablet, 40 MG PO DAILY, (Reported) Glipizide (Glipizide) 5 Mg Tablet, 5 MG PO BID, (Reported) Hydralazine HCl (Hydralazine HCl) 50 Mg Tablet, 50 MG PO Q6H, (Reported) Magnesium Oxide (Magnesium Oxide) 400 Mg Tablet, 400 MG PO BID, (Reported) Mesalamine (Pentasa) 500 Mg Capsule.er, 1,000 MG PO TID, (Reported) Metoprolol Tartrate (Metoprolol Tartrate) 100 Mg Tablet, 100 MG PO BID, (Reported) Nystatin (Nystatin Oral Susp) 100,000 Unit/1 Ml Oral.susp, 5 ML SS 5XD, (Reported) STARTED 02/21/2020 Omeprazole (Omeprazole) 20 Mg Capsule.dr, 40 MG PO BID, (Reported) Ondansetron HCl (Ondansetron HCl) 4 Mg Tablet, 4 MG PO Q6H, (Reported) Oxycodone HCl (Oxycontin) 10 Mg Tab.er.12h, 10 MG PO BID, (Reported) Prednisone (Prednisone) 5 Mg Tablet, 15 MG PO DAILY, (Reported) Propylene Glycol/Peg 400/Pf (Systane 0.3-0.4% Eye Drop) 1 Each Droperette, 1 DROP OU QID, (Reported) Vitamin B Complex (Vitamin B Complex) 1 Each Tablet, 1 TAB PO DAILY, (Reported) Scheduled PRN Alprazolam (Alprazolam) 0.25 Mg Tablet, 0.25 MG PO Q8H PRN for ANXIETY, (Reported) Fluticasone Propionate (Fluticasone Propionate) 15.8 Ml [place].susp, 1 SPRAY NA BID PRN for NASAL CONGESTION, (Reported) Lidocaine (Salonpas) 1 Each Adh..patch, 1 PATCH TOP DAILY PRN for PAIN, (Reported) APPLY TO RIGHT SHOULDER BLADE Nystatin (Nystatin Powder) 15 Gm Powder, 1 DOSE TOP BID PRN for RASH, (Reported) USES ON ABDOMINAL FOLDS, GROIN OR UNDER BREASTS Phenyleph/Pramoxin/Glycr/W.pet (Preparation H Cream) 26 Gm Cream..g., 1 DOSE OK TID PRN for HEMORRHOIDS, (Reported) Allergies Coded Allergies: hydrocodone (Verified Allergy, Intermediate, 01/03/20) Sulfa (Sulfonamide Antibiotics) (Verified Allergy, Unknown, 07/03/19) hydrochlorothiazide (Verified Allergy, Unknown, 07/03/19) Past Medical History Medical History Paroxysmal A. 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 Mancia. Breast biopsy times three. Cholecystectomy. Hysterectomy. Bowel resection times two. Right knee replacement. Right hip replacement Family History - Family history was reviewed and noncontributory to this hospitalization Social History - Denies the use of alcohol, tobacco or illicit drugs - Denies recent travel or sick contacts - Patient usually lives home alone. 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 Review of Systems Other systems 10 point review of systems complete, all negative otherwise stated in HPI Vital Signs - Vitals: BP [160/67], HR [62], RR [18], Sat [96%NC2L], Temp [98.7F] - General: Lying in bed, Speaking in full sentences, AAOx3 - HEENT: NC, AT, PERRLA - CVS: +S1S2 - Lungs: Fair air entry bilaterally, No appreciable wheezing / rales / rhonchi - Abdomen: Soft, Non-distended, Non-tender - Extremities: 2+ bilateral LE edema, No calf tenderness - Neuro: No focal motor or sensory deficit - Skin: No visible rashes Laboratory Data Labs 24H Laboratory Tests 2 02/28/20 00:07: Immature Granulocyte % (Auto) 1.1, Neutrophils (%) (Auto) 59.6, Lymphocytes (%) (Auto) 29.3, Monocytes (%) (Auto) 9.3H, Eosinophils (%) (Auto) 0.4, Basophils (%) (Auto) 0.3, Neutrophils # (Auto) 6.1, Lymphocytes # (Auto) 3.0, Monocytes # (Auto) 1.0H, Eosinophils # (Auto) 0.0, Basophils # (Auto) 0.0, Nucleated Red Blood Cells % (auto) 0.0, POC Glucose (Misc Panel) 76, POC Sodium (Misc Panel) 136, POC Potassium (Misc Panel) 3.4L, POC Chloride (Misc Panel) 97L, POC Total CO2 (Misc Panel) 30.0H, POC Blood Urea Nitrogen (Misc Panel 21, POC Ionized Calcium (Misc Panel) 4.1L, POC Creatinine (Misc Panel) 1.4H, POC Hematocrit (Misc Panel) 34.0L, Total Bilirubin 0.7, Direct Bilirubin 0.2, Aspartate Amino Transf (AST/SGOT) 21, Alanine Aminotransferase (ALT/SGPT) 17, Alkaline Phosphatase 61, HH-Lxq-O-Type Natriuretic Peptide 2406H, Total Protein 6.0L, Albumin 2.6L, Albumin/Globulin Ratio 0.8L, Lipase 153, Thyroid Stimulating Hormone (TSH) 1.220, Free Thyroxine 1.98H 02/28/20 00:09: POC Troponin I (Misc) 0.01 CBC/BMP Laboratory Tests 02/28/20 00:07 Plan / VTE VTE Prophylaxis Ordered?: Yes Plan Plan Hypertensive urgency - likely 2/2 decompensated CHF - Upon presentation to emergency room, patients blood pressure was noted to be systolics of greater than 200 - Patient denies any headache, lightheadedness or dizziness; does not complain of any chest pain, or change in her baseline shortness of breath - EKG was reviewed and consistent with priors on record - Troponin x1 negative; will continue to trend - Elevated BNP - Will admit patient to PCU. continue with telemetry monitoring, strict ins and outs, daily weights - Will check ECHO - Patient has received a dose of furosemide in the emergency room - Also has received hydralazine 10 mg 1, 20 mg 1 - Will start Furosemide 40 IV BID and Hydralazine 10 q6h Nausea and vomiting - Patient reports that she experiences nausea, vomiting and retching every time her blood pressure remains elevated - No fevers noted - Physical is nonrevealing, no abdominal tenderness - Lipase normal - Has received Zofran 4 mg 1 and promethazine 12.5 mg 1 - Will continue with symptomatic control with Zofran Mild Leukocytosis - No signs of infection; review of systems is negative - Will send UA with reflex Paroxysmal A. 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
[2020-02-28] MEDS ORDERED: KCL 10MEQ/100ML SWI (KRUN) 10 MEQ in IV 1 EA IV ONE (04:30)
[2020-02-28] MEDS ORDERED: LIDOCAINE 5% (LIDODERM) PATCH TD ONE (05:00)
[2020-02-28] MEDS ORDERED: LIDOCAINE 5% (LIDODERM) PATCH TD PRN (05:45)
[2020-02-28] MEDS: HumaLOG INSULIN (NovoLOG) PER UNIT SC SCH ×3 (06:00→17:44)
[2020-02-28] MEDS: NYSTATIN 500,000 U/5 ML SUSP UDC SS SCH ×5 (06:00→21:00)
[2020-02-28 06:58] LABS: CK-MB VALUE MASS < 1.0 NG/ML (<3.6); CPK CREATINE PHOSPHOKINASE 29 U/L (26-192); MB/CK RELATIVE INDEX 3.45 (< OR =4); TROPONIN I < 0.02 NG/ML (< 0.10)
[2020-02-28] MEDS ORDERED: hydrALAZINE 20MG/ML 1ML VIAL (J0360 PER 20MG) IV SCH (08:00)
--- NOTE | 2020-02-28 08:01 | ECGEPIP ---
[facility] - ED Test Date: 2020-02-27 Pat Name: NEELA ARTIS Department: Room: - Gender: Female Seo Manager: : 1940 Requested By: MARCO Caba Order Number: [id number] Reading MD: Marco Fonseca Measurements Intervals [place] Rate: 53 P: 44 TX: 152 QRS: 0 QRSD: 83 T: -11 QT: 429 QTc: 406 Interpretive Statements SINUS BRADYCARDIA Inferior Q waves of uncertain significance Nonspecific ST-T wave abnormalities Similar to tracing done 02-21-20 Electronically Signed on 02-28-2020 8:00:52 EDT by Marco Fonseca
--- NOTE | 2020-02-28 08:07 | REP ---
Clinical: Chest pain. Comparison: 01/14/2020. Findings: Mediastinum and cardiac silhouette are within normal limits. Lung malcolm are relatively clear without obvious focal consolidation, effusion, or pneumothorax. Skeletal structures are grossly intact. Impression: No obvious acute mediastinal or pleuroparenchymal process. Electronically Signed by Eduin Valdes MD 02/28/2020 07:57 A
[2020-02-28] MEDS: ACETAMINOPHEN 500 MG TAB PO SCH ×3 (08:47→21:00)
[2020-02-28] MEDS: FERROUS SULFATE 325MG TAB PO SCH (08:48)
[2020-02-28] MEDS: oxyCODONE 10 MG CR TAB PO SCH ×2 (08:48→21:51)
[2020-02-28] MEDS: OMEPRAZOLE 20 MG CAP PO SCH ×2 (08:48→21:52)
[2020-02-28] MEDS: MAGNESIUM OXIDE 400 MG TAB (MAG-OX) PO SCH ×2 (08:48→21:00)
[2020-02-28] MEDS: APIXABAN 5 MG TAB (ELIQUIS) PO SCH ×2 (08:48→21:49)
[2020-02-28] MEDS: VITAMIN D 1,000 INTERNATIONAL UNITS TABLET PO SCH (08:48)
[2020-02-28] MEDS: AMIODARONE 200 MG TAB (PACERONE) PO SCH (08:48)
[2020-02-28] MEDS: MESALAMINE 250 MG CR CAP PO SCH ×3 (08:49→21:52)
[2020-02-28] MEDS: CALCIUM/VITAMIN D 500 MG TAB PO SCH ×2 (08:49→21:00)
[2020-02-28] MEDS: FUROSEMIDE 40MG/4ML VIAL (J1940) IV SCH ×2 (08:49→16:33)
[2020-02-28] MEDS ORDERED: FLUTICASONE PROP 0.05% NASAL SPRAY 16 GM (FLONASE) NARES PRN (09:00)
[2020-02-28] MEDS: ONDANSETRON 4MG/2ML VIAL IV PRN (09:46)
--- NOTE | 2020-02-28 12:07 | REP ---
Clinical: Headache with nausea and vomiting. Comparison: 01/14/2020 . Findings: Age-related atrophy and microvascular ischemic changes are appreciated. The ventricles and sulci are symmetric. Starr-white differentiation is maintained. There is no evidence for acute intracranial hemorrhage, mass/mass effect, pathology or infarction. No extra-axial fluid collection. Calvarium is intact. Opacification of the right sphenoid sinus again noted. Impression: Age related atrophy and microvascular ischemic changes. No acute intracranial hemorrhage, infarction, or mass/mass effect. Electronically Signed by Eduin Valdes MD 02/28/2020 11:21 A
[2020-02-28 12:49] LABS: CK-MB VALUE MASS < 1.0 NG/ML (<3.6); CPK CREATINE PHOSPHOKINASE 36 U/L (26-192); MB/CK RELATIVE INDEX 2.78 (< OR =4); TROPONIN I < 0.02 NG/ML (< 0.10)
[2020-02-28] MEDS: LABETALOL 100MG/20ML VIAL IV PRN ×2 (12:58→18:02)
[2020-02-28 15:00] VITALS: BP 160/64
[2020-02-28] MEDS: PROMETHAZINE INJ 25 MG/ML VIAL (J2550) IV PRN (15:07)
[2020-02-28] MEDS ORDERED: **NOTE PATIENT COMMENT** MISC XX ONE (17:00)
[2020-02-28] MEDS ORDERED: SLF 3 ML SYR IV PRN (17:15)
[2020-02-28] MEDS: **hydrALAZINE** 50 MG TAB PO SCH (17:44)
[2020-02-28 17:59] VITALS: BP 214/90
[2020-02-28 18:39] VITALS: BP 180/105
[2020-02-28] MEDS ORDERED: LABETALOL 100MG/20ML VIAL IV ONE (19:00)
[2020-02-28] MEDS ORDERED: KETOROLAC 30 MG/ML 1ML VIAL IV ONE (19:00)
--- NOTE | 2020-02-28 19:28 | IPNPDOC ---
Date Seen The patient was seen on 02/28/20. Progress Note SUBJECTIVE: Patient seemed very uncomfortable this morning complaining of headache with n ausea and vomiting. BP was normal at that time of SBP 130-140s. Concern for BP being too low for her causing headaches. CT scan performed without any significant findings. BP is now elevated again in 180s but still have the same headaches and not taking her PO medications. Relying on IV antihypertensives for BP control at the moment. OBJECTIVE PHYSICAL EXAMINATION: VITAL SIGNS: Please see below. General: Alert, moderate discomfort Eyes: Normal sclera, EOMI HENT: Atraumatic Cardiovascular: Normal rate Pulmonary: Clear to auscultation b/l, no wheezing GI: Soft, nontender, nondistended Skin: Warm and dry Neuro: CN grossly intact. No focal deficits. Strengths equal b/l. No light sensitivity. Psych: oriented x 3 LABORATORY DATA, IMAGING STUDIES, MICROBIOLOGY: Please see below. Hypertensive urgency - likely 2/2 decompensated CHF - Upon presentation to emergency room, patients blood pressure was noted to be systolics of greater than 200 - EKG was reviewed and consistent with priors on record - Troponin negative x3. Elevated BNP - Will admit patient to PCU. continue with telemetry monitoring, strict ins and outs, daily weights - Will check ECHO - Furosemide 40 IV BID and labetalol. Resumed patient's PO hydralazine but has not been able to take due to nausea Nausea and vomiting - Patient reports that she experiences nausea, vomiting and retching every time her blood pressure remains elevated - No fevers noted. N/V persist even when BP was normal in 130-140s range. - Unable to tolerate PO med. Continue with IV med at this time. Mild Leukocytosis - No signs of infection; review of systems is negative - Will send UA with reflex Paroxysmal A. 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 / Hx of gastrointestinal (GI) bleed 2/2 hemorrhoids - Hg currently stable Crohn's disease - c/w Mesalamine Osteoporosis - c/w vitamin D supplementation T5 compression fracture / Recent C2 fracture - Continue with brace - C/w pain control from outpatient setting Depression - c/w citalopram GERD - Will continue omeprazole DVT prophylaxis - Will continue with full anticoagulation with Eliquis VS, I&O, 24H, Fishbone Vital Signs/I&O Vital Signs Date Time Temp Pulse Resp B/P (MAP) Pulse Ox O2 Delivery O2 Flow Rate FiO2 02/28/20 19:00 71 180/105 02/28/20 15:00 97.7 22 94 Nasal Cannula 2.0 I&O- Last 24 Hours up to 6 AM 02/28/20 06:00 Output Total 1100 ml Balance -1100 ml Laboratory Data 24H LABS Laboratory Tests 2 02/28/20 00:07: Immature Granulocyte % (Auto) 1.1, Neutrophils (%) (Auto) 59.6, Lymphocytes (%) (Auto) 29.3, Monocytes (%) (Auto) 9.3H, Eosinophils (%) (Auto) 0.4, Basophils (%) (Auto) 0.3, Neutrophils # (Auto) 6.1, Lymphocytes # (Auto) 3.0, Monocytes # (Auto) 1.0H, Eosinophils # (Auto) 0.0, Basophils # (Auto) 0.0, Nucleated Red Blood Cells % (auto) 0.0, POC Glucose (Misc Panel) 76, POC Sodium (Misc Panel) 136, POC Potassium (Misc Panel) 3.4L, POC Chloride (Misc Panel) 97L, POC Total CO2 (Misc Panel) 30.0H, POC Blood Urea Nitrogen (Misc Panel 21, POC Ionized Calcium (Misc Panel) 4.1L, POC Creatinine (Misc Panel) 1.4H, POC Hematocrit (Misc Panel) 34.0L, Total Bilirubin 0.7, Direct Bilirubin 0.2, Aspartate Amino Transf (AST/SGOT) 21, Alanine Aminotransferase (ALT/SGPT) 17, Alkaline Phosphatase 61, QO-Nsa-N-Type Natriuretic Peptide 2406H, Total Protein 6.0L, Albumin 2.6L, Albumin/Globulin Ratio 0.8L, Lipase 153, Thyroid Stimulating Hormone (TSH) 1.220, Free Thyroxine 1.98H 02/28/20 00:09: POC Troponin I (Misc) 0.01 02/28/20 05:02: Bedside Glucose (Misc Panel) 84 02/28/20 06:06: Total Creatine Kinase 29, Creatine Kinase MB < 1.0, Creatine Kinase MB Relative Index 3.45, Troponin I < 0.02, Procalcitonin 0.17 02/28/20 11:58: Total Creatine Kinase 36, Creatine Kinase MB < 1.0, Creatine Kinase MB Relative Index 2.78, Troponin I < 0.02 02/28/20 12:56: Bedside Glucose (Misc Panel) 133H 02/28/20 17:39: Bedside Glucose (Misc Panel) 101 02/28/20 17:45: CBC/BMP Laboratory Tests 02/28/20 00:07 UMAIR LOPEZ MD Feb 28, 2020 19:28
[2020-02-28 20:00] VITALS: BP 162/70
[2020-02-28] MEDS: ATORVASTATIN 20 MG TAB PO SCH (21:49)
[2020-02-28] MEDS: CitaloPRAM (CeleXA) 10 MG TABLET PO SCH (21:49)
[2020-02-28] MEDS: METOPROLOL TARTRATE 100 MG TAB PO SCH (21:55)
[2020-02-28] MEDS: **NOTE PATIENT COMMENT** MISC XX SCH (21:55)
[2020-02-28] MEDS: SLF 3 ML SYR IV SCH (21:56)
[2020-02-29] VITALS (7 sets, daily range): BP systolic 111–170; BP diastolic 55–102
[2020-02-29] MEDS: ONDANSETRON 4MG/2ML VIAL IV PRN ×2 (01:05→12:20)
[2020-02-29] MEDS: **hydrALAZINE** 50 MG TAB PO SCH ×2 (01:06→05:29)
[2020-02-29] MEDS: NYSTATIN 500,000 U/5 ML SUSP UDC SS SCH ×6 (04:57→22:00)
[2020-02-29] MEDS: PROMETHAZINE INJ 25 MG/ML VIAL (J2550) IV PRN ×2 (05:04→23:40)
[2020-02-29] MEDS: SLF 3 ML SYR IV SCH ×2 (05:30→13:59)
[2020-02-29 05:46] LABS: BASO % 0.2 % (0.0-1.0); EOS # 0.1 10^3/uL (0.0-0.5); EOS % 0.8 % (0.0-3.0); HEMATOCRIT 35.6 % (36.0-47.0); HEMOGLOBIN 10.6 g/dl (12.0-15.5); LYMPH # 2.1 10^3/uL (1.5-5.0); LYMPH % 19.7 % (24.0-44.0); MEAN CORPUSCULAR HEMOGLOBIN 28.6 pg (27.0-33.0); MEAN CORPUSCULAR HGB CONC 29.8 g/dl (32.0-36.5); MEAN CORPUSCULAR VOLUME 96.2 fl (80.0-96.0); MONO % 9.3 % (0.0-5.0); NEUTROPHILS # 7.3 10^3/uL (1.5-8.5); NEUTROPHILS % 69.4 % (36.0-66.0); PLATELET COUNT, AUTOMATED 300 10^3/uL (150-450); WHITE BLOOD COUNT 10.5 10^3/uL (4.0-10.0)
[2020-02-29] MEDS: HumaLOG INSULIN (NovoLOG) PER UNIT SC SCH ×4 (06:00→17:34)
[2020-02-29 06:09] LABS: CALCIUM LEVEL 8.3 MG/DL (8.8-10.2); CREATININE FOR GFR 1.67 MG/DL (0.55-1.30); GLOMERULAR FILTRATION RATE 31.6 (>39); MAGNESIUM LEVEL 1.6 MG/DL (1.8-2.4)
[2020-02-29] MEDS ORDERED: SODIUM CHLORIDE NASAL 0.65% SPRAY BTL (OCEAN) PRN (08:15)
[2020-02-29] MEDS: POTASSIUM CHLORIDE 10 MEQ SR TABLET PO SCH ×2 (08:46→09:00)
[2020-02-29] MEDS: OMEPRAZOLE 20 MG CAP PO SCH ×3 (08:46→22:00)
[2020-02-29] MEDS: FERROUS SULFATE 325MG TAB PO SCH ×2 (08:47→09:00)
[2020-02-29] MEDS: SODIUM CHLORIDE 0.9% NASAL GEL 15GM (AYR) SCH ×4 (08:47→22:07)
[2020-02-29] MEDS: MESALAMINE 250 MG CR CAP PO SCH ×3 (08:47→22:06)
[2020-02-29] MEDS: CALCIUM/VITAMIN D 500 MG TAB PO SCH ×3 (08:47→22:04)
[2020-02-29] MEDS: VITAMIN D 1,000 INTERNATIONAL UNITS TABLET PO SCH (08:47)
[2020-02-29] MEDS: ACETAMINOPHEN 500 MG TAB PO SCH ×4 (08:48→22:06)
[2020-02-29] MEDS: AMIODARONE 200 MG TAB (PACERONE) PO SCH (08:50)
[2020-02-29] MEDS: oxyCODONE 10 MG CR TAB PO SCH ×3 (08:51→22:06)
[2020-02-29] MEDS: METOPROLOL TARTRATE 100 MG TAB PO SCH ×2 (08:51→22:01)
[2020-02-29] MEDS ORDERED: MAG SULF 1GM/100ML (MAG RUN) 1 GM in IV 1 EA IV ONE ×2 (09:00→13:30)
[2020-02-29] MEDS: MAGNESIUM CHLORIDE 64 MG TABCR (SLO MAG) PO SCH (09:00)
--- NOTE | 2020-02-29 10:23 | IPN ---
DATE: 02/29/2020 SUBJECTIVE: Patient has nosebleed at the beside. Says that her nose was really dry and she has been picking on it. She currently is on Eliquis, which has been held temporarily today, until the nosebleed stops. Patient otherwise, had normal hemoglobin. Hemodynamically stable. Blood pressure 136. No respiratory distress. Currently breathing well through her nose. She is pinching it and elevating her head with ice pack on the back of her head. Temperature 97.2, pulse 60, respiratory rate 16, blood pressure 136/74, 95% on 2 liters nasal cannula. Generally, patient has epistaxis bilateral nares. No clots at this time. No use of respiratory accessory muscles. No tracheal deviation. No jugular venous distention (JVD). No thyromegaly. Lungs are clear to auscultation. No wheezes, rales, or rhonchi. Heart: S1, S2, sinus rhythm. Abdomen is soft nontender, nondistended. Positive bowel sounds. Extremities: No cyanosis, clubbing or any pitting edema. Input 100, output 2150. Current weight is 80.2 kg. CURRENT MEDICATIONS: - Lipitor - Celexa - Lopressor - hydralazine - labetalol - Lasix - Tylenol - amiodarone - calcium with vitamin D - ferrous sulfate - MagOx - naphthylamine - Prilosec - oxycodone - nystatin Urine culture is pending. Urinalysis (UA) shows 1+ blood, 1+ leukocyte esterase, 11 WBC, 1+ bacteria. IMAGING STUDIES: CT of the head - no acute intracranial pathology, age-related atrophy and microvascular ischemic changes. Chest x-ray 02/27/2020 - no obvious acute mediastinal and pleuroparenchymal process. Lungs are clear. ASSESSMENT AND PLAN: This is a 79-year-old female admitted on 02/28/2020 with complaints of nausea and vomiting found to have hypertensive urgency, on Eliquis for paroxysmal atrial fibrillation (AFib) now with epistaxis. She has a prior history of CAD, stent, hypertension, dyslipidemia, diabetes, chronic kidney disease stage III, superior mesenteric artery (SMA) and celiac transmesenteric artery stenosis, Crohn disease, gastrointestinal (GI) bleed secondary to hemorrhoids, osteoporosis, T5 compression fracture, C2 fracture with current issues. 1. Epistaxis. Her Eliquis has been. Blood pressure is well maintained. Says that it is because of dry nose. Therefore, she has been given saline gel and saline nasal spray. 2. Acute blood loss secondary to epistaxis. Hemoglobin/hematocrit (H/H) remain stable. Hemodynamically stable. Continue to monitor. May need packing for the nose and ENT consult later. 3. Hypertensive urgency. Currently controlled. Will remove the IV hydralazine and will discontinue IV labetalol and IV Lasix. Patient may be kept on metoprolol 100 twice a day, hydralazine 50 every 6 hours. 4. History of CAD, stents. Continued on patient's atorvastatin and metoprolol. 5. Chronic pain and fractures. On chronic OxyContin. 6. History of Crohn's. No GI bleed. On naphthylamine. 7. Vitamin D deficiency. On vitamin D and calcium. 8. Atrial fibrillation. On chronic amiodarone. Currently sinus rhythm. Eliquis held due to acute epistaxis and acute blood loss.
[2020-02-29] MEDS: POTASSIUM CHLORIDE 10% LIQ 20 MEQ/15 ML UDC PO ONE ×2 (10:45→12:52)
--- NOTE | 2020-02-29 14:37 | REP ---
Clinical: Nausea and vomiting. Technique: Portable supine view of the abdomen and pelvis. Findings: Small bowel obstruction is suggested and clinical correlation is recommended. Evidence of prior abdominal surgery and right hip replacement. Skeletal structures demonstrate degenerative changes. Impression: Findings consistent with small bowel obstruction. Correlation required. Electronically Signed by Eduin Valdes MD 02/29/2020 02:28 P
--- NOTE | 2020-02-29 14:38 | REP ---
Clinical: Nausea and vomiting . Comparison: 02/27/2020 . Findings: The mediastinum and cardiac silhouette are stable and within normal limits for portable technique. The lung malcolm are clear without acute consolidation, effusion, or pneumothorax. Skeletal structures are intact. Impression: No acute cardiopulmonary process appreciated. Electronically Signed by Eduin Valdes MD 02/29/2020 02:29 P
[2020-02-29] MEDS ORDERED: POTASSIUM CHLORIDE 10 MEQ SR TABLET PO ONE (15:00)
[2020-02-29] MEDS: **hydrALAZINE HCL** 25 MG TAB PO SCH ×2 (16:32→22:01)
[2020-02-29] MEDS ORDERED: METOCLOPRAMIDE INJ 10MG/2ML VIAL (J2765 PER 1) IV PRN (20:45)
[2020-02-29] MEDS ORDERED: NS 1,000 ML IV SCH (20:45)
[2020-02-29] MEDS: CitaloPRAM (CeleXA) 10 MG TABLET PO SCH ×2 (21:00→22:04)
[2020-02-29] MEDS: ATORVASTATIN 20 MG TAB PO SCH (22:01)
[2020-03-01] MEDS: **NOTE PATIENT COMMENT** MISC XX SCH (02:20)
[2020-03-01] MEDS: SLF 3 ML SYR IV SCH ×2 (02:27→06:30)
[2020-03-01 06:00] VITALS: BP 134/40
[2020-03-01] MEDS: HumaLOG INSULIN (NovoLOG) PER UNIT SC SCH ×2 (06:00)
[2020-03-01] MEDS: NYSTATIN 500,000 U/5 ML SUSP UDC SS SCH ×2 (06:29→10:03)
[2020-03-01] MEDS: **hydrALAZINE HCL** 25 MG TAB PO SCH (06:30)
[2020-03-01 06:38] LABS: BASO % 0.3 % (0.0-1.0); EOS # 0.1 10^3/uL (0.0-0.5); EOS % 1.3 % (0.0-3.0); HEMATOCRIT 34.4 % (36.0-47.0); HEMOGLOBIN 10.4 g/dl (12.0-15.5); MEAN CORPUSCULAR HEMOGLOBIN 29.1 pg (27.0-33.0); MEAN CORPUSCULAR HGB CONC 30.2 g/dl (32.0-36.5); MEAN CORPUSCULAR VOLUME 96.4 fl (80.0-96.0); MONO # 1.1 10^3/uL (0.0-0.8); MONO % 9.6 % (0.0-5.0); NEUTROPHILS # 6.7 10^3/uL (1.5-8.5); NEUTROPHILS % 61.2 % (36.0-66.0); PLATELET COUNT, AUTOMATED 309 10^3/uL (150-450); RED BLOOD COUNT 3.57 10^6/uL (4.00-5.40); WHITE BLOOD COUNT 10.9 10^3/uL (4.0-10.0)
[2020-03-01 06:54] LABS: CALCIUM LEVEL 8.2 MG/DL (8.8-10.2); CREATININE FOR GFR 1.89 MG/DL (0.55-1.30); GLOMERULAR FILTRATION RATE 27.4 (>39); MAGNESIUM LEVEL 2.1 MG/DL (1.8-2.4); POTASSIUM SERUM 3.2 MEQ/L (3.5-5.1)
[2020-03-01] MEDS ORDERED: KCL 40MEQ IN D5/0.45NS 1000ML 1,000 ML IV SCH (07:30)
--- NOTE | 2020-03-01 08:50 | REP ---
Clinical: Abdominal distension. Small bowel obstruction. Technique: Axial noncontrast images from the lung bases to the pubic symphysis with coronal and sagittal re-formations. Comparison: 02/22/2020. Findings: Left lower lobe consolidation with air bronchograms along with bibasilar atelectasis and small pleural reactions (left greater than right) noted and increased from prior CT. Liver, spleen, pancreas, and bilateral adrenal glands are normal for noncontrast evaluation. Right kidney demonstrates chronic atrophic changes. Left kidney includes multiple hypodense lesions suggesting simple and complex cysts along with a 1 cm benign angiomyolipoma. Evaluation of the enteric system demonstrates mildly prominent partially fluid-filled loops of small bowel leading into a small left infraumbilical ventral hernia (images 110 - 120). The exiting efferent small bowel and colon appear relatively normal. Pelvis demonstrates normal bladder and evidence of prior hysterectomy. No ascites. No free air. No significant adenopathy. Abdominal aorta without aneurysm. Musculoskeletal structures demonstrate age-related degenerative changes. Impression: 1. Findings without evidence for current small bowel obstruction although suspicious for intermittent/partial small bowel obstruction related to a small left paramidline infraumbilical ventral hernia. 2. Chronic renal findings as described above including simple and complex renal cysts along with chronic atrophic appearance to the right kidney. 3. Bibasilar lung findings. Electronically Signed by Eduin Valdes MD 03/01/2020 08:41 A
[2020-03-01] MEDS: MAGNESIUM CHLORIDE 64 MG TABCR (SLO MAG) PO SCH (09:00)
[2020-03-01] MEDS ORDERED: amLODIPine 5 MG TAB PO SCH (09:00)
[2020-03-01] MEDS: KCL 10MEQ/100ML SWI (KRUN) 10 MEQ in IV 1 EA IV SCH ×2 (09:10→10:59)
[2020-03-01] MEDS: AMIODARONE 200 MG TAB (PACERONE) PO SCH (10:02)
[2020-03-01 10:03] VITALS: BP 151/56
[2020-03-01] MEDS: METOPROLOL TARTRATE 100 MG TAB PO SCH (10:03)
[2020-03-01] MEDS: oxyCODONE 10 MG CR TAB PO SCH (10:04)
[2020-03-01] MEDS: MESALAMINE 250 MG CR CAP PO SCH (10:04)
[2020-03-01] MEDS: OMEPRAZOLE 20 MG CAP PO SCH (10:05)
[2020-03-01] MEDS: FERROUS SULFATE 325MG TAB PO SCH (10:12)
[2020-03-01] MEDS: VITAMIN D 1,000 INTERNATIONAL UNITS TABLET PO SCH (10:13)
[2020-03-01] MEDS: SODIUM CHLORIDE 0.9% NASAL GEL 15GM (AYR) SCH (10:13)
[2020-03-01] MEDS: ACETAMINOPHEN 500 MG TAB PO SCH (10:13)
[2020-03-01] MEDS: CALCIUM/VITAMIN D 500 MG TAB PO SCH (10:13)
[2020-03-03] MEDS ORDERED: METOCLOPRAMIDE INJ 10MG/2ML VIAL (J2765 PER 1) ONE (01:27)
[2020-03-03] MEDS ORDERED: **hydrALAZINE HCL** 25 MG TAB ONE ×3 (03:38→10:15)
[2020-03-03] MEDS ORDERED: KCL 40MEQ IN D5/0.45%NACL 1000 ML ONE (03:38)
[2020-03-03] MEDS ORDERED: NYSTATIN 500,000 U/5 ML SUSP UDC ONE ×3 (05:34→11:01)
[2020-03-03] MEDS ORDERED: ceFAZolin 1GM VIAL (J0690 PER 500MG) ONE ×3 (05:34→12:49)
[2020-03-03] MEDS ORDERED: CitaloPRAM (CeleXA) 10 MG TABLET ONE (10:14)
[2020-03-03] MEDS ORDERED: OMEPRAZOLE 20 MG CAP ONE ×2 (10:14→11:01)
[2020-03-03] MEDS ORDERED: oxyCODONE 10 MG CR TAB ONE ×2 (10:14→11:01)
[2020-03-03] MEDS ORDERED: MESALAMINE 250 MG CR CAP ONE ×3 (10:14→11:30)
[2020-03-03] MEDS ORDERED: METOPROLOL TARTRATE 100 MG TAB ONE ×2 (10:15→11:01)
[2020-03-03] MEDS ORDERED: amLODIPine 5 MG TAB ONE ×2 (10:15→11:01)
[2020-03-03] MEDS ORDERED: PROMETHAZINE INJ 25 MG/ML VIAL (J2550) ONE (11:01)
[2020-03-03] MEDS ORDERED: AMIODARONE 200 MG TAB (PACERONE) ONE (11:01)
[2020-03-03] MEDS ORDERED: MAGNESIUM CHLORIDE 64 MG TABCR (SLO MAG) ONE ×2 (11:01→11:30)
[2020-03-03] MEDS ORDERED: METOPROLOL TART 50 MG TAB ONE (11:30)
[2020-03-03] MEDS ORDERED: D5W 50ML MINI-BAG PLUS As Ordered ONE ×2 (12:49→22:16)
[2020-03-03] MEDS ORDERED: ceFAZolin 1GM VIAL (J0690 PER 500MG) As Ordered ONE ×2 (12:49→22:16)
[2020-03-04] MEDS ORDERED: ceFAZolin 1GM VIAL (J0690 PER 500MG) ONE (05:17)
[2020-03-04] MEDS ORDERED: ceFAZolin 1GM VIAL (J0690 PER 500MG) As Ordered ONE (05:17)
[2020-03-04] MEDS ORDERED: LIDOCAINE 5% (LIDODERM) PATCH ONE (05:17)
[2020-03-04] MEDS ORDERED: D5W 50ML MINI-BAG PLUS As Ordered ONE (05:17)
[2020-03-04] MEDS ORDERED: **hydrALAZINE HCL** 25 MG TAB ONE ×2 (05:17→14:24)
[2020-03-04] MEDS ORDERED: KCL 40MEQ IN D5/0.45%NACL 1000 ML ONE ×2 (10:07→14:24)
[2020-03-04] MEDS ORDERED: OMEPRAZOLE 20 MG CAP ONE ×2 (10:07→21:42)
[2020-03-04] MEDS ORDERED: amLODIPine 5 MG TAB ONE ×2 (10:07→21:42)
[2020-03-04] MEDS ORDERED: METOCLOPRAMIDE INJ 10MG/2ML VIAL (J2765 PER 1) ONE (10:07)
[2020-03-04] MEDS ORDERED: MAGNESIUM CHLORIDE 64 MG TABCR (SLO MAG) ONE (10:07)
[2020-03-04] MEDS ORDERED: AMIODARONE 200 MG TAB (PACERONE) ONE (10:07)
[2020-03-04] MEDS ORDERED: METOPROLOL TARTRATE 100 MG TAB ONE ×2 (10:07→21:42)
[2020-03-04] MEDS ORDERED: oxyCODONE 10 MG CR TAB ONE ×2 (10:11→21:47)
[2020-03-04] MEDS ORDERED: ONDANSETRON 4MG/2ML VIAL As Ordered ONE (11:55)
[2020-03-04] MEDS ORDERED: ONDANSETRON 4MG/2ML VIAL ONE (11:55)
[2020-03-04] MEDS ORDERED: cefTRIAXone SOD 2 GM VIAL (J0696 PER 250MG) ONE (14:24)
[2020-03-04] MEDS ORDERED: DOXYCYCLINE HYCLATE 100MG/10ML VIAL ONE (14:24)
[2020-03-04] MEDS ORDERED: cefTRIAXone SOD 2 GM VIAL (J0696 PER 250MG) As Ordered ONE (14:24)
[2020-03-04] MEDS ORDERED: DOXYCYCLINE HYCLATE 100MG/10ML VIAL As Ordered ONE (16:34)
[2020-03-04] MEDS ORDERED: CitaloPRAM (CeleXA) 10 MG TABLET ONE (21:42)
[2020-03-05] MEDS ORDERED: **hydrALAZINE HCL** 25 MG TAB ONE ×3 (05:25→10:40)
[2020-03-05] MEDS ORDERED: METOCLOPRAMIDE INJ 10MG/2ML VIAL (J2765 PER 1) ONE ×2 (05:25→10:40)
[2020-03-05] MEDS ORDERED: oxyCODONE 10 MG CR TAB ONE ×2 (05:25→10:40)
[2020-03-05] MEDS ORDERED: KCL 40MEQ IN D5/0.45%NACL 1000 ML ONE ×2 (05:25→10:40)
[2020-03-05] MEDS ORDERED: ONDANSETRON 4MG/2ML VIAL ONE ×2 (05:25→10:40)
[2020-03-05] MEDS ORDERED: OMEPRAZOLE 20 MG CAP ONE ×2 (05:25→10:40)
[2020-03-05] MEDS ORDERED: AMIODARONE 200 MG TAB (PACERONE) ONE ×3 (05:25→11:06)
[2020-03-05] MEDS ORDERED: LIDOCAINE 5% (LIDODERM) PATCH ONE (05:25)
[2020-03-05] MEDS ORDERED: CEFTAZIDIME ONE (05:25)
[2020-03-05] MEDS ORDERED: DOXYCYCLINE HYCLATE 100MG/10ML VIAL ONE (05:25)
[2020-03-05] MEDS ORDERED: SUCRALFATE 1 GM TAB ONE ×3 (08:40→12:59)
[2020-03-05] MEDS ORDERED: allopurinoL 100 MG TAB ONE ×2 (09:31→11:06)
[2020-03-05] MEDS ORDERED: FUROSEMIDE 40 MG TAB ONE ×2 (09:31→11:06)
[2020-03-05] MEDS ORDERED: VITAMIN D 1,000 INTERNATIONAL UNITS TABLET ONE ×3 (09:31→12:59)
[2020-03-05] MEDS ORDERED: DOCUSATE SODIUM 100 MG CAP ONE ×3 (09:31→12:59)
[2020-03-05] MEDS ORDERED: ENOXAPARIN 40MG/0.4ML SYRINGE (J1650 PER 10MG) ONE ×2 (09:31→11:06)
[2020-03-05] MEDS ORDERED: PARoxetine 10MG TABLET ONE ×2 (09:31→11:06)
[2020-03-05] MEDS ORDERED: FINASTERIDE 5 MG TAB ONE ×2 (09:31→11:06)
[2020-03-05] MEDS ORDERED: HumaLOG INSULIN (NovoLOG) PER UNIT ONE ×3 (09:31→12:59)
[2020-03-05] MEDS ORDERED: E-Z-PAQUE 96% w/w SUSP 176GM BTL ONE (10:33)
[2020-03-05] MEDS ORDERED: E-Z-GAS II EFFERVESCENT PACKET (SODIUM BICARB./CITRIC ACID/SIMETHICONE) ONE (10:33)
[2020-03-05] MEDS ORDERED: E-Z-PAQUE 96% w/w SUSP 176GM BTL As Ordered ONE (10:33)
[2020-03-05] MEDS ORDERED: E-Z-HD 98% w/w 340GM SUSP BTL As Ordered ONE (10:33)
[2020-03-05] MEDS ORDERED: E-Z-GAS II EFFERVESCENT PACKET (SODIUM BICARB./CITRIC ACID/SIMETHICONE) As Ordered ONE (10:33)
[2020-03-05] MEDS ORDERED: METOPROLOL TARTRATE 100 MG TAB ONE (10:40)
[2020-03-05] MEDS ORDERED: CitaloPRAM (CeleXA) 10 MG TABLET ONE (10:40)
[2020-03-05] MEDS ORDERED: FERROUS SULFATE 325MG TAB ONE (12:59)
[2020-03-05] MEDS ORDERED: cefTRIAXone SOD 2 GM VIAL (J0696 PER 250MG) As Ordered ONE (14:51)
[2020-03-05] MEDS ORDERED: cefTRIAXone SOD 2 GM VIAL (J0696 PER 250MG) ONE (14:51)
[2020-03-05] MEDS ORDERED: DOXYCYCLINE HYCLATE 100MG/10ML VIAL As Ordered ONE (16:20)
[2020-03-05] MEDS ORDERED: ONDANSETRON 4MG/2ML VIAL As Ordered ONE ×2 (16:21→23:32)
[2020-03-06] MEDS ORDERED: METOCLOPRAMIDE INJ 10MG/2ML VIAL (J2765 PER 1) ONE ×3 (04:12→14:03)
[2020-03-06] MEDS ORDERED: DOXYCYCLINE HYCLATE 100MG TABLET As Ordered ONE (05:10)
[2020-03-06] MEDS ORDERED: ONDANSETRON 4MG/2ML VIAL As Ordered ONE ×4 (05:11→23:05)
[2020-03-06] MEDS ORDERED: **hydrALAZINE HCL** 25 MG TAB ONE ×2 (07:14→14:03)
[2020-03-06] MEDS ORDERED: OMEPRAZOLE 20 MG CAP ONE ×2 (09:19→21:02)
[2020-03-06] MEDS ORDERED: AMIODARONE 200 MG TAB (PACERONE) ONE (09:20)
[2020-03-06] MEDS ORDERED: METOPROLOL TARTRATE 100 MG TAB ONE ×2 (09:20→21:02)
[2020-03-06] MEDS ORDERED: cefTRIAXone SOD 2 GM VIAL (J0696 PER 250MG) As Ordered ONE (14:06)
[2020-03-06] MEDS ORDERED: DOXYCYCLINE HYCLATE 100MG/10ML VIAL As Ordered ONE (15:47)
[2020-03-06] MEDS ORDERED: MESALAMINE 250 MG CR CAP ONE ×2 (15:47→21:02)
[2020-03-06] MEDS ORDERED: KCL 40MEQ IN D5/0.45%NACL 1000 ML ONE (19:47)
[2020-03-06] MEDS ORDERED: CitaloPRAM (CeleXA) 10 MG TABLET ONE (21:02)
[2020-03-06] MEDS ORDERED: amLODIPine 5 MG TAB ONE (21:02)
[2020-03-06] MEDS ORDERED: oxyCODONE 10 MG CR TAB ONE (21:02)
[2020-03-06] MEDS ORDERED: PROMETHAZINE INJ 25 MG/ML VIAL (J2550) ONE (21:12)
[2020-03-07] MEDS ORDERED: ALPRAZolam 0.25 MG TAB ONE ×2 (01:08→15:07)
[2020-03-07] MEDS ORDERED: DOXYCYCLINE HYCLATE 100MG/10ML VIAL As Ordered ONE ×2 (02:59→18:12)
[2020-03-07] MEDS ORDERED: DOXYCYCLINE HYCLATE 100MG/10ML VIAL ONE ×2 (02:59→18:12)
[2020-03-07] MEDS ORDERED: METOCLOPRAMIDE INJ 10MG/2ML VIAL (J2765 PER 1) ONE ×3 (03:00→20:54)
[2020-03-07] MEDS ORDERED: ONDANSETRON 4MG/2ML VIAL As Ordered ONE ×4 (05:41→23:46)
[2020-03-07] MEDS ORDERED: ONDANSETRON 4MG/2ML VIAL ONE ×4 (05:41→23:46)
[2020-03-07] MEDS ORDERED: **hydrALAZINE HCL** 25 MG TAB ONE ×2 (08:10→20:55)
[2020-03-07] MEDS ORDERED: KCL 40MEQ IN D5/0.45%NACL 1000 ML ONE (10:09)
[2020-03-07] MEDS ORDERED: oxyCODONE 10 MG CR TAB ONE ×2 (10:10→20:21)
[2020-03-07] MEDS ORDERED: OMEPRAZOLE 20 MG CAP ONE ×2 (10:10→20:53)
[2020-03-07] MEDS ORDERED: MESALAMINE 250 MG CR CAP ONE ×2 (10:11→20:53)
[2020-03-07] MEDS ORDERED: AMIODARONE 200 MG TAB (PACERONE) ONE (10:12)
[2020-03-07] MEDS ORDERED: amLODIPine 5 MG TAB ONE ×2 (10:55→20:55)
[2020-03-07] MEDS ORDERED: METOPROLOL TARTRATE 100 MG TAB ONE ×2 (10:55→20:54)
[2020-03-07] MEDS ORDERED: cefTRIAXone SOD 2 GM VIAL (J0696 PER 250MG) ONE (14:31)
[2020-03-07] MEDS ORDERED: cefTRIAXone SOD 2 GM VIAL (J0696 PER 250MG) As Ordered ONE (14:31)
[2020-03-07] MEDS ORDERED: LIDOCAINE 5% (LIDODERM) PATCH ONE (18:13)
[2020-03-07] MEDS ORDERED: CitaloPRAM (CeleXA) 10 MG TABLET ONE (20:54)
[2020-03-08] MEDS ORDERED: DOXYCYCLINE HYCLATE 100MG/10ML VIAL ONE (02:58)
[2020-03-08] MEDS ORDERED: DOXYCYCLINE HYCLATE 100MG/10ML VIAL As Ordered ONE ×2 (02:58→16:41)
[2020-03-08] MEDS ORDERED: METOCLOPRAMIDE INJ 10MG/2ML VIAL (J2765 PER 1) ONE ×4 (03:07→20:12)
[2020-03-08] MEDS ORDERED: predniSONE 20 MG TAB As Ordered ONE ×2 (03:07→08:24)
[2020-03-08] MEDS ORDERED: KCL 40MEQ IN D5/0.45%NACL 1000 ML ONE (05:56)
[2020-03-08] MEDS ORDERED: **hydrALAZINE HCL** 25 MG TAB ONE ×3 (05:56→22:12)
[2020-03-08] MEDS ORDERED: ONDANSETRON 4MG/2ML VIAL As Ordered ONE ×4 (05:57→22:13)
[2020-03-08] MEDS ORDERED: AMIODARONE 200 MG TAB (PACERONE) ONE (08:21)
[2020-03-08] MEDS ORDERED: MESALAMINE 250 MG CR CAP ONE ×2 (08:21→22:12)
[2020-03-08] MEDS ORDERED: OMEPRAZOLE 20 MG CAP ONE ×2 (08:21→22:12)
[2020-03-08] MEDS ORDERED: oxyCODONE 10 MG CR TAB ONE (08:21)
[2020-03-08] MEDS ORDERED: PREPARATION H OINTMENT (HEMORRHOID) ONE (10:34)
[2020-03-08] MEDS ORDERED: cefTRIAXone SOD 2 GM VIAL (J0696 PER 250MG) As Ordered ONE (15:18)
[2020-03-08] MEDS ORDERED: MAGNESIUM SULFATE 1GM/100ML D5W BAG (10MG/ML) As Ordered ONE ×2 (16:40→18:33)
[2020-03-08] MEDS ORDERED: diphenhydrAMINE 25MG CAP As Ordered ONE (20:11)
[2020-03-08] MEDS ORDERED: amLODIPine 5 MG TAB ONE (22:12)
[2020-03-08] MEDS ORDERED: METOPROLOL TARTRATE 100 MG TAB ONE (22:12)
[2020-03-08] MEDS ORDERED: APIXABAN 5 MG TAB (ELIQUIS) As Ordered ONE (22:12)
[2020-03-08] MEDS ORDERED: CitaloPRAM (CeleXA) 10 MG TABLET ONE (22:12)
[2020-03-08] MEDS ORDERED: MAGNESIUM OXIDE 400 MG TAB (MAG-OX) As Ordered ONE (23:49)
[2020-03-09] MEDS ORDERED: DOXYCYCLINE HYCLATE 100MG/10ML VIAL As Ordered ONE ×2 (03:07→15:28)
[2020-03-09] MEDS ORDERED: METOCLOPRAMIDE INJ 10MG/2ML VIAL (J2765 PER 1) ONE ×4 (03:07→20:11)
[2020-03-09] MEDS ORDERED: **hydrALAZINE HCL** 25 MG TAB ONE ×2 (05:56→14:30)
[2020-03-09] MEDS ORDERED: ONDANSETRON 4MG/2ML VIAL As Ordered ONE ×3 (05:56→17:09)
[2020-03-09] MEDS ORDERED: MESALAMINE 250 MG CR CAP ONE ×3 (09:05→17:09)
[2020-03-09] MEDS ORDERED: METOPROLOL TARTRATE 100 MG TAB ONE ×2 (09:05→20:11)
[2020-03-09] MEDS ORDERED: amLODIPine 5 MG TAB ONE ×2 (09:05→20:11)
[2020-03-09] MEDS ORDERED: OMEPRAZOLE 20 MG CAP ONE ×2 (09:05→20:11)
[2020-03-09] MEDS ORDERED: oxyCODONE 10 MG CR TAB ONE ×2 (09:05→20:11)
[2020-03-09] MEDS ORDERED: AMIODARONE 200 MG TAB (PACERONE) ONE (09:05)
[2020-03-09] MEDS ORDERED: APIXABAN 5 MG TAB (ELIQUIS) As Ordered ONE ×2 (09:58→20:10)
[2020-03-09] MEDS ORDERED: predniSONE 20 MG TAB As Ordered ONE (09:59)
[2020-03-09] MEDS ORDERED: MAGNESIUM CHLORIDE 64 MG TABCR (SLO MAG) ONE (11:00)
[2020-03-09] MEDS ORDERED: cefTRIAXone SOD 2 GM VIAL (J0696 PER 250MG) As Ordered ONE (14:30)
[2020-03-09] MEDS ORDERED: MAGNESIUM SULFATE 1GM/100ML D5W BAG (10MG/ML) As Ordered ONE (17:09)
[2020-03-09] MEDS ORDERED: CitaloPRAM (CeleXA) 10 MG TABLET ONE (20:11)
[2020-03-10] MEDS ORDERED: DOXYCYCLINE HYCLATE 100MG/10ML VIAL As Ordered ONE ×2 (03:11→14:35)
[2020-03-10] MEDS ORDERED: ONDANSETRON 4MG/2ML VIAL As Ordered ONE ×4 (05:53→22:31)
[2020-03-10] MEDS ORDERED: **hydrALAZINE HCL** 25 MG TAB ONE ×3 (05:53→20:18)
[2020-03-10] MEDS ORDERED: OMEPRAZOLE 20 MG CAP ONE ×2 (08:57→20:18)
[2020-03-10] MEDS ORDERED: METOCLOPRAMIDE INJ 10MG/2ML VIAL (J2765 PER 1) ONE ×2 (08:57→20:18)
[2020-03-10] MEDS ORDERED: AMIODARONE 200 MG TAB (PACERONE) ONE (08:57)
[2020-03-10] MEDS ORDERED: amLODIPine 5 MG TAB ONE ×2 (08:57→20:18)
[2020-03-10] MEDS ORDERED: APIXABAN 5 MG TAB (ELIQUIS) As Ordered ONE (08:57)
[2020-03-10] MEDS ORDERED: oxyCODONE 10 MG CR TAB ONE ×2 (08:57→20:18)
[2020-03-10] MEDS ORDERED: METOPROLOL TARTRATE 100 MG TAB ONE ×2 (08:57→20:18)
[2020-03-10] MEDS ORDERED: predniSONE 20 MG TAB As Ordered ONE (08:59)
[2020-03-10] MEDS ORDERED: cefTRIAXone SOD 2 GM VIAL (J0696 PER 250MG) As Ordered ONE (13:23)
[2020-03-10] MEDS ORDERED: ALPRAZolam 0.25 MG TAB ONE (16:54)
[2020-03-10] MEDS ORDERED: CitaloPRAM (CeleXA) 10 MG TABLET ONE (20:18)
[2020-03-10] MEDS ORDERED: LIDOCAINE 5% (LIDODERM) PATCH ONE (20:18)
[2020-03-10] MEDS ORDERED: LOPERAMIDE 2 MG CAPLET As Ordered ONE (20:28)
[2020-03-11] MEDS ORDERED: **hydrALAZINE HCL** 25 MG TAB ONE ×3 (06:05→21:21)
[2020-03-11] MEDS ORDERED: ONDANSETRON 4MG/2ML VIAL As Ordered ONE ×2 (06:06→10:29)
[2020-03-11] MEDS ORDERED: METOPROLOL TART 50 MG TAB As Ordered ONE (10:28)
[2020-03-11] MEDS ORDERED: AMIODARONE 200 MG TAB (PACERONE) ONE (10:28)
[2020-03-11] MEDS ORDERED: amLODIPine 5 MG TAB ONE ×2 (10:28→21:21)
[2020-03-11] MEDS ORDERED: oxyCODONE 10 MG CR TAB ONE ×2 (10:28→21:21)
[2020-03-11] MEDS ORDERED: OMEPRAZOLE 20 MG CAP ONE ×2 (10:28→21:21)
[2020-03-11] MEDS ORDERED: predniSONE 20 MG TAB As Ordered ONE (10:29)
[2020-03-11] MEDS ORDERED: MAGNESIUM SULFATE 1GM/100ML D5W BAG (10MG/ML) As Ordered ONE (11:59)
[2020-03-11] MEDS ORDERED: LOPERAMIDE 2 MG CAPLET As Ordered ONE (12:00)
[2020-03-11] MEDS ORDERED: METOCLOPRAMIDE INJ 10MG/2ML VIAL (J2765 PER 1) ONE ×2 (12:00→21:21)
[2020-03-11] MEDS ORDERED: ALPRAZolam 0.25 MG TAB ONE (16:00)
[2020-03-11] MEDS ORDERED: MESALAMINE 250 MG CR CAP ONE ×2 (16:00→21:21)
[2020-03-11] MEDS ORDERED: LIDOCAINE 5% (LIDODERM) PATCH ONE (16:00)
[2020-03-11] MEDS ORDERED: CitaloPRAM (CeleXA) 10 MG TABLET ONE (21:21)
[2020-03-11] MEDS ORDERED: HEPARIN SOD (PORCINE) 5000UNITS/ML 1ML VIAL/SYRINGE As Ordered ONE (21:22)
[2020-03-12] MEDS ORDERED: METOCLOPRAMIDE INJ 10MG/2ML VIAL (J2765 PER 1) ONE ×2 (02:12→08:00)
[2020-03-12] MEDS ORDERED: ONDANSETRON 4MG/2ML VIAL As Ordered ONE (05:10)
[2020-03-12] MEDS ORDERED: **hydrALAZINE HCL** 25 MG TAB ONE ×3 (05:10→20:58)
[2020-03-12] MEDS ORDERED: HEPARIN SOD (PORCINE) 5000UNITS/ML 1ML VIAL/SYRINGE As Ordered ONE ×4 (05:25→21:00)
[2020-03-12] MEDS ORDERED: MESALAMINE 250 MG CR CAP ONE ×3 (08:00→20:58)
[2020-03-12] MEDS ORDERED: LIDOCAINE 5% (LIDODERM) PATCH ONE (08:00)
[2020-03-12] MEDS ORDERED: amLODIPine 5 MG TAB ONE (08:00)
[2020-03-12] MEDS ORDERED: AMIODARONE 200 MG TAB (PACERONE) ONE (08:00)
[2020-03-12] MEDS ORDERED: oxyCODONE 10 MG CR TAB ONE ×2 (08:00→20:58)
[2020-03-12] MEDS ORDERED: METOPROLOL TARTRATE 100 MG TAB ONE (08:00)
[2020-03-12] MEDS ORDERED: OMEPRAZOLE 20 MG CAP ONE ×2 (08:00→20:58)
[2020-03-12] MEDS ORDERED: predniSONE 20 MG TAB As Ordered ONE (08:04)
[2020-03-12] MEDS ORDERED: cefTRIAXone SOD 2 GM VIAL (J0696 PER 250MG) As Ordered ONE (08:04)
[2020-03-12] MEDS ORDERED: METOCLOPRAMIDE HCL LIQUID 10 MG/10 ML UDC ONE (09:00)
[2020-03-12] MEDS ORDERED: DOXYCYCLINE HYCLATE 100MG/10ML VIAL As Ordered ONE ×2 (09:49→20:58)
[2020-03-12] MEDS ORDERED: LOPERAMIDE 2 MG CAPLET As Ordered ONE ×2 (09:49→16:06)
[2020-03-12] MEDS ORDERED: METOCLOPRAMIDE 10 MG TAB As Ordered ONE ×2 (13:21→16:06)
[2020-03-12] MEDS ORDERED: CitaloPRAM (CeleXA) 10 MG TABLET ONE (20:58)
[2020-03-13] MEDS ORDERED: **hydrALAZINE HCL** 25 MG TAB ONE ×3 (05:59→21:48)
[2020-03-13] MEDS ORDERED: cefTRIAXone SOD 2 GM VIAL (J0696 PER 250MG) As Ordered ONE (08:05)
[2020-03-13] MEDS ORDERED: HEPARIN SOD (PORCINE) 5000UNITS/ML 1ML VIAL/SYRINGE As Ordered ONE ×3 (08:05→21:47)
[2020-03-13] MEDS ORDERED: LIDOCAINE 5% (LIDODERM) PATCH ONE (09:57)
[2020-03-13] MEDS ORDERED: AMIODARONE 200 MG TAB (PACERONE) ONE (09:57)
[2020-03-13] MEDS ORDERED: METOPROLOL TARTRATE 100 MG TAB ONE (09:57)
[2020-03-13] MEDS ORDERED: oxyCODONE 10 MG CR TAB ONE ×2 (09:57→21:48)
[2020-03-13] MEDS ORDERED: DOXYCYCLINE HYCLATE 100MG/10ML VIAL As Ordered ONE ×2 (09:57→21:48)
[2020-03-13] MEDS ORDERED: LOPERAMIDE 2 MG CAPLET As Ordered ONE ×2 (09:58→22:00)
[2020-03-13] MEDS ORDERED: predniSONE 20 MG TAB As Ordered ONE (09:59)
[2020-03-13] MEDS ORDERED: METOCLOPRAMIDE HCL LIQUID 10 MG/10 ML UDC ONE (13:00)
[2020-03-13] MEDS ORDERED: SALIVA SUBSTITUTE(MOUTHKOTE) BTL ONE (13:00)
[2020-03-13] MEDS ORDERED: KCL 10MEQ IN STERILE WATER 100ML As Ordered ONE ×4 (14:13→18:37)
[2020-03-13] MEDS ORDERED: MAGNESIUM SULFATE 1GM/100ML D5W BAG (10MG/ML) As Ordered ONE ×2 (14:14→16:00)
[2020-03-13] MEDS ORDERED: ONDANSETRON 4 MG ORAL DISINTEGRATING TAB As Ordered ONE (14:15)
[2020-03-13] MEDS ORDERED: MESALAMINE 250 MG CR CAP ONE (16:55)
[2020-03-13] MEDS ORDERED: CitaloPRAM (CeleXA) 10 MG TABLET ONE (21:48)
[2020-03-13] MEDS ORDERED: OMEPRAZOLE 20 MG CAP ONE (21:48)
[2020-03-14] MEDS ORDERED: ALPRAZolam 0.25 MG TAB ONE (05:37)
[2020-03-14] MEDS ORDERED: **hydrALAZINE HCL** 25 MG TAB ONE (05:37)
[2020-03-14] MEDS ORDERED: oxyCODONE 10 MG CR TAB ONE ×2 (08:38→23:02)
[2020-03-14] MEDS ORDERED: METOPROLOL TARTRATE 100 MG TAB ONE (08:38)
[2020-03-14] MEDS ORDERED: amLODIPine 5 MG TAB ONE ×2 (08:38→23:02)
[2020-03-14] MEDS ORDERED: OMEPRAZOLE 20 MG CAP ONE ×2 (08:38→23:02)
[2020-03-14] MEDS ORDERED: MESALAMINE 250 MG CR CAP ONE ×4 (08:38→23:02)
[2020-03-14] MEDS ORDERED: AMIODARONE 200 MG TAB (PACERONE) ONE (08:38)
[2020-03-14] MEDS ORDERED: HEPARIN SOD (PORCINE) 5000UNITS/ML 1ML VIAL/SYRINGE As Ordered ONE ×2 (08:47→23:02)
[2020-03-14] MEDS ORDERED: cefTRIAXone SOD 2 GM VIAL (J0696 PER 250MG) As Ordered ONE (08:49)
[2020-03-14] MEDS ORDERED: predniSONE 20 MG TAB As Ordered ONE (08:49)
[2020-03-14] MEDS ORDERED: DOXYCYCLINE HYCLATE 100MG/10ML VIAL As Ordered ONE ×2 (11:13→23:02)
[2020-03-14] MEDS ORDERED: MAGNESIUM CHLORIDE 64 MG TABCR (SLO MAG) ONE (13:00)
[2020-03-14] MEDS ORDERED: FUROSEMIDE 40 MG TAB As Ordered ONE (15:23)
[2020-03-14] MEDS ORDERED: CitaloPRAM (CeleXA) 10 MG TABLET ONE (23:02)
[2020-03-14] MEDS ORDERED: DOXYCYCLINE HYCLATE 100MG/10ML VIAL ONE (23:02)
[2020-03-14] MEDS ORDERED: LOPERAMIDE 2 MG CAPLET As Ordered ONE (23:36)
[2020-03-15] MEDS ORDERED: **hydrALAZINE HCL** 25 MG TAB ONE ×4 (05:33→22:51)
[2020-03-15] MEDS ORDERED: HEPARIN SOD (PORCINE) 5000UNITS/ML 1ML VIAL/SYRINGE As Ordered ONE ×3 (05:33→22:51)
[2020-03-15] MEDS ORDERED: LOPERAMIDE 2 MG CAPLET As Ordered ONE (05:34)
[2020-03-15] MEDS ORDERED: MESALAMINE 250 MG CR CAP ONE ×2 (09:33→22:51)
[2020-03-15] MEDS ORDERED: AMIODARONE 200 MG TAB (PACERONE) ONE (09:33)
[2020-03-15] MEDS ORDERED: OMEPRAZOLE 20 MG CAP ONE ×2 (09:33→22:51)
[2020-03-15] MEDS ORDERED: oxyCODONE 10 MG CR TAB ONE ×2 (09:33→22:51)
[2020-03-15] MEDS ORDERED: amLODIPine 5 MG TAB ONE ×2 (09:33→22:51)
[2020-03-15] MEDS ORDERED: METOPROLOL TARTRATE 100 MG TAB ONE ×2 (09:33→22:51)
[2020-03-15] MEDS ORDERED: FUROSEMIDE 40 MG TAB As Ordered ONE (09:34)
[2020-03-15] MEDS ORDERED: DOXYCYCLINE HYCLATE 100MG TABLET As Ordered ONE (09:35)
[2020-03-15] MEDS ORDERED: cefTRIAXone SOD 2 GM VIAL (J0696 PER 250MG) As Ordered ONE (09:35)
[2020-03-15] MEDS ORDERED: predniSONE 20 MG TAB As Ordered ONE (09:35)
[2020-03-15] MEDS ORDERED: METOCLOPRAMIDE INJ 10MG/2ML VIAL (J2765 PER 1) ONE ×2 (10:52→17:08)
[2020-03-15] MEDS ORDERED: DOXYCYCLINE HYCLATE 100MG/10ML VIAL As Ordered ONE ×2 (10:54→22:52)
[2020-03-15] MEDS ORDERED: CitaloPRAM (CeleXA) 10 MG TABLET ONE (22:51)
[2020-03-16] MEDS ORDERED: **hydrALAZINE HCL** 25 MG TAB ONE ×4 (05:02→21:43)
[2020-03-16] MEDS ORDERED: HEPARIN SOD (PORCINE) 5000UNITS/ML 1ML VIAL/SYRINGE As Ordered ONE ×3 (05:23→21:15)
[2020-03-16] MEDS ORDERED: METOCLOPRAMIDE INJ 10MG/2ML VIAL (J2765 PER 1) ONE ×4 (05:24→21:43)
[2020-03-16] MEDS ORDERED: OMEPRAZOLE 20 MG CAP ONE ×2 (09:34→21:43)
[2020-03-16] MEDS ORDERED: AMIODARONE 200 MG TAB (PACERONE) ONE (09:34)
[2020-03-16] MEDS ORDERED: MESALAMINE 250 MG CR CAP ONE ×2 (09:34→13:00)
[2020-03-16] MEDS ORDERED: oxyCODONE 10 MG CR TAB ONE ×2 (09:34→21:43)
[2020-03-16] MEDS ORDERED: amLODIPine 5 MG TAB ONE ×2 (09:34→21:43)
[2020-03-16] MEDS ORDERED: predniSONE 20 MG TAB As Ordered ONE (09:35)
[2020-03-16] MEDS ORDERED: FUROSEMIDE 40 MG TAB As Ordered ONE (09:35)
[2020-03-16] MEDS ORDERED: DOXYCYCLINE HYCLATE 100MG/10ML VIAL As Ordered ONE ×2 (09:35→21:15)
[2020-03-16] MEDS ORDERED: cefTRIAXone SOD 2 GM VIAL (J0696 PER 250MG) As Ordered ONE (09:36)
[2020-03-16] MEDS ORDERED: ONDANSETRON 4MG/2ML VIAL As Ordered ONE (11:51)
[2020-03-16] MEDS ORDERED: METOCLOPRAMIDE HCL LIQUID 10 MG/10 ML UDC ONE (13:00)
[2020-03-16] MEDS ORDERED: ALPRAZolam 0.25 MG TAB ONE (21:43)
[2020-03-16] MEDS ORDERED: CitaloPRAM (CeleXA) 10 MG TABLET ONE (21:43)
[2020-03-17] MEDS ORDERED: HEPARIN SOD (PORCINE) 5000UNITS/ML 1ML VIAL/SYRINGE As Ordered ONE ×3 (05:10→22:35)
[2020-03-17] MEDS ORDERED: MESALAMINE 250 MG CR CAP ONE (08:37)
[2020-03-17] MEDS ORDERED: oxyCODONE 10 MG CR TAB ONE ×2 (08:37→22:34)
[2020-03-17] MEDS ORDERED: AMIODARONE 200 MG TAB (PACERONE) ONE (08:37)
[2020-03-17] MEDS ORDERED: METOCLOPRAMIDE INJ 10MG/2ML VIAL (J2765 PER 1) ONE ×4 (08:37→22:34)
[2020-03-17] MEDS ORDERED: amLODIPine 5 MG TAB ONE ×2 (08:37→22:34)
[2020-03-17] MEDS ORDERED: OMEPRAZOLE 20 MG CAP ONE ×2 (08:37→22:34)
[2020-03-17] MEDS ORDERED: predniSONE 20 MG TAB As Ordered ONE (08:40)
[2020-03-17] MEDS ORDERED: FUROSEMIDE 40 MG TAB As Ordered ONE (08:40)
[2020-03-17] MEDS ORDERED: cefTRIAXone SOD 2 GM VIAL (J0696 PER 250MG) As Ordered ONE (08:40)
[2020-03-17] MEDS ORDERED: KCL 10MEQ IN STERILE WATER 100ML As Ordered ONE ×8 (10:02→18:14)
[2020-03-17] MEDS ORDERED: DOXYCYCLINE HYCLATE 100MG/10ML VIAL As Ordered ONE (10:34)
[2020-03-17] MEDS ORDERED: MAGNESIUM SULFATE 1GM/100ML D5W BAG (10MG/ML) As Ordered ONE ×2 (12:02→13:11)
[2020-03-17] MEDS ORDERED: **hydrALAZINE HCL** 25 MG TAB ONE ×2 (13:33→22:34)
[2020-03-17] MEDS ORDERED: LOPERAMIDE 2 MG CAPLET As Ordered ONE (16:38)
[2020-03-17] MEDS ORDERED: CitaloPRAM (CeleXA) 10 MG TABLET ONE (22:34)
[2020-03-17] MEDS ORDERED: METOPROLOL TARTRATE 100 MG TAB ONE (22:34)
[2020-03-17] MEDS ORDERED: ALPRAZolam 0.25 MG TAB ONE (22:34)
[2020-03-18] MEDS ORDERED: HEPARIN SOD (PORCINE) 5000UNITS/ML 1ML VIAL/SYRINGE As Ordered ONE ×3 (06:29→22:27)
[2020-03-18] MEDS ORDERED: **hydrALAZINE HCL** 25 MG TAB ONE ×3 (06:29→22:04)
[2020-03-18] MEDS ORDERED: AMIODARONE 200 MG TAB (PACERONE) ONE (09:14)
[2020-03-18] MEDS ORDERED: oxyCODONE 10 MG CR TAB ONE ×2 (09:14→22:04)
[2020-03-18] MEDS ORDERED: OMEPRAZOLE 20 MG CAP ONE ×2 (09:14→22:04)
[2020-03-18] MEDS ORDERED: METOCLOPRAMIDE INJ 10MG/2ML VIAL (J2765 PER 1) ONE ×4 (09:14→22:04)
[2020-03-18] MEDS ORDERED: amLODIPine 5 MG TAB ONE ×2 (09:14→22:04)
[2020-03-18] MEDS ORDERED: FUROSEMIDE 40 MG TAB As Ordered ONE (09:15)
[2020-03-18] MEDS ORDERED: LOPERAMIDE 2 MG CAPLET As Ordered ONE (09:15)
[2020-03-18] MEDS ORDERED: predniSONE 20 MG TAB As Ordered ONE (09:16)
[2020-03-18] MEDS ORDERED: KCL 10MEQ IN STERILE WATER 100ML As Ordered ONE ×4 (11:14→17:19)
[2020-03-18] MEDS ORDERED: MAGNESIUM SULFATE 1GM/100ML D5W BAG (10MG/ML) As Ordered ONE (11:14)
[2020-03-18] MEDS ORDERED: MESALAMINE 250 MG CR CAP ONE (22:04)
[2020-03-18] MEDS ORDERED: CitaloPRAM (CeleXA) 10 MG TABLET ONE (22:04)
[2020-03-19] MEDS ORDERED: **hydrALAZINE HCL** 25 MG TAB ONE ×3 (06:57→20:55)
[2020-03-19] MEDS ORDERED: HEPARIN SOD (PORCINE) 5000UNITS/ML 1ML VIAL/SYRINGE As Ordered ONE ×3 (06:58→22:28)
[2020-03-19] MEDS ORDERED: oxyCODONE 10 MG CR TAB ONE ×2 (08:24→20:55)
[2020-03-19] MEDS ORDERED: METOCLOPRAMIDE INJ 10MG/2ML VIAL (J2765 PER 1) ONE (08:24)
[2020-03-19] MEDS ORDERED: METOPROLOL TARTRATE 100 MG TAB ONE (08:24)
[2020-03-19] MEDS ORDERED: amLODIPine 5 MG TAB ONE ×2 (08:24→20:55)
[2020-03-19] MEDS ORDERED: AMIODARONE 200 MG TAB (PACERONE) ONE (08:24)
[2020-03-19] MEDS ORDERED: OMEPRAZOLE 20 MG CAP ONE ×2 (08:24→20:55)
[2020-03-19] MEDS ORDERED: FUROSEMIDE 40 MG TAB As Ordered ONE (08:26)
[2020-03-19] MEDS ORDERED: predniSONE 20 MG TAB As Ordered ONE (08:27)
[2020-03-19] MEDS ORDERED: LOPERAMIDE 2 MG CAPLET As Ordered ONE ×3 (11:43→23:48)
[2020-03-19] MEDS ORDERED: METOCLOPRAMIDE 10 MG TAB As Ordered ONE ×3 (12:14→20:58)
[2020-03-19] MEDS ORDERED: NYSTATIN 500,000 U/5 ML SUSP UDC ONE (20:55)
[2020-03-19] MEDS ORDERED: MESALAMINE 250 MG CR CAP ONE (20:55)
[2020-03-19] MEDS ORDERED: CitaloPRAM (CeleXA) 10 MG TABLET ONE (20:55)
[2020-03-20] MEDS ORDERED: HEPARIN SOD (PORCINE) 5000UNITS/ML 1ML VIAL/SYRINGE ONE (06:09)
[2020-03-20] MEDS ORDERED: HEPARIN SOD (PORCINE) 5000UNITS/ML 1ML VIAL/SYRINGE As Ordered ONE ×2 (06:09→13:47)
[2020-03-20] MEDS ORDERED: **hydrALAZINE HCL** 25 MG TAB ONE ×2 (06:09→13:47)
[2020-03-20] MEDS ORDERED: ONDANSETRON 4 MG TAB As Ordered ONE (06:10)
[2020-03-20] MEDS ORDERED: LOPERAMIDE 2 MG CAPLET As Ordered ONE ×2 (06:10→12:04)
[2020-03-20] MEDS ORDERED: OMEPRAZOLE 20 MG CAP ONE (08:16)
[2020-03-20] MEDS ORDERED: AMIODARONE 200 MG TAB (PACERONE) ONE (08:16)
[2020-03-20] MEDS ORDERED: oxyCODONE 10 MG CR TAB ONE (08:16)
[2020-03-20] MEDS ORDERED: METOCLOPRAMIDE 10 MG TAB As Ordered ONE ×2 (08:17→12:04)
[2020-03-20] MEDS ORDERED: FUROSEMIDE 40 MG TAB As Ordered ONE (08:17)
[2020-03-20] MEDS ORDERED: predniSONE 20 MG TAB As Ordered ONE (08:17)
[2020-04-01 20:27] LABS: APPEARANCE, URINE CLEAR (CLEAR); COLOR, URINE YELLOW (YELLOW); PROTEIN, URINE AUTO NEGATIVE (NEGATIVE); SPECIFIC GRAVITY URINE AUTO 1.005 (1.002-1.035)
[2020-04-01 20:28] LABS: BACTERIA, URINE AUTO 1+ (NEGATIVE); BILIRUBIN, URINE AUTO NEGATIVE (NEGATIVE); BLOOD, URINE BLOOD NEGATIVE (NEGATIVE); GLUCOSE, URINE (UA) AUTO NEGATIVE (NEGATIVE); KETONE, URINE AUTO NEGATIVE (NEGATIVE); LEUKOCYTE ESTERASE, URINE AUTO NEGATIVE (NEGATIVE); NITRITE, URINE AUTO NEGATIVE (NEGATIVE); RBC, URINE AUTO 4 /HPF (0-3); UROBILINOGEN, URINE AUTO 0.2 mg/dL (0.0-2.0); WBC, URINE AUTO 5 /HPF (0-3)
[2020-04-01 20:29] LABS: MUCUS, URINE SMALL (NEGATIVE); OVAL FAT BODIES, URINE AUTO 0 /HPF (<1); SQUAMOUS EPITHELIAL CELL UR AU 0 /HPF (0-6)
[2020-04-01 20:30] LABS: AMORPHOUS SEDIMENT NEGATIVE (NEGATIVE)
--- NOTE | 2020-04-05 16:07 | REP ---
CT OF THE HEAD WITHOUT CONTRAST: HISTORY: Intractable vomiting. TECHNIQUE: Axial noncontrast images from the skull base to the vertex with coronal reformations. FINDINGS: Age related atrophic changes and microvascular ischemic changes are appreciated. The ventricles are symmetric. Starr-white differentiation is maintained. Evaluation of the posterior fossa is limited due to artifact. No acute intracranial hemorrhage, mass or mass effect noted. No extra-axial fluid collection noted. The calvarium is intact. The paranasal sinuses and mastoid air cells are clear. IMPRESSION: Atrophy and microvascular ischemic changes. Limited evaluation of the posterior fossa due to artifact. No acute intracranial hemorrhage or mass/mass effect appreciated. MTDD
--- NOTE | 2020-04-05 16:13 | REP ---
PORTABLE CHEST X-RAY: SINGLE VIEW HISTORY: Unavailable. This report was delayed due to a malware attack on this facility. COMPARISON: Portable chest x-ray from 02/29/20. FINDINGS: A right-sided PICC line terminates in the expected location of the superior vena cava. The lungs are well-inflated. There is pleuroparenchymal reaction, blunting of the left pleural angle, unchanged. No new infiltrate. The heart is not enlarged. MTDD
[2020-04-10 14:23] LABS: HEMATOCRIT 30.5 % (36.0-47.0); HEMOGLOBIN 9.3 g/dl (12.0-15.5); MEAN CORPUSCULAR HEMOGLOBIN 29.2 pg (27.0-33.0); MEAN CORPUSCULAR HGB CONC 30.5 g/dl (32.0-36.5); MEAN CORPUSCULAR VOLUME 95.9 fl (80.0-96.0); PLATELET COUNT, AUTOMATED 353 10^3/uL (150-450); RED BLOOD COUNT 3.18 10^6/uL (4.00-5.40); WHITE BLOOD COUNT 11.3 10^3/uL (4.0-10.0)
[2020-04-10 14:43] LABS: CALCIUM LEVEL 8.6 MG/DL (8.8-10.2); CREATININE FOR GFR 1.47 MG/DL (0.55-1.30); GLOMERULAR FILTRATION RATE 36.6 (>39); MAGNESIUM LEVEL 1.3 MG/DL (1.8-2.4); POTASSIUM SERUM 4.8 MEQ/L (3.5-5.1)
[2020-04-11 10:42] LABS: BASO % 0.4 % (0.0-1.0); EOS # 0.3 10^3/uL (0.0-0.5); EOS % 2.6 % (0.0-3.0); HEMATOCRIT 32.2 % (36.0-47.0); HEMOGLOBIN 9.7 g/dl (12.0-15.5); LYMPH # 2.5 10^3/uL (1.5-5.0); LYMPH % 26.4 % (24.0-44.0); MEAN CORPUSCULAR HEMOGLOBIN 29.4 pg (27.0-33.0); MEAN CORPUSCULAR HGB CONC 30.1 g/dl (32.0-36.5); MEAN CORPUSCULAR VOLUME 97.6 fl (80.0-96.0); MONO # 1.3 10^3/uL (0.0-0.8); MONO % 14.1 % (0.0-5.0); NEUTROPHILS # 5.3 10^3/uL (1.5-8.5); NEUTROPHILS % 55.6 % (36.0-66.0); PLATELET COUNT, AUTOMATED 283 10^3/uL (150-450); WHITE BLOOD COUNT 9.5 10^3/uL (4.0-10.0)
[2020-04-11 13:15] LABS: BASO % 0.5 % (0.0-1.0); EOS # 0.2 10^3/uL (0.0-0.5); EOS % 2.6 % (0.0-3.0); HEMATOCRIT 30.9 % (36.0-47.0); HEMOGLOBIN 9.3 g/dl (12.0-15.5); LYMPH # 2.7 10^3/uL (1.5-5.0); LYMPH % 30.9 % (24.0-44.0); MEAN CORPUSCULAR HEMOGLOBIN 29.2 pg (27.0-33.0); MEAN CORPUSCULAR HGB CONC 30.1 g/dl (32.0-36.5); MEAN CORPUSCULAR VOLUME 97.2 fl (80.0-96.0); MONO # 1.4 10^3/uL (0.0-0.8); MONO % 16.2 % (0.0-5.0); NEUTROPHILS # 4.3 10^3/uL (1.5-8.5); NEUTROPHILS % 48.9 % (36.0-66.0); PLATELET COUNT, AUTOMATED 282 10^3/uL (150-450); RED BLOOD COUNT 3.18 10^6/uL (4.00-5.40); WHITE BLOOD COUNT 8.8 10^3/uL (4.0-10.0)
[2020-04-14 07:35] LABS: ALBUMIN 1.8 GM/DL (3.2-5.2); BILIRUBIN,DIRECT 0.1 MG/DL (0.0-0.2); BILIRUBIN,TOTAL 0.3 MG/DL (0.2-1.0); CALCIUM LEVEL 8.3 MG/DL (8.8-10.2); CREATININE FOR GFR 1.36 MG/DL (0.55-1.30); MAGNESIUM LEVEL 1.5 MG/DL (1.8-2.4); POTASSIUM SERUM 4.3 MEQ/L (3.5-5.1); TOTAL PROTEIN 4.7 GM/DL (6.4-8.2)
[2020-04-16 22:26] LABS: HEMATOCRIT 33.8 % (36.0-47.0); HEMOGLOBIN 9.8 g/dl (12.0-15.5); MEAN CORPUSCULAR HEMOGLOBIN 29.3 pg (27.0-33.0); MEAN CORPUSCULAR VOLUME 101.2 fl (80.0-96.0); PLATELET COUNT, AUTOMATED 237 10^3/uL (150-450); RED BLOOD COUNT 3.34 10^6/uL (4.00-5.40); WHITE BLOOD COUNT 8.8 10^3/uL (4.0-10.0)
[2020-04-17 10:39] LABS: CALCIUM LEVEL 8.5 MG/DL (8.8-10.2); CREATININE FOR GFR 1.33 MG/DL (0.55-1.30); GLOMERULAR FILTRATION RATE 41.1 (>39); POTASSIUM SERUM 4.1 MEQ/L (3.5-5.1)
[2020-04-19 18:13] LABS: CALCIUM LEVEL 8.6 MG/DL (8.8-10.2); CREATININE FOR GFR 1.47 MG/DL (0.55-1.30); GLOMERULAR FILTRATION RATE 36.6 (>39); MAGNESIUM LEVEL 1.3 MG/DL (1.8-2.4); POTASSIUM SERUM 4.8 MEQ/L (3.5-5.1)
[2020-04-26 20:33] LABS: HEMATOCRIT 33.3 % (36.0-47.0); HEMOGLOBIN 10.1 g/dl (12.0-15.5); MEAN CORPUSCULAR HEMOGLOBIN 29.8 pg (27.0-33.0); MEAN CORPUSCULAR HGB CONC 30.3 g/dl (32.0-36.5); MEAN CORPUSCULAR VOLUME 98.2 fl (80.0-96.0); PLATELET COUNT, AUTOMATED 319 10^3/uL (150-450); RED BLOOD COUNT 3.39 10^6/uL (4.00-5.40); WHITE BLOOD COUNT 9.2 10^3/uL (4.0-10.0)
--- NOTE | 2020-04-27 08:53 | REP ---
SINGLE CONTRAST UPPER GI: The procedure was performed under the direct supervision of Dr. Parks. The images were reviewed with Dr. Parks. FINDINGS: Liquid barium was administered in the AP supine position. The oral and pharyngeal stages of deglutition are unremarkable. Esophageal transport is prompt and efficient and there is no evidence of esophagitis or stricture, mucosal ring or hiatal hernia. Gastroesophageal reflux is not demonstrated on this examination. The exam is limited due to patient condition. The stomach is grossly normal. There is no mass effect or ulcer identified. There is no morphologic abnormality identified. There is free flow of contrast through the duodenum without delay. The duodenum is grossly normal. The mucosal folds are smooth and regular. There is no evidence of duodenitis, pancreatitis, peptic ulcer disease or neoplasm. The visualized portion of the proximal small bowel appears normal in course and caliber. The small bowel portion of the examination was unable to be performed as the patient threw up all of the contrast soon after ingesting. IMPRESSION: Single contrast upper GI examination shows no morphologic abnormality. 0.4 minutes of fluoroscopy time was utilized for this procedure. [facility]
[2020-04-28 14:01] LABS: BASO % 0.2 % (0.0-1.0); EOS # 0.2 10^3/uL (0.0-0.5); EOS % 2.1 % (0.0-3.0); HEMATOCRIT 32.3 % (36.0-47.0); HEMOGLOBIN 9.8 g/dl (12.0-15.5); LYMPH # 2.2 10^3/uL (1.5-5.0); LYMPH % 21.1 % (24.0-44.0); MEAN CORPUSCULAR HEMOGLOBIN 29.5 pg (27.0-33.0); MEAN CORPUSCULAR HGB CONC 30.3 g/dl (32.0-36.5); MEAN CORPUSCULAR VOLUME 97.3 fl (80.0-96.0); MONO # 0.6 10^3/uL (0.0-0.8); NEUTROPHILS # 7.2 10^3/uL (1.5-8.5); NEUTROPHILS % 69.5 % (36.0-66.0); PLATELET COUNT, AUTOMATED 320 10^3/uL (150-450); RED BLOOD COUNT 3.32 10^6/uL (4.00-5.40); WHITE BLOOD COUNT 10.4 10^3/uL (4.0-10.0)
[2020-04-30 10:33] LABS: HEMATOCRIT 29.6 % (36.0-47.0); MEAN CORPUSCULAR HEMOGLOBIN 28.9 pg (27.0-33.0); MEAN CORPUSCULAR HGB CONC 30.4 g/dl (32.0-36.5); MEAN CORPUSCULAR VOLUME 95.2 fl (80.0-96.0); PLATELET COUNT, AUTOMATED 331 10^3/uL (150-450); RED BLOOD COUNT 3.11 10^6/uL (4.00-5.40); WHITE BLOOD COUNT 9.8 10^3/uL (4.0-10.0)
[2020-05-01 06:36] LABS: HEMATOCRIT 30.6 % (36.0-47.0); HEMOGLOBIN 9.2 g/dl (12.0-15.5); MEAN CORPUSCULAR HEMOGLOBIN 29.3 pg (27.0-33.0); MEAN CORPUSCULAR HGB CONC 30.1 g/dl (32.0-36.5); MEAN CORPUSCULAR VOLUME 97.5 fl (80.0-96.0); PLATELET COUNT, AUTOMATED 332 10^3/uL (150-450); RED BLOOD COUNT 3.14 10^6/uL (4.00-5.40); WHITE BLOOD COUNT 10.9 10^3/uL (4.0-10.0)
--- NOTE | 2020-05-01 09:39 | REP ---
CERVICAL SPINE SERIES: Delay in reporting results from hospital computer malfunction as a result of malware / ransomeware. TECHNIQUE: The study consists of AP and lateral views of the cervical spine and 3 odointoid views. HISTORY: Patient reportedly has a history of a C2 fracture. COMPARISON: None. FINDINGS: On the lateral view, C1 through the mid-body of C6 are included. C5 and C6 are obscured by metallic portions of the cervical brace and are not optimally visualized. The vertebral body heights of C1, C2, C3 and C4 are normal. There is no displacement or subluxation. The prevertebral soft tissues are normal. No acute fractures are identified on plain films. 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 On the AP view, there is significant obscuration due to metallic artifacts arising from the cervical spine brace. No definite odontoid fracture is identified on plain films. IMPRESSION: No definite acute fracture or subluxation are identified. 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 The C5 and C6 vertebral bodies are obscured as described. If symptoms persist or worsen, consider CT or MRI of the cervical spine for further evaluation. MTDD
--- NOTE | 2020-05-01 15:45 | ECGEPIP ---
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
[2020-05-01 16:30] LABS: MEAN CORPUSCULAR HEMOGLOBIN 28.6 pg (27.0-33.0); MEAN CORPUSCULAR VOLUME 95.2 fl (80.0-96.0); PLATELET COUNT, AUTOMATED 335 10^3/uL (150-450); RED BLOOD COUNT 3.15 10^6/uL (4.00-5.40); WHITE BLOOD COUNT 9.2 10^3/uL (4.0-10.0)
[2020-05-04 14:45] LABS: HEMATOCRIT 31.2 % (36.0-47.0); MEAN CORPUSCULAR HEMOGLOBIN 28.8 pg (27.0-33.0); MEAN CORPUSCULAR HGB CONC 32.1 g/dl (32.0-36.5); MEAN CORPUSCULAR VOLUME 89.9 fl (80.0-96.0); PLATELET COUNT, AUTOMATED 302 10^3/uL (150-450); RED BLOOD COUNT 3.47 10^6/uL (4.00-5.40); WHITE BLOOD COUNT 9.2 10^3/uL (4.0-10.0)
[2020-05-09 08:11] LABS: HEMATOCRIT 38.1 % (36.0-47.0); HEMOGLOBIN 12.1 g/dl (12.0-15.5); MEAN CORPUSCULAR HEMOGLOBIN 28.3 pg (27.0-33.0); MEAN CORPUSCULAR HGB CONC 31.8 g/dl (32.0-36.5); MEAN CORPUSCULAR VOLUME 89.2 fl (80.0-96.0); PLATELET COUNT, AUTOMATED 325 10^3/uL (150-450); RED BLOOD COUNT 4.27 10^6/uL (4.00-5.40); WHITE BLOOD COUNT 13.6 10^3/uL (4.0-10.0)
[2020-05-10 07:20] LABS: HEMATOCRIT 34.1 % (36.0-47.0); HEMOGLOBIN 10.7 g/dl (12.0-15.5); MEAN CORPUSCULAR HEMOGLOBIN 28.2 pg (27.0-33.0); MEAN CORPUSCULAR HGB CONC 31.4 g/dl (32.0-36.5); PLATELET COUNT, AUTOMATED 152 10^3/uL (150-450); RED BLOOD COUNT 3.79 10^6/uL (4.00-5.40); WHITE BLOOD COUNT 9.9 10^3/uL (4.0-10.0)
[2020-05-12 09:09] LABS: HEMATOCRIT 31.2 % (36.0-47.0); HEMOGLOBIN 9.6 g/dl (12.0-15.5); MEAN CORPUSCULAR HEMOGLOBIN 28.6 pg (27.0-33.0); MEAN CORPUSCULAR HGB CONC 30.8 g/dl (32.0-36.5); MEAN CORPUSCULAR VOLUME 92.9 fl (80.0-96.0); PLATELET COUNT, AUTOMATED 348 10^3/uL (150-450); RED BLOOD COUNT 3.36 10^6/uL (4.00-5.40)
[2020-05-12 11:10] LABS: HEMOGLOBIN 9.9 g/dl (12.0-15.5); MEAN CORPUSCULAR HEMOGLOBIN 28.6 pg (27.0-33.0); MEAN CORPUSCULAR HGB CONC 31.9 g/dl (32.0-36.5); MEAN CORPUSCULAR VOLUME 89.6 fl (80.0-96.0); PLATELET COUNT, AUTOMATED 310 10^3/uL (150-450); RED BLOOD COUNT 3.46 10^6/uL (4.00-5.40)
[2020-05-13 20:36] LABS: CALCIUM LEVEL 8.7 MG/DL (8.8-10.2); CREATININE FOR GFR 1.45 MG/DL (0.55-1.30); GLOMERULAR FILTRATION RATE 37.2 (>39); MAGNESIUM LEVEL 1.3 MG/DL (1.8-2.4); POTASSIUM SERUM 4.4 MEQ/L (3.5-5.1)
[2020-05-20 14:39] LABS: HEMATOCRIT 31.5 % (36.0-47.0); HEMOGLOBIN 9.8 g/dl (12.0-15.5); MEAN CORPUSCULAR HEMOGLOBIN 28.8 pg (27.0-33.0); MEAN CORPUSCULAR HGB CONC 31.1 g/dl (32.0-36.5); MEAN CORPUSCULAR VOLUME 92.6 fl (80.0-96.0); PLATELET COUNT, AUTOMATED 348 10^3/uL (150-450); WHITE BLOOD COUNT 10.1 10^3/uL (4.0-10.0)
[2020-05-26 01:38] LABS: CALCIUM LEVEL 8.2 MG/DL (8.8-10.2); CREATININE FOR GFR 1.26 MG/DL (0.55-1.30); GLOMERULAR FILTRATION RATE 43.7 (>39); MAGNESIUM LEVEL 1.6 MG/DL (1.8-2.4); POTASSIUM SERUM 3.2 MEQ/L (3.5-5.1)
[2020-05-28 14:24] LABS: CALCIUM LEVEL 8.7 MG/DL (8.8-10.2); CREATININE FOR GFR 1.39 MG/DL (0.55-1.30); MAGNESIUM LEVEL 1.1 MG/DL (1.8-2.4); POTASSIUM SERUM 4.6 MEQ/L (3.5-5.1)
[2020-06-01 13:34] LABS: CALCIUM LEVEL 8.7 MG/DL (8.8-10.2); CREATININE FOR GFR 1.62 MG/DL (0.55-1.30); GLOMERULAR FILTRATION RATE 32.7 (>39); MAGNESIUM LEVEL 1.8 MG/DL (1.8-2.4)
[2020-06-03 11:22] LABS: BILIRUBIN,TOTAL 0.2 MG/DL (0.2-1.0); CALCIUM LEVEL 8.6 MG/DL (8.8-10.2); CREATININE FOR GFR 1.58 MG/DL (0.55-1.30); GLOMERULAR FILTRATION RATE 33.7 (>39); MAGNESIUM LEVEL 1.8 MG/DL (1.8-2.4); POTASSIUM SERUM 4.2 MEQ/L (3.5-5.1); TOTAL PROTEIN 5.1 GM/DL (6.4-8.2)
[2020-06-04 17:16] LABS: CREATININE FOR GFR 1.27 MG/DL (0.55-1.30); GLOMERULAR FILTRATION RATE 43.3 (>39); MAGNESIUM LEVEL 1.6 MG/DL (1.8-2.4); PHOSPHORUS LEVEL 3.1 MG/DL (2.5-4.9); POTASSIUM SERUM 3.3 MEQ/L (3.5-5.1)
[2020-06-05 09:32] LABS: CALCIUM LEVEL 8.2 MG/DL (8.8-10.2); CREATININE FOR GFR 1.37 MG/DL (0.55-1.30); GLOMERULAR FILTRATION RATE 39.7 (>39); MAGNESIUM LEVEL 1.8 MG/DL (1.8-2.4); POTASSIUM SERUM 3.6 MEQ/L (3.5-5.1)
[2020-06-06 15:04] LABS: CREATININE FOR GFR 1.17 MG/DL (0.55-1.30); GLOMERULAR FILTRATION RATE 47.6 (>39); POTASSIUM SERUM 3.6 MEQ/L (3.5-5.1)
[2020-06-06 15:05] LABS: CALCIUM LEVEL 8.2 MG/DL (8.8-10.2); MAGNESIUM LEVEL 1.9 MG/DL (1.8-2.4); PHOSPHORUS LEVEL 2.8 MG/DL (2.5-4.9)
[2020-06-08 06:17] LABS: CALCIUM LEVEL 8.5 MG/DL (8.8-10.2); CREATININE FOR GFR 1.51 MG/DL (0.55-1.30); GLOMERULAR FILTRATION RATE 35.5 (>39); MAGNESIUM LEVEL 1.6 MG/DL (1.8-2.4)
[2020-06-11 19:17] LABS: CALCIUM LEVEL 8.1 MG/DL (8.8-10.2); CREATININE FOR GFR 1.32 MG/DL (0.55-1.30); GLOMERULAR FILTRATION RATE 41.4 (>39); MAGNESIUM LEVEL 1.5 MG/DL (1.8-2.4); PHOSPHORUS LEVEL 3.3 MG/DL (2.5-4.9); POTASSIUM SERUM 2.5 MEQ/L (3.5-5.1)
[2020-06-11 19:27] LABS: CALCIUM LEVEL 7.9 MG/DL (8.8-10.2); CREATININE FOR GFR 1.56 MG/DL (0.55-1.30); GLOMERULAR FILTRATION RATE 34.2 (>39); MAGNESIUM LEVEL 1.8 MG/DL (1.8-2.4); POTASSIUM SERUM 3.5 MEQ/L (3.5-5.1)
[2020-06-11 23:13] LABS: CALCIUM LEVEL 8.2 MG/DL (8.8-10.2); CREATININE FOR GFR 1.37 MG/DL (0.55-1.30); GLOMERULAR FILTRATION RATE 39.7 (>39); MAGNESIUM LEVEL 1.8 MG/DL (1.8-2.4); PHOSPHORUS LEVEL 2.6 MG/DL (2.5-4.9); POTASSIUM SERUM 2.9 MEQ/L (3.5-5.1)
[2020-06-12 04:11] LABS: CALCIUM LEVEL 9.1 MG/DL (8.8-10.2); CREATININE FOR GFR 1.66 MG/DL (0.55-1.30); GLOMERULAR FILTRATION RATE 31.8 (>39); MAGNESIUM LEVEL 1.9 MG/DL (1.8-2.4); POTASSIUM SERUM 3.8 MEQ/L (3.5-5.1)
[2020-06-12 11:27] LABS: CALCIUM LEVEL 8.3 MG/DL (8.8-10.2); CREATININE FOR GFR 1.69 MG/DL (0.55-1.30); GLOMERULAR FILTRATION RATE 31.2 (>39); MAGNESIUM LEVEL 1.8 MG/DL (1.8-2.4); PHOSPHORUS LEVEL 4.1 MG/DL (2.5-4.9); POTASSIUM SERUM 3.8 MEQ/L (3.5-5.1)
== END 2020-03-20 14:30 | disposition home or self-care (01) | DRG 391 ==
LOC: M ED 23:19 → M ED INP 02-28 04:11 → ENRESERV 02-28 13:47 → M PCU 02-28 14:50 → M MSPAV 02-29 19:20
PROVIDERS: ADMIT Internal Medicine; ATTEND General Practice
DX: K31.84 Gastroparesis (principal); J18.9 Pneumonia, unspecified organism; D62 Acute posthemorrhagic anemia; K56.600 Partial intestinal obstruction, unspecified as to cause; I25.10 Atherosclerotic heart disease of native coronary artery without angina pectoris; Z95.2 Presence of prosthetic heart valve; I12.9 Hypertensive chronic kidney disease with stage 1 through stage 4 chronic kidney disease, or unspecified chronic kidney disease; M81.0 Age-related osteoporosis without current pathological fracture; N18.3 Chronic kidney disease, stage 3 (moderate); E11.9 Type 2 diabetes mellitus without complications; Z79.899 Other long term (current) drug therapy; Z88.5 Allergy status to narcotic agent; Z88.2 Allergy status to sulfonamides; Z88.8 Allergy status to other drugs, medicaments and biological substances; K52.9 Noninfective gastroenteritis and colitis, unspecified; I16.0 Hypertensive urgency; D72.829 Elevated white blood cell count, unspecified; I77.1 Stricture of artery; F32.9 Major depressive disorder, single episode, unspecified; K21.9 Gastro-esophageal reflux disease without esophagitis; Z79.01 Long term (current) use of anticoagulants; R04.0 Epistaxis; E55.9 Vitamin D deficiency, unspecified; K64.8 Other hemorrhoids; I48.0 Paroxysmal atrial fibrillation

== ENCOUNTER → 2020-03-22 | Outpatient (REF) ==
[~2020-03-22] MED LIST changes: +HYDR-3910 PO; +HYDR20VI2 IV; +KEPP500I IV; +LOVE0.6I2 SC; +METO10TA2 PO; +METO1TAB87 PO; +METOCLOPRAMIDE INJection IV; +MIRT1TAB PO; +MORP4INJ2 IV; +OMEP-221 PO; +ONDA-83 PO; +OXYC1CAP PO
== END ==
LOC: SKLAB2 16:12
PROVIDERS: ATTEND Nurse Practitioner Family
DX: E11.9 Type 2 diabetes mellitus without complications (principal); E78.5 Hyperlipidemia, unspecified; M81.0 Age-related osteoporosis without current pathological fracture; I10 Essential (primary) hypertension; I48.91 Unspecified atrial fibrillation

== ENCOUNTER → 2020-03-26 | Outpatient (REF) ==
[2020-06-07 11:44] LABS: ALBUMIN 1.9 GM/DL (3.2-5.2); BILIRUBIN,TOTAL 0.4 MG/DL (0.2-1.0); CREATININE FOR GFR 1.89 MG/DL (0.55-1.30); GLOMERULAR FILTRATION RATE 27.4 (>39); MAGNESIUM LEVEL 1.5 MG/DL (1.8-2.4); POTASSIUM SERUM 4.1 MEQ/L (3.5-5.1); THYROID STIMULATING HORMONE 0.701 uIU/ML (0.358-3.740); TOTAL 25(OH) VITAMIN D 56.2 NG/ML (30.0-100.0); TOTAL PROTEIN 4.4 GM/DL (6.4-8.2)
[2020-06-07 12:06] LABS: HEMOGLOBIN 9.1 g/dl (12.0-15.5); MEAN CORPUSCULAR HEMOGLOBIN 28.8 pg (27.0-33.0); MEAN CORPUSCULAR HGB CONC 30.3 g/dl (32.0-36.5); MEAN CORPUSCULAR VOLUME 94.9 fl (80.0-96.0); PLATELET COUNT, AUTOMATED 152 10^3/uL (150-450); RED BLOOD COUNT 3.16 10^6/uL (4.00-5.40); WHITE BLOOD COUNT 9.6 10^3/uL (4.0-10.0)
== END ==
LOC: SKLAB2 14:29
PROVIDERS: ATTEND Nurse Practitioner Family
DX: R53.83 Other fatigue (principal); F32.9 Major depressive disorder, single episode, unspecified

== ENCOUNTER → 2020-03-27 | Outpatient (REF) | payer MEDICARE ==
[2020-06-03 10:01] LABS: ALBUMIN 2.2 GM/DL (3.2-5.2); BILIRUBIN,TOTAL 0.6 MG/DL (0.2-1.0); CALCIUM LEVEL 8.5 MG/DL (8.8-10.2); CREATININE FOR GFR 1.7 MG/DL (0.55-1.30); GLOMERULAR FILTRATION RATE 30.9 (>39); MAGNESIUM LEVEL 1.6 MG/DL (1.8-2.4); POTASSIUM SERUM 3.7 MEQ/L (3.5-5.1); THYROID STIMULATING HORMONE 1.54 uIU/ML (0.358-3.740); TOTAL 25(OH) VITAMIN D 58.3 NG/ML (30.0-100.0); TOTAL PROTEIN 5.1 GM/DL (6.4-8.2)
[2020-06-03 10:02] LABS: HEMATOCRIT 37.1 % (36.0-47.0); HEMOGLOBIN 11.2 g/dl (12.0-15.5); RED BLOOD COUNT 3.95 10^6/uL (4.00-5.40); WHITE BLOOD COUNT 11.6 10^3/uL (4.0-10.0)
[2020-06-03 10:03] LABS: MEAN CORPUSCULAR HEMOGLOBIN 28.4 pg (27.0-33.0); MEAN CORPUSCULAR HGB CONC 30.2 g/dl (32.0-36.5); MEAN CORPUSCULAR VOLUME 93.9 fl (80.0-96.0); PLATELET COUNT, AUTOMATED 187 10^3/uL (150-450)
== END ==
LOC: SKLAB2 03-26 16:27
PROVIDERS: ATTEND Internal Medicine
DX: F32.9 Major depressive disorder, single episode, unspecified (principal); R53.83 Other fatigue; Z79.899 Other long term (current) drug therapy

== ENCOUNTER → 2020-04-05 | Outpatient (REF) ==
[2020-04-05 16:27] LABS: BILIRUBIN,TOTAL 0.4 MG/DL (0.2-1.0); CALCIUM LEVEL 7.6 MG/DL (8.8-10.2); CREATININE FOR GFR 1.49 MG/DL (0.55-1.30); POTASSIUM SERUM 3.6 MEQ/L (3.5-5.1); TOTAL PROTEIN 4.7 GM/DL (6.4-8.2)
[2020-04-05 16:35] LABS: HEMATOCRIT 32.1 % (36.0-47.0); HEMOGLOBIN 9.6 g/dl (12.0-15.5); MEAN CORPUSCULAR HEMOGLOBIN 28.2 pg (27.0-33.0); MEAN CORPUSCULAR HGB CONC 29.9 g/dl (32.0-36.5); MEAN CORPUSCULAR VOLUME 94.1 fl (80.0-96.0); PLATELET COUNT, AUTOMATED 204 10^3/uL (150-450); RED BLOOD COUNT 3.41 10^6/uL (4.00-5.40)
== END ==
LOC: SKLAB2 11:11
PROVIDERS: ATTEND Nurse Practitioner Family
DX: R42 Dizziness and giddiness (principal); I95.1 Orthostatic hypotension

== ENCOUNTER → 2020-04-24 | Outpatient (REF) ==
[2020-04-24 08:51] LABS: CHOLESTEROL RISK RATIO 1.907 (<5)
== END ==
LOC: SKLAB2 07:00
PROVIDERS: ATTEND Internal Medicine
DX: E78.5 Hyperlipidemia, unspecified (principal); E11.9 Type 2 diabetes mellitus without complications

== ENCOUNTER 2020-05-02 04:40 | Inpatient (IN) | payer MEDICARE ==
[~2020-05-02] VITALS: Ht 160 cm; Wt 76.0 kg
[2020-05-02] VITALS (7 sets, daily range): BP systolic 158–205; BP diastolic 54–98
[~2020-05-02 04:40] MED LIST changes: -HYDR-3910 PO; -HYDR20VI2 IV; -KEPP500I IV; -LOVE0.6I2 SC; -METO10TA2 PO; -METO1TAB87 PO; -METOCLOPRAMIDE INJection IV; -MIRT1TAB PO; -MORP4INJ2 IV; -OMEP-221 PO; -OXYC1CAP PO
[2020-05-02] MEDS ORDERED: METO1TAB87 PO (06:07)
[2020-05-02] MEDS ORDERED: OXYC1CAP PO (06:07)
[2020-05-02] MEDS ORDERED: HYDR-3910 PO (06:07)
--- NOTE | 2020-05-02 06:16 | REPVR ---
PROCEDURE INFORMATION: Exam: XR Thoracic Spine, 3 Views Exam date and time: 05/02/2020 5:49 AM Age: 79 years old Clinical indication: Other: Non traumatic pain; Additional info: Nontraumatic pain TECHNIQUE: Imaging protocol: XR of the thoracic spine, 3 views. COMPARISON: CT Spine,thoracic w/o contrast 01/03/2020 7:52 PM FINDINGS: Vertebrae: There is severe T5 compression deformity, seen on the prior CT of the thoracic spine dated January 03, 2020. There is mild thoracolumbar spine scoliosis. Soft tissues: Unremarkable. IMPRESSION: 1. Severe T5 compression deformity with wedging, seen on CT scan of January 03, 2020. 2. No definite radiographic evidence of acute thoracic spine abnormality. Electronically signed by: Terrell Garcia On 05/02/2020 06:16:33 AM
--- NOTE | 2020-05-02 06:20 | REPVR ---
PROCEDURE INFORMATION: Exam: XR Lumbosacral Spine, 4 or 5 Views Exam date and time: 05/02/2020 5:49 AM Age: 79 years old Clinical indication: Other: Nontraumatic pain TECHNIQUE: Imaging protocol: XR of the lumbosacral spine, 4 or 5 views. COMPARISON: CT ABD PELVIS W/O CONTRAST 03/01/2020 8:26 AM FINDINGS: Vertebrae: There is severe L3-L4 and L4-L5 disc degenerative changes with grade 1 anterolisthesis of L3 on L4 and grade 1-2 anterolisthesis of L4 on L5. There is multilevel facet arthrosis most pronounced from L3-L4 through L5-S1. There is decreased height of L2 vertebral body with compression at the superior endplate. There is no sclerotic or lytic bony lesions. Other bones/joints: Patient is status post total right hip replacement. Soft tissues: Unremarkable. IMPRESSION: 1. Likely acute mild compression fracture of L2 vertebral body, new findings since CT scan of March 01, 2020. 2. Severe L3-L4 and L4-L5 disc degenerative changes with anterolisthesis as described above, seen on CT scan of March 01, 2020. 3. Multilevel lumbar spine facet arthrosis more pronounced distally seen on the CT scan previously. Electronically signed by: Terrell Garcia On 05/02/2020 06:20:34 AM
[2020-05-02 07:00] LABS: HEMATOCRIT 39.7 % (36.0-47.0); HEMOGLOBIN 12.5 g/dl (12.0-15.5); MEAN CORPUSCULAR HEMOGLOBIN 29.3 pg (27.0-33.0); MEAN CORPUSCULAR HGB CONC 31.5 g/dl (32.0-36.5); PLATELET COUNT, AUTOMATED 329 10^3/uL (150-450); RED BLOOD COUNT 4.27 10^6/uL (4.00-5.40)
[2020-05-02 07:17] LABS: CALCIUM LEVEL 8.5 MG/DL (8.8-10.2); CREATININE FOR GFR 1.14 MG/DL (0.55-1.30); GLOMERULAR FILTRATION RATE 49.1 (>39); POTASSIUM SERUM 3.2 MEQ/L (3.5-5.1)
[2020-05-02] MEDS ORDERED: MORPHINE 2 MG/ML 1ML VIAL (J2270) IV PRN (08:00)
[2020-05-02] MEDS ORDERED: OMEP-221 PO (08:08)
[2020-05-02] MEDS ORDERED: MIRT1TAB PO (08:08)
[2020-05-02] MEDS ORDERED: METO10TA2 PO (08:08)
[2020-05-02] MEDS: ONDANSETRON 4MG/2ML VIAL IV SCH ×5 (08:41→23:32)
[2020-05-02] MEDS ORDERED: NS 1,000 ML IV ONE (08:45)
[2020-05-02] MEDS: FERROUS SULFATE 325MG TAB PO SCH (09:00)
[2020-05-02] MEDS ORDERED: **hydrALAZINE HCL** 25 MG TAB PO SCH ×2 (09:00→16:00)
[2020-05-02] MEDS: MESALAMINE 250 MG CR CAP PO SCH ×3 (09:00→21:00)
[2020-05-02] MEDS ORDERED: APIXABAN 5 MG TAB (ELIQUIS) PO SCH (09:00)
[2020-05-02] MEDS: METOCLOPRAMIDE 10 MG TAB PO SCH ×3 (09:00→16:31)
[2020-05-02] MEDS ORDERED: METOPROLOL TART 25 MG TABLET PO SCH ×2 (09:00→21:00)
[2020-05-02] MEDS: AMIODARONE 200 MG TAB (PACERONE) PO SCH (09:01)
[2020-05-02] MEDS: MAGNESIUM OXIDE 400 MG TAB (MAG-OX) PO SCH ×2 (09:23→21:00)
[2020-05-02] MEDS: VITAMIN D 1,000 INTERNATIONAL UNITS TABLET PO SCH (09:24)
[2020-05-02] MEDS: PANTOPRAZOLE 40MG TAB (PROTONIX) PO SCH (09:24)
--- NOTE | 2020-05-02 10:47 | REPVR ---
PROCEDURE INFORMATION: Exam: MR Lumbar Spine Without Contrast. Exam date and time: 05/02/2020 10:23 AM Age: 79 years old Clinical indication: Weakness; Additional info: Vertebral fracture TECHNIQUE: Imaging protocol: Multiplanar magnetic resonance images of the lumbar spine without intravenous contrast. COMPARISON: CR Spine. Lumbosacral, complete 05/02/2020 5:16 AM FINDINGS: Vertebrae: There is mild depression of the superior endplate of the L2 vertebra consistent with recent compression fracture. There is what likely represents a large hemangioma within the T12 vertebra. Spinal cord: Normal signal. No cord compression. L1-L2: There is disc space narrowing and desiccation. There are moderate degenerative end plate changes at this level. There is a moderate disc/osteophyte complex that flattens the ventral thecal sac. There is moderate bilateral neural foraminal narrowing. There is mild spinal canal stenosis. There is facet arthropathy and ligamentum flavum hypertrophy. L2-L3: There is disc space narrowing and desiccation. There are moderate degenerative end plate changes at this level. There is a moderate disc bulge with a small superimposed central disc herniation. Disc bulging extends into both neural foramen causing moderate bilateral neural foraminal narrowing, left worse than right. There is facet arthropathy and ligamentum flavum hypertrophy. There is moderate spinal canal stenosis. L3-L4: There is grade 1 anterior spondylolisthesis at L3/4. There is disc space narrowing and desiccation. There are moderate degenerative end plate changes at this level. There is moderate disc bulging. There is a superimposed right foraminal disc herniation. There is severe right-sided neuroforaminal narrowing. There is moderate left-sided neuroforaminal narrowing. There is facet arthropathy and ligamentum flavum hypertrophy. There is moderate/severe spinal canal stenosis. L4-L5: There is grade 1/2 anterior spondylolisthesis at L4/5. Bilateral spondylolysis is suspected but difficult to confirm. There is a large broad-based disc bulge that extends into both neural foramen. There is a superimposed left foraminal disc herniation that causes severe left foraminal stenosis. There is severe spinal canal stenosis and obvious compression of the cauda equina nerve roots. There is exuberant bilateral facet arthropathy and ligamentum flavum hypertrophy. L5-S1: There is disc space narrowing and desiccation. There are moderate degenerative end plate changes at this level. There is mild disc bulging. Disc bulging extends into both neural foramen causing mild/moderate bilateral neural foraminal narrowing, left worse than right. There is facet arthropathy and ligamentum flavum hypertrophy. Kidneys and ureters: There are high signal lesions in both kidneys, possibly cysts, but they are not fully characterized on this MRI exam. The right kidney is atrophic. Soft tissues: Unremarkable. IMPRESSION: 1. Severe multilevel degenerative changes causing variable degrees of spinal canal and neuroforaminal narrowing as described above. There is severe spinal canal stenosis at L4/5 with obvious compression of the cauda equina nerve roots. Please correlate with any symptoms referrable to cauda equina syndrome. Neurosurgical consultation is recommended. 2. There is mild depression of the superior endplate of the L2 vertebra consistent with recent compression fracture. 3. There is what likely represents a large hemangioma within the T12 vertebra. 4. High signal abnormality within the L3/4 disc space is likely degenerative in nature. Infection is considered much less likely. As a precaution, clinical and imaging followup is recommended. Electronically signed by: Oscar Odom On 05/02/2020 10:47:41 AM
[2020-05-02 11:23] LABS: MAGNESIUM LEVEL 1.7 MG/DL (1.8-2.4); THYROID STIMULATING HORMONE 0.449 uIU/ML (0.358-3.740)
[2020-05-02] MEDS ORDERED: MAG SULF 1GM/100ML (MAG RUN) 1 GM in IV 1 EA IV ONE (11:45)
[2020-05-02] MEDS ORDERED: POTASSIUM CHLORIDE 10 MEQ SR TABLET PO ONE (11:45)
[2020-05-02] MEDS: MORPHINE 4 MG/ML 1ML VIAL/SYRINGE (J2270) IV PRN ×3 (12:01→20:45)
[2020-05-02] MEDS ORDERED: **hydrALAZINE HCL** 25 MG TAB As Ordered ONE (13:59)
[2020-05-02] MEDS ORDERED: GLUCOSE 4GM CHEW TABLET PO PRN (16:15)
[2020-05-02] MEDS ORDERED: GLUCAGON INJ 1MG VIAL SC PRN (16:15)
[2020-05-02] MEDS ORDERED: DEXTROSE 50% 50 ML SYRINGE IV PRN (16:15)
[2020-05-02] MEDS: HumaLOG INSULIN (NovoLOG) PER UNIT SC SCH ×2 (16:35→21:00)
[2020-05-02] MEDS ORDERED: amLODIPine 10 MG TAB PO ONE (16:45)
--- NOTE | 2020-05-02 16:48 | IPNPDOC ---
Text Note Date of Service The patient was seen on 05/02/20. NOTE Chief complaint: Patient presented to the emergency room complaints of worsening lower back pain History of present illness: Patient is a 79-year-old female with PMHx Paroxysmal A. 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 She was reported to be at home for one week until she began experiencing worsening lower back pain that prompted her to come to the ER for further evaluation. Upon arrival to emergency room, patient had imaging completed via x-ray that suggested a new L2 compression fracture. Hospital services called for evaluation and admission. Comes to evaluate this patient at 8:00 in the morning. Patient reports that she was expressing very bad back pain over the course of 1 week. She has denied any incontinence of her bowel or bladder. Reports that she her sensation of her lower extremities remained intact and that her movement is limited by pain. MRI was ordered. Physical exam: - Vitals: BP [189/82], HR [75], RR [18], Sat [96%RA], Temp [97.6F] - General: Lying in bed, Reports back pain, AAOx3 - HEENT: NC, AT, PERRLA - CVS: RRR, +S1S2 - Lungs: Fair air entry bilaterally, No appreciable wheezing / rales / rhonchi - Abdomen: Soft, Non-distended, Non-tender, Sphincter tone intact - Extremities: No lower extremity edema, No calf tenderness - Neuro: ------ Lower extremities: Feet 5/5 bilaterally (dorsiflexion / plantarflexion), Legs bilaterally - limited by pain, noted to be 4/5; sensation intact at bilateral LE symmetrically - Skin: No visible rashes Assessment and Plan: Intractable back pain - likely 2/2 L2 vertebral fracture - likely a result of her osteoporosis - Patient presented to the emergency room with complaints of back pain - Patient denies any loss of control of her bowel or bladder - Physical reveals sphincter tone that is intact - Sensation remains intact bilaterally; LE strength a 4/5 bilaterally - limited by pain; 5/5 at feet bilaterally - MRI imaging was completed to evaluate the extent of the vertebral compression fracture - MRI imaging had suggested the possibility of cauda equina syndrome; however advised to correlate clinically - Discussed case with orthopedic surgery; will also be on consultation; MRI findings compared with prior imaging 2018 appear to relatively similar - may reflect slight worsening however dont appear to match clinical picture - Orthopedic surgery (Dr. Flaherty) will evaluate patient today and continue to fol low - Will continue with pain control and consider physical therapy after evaluation - Discussed findings of imaging with patient and family; advised them of care plan and addressed all questions and concerns (Caleb Vicenet at ) DVT prophylaxis - Will resume Eliquis based on outpatient medications VS,Fishbone, I+O VS, Fishbone, I+O Laboratory Tests 05/02/20 06:44 Vital Signs Date Time Temp Pulse Resp B/P (MAP) Pulse Ox O2 Delivery O2 Flow Rate FiO2 05/02/20 16:31 18 Room Air 05/02/20 16:30 200/89 (126) 05/02/20 14:00 99.4 74 96 MINE FAYE MD May 02, 2020 16:48
--- NOTE | 2020-05-02 17:38 | HPEPDOC ---
[facility] Medical History & Physical Date of Admission May 02, 2020 Date of Service: May 02, 2020 Primary Care Physician: Jr Keen Collins Attending Physician: LOLA BOURGEOIS MD History and Physical CHIEF COMPLAINT: Low back pain HISTORY OF PRESENT ILLNESS: Lj is a 79-year-old female who presented to the ED early this morning via EMS with the chief complaint of severe lower back pain. She has an extensive PMH (detailed fully below), most notably osteoporosis with fractures of C2 and T5 within the past 4 months, paroxysmal atrial fibrillation on eliquis, CAD s/p stents (2016), Crohns disease, GIB in February 2020/ hemorrhoids, PVD, HTN, DLD, and NIDDM. Lj states that around 7 pm last evening, she began to experience lower back pain of lumbosacral area radiating laterally over the right superior aspect of the posterior pelvis. She was at rest when the pain began and described it as a 6/10. Over the course of the night and into the stopper maker, her pain intensified to 8-9/10. The pain remained consistent throughout. She alternated applying both ice and a heating pad, which brought some mild, momentary relief. Her only associated symptom is a mild headache. She states she's never experienced back pain like this - - at this location, and to this intensity - - ever before. There was no trauma or preceding event she experienced that could be linked with her symptoms. Lj suffered a T5 compression fracture on 12/12/2019 and then a C2 fracture on 01/14/20, neither of which were associated with a specific traumatic event. Upon hospital admission for the C2 fracture, she was also experiencing nausea and vomiting along with an acute GIB. The GIB was attributed to hemorrhoids and she was thought to also have gastroparesis. Upon [facility] discharge, she went to the [facility], where she underwent rehab for five weeks before being discharged home last week (04/25). Since getting home, one of her daughters moved in and was assisting her with ADLs. She was to start receiving home health within the next week. In the ED, lumbosacral radiographs showed an acute L2 compression fracture. She also had severe asymptomatic hypertension (SBP of 211), and lab studies revealed leukocytosis (WBC 15) and hypokalemia (sK 3.2). She will be admitted under the care of the hospitalist service for management of fracture and pain control, along with treatment of hypertension. Her PCP is Dr. Keen, and she also regularly follows with Dr. Gaston of cardiology and Dr. Mancia of gastroenterology. She verbally confirms today her code status is DNR/DNI. PAST MEDICAL HISTORY: Paroxysmal atrial fibrillation on Eliquis Coronary artery disease status post stent placement, (2017) Hypertension Dyslipidemia. Guu-cpswohi-[id number] diabetes mellitus. Chronic kidney disease, stage IIIa. 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 Crohn's disease on mesalamine with GI bleed in February 2020 secondary to hemorrhoids Osteoporosis with recent fractures (T5 fracture, 12/12/19; C2 fracture, 01/14/20) Depression GERD PAST SURGICAL HISTORY: Multiple colonoscopies with Dr. Mancia. Bowel resection of the ileum 2 (performed in [place]) Right total hip arthroplasty. Right total knee arthroplasty. Left breast biopsy 3 Cholecystectomy. Partial hysterectomy with uterus and cervix removed SOCIAL HISTORY: Patient is a and lives at home. She was just discharged from [facility] last week, and since that time, one of her daughters is living with her. She was supposed to begin having home health services within the coming week. 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 She denies any current or former tobacco use, alcohol use, or illegal drug use. FAMILY HISTORY: Daughter: breast cancer, possible Glouster's disease, hypertension. Daughter: Hypertension Father: Lung cancer (former smoker) ALLERGIES: Please see below. REVIEW OF SYSTEMS: CONSTITUTIONAL: Denies fevers, chills, night sweats, or recent unintentional change in weight EYES: Denies diplopia, blurry vision CARDIOVASCULAR: Denies chest pain, chest pressure, or palpitations RESPIRATORY: Denies cough, shortness of breath, pleuritic chest pain, or hemoptysis GASTROINTESTINAL: Denies abdominal pain, nausea, vomiting, diarrhea, or blood in stool GENITOURINARY: Endorses urge to urinate during our visit; Denies dysuria or hematuria MSK: Endorses significant lower back pain as described in HPI NEUROLOGY: Endorses mild headache. Denies any bowel or bladder incontinence, saddle anesthesia, decreased sensation of the extremities, numbness of the extremities, or paresthesias of the extremities ENDOCRINE: Denies heat or cold intolerance HEMATOLOGIC: Endorses bruising of bilateral forearms in the setting of home Eliquis LYMPHATIC: Denies any new lumps or bumps anywhere HOME MEDICATIONS: Please see below. PHYSICAL EXAMINATION: VITAL SIGNS: Please see below. GENERAL APPEARANCE: Elderly female lying in emergency room bed. She appears to be in moderate to significant discomfort. A & O x3. HEENT: Normocephalic, atraumatic. Noninjected, anicteric sclerae. Mild conjunctival pallor. PERRLA. Moist mucous membranes with some mild mucosal breakdown of inner left cheek. Neck is supple with no thyromegaly, lymphadenopathy, or JVD. RESPIRATORY: Due to significant pain and discomfort, only able to auscultate patient anteriorly and along the flanks. Diminished tidal volume secondary to decreased respiratory effort with no significant adventitious breath sounds appreciated. Symmetric chest expansion. Breathing room air. CARDIOVASCULAR: Regular rate and regular rhythm. Normal S1, S2. No murmurs, rubs or gallops appreciated. No JVD. 2+ radial pulses bilaterally. Adequate capillary refill. ABDOMEN: Soft, nondistended and nontender. Normoactive bowel sounds throughout. Multiple healed surgical scars. No guarding or rigidity appreciated. EXTREMITIES: 1+ pitting edema of b/l lower extremities with b/l pitting pedal edema. No clubbing or cyanosis appreciated. NEUROLOGICAL: Awake, alert and oriented 3. Sensation to light touch is intact of bilateral lower extremities. 4/5 muscle strength of bilateral lower extremities with testing against resistance limted due to pt's pain. 5/5 muscle strength with plantar flexion bilaterally. Adequate rectal tone appreciated with rectal exam. Non-dysarthric speech. PSYCHIATRIC: Mood appears somewhat depressed due to pain and discomfort. Affect appears appropriate. Skin: Mild bruising of bilateral dorsal forearms. Warm, dry and intact. LN: No significant cervical or supraclavicular lymphadenopathy appreciated. LABORATORY DATA: Please see below. IMAGING: Thoracic spine x-ray, 05/02/20: Impression- Severe T5 compression deformity with wedging, seen on CT scan of January 03, 2020. No definite radiographic evidence of acute thoracic spine abnormality. Lumbosacral spine x-ray, 05/02/20: Impression- Likely acute mild compression fracture of L2 vertebral body, new findings since CT scan of March 01, 2020. Severe L3-L4 and L4-L5 disc degenerative changes with anterolisthesis as described above, seen on CT scan of March 01, 2020. Multilevel lumbar spine facet arthrosis more pronounced distally seen on the CT scan previously. Lumbar spine MRI ordered MICROBIOLOGY: Please see below. ASSESSMENT & PLAN: Patient is a 79yo female with h/o PAF on eliquis, PVD, CAD s/p stent, Crohns dz, osteoporosis with recent C2 and T5 fractures, CKD 3a, DM, and HTN who presented to ED via EMS with significant lower back pain and severe asymptomatic hypertension. She was found to have an acute L2 compression fracture and is being admitted for pain control and fracture management with orthopedics as well as hypertensive urgency treatment. #Acute L2 compression fracture with severe anterolisthesis of L4-L5 -following up with lumbosacral MRI to assess extent of new fracture in the setting of her osteoporosis and recent C2 and T5 fractures -IV prn morphine for pain control -orthopedic consultation placed and we appreciate their input and recommendations -while awaiting MRI results and ortho evaluation, pt will be npo for now and her eliquis will be held in favor of heparin in the event any interventions or surgical procedures become warranted #Severe asymptomatic hypertension in setting of essential hypertension -pt reports taking her home BP medications through yesterday, 05/01 (lopressor and hydralazine); she did not take any medications this morning -this is likely a manifestation of significant pain in the setting of her baseline htn -we will administer her home bp morning meds and she will also receive prn morp judah for pain -continue to monitor her pressures and we will adjust med regimen if warranted #Osteoporosis with recent C2 and T5 fractures -per home med rec, patient takes Vit D supplementation, but is on no fracture prevention medicines (i.e. bisphosphonate, prolia) -in the setting of her CKD 3a, calculated Cr clearance was > 35, and therefore it is okay to start her on weekly alendronate -c/w home Vit D #Hypokalemia -sK 3.2 -pt has baseline CKD 3a -checking Mg level and will supplement -PO home Mg oxide continued #Leukocytosis -WBC 15; pt is afebrile and not altered -likely component of acute fracture -continue to monitor #Crohns disease -c/w home mesalamine -stable with no recent reported issues on review #CKD, Stage IIIa -kidney function appears to be at baseline this morning -continue to monitor -avoid nephrotoxic agents -pt will receive IVF while npo #CAD s/p stent (2017) -as discussed above, home eliquis held in favor of heparin should sx be warranted -c/w home statin #NIDDM -she will be npo to start in the event surgical intervention becomes warranted -we will start IVF with NS in the meantime -hypoglycemic protocol -home statin continued #Paroxysmal atrial fibrillation on home eliquis -on exam, rate was controlled and rhythm was regular -we will administer her home lopressor and amiodarone -eliquis is being held should sx intervention become warranted; in the interim, heparin has been ordered -in setting of home amiodarone use, we will also check TSH to assess for thyroid functioning #Dyslipidemia -c/w home atorvastatin #Depression and anxiety -c/w home citalopram and home prn xanax #presumed history of Iron Deficiency Anemia -Hgb and Hct wnl this morning -c/w home ferrous sulfate #DVT prophylaxis: heparin ordered Disposition: pending orthopedic consultation and recommendations, MRI results, and BP control Vital Signs Vital Signs Date Time Temp Pulse Resp B/P (MAP) Pulse Ox O2 Delivery O2 Flow Rate FiO2 05/02/20 17:31 74 200/89 05/02/20 16:43 18 Room Air 05/02/20 14:00 99.4 96 Laboratory Data Labs 24H Laboratory Tests 2 05/02/20 06:44: Nucleated Red Blood Cells % (auto) 0.0, Anion Gap 7L, Glomerular Filtration Rate 49.1, Calcium Level 8.5L, Magnesium Level 1.7L, Thyroid Stimulating Hormone (TSH) 0.449 05/02/20 16:34: Bedside Glucose (Misc Panel) 122H CBC/BMP Laboratory Tests 05/02/20 06:44 Home Medications Scheduled Acetaminophen (Acetaminophen) 500 Mg Tablet, 1,000 MG PO TID Amiodarone HCl (Amiodarone HCl) 200 Mg Tablet, 200 MG PO DAILY Apixaban (Eliquis) 5 Mg Tablet, 5 MG PO BID Atorvastatin Calcium (Atorvastatin Calcium) 40 Mg Tablet, 40 MG PO QHS Cholecalciferol (Vitamin D3) (Vitamin D3) 1,000 Unit Tablet, 1,000 UNITS PO DAILY Citalopram Hydrobromide (Celexa) 20 Mg Tablet, 30 MG PO QHS Ferrous Sulfate (Ferrous Sulfate) 325 Mg Tablet.dr, 325 MG PO 3XW THURSDAY, THURSDAY AND THURSDAY Fluticasone Propionate (Fluticasone Propionate) 15.8 Ml [place].susp, 1 SPRAY NA BID Hydralazine HCl (Hydralazine HCl) 25 Mg Tablet, 25 MG PO TID Magnesium Oxide (Magnesium Oxide) 400 Mg Tablet, 400 MG PO BID Mesalamine (Pentasa) 500 Mg Capsule.er, 500 MG PO TID Metoclopramide HCl (Metoclopramide HCl) 10 Mg Tablet, 10 MG PO QID Metoprolol Tartrate (Metoprolol Tartrate) 25 Mg Tablet, 25 MG PO BID Mirtazapine (Mirtazapine) 7.5 Mg Tablet, 7.5 MG PO QHS NEW MEDICATION, PATIENT HAS NOT STARTED Omeprazole (Omeprazole) 40 Mg Capsule.dr, 40 MG PO DAILY Prednisone (Prednisone) 5 Mg Tablet, 15 MG PO DAILY Propylene Glycol/Peg 400/Pf (Systane 0.3-0.4% Eye Drop) 1 Each Droperette, 1 DROP OU QID Vitamin B Complex (Vitamin B Complex) 1 Each Tablet, 1 TAB PO DAILY Scheduled PRN Alprazolam (Alprazolam) 0.25 Mg Tablet, 0.25 MG PO BID PRN for ANXIETY Allergies Coded Allergies: hydrocodone (Verified Allergy, Intermediate, 01/03/20) Sulfa (Sulfonamide Antibiotics) (Verified Allergy, Unknown, 07/03/19) hydrochlorothiazide (Verified Allergy, Unknown, 07/03/19) A-FIB/CHADSVASC A-FIB History Current/History of A-Fib/PAF?: Yes Current PO Anticoag Therapy: Yes (home eliquis held d/t sx possibility; heparin ordered) GME ATTESTATION GME ATTESTATION My faculty preceptor for this patient encounter was physically present during the encounter and was fully available. All aspects of the patient interview, examination, medical decision making process, and medical care plan development were reviewed and approved by the faculty preceptor. The faculty preceptor is aware and concurs with the plan as stated in the body of this note and will attest to such by his/her cosignature. ATTENDING NOTE I, Lola Bourgeois, have independently examined this patient and performed my own physical exam, as well as reviewed the documentation and edited where necessary. I have discussed in detail with the resident / student the findings and plan of treatment as documented by the resident / student and edited their note. I agree with their findings and treatment plan and have edited their documentation. I will continue to follow the patient during this hospital stay. MIKA MARS D.O. May 02, 2020 17:38 LOLA BOURGEOIS MD May 03, 2020 10:06
[2020-05-02] MEDS ORDERED: hydrALAZINE 20MG/ML 1ML VIAL (J0360 PER 20MG) IV ONE (18:30)
[2020-05-02] MEDS ORDERED: METOCLOPRAMIDE INJ 10MG/2ML VIAL (J2765 PER 1) IV PRN (20:30)
[2020-05-02] MEDS ORDERED: HEPARIN SOD (PORCINE) 5000UNITS/ML 1ML VIAL/SYRINGE SQ SCH (21:00)
[2020-05-02] MEDS ORDERED: ALPRAZolam 0.25 MG TAB PO PRN (21:00)
[2020-05-02] MEDS: ATORVASTATIN 20 MG TAB PO SCH (21:00)
[2020-05-02] MEDS ORDERED: MIRTAZAPINE 7.5MG PER 1/2 TABLET PO SCH (21:00)
[2020-05-02] MEDS: CitaloPRAM (CeleXA) 20 MG TAB PO SCH (23:37)
[2020-05-02] MEDS: APIXABAN 5 MG TAB (ELIQUIS) PO SCH (23:39)
[2020-05-03] VITALS (17 sets, daily range): BP systolic 108–190; BP diastolic 36–76
[2020-05-03] MEDS ORDERED: SLF 3 ML SYR IV PRN (00:30)
[2020-05-03] MEDS: MORPHINE 4 MG/ML 1ML VIAL/SYRINGE (J2270) IV PRN ×2 (00:47→05:42)
[2020-05-03] MEDS ORDERED: LOSARTAN 50MG TABLET PO SCH (01:15)
[2020-05-03] MEDS: ONDANSETRON 4MG/2ML VIAL IV SCH ×5 (04:07→21:04)
[2020-05-03] MEDS: SLF 3 ML SYR IV SCH ×3 (05:42→21:07)
[2020-05-03 05:58] LABS: HEMATOCRIT 37.9 % (36.0-47.0); HEMOGLOBIN 11.5 g/dl (12.0-15.5); MEAN CORPUSCULAR HGB CONC 30.3 g/dl (32.0-36.5); MEAN CORPUSCULAR VOLUME 95.5 fl (80.0-96.0); PLATELET COUNT, AUTOMATED 277 10^3/uL (150-450); RED BLOOD COUNT 3.97 10^6/uL (4.00-5.40); WHITE BLOOD COUNT 12.1 10^3/uL (4.0-10.0)
[2020-05-03 06:19] LABS: ALBUMIN 2.1 GM/DL (3.2-5.2); BILIRUBIN,TOTAL 0.7 MG/DL (0.2-1.0); CALCIUM LEVEL 8.3 MG/DL (8.8-10.2); CREATININE FOR GFR 1.14 MG/DL (0.55-1.30); GLOMERULAR FILTRATION RATE 49.1 (>39); POTASSIUM SERUM 3.6 MEQ/L (3.5-5.1); TOTAL PROTEIN 4.8 GM/DL (6.4-8.2)
[2020-05-03] MEDS ORDERED: ALENDRONATE 35MG TABLET PO SCH (07:00)
[2020-05-03] MEDS ORDERED: NS 500 ML IV ONE (07:45)
[2020-05-03] MEDS: HumaLOG INSULIN (NovoLOG) PER UNIT SC SCH ×4 (08:32→21:00)
[2020-05-03] MEDS: VITAMIN D 1,000 INTERNATIONAL UNITS TABLET PO SCH (08:33)
[2020-05-03] MEDS: MAGNESIUM OXIDE 400 MG TAB (MAG-OX) PO SCH ×3 (08:33→21:05)
[2020-05-03] MEDS: PANTOPRAZOLE 40MG TAB (PROTONIX) PO SCH (08:33)
[2020-05-03] MEDS: APIXABAN 5 MG TAB (ELIQUIS) PO SCH (08:33)
[2020-05-03] MEDS: AMIODARONE 200 MG TAB (PACERONE) PO SCH (08:34)
[2020-05-03] MEDS ORDERED: levETIRAcetam INJection 500 MG in D5W MINI-BAG PLUS 100 ML IV SCH (09:00)
[2020-05-03] MEDS: MESALAMINE 250 MG CR CAP PO SCH ×4 (10:32→21:06)
[2020-05-03] MEDS ORDERED: NALOXONE INJ 0.4MG/1ML VIAL (J2310 PER 1MG) IV STA (15:13)
[2020-05-03] MEDS: **hydrALAZINE HCL** 25 MG TAB PO SCH ×3 (15:26→21:06)
--- NOTE | 2020-05-03 19:11 | REPVR ---
PROCEDURE INFORMATION: Exam: MR Head Without Contrast Exam date and time: 05/03/2020 6:23 PM Age: 79 years old Clinical indication: Other: Lethargy TECHNIQUE: Imaging protocol: MR of the head without contrast. COMPARISON: CT Head without contrast 03/04/2020 11:01 AM FINDINGS: Brain: Punctate foci of true diffusion restriction in more than one vascular territory in keeping with recent acute infarcts, most likely embolic: left centrum semiovale deep white matter, right frontal cortex, bilateral parietal as well as right parietooccipital cortices. The brain demonstrates mild generalized volume loss. Patchy increased signal intensity in the deep white matter most likely representing mild chronic small vessel ischemic change. Cerebral ventricles: The ventricles appear mildly enlarged in keeping with volume loss. No parenchymal hemorrhage. Bones/joints: Unremarkable. Paranasal sinuses: The right sphenoid sinus is nearly opacified by mucosal disease and/or fluid. A small amount of fluid versus mucosal disease in the posteroinferior left maxillary sinus. There may be trace fluid in the left sphenoid sinus. Trace ethmoid mucosal thickening. Mastoid air cells: Trace mastoid fluid. Orbits: Prior right lens surgery. Soft tissues: Unremarkable. Nasopharynx: Chronic apex left deviation of the nasal septum. 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 Electronically signed by: Reyna Hernandez On 05/03/2020 19:11:25 PM
--- NOTE | 2020-05-03 20:25 | IPNPDOC ---
Date Seen The patient was seen on 05/03/20. Progress Note SUBJECTIVE: Lj was seen and examined this morning by the hospitalist service while lying in bed. She seems quite downtrodden today throughout the exam, not maintaining consistent eye contact. She is oriented 3 and states her back pain is improved. Her headache from yesterday has resolved as well. She denies any numbness or paresthesias of her extremities, as well as denying any saddle anesthesia, bowel or bladder incontinence. She denies any current or overnight fever, chills, night sweats, chest pain, palpitations, shortness of breath, abdominal pain, nausea, or vomiting. OBJECTIVE PHYSICAL EXAMINATION: VITAL SIGNS: Please see below. GENERAL APPEARANCE: Elderly female lying in bed. She appears quite downtrodden and depressed today, with poor inconsistent eye contact. She remains oriented 3. No acute distress. HEENT: Normocephalic, atraumatic. Noninjected, anicteric sclerae. Neck is supple with no thyromegaly, lymphadenopathy, or JVD. RESPIRATORY: Lungs were clear to auscultation anteriorly and along the flanks with no appreciated adventitious breath sounds. Due to her multiple spinal fractures did not attempt posterior auscultation. Breathing room air. Symmetric chest expansion. CARDIOVASCULAR: Regular rate and regular rhythm. Normal S1, S2. No murmurs, rubs or gallops appreciated. ABDOMEN: Soft, nondistended and nontender. Normoactive bowel sounds throughout. Multiple healed surgical scars. No guarding or rigidity appreciated. EXTREMITIES: 1+ pitting edema of b/l lower extremities with b/l pitting pedal edema. No clubbing or cyanosis appreciated. NEUROLOGICAL: Awake, alert and oriented 3. Sensation to light touch is intact of bilateral lower extremities. 4/5 muscle strength of bilateral lower extremities with testing against resistance continuing to be limited due to pt's pain. 5/5 muscle strength with plantar flexion bilaterally. Non-dysarthric speech. PSYCHIATRIC: Mood is prominently depressed. Skin: Mild bruising of bilateral dorsal forearms. Warm, dry and intact. LABORATORY DATA, IMAGING STUDIES, MICROBIOLOGY: Please see below. DVT prophylaxis ordered: Home Eliquis was continued yesterday after surgical intervention did not occur ASSESSMENT AND PLAN: Patient is a 79yo female with h/o PAF on eliquis, PVD, CAD s/p stent, Crohns dz, osteoporosis with recent C2 and T5 fractures, CKD 3a, DM, and HTN who presented to ED via EMS with significant lower back pain and severe asymptomatic hypertension. She was found to have an acute L2 compression fracture and is being admitted for pain control and fracture management with orthopedics as well as hypertensive urgency treatment. #Acute L2 compression fracture with severe anterolisthesis of L4-L5 -Consultation was made to orthopedic surgery and the orthopedic radiation protection specialist, saw and evaluated the patient is today as well as reviewing the lumbosacral MRI. There does not appear to be significant change in the findings as compared to an MRI 2 years ago and orthopedic radiation protection specialist does not feel imaging report Clinical picture and orthopedic intervention at this time is not warranted. The goal will be for pain control and beginning physical therapy #Severe asymptomatic hypertension in setting of essential hypertension -Currently receiving her home metoprolol with addition of home oral hydralazine this afternoon with systolic blood pressure 192 -continue to monitor her pressures and we will adjust med regimen if warranted #Osteoporosis with recent C2 and T5 fractures -per home med rec, patient takes Vit D supplementation, but is on no fracture prevention medicines (i.e. bisphosphonate, prolia) -in the setting of her CKD 3a, calculated Cr clearance was > 35, and therefore it is okay to start her on weekly alendronate -c/w home Vit D #Hypokalemia, resolved -Serum potassium levels, resolved after supplementation. Yesterday -PO home Mg oxide continued -Continue to follow with metabolic panels #Leukocytosis -WBC has decreased today versus yesterday and was likely elevated in the setting of acute fracture -continue to monitor #Crohns disease -c/w home mesalamine -stable with no recent reported issues on review #CKD, Stage IIIa -kidney function appears to be at baseline this morning -continue to monitor -avoid nephrotoxic agents -pt will receive IVF while npo #CAD s/p stent (2017) -as discussed above, home eliquis held in favor of heparin should sx be warranted -c/w home statin #NIDDM -Resumed diabetic diet is today. Once possible surgical procedure was not warranted -FSBS ordered before meals and at bedtime -Continue with sliding scale insulin -hypoglycemic protocol -home statin continued #Paroxysmal atrial fibrillation on home eliquis -on exam today, patient's rate was controlled and her rhythm was regular -Continue with home lopressor and amiodarone -Home Eliquis was resumed yesterday. Once possible surgical suture was not warranted -in setting of home amiodarone use, TSH was checked and unremarkable #Dyslipidemia -c/w home atorvastatin #Depression and anxiety -Patient was significantly depressed on exam today, with poor eye contact, saying exasperated freezes. In the setting of her recent spinal fractures, we ordered a head MRI this afternoon to assess for possible pathology explaining behavior -c/w home citalopram and home prn xanax #presumed history of Iron Deficiency Anemia -Hgb decreased somewhat but remains relatively stable -c/w home ferrous sulfate #DVT prophylaxis: on full anticoagulation with Eliquis Disposition: pending pain control and physical therapy assessment VS, I&O, 24H, Fishbone Vital Signs/I&O Vital Signs Date Time Temp Pulse Resp B/P (MAP) Pulse Ox O2 Delivery O2 Flow Rate FiO2 05/03/20 20:00 98.0 65 16 186/76 (112) 94 Room Air I&O- Last 24 Hours up to 6 AM 05/03/20 06:00 Intake Total 440 ml Output Total 1580 ml Balance -1140 ml Laboratory Data 24H LABS Laboratory Tests 2 05/02/20 20:28: Bedside Glucose (Misc Panel) 133H 05/03/20 05:41: Nucleated Red Blood Cells % (auto) 0.0, Anion Gap 6L, Glomerular Filtration Rate 49.1, Calcium Level 8.3L, Total Bilirubin 0.7, Aspartate Amino Transf (AST/SGOT) 25, Alanine Aminotransferase (ALT/SGPT) 28, Alkaline Phosphatase 81, Total Protein 4.8L, Albumin 2.1L, Albumin/Globulin Ratio 0.8L 05/03/20 11:26: Bedside Glucose (Misc Panel) 107 05/03/20 17:03: Bedside Glucose (Misc Panel) 106 CBC/BMP Laboratory Tests 05/03/20 05:41 GME ATTESTATION GME ATTESTATION My faculty preceptor for this patient encounter was physically present during the encounter and was fully available. All aspects of the patient interview, examination, medical decision making process, and medical care plan development were reviewed and approved by the faculty preceptor. The faculty preceptor is aware and concurs with the plan as stated in the body of this note and will attest to such by his/her cosignature. ATTENDING NOTE I, Lola Faye, have independently examined this patient and performed my own physical exam, as well as reviewed the documentation and edited where necessary. I have discussed in detail with the resident / student the findings and plan of treatment as documented by the resident / student and edited their note. I agree with their findings and treatment plan and have edited their documentation. I will continue to follow the patient during this hospital stay. MIKA MARS D.O. May 03, 2020 20:25 LOLA FAYE MD May 04, 2020 07:13
[2020-05-03] MEDS: CitaloPRAM (CeleXA) 20 MG TAB PO SCH ×2 (21:00→21:05)
[2020-05-03] MEDS: ATORVASTATIN 20 MG TAB PO SCH ×2 (21:00→21:06)
[2020-05-03] MEDS: METOPROLOL TART 25 MG TABLET PO SCH ×2 (21:00→21:05)
[2020-05-03] MEDS: ENOXAPARIN 80MG/0.8ML SYRINGE (J1650 PER 10MG) SC SCH (21:04)
[2020-05-03] MEDS ORDERED: LABETALOL 100MG/20ML VIAL As Ordered ONE (21:29)
[2020-05-03] MEDS ORDERED: LABETALOL 100MG/20ML VIAL IV ONE ×2 (21:30→21:45)
--- NOTE | 2020-05-03 21:34 | IPNPDOC ---
Text Note Date of Service The patient was seen on 05/03/20. NOTE 800PM I was informed by that the patient had acute small bilateral infarcts that are likely embolic in nature #Acute Bilateral Infarcts Plan: per d/w we d'cd apixaban, started lovenox treatment dose, ordered EDUARDA, ordered a hypercoag work-up, ordered CTA of the head and neck and will instruct the RNs to aim for a SBP between 140 to 180 mmHg 930PM I was called by the patient's RN 920PM because the patient had an acute change in her mental status; she stopped speaking, stopped following commands, stopped tracking movements and was staring straight She is currently not responding, staring straight ahead and not tracking my movements. BP 190/58 / 90% on RA/ HR 71 / serum glucose 114 About 15 min after she became more alert, begun tracking movements, could follow simple commands, nod her head but was still not speaking. Per d/w these findings may represent a Seizure. #Possible Seizure Plan: CT head to r/o hemorrhagic conversion / 2.5mg IV labetalol now / f/u prolactin / f/u EEG / load w Keprra now and c/w 500mg BID thereafter VS,Fishbone, I+O VS, Fishbone, I+O Laboratory Tests 05/03/20 05:41 Vital Signs Date Time Temp Pulse Resp B/P (MAP) Pulse Ox O2 Delivery O2 Flow Rate FiO2 05/03/20 21:05 65 186/76 05/03/20 20:00 98.0 16 94 Room Air I&O- Last 24 Hours up to 6 AM 05/03/20 06:00 Intake Total 440 ml Output Total 1580 ml Balance -1140 ml CHARLES PAIGE MD May 03, 2020 21:34
[2020-05-03] MEDS ORDERED: levETIRAcetam INJection 1,000 MG in D5W 100 ML IV ONE (21:45)
[2020-05-03] MEDS ORDERED: LORazepam 2 MG/ML VIAL IV PRN (21:45)
--- NOTE | 2020-05-03 22:25 | REPVR ---
PROCEDURE INFORMATION: Exam: CT Head Without Contrast Exam date and time: 05/03/2020 10:06 PM Age: 79 years old Clinical indication: Altered mental status/memory loss; Confusion or disorientation; Additional info: AMS status in PT w bilateral CVA R/O hemorrhagic conversion TECHNIQUE: Imaging protocol: Computed tomography of the head without contrast. Radiation optimization: All CT scans at this facility use at least one of these dose optimization techniques: automated exposure control; mA and/or kV adjustment per patient size (includes targeted exams where dose is matched to clinical indication); or iterative reconstruction. COMPARISON: CT Head without contrast 03/04/2020 11:01 AM. 05/03/2020 brain MRI. FINDINGS: Brain: Scattered small infarctions seen on the prior brain MRI are not well visualized. No new infarct is seen. No hemorrhage. Unremarkable white matter. No mass effect. Cerebral ventricles: No ventriculomegaly. Bones/joints: Unremarkable. No acute fracture. Paranasal sinuses: Complete opacification of the sphenoid maxillary sinus. Remaining paranasal sinuses are clear. Mastoid air cells: Visualized mastoid air cells are well aerated. Soft tissues: Mild soft tissue swelling in the frontal scalp. No foreign bodies. IMPRESSION: 1. No intracranial hemorrhage or acute findings. 2. Sphenoid sinusitis. Electronically signed by: Jeffery Kaufman On 05/03/2020 22:24:58 PM
[2020-05-04] VITALS (9 sets, daily range): BP systolic 150–208; BP diastolic 56–82
[2020-05-04] MEDS: ONDANSETRON 4MG/2ML VIAL IV SCH ×4 (01:45→12:12)
[2020-05-04] MEDS: SLF 3 ML SYR IV SCH ×2 (05:05→14:00)
[2020-05-04 06:12] LABS: BASO % 0.2 % (0.0-1.0); EOS % 0.2 % (0.0-3.0); HEMATOCRIT 36.2 % (36.0-47.0); LYMPH # 1.6 10^3/uL (1.5-5.0); LYMPH % 13.4 % (24.0-44.0); MEAN CORPUSCULAR HEMOGLOBIN 28.9 pg (27.0-33.0); MEAN CORPUSCULAR HGB CONC 30.4 g/dl (32.0-36.5); MONO # 1.1 10^3/uL (0.0-0.8); MONO % 8.9 % (0.0-5.0); NEUTROPHILS # 9.3 10^3/uL (1.5-8.5); NEUTROPHILS % 76.6 % (36.0-66.0); PLATELET COUNT, AUTOMATED 314 10^3/uL (150-450); RED BLOOD COUNT 3.81 10^6/uL (4.00-5.40); WHITE BLOOD COUNT 12.1 10^3/uL (4.0-10.0)
[2020-05-04 06:41] LABS: CALCIUM LEVEL 8.5 MG/DL (8.8-10.2); CREATININE FOR GFR 1.36 MG/DL (0.55-1.30); MAGNESIUM LEVEL 1.9 MG/DL (1.8-2.4); POTASSIUM SERUM 3.3 MEQ/L (3.5-5.1)
[2020-05-04] MEDS ORDERED: NS 1,000 ML IV SCH (07:00)
[2020-05-04] MEDS: HumaLOG INSULIN (NovoLOG) PER UNIT SC SCH ×2 (07:30→12:00)
[2020-05-04] MEDS ORDERED: ISOVUE-370 76% 100ML VIAL As Ordered ONE (07:30)
[2020-05-04] MEDS: KCL 10MEQ/100ML SWI (KRUN) 10 MEQ in IV 1 EA IV SCH ×2 (08:19→11:58)
[2020-05-04] MEDS: VITAMIN D 1,000 INTERNATIONAL UNITS TABLET PO SCH ×2 (08:28→09:00)
[2020-05-04] MEDS: FERROUS SULFATE 325MG TAB PO SCH ×2 (08:29→09:00)
[2020-05-04] MEDS: MAGNESIUM OXIDE 400 MG TAB (MAG-OX) PO SCH (08:29)
[2020-05-04] MEDS: MESALAMINE 250 MG CR CAP PO SCH ×2 (08:29→09:00)
[2020-05-04] MEDS: AMIODARONE 200 MG TAB (PACERONE) PO SCH ×2 (08:30→09:35)
[2020-05-04] MEDS: PANTOPRAZOLE 40MG TAB (PROTONIX) PO SCH ×2 (08:30→09:00)
[2020-05-04] MEDS: **hydrALAZINE HCL** 25 MG TAB PO SCH ×2 (08:30→08:55)
[2020-05-04] MEDS: METOPROLOL TART 25 MG TABLET PO SCH ×2 (08:31→09:10)
[2020-05-04] MEDS: ENOXAPARIN 80MG/0.8ML SYRINGE (J1650 PER 10MG) SC SCH (08:31)
[2020-05-04] MEDS ORDERED: NITROGLYCERIN 0.4 MG SUBL TABLET SL STA ×2 (08:33→09:12)
--- NOTE | 2020-05-04 08:40 | REPVR ---
PROCEDURE INFORMATION: Exam: CT Angiography Neck With Contrast Exam date and time: 05/04/2020 8:06 AM Age: 79 years old Clinical indication: Other: Bilateral cvas TECHNIQUE: Imaging protocol: Computed tomography angiography of the neck with intravenous contrast. 3D rendering (Not supervised by radiologist): MIP and/or 3D reconstructed images were created by the technologist. Radiation optimization: All CT scans at this facility use at least one of these dose optimization techniques: automated exposure control; mA and/or kV adjustment per patient size (includes targeted exams where dose is matched to clinical indication); or iterative reconstruction. Contrast material: ISOVUE 370; Contrast volume: 100 ml; Contrast route: INTRAVENOUS (IV); COMPARISON: CT Spine,cervical w/o contrast 01/14/2020 5:24 AM FINDINGS: Right common carotid artery: No stenosis. No dissection or occlusion. Right internal carotid artery: No stenosis of the extracranial segment. No dissection or occlusion. Right external carotid artery: No occlusion or stenosis of the origin. Right vertebral artery: No stenosis. No dissection or occlusion. Left common carotid artery: No stenosis. No dissection or occlusion. Left internal carotid artery: No stenosis of the extracranial segment. No dissection or occlusion. Left external carotid artery: No occlusion or stenosis of the origin. Left vertebral artery: The left vertebral artery is dominant. No stenosis. No dissection or occlusion. Sinuses: There is near complete opacification of the right sphenoid sinus. Bones/joints: No acute fracture. There is degenerative disc disease and spondylosis. Changes are most pronounced at C5/6. Soft tissues: Normal. No significant soft tissue swelling. IMPRESSION: No significant cervical arterial stenosis. REFERENCES: NASCET CRITERIA. The degree of internal carotid artery stenosis is based on NASCET criteria. Normal is no stenosis. Mild is less than 50% stenosis. Moderate is 50-69% stenosis. Severe is 70% to 99% stenosis. Total occlusion is no detectable patent lumen. Electronically signed by: Alexandrea Hager On 05/04/2020 08:40:38 AM
--- NOTE | 2020-05-04 08:45 | REPVR ---
PROCEDURE INFORMATION: Exam: CT Angiography Head With Contrast Exam date and time: 05/04/2020 8:06 AM Age: 79 years old Clinical indication: Other: Bilateral cvas TECHNIQUE: Imaging protocol: Computed tomography angiography of the head with intravenous contrast. 3D rendering (Not supervised by radiologist): MIP and/or 3D reconstructed images were created by the technologist. Radiation optimization: All CT scans at this facility use at least one of these dose optimization techniques: automated exposure control; mA and/or kV adjustment per patient size (includes targeted exams where dose is matched to clinical indication); or iterative reconstruction. Contrast material: ISOVUE 370; Contrast volume: 100 ml; Contrast route: INTRAVENOUS (IV); COMPARISON: CT Head without contrast 05/03/2020 9:57 PM FINDINGS: ANTERIOR CIRCULATION: Right internal carotid artery: Unremarkable. Intracranial segment is patent with no significant stenosis. No aneurysm. Right middle cerebral artery: Unremarkable. No occlusion or significant stenosis. No aneurysm. Right anterior cerebral artery: Unremarkable. No occlusion or significant stenosis. No aneurysm. Left internal carotid artery: Unremarkable. Intracranial segment is patent with no significant stenosis. No aneurysm. Left middle cerebral artery: Unremarkable. No occlusion or significant stenosis. No aneurysm. Left anterior cerebral artery: Unremarkable. No occlusion or significant stenosis. No aneurysm. POSTERIOR CIRCULATION: Right vertebral artery: Unremarkable. No occlusion or significant stenosis. No aneurysm. Left vertebral artery: Unremarkable. No occlusion or significant stenosis. No aneurysm. Basilar artery: Unremarkable. No occlusion or significant stenosis. No aneurysm. Right posterior cerebral artery: Unremarkable. No occlusion or significant stenosis. No aneurysm. Left posterior cerebral artery: Unremarkable. No occlusion or significant stenosis. No aneurysm. Brain: No definite mass, mass effect, or midline shift. Cerebral ventricles: Normal. No ventriculomegaly. Bones/joints: Unremarkable. No acute fracture. Soft tissues: Unremarkable. IMPRESSION: No large vessel stenosis or occlusion. Electronically signed by: Alexandrea Hager On 05/04/2020 08:45:22 AM
[2020-05-04] MEDS ORDERED: levETIRAcetam INJection 500 MG in D5W MINI-BAG PLUS 100 ML IV SCH (09:00)
[2020-05-04] MEDS ORDERED: hydrALAZINE 20MG/ML 1ML VIAL (J0360 PER 20MG) IV ONE (09:00)
[2020-05-04] MEDS ORDERED: ACETYLCYSTEINE 20% 4 ML VIAL (200MG/ML) PO SCH (09:00)
[2020-05-04] MEDS ORDERED: ACETYLCYSTEINE 10% 30 ML VIAL PO SCH (09:00)
[2020-05-04] MEDS ORDERED: LABETALOL 100 MG TAB PO SCH (09:00)
[2020-05-04] MEDS ORDERED: MORPHINE 4 MG/ML 1ML VIAL/SYRINGE (J2270) IV PRN (10:00)
[2020-05-04 10:07] LABS: CK-MB VALUE MASS 1.5 NG/ML (<3.6); MB/CK RELATIVE INDEX 3.49 (< OR =4); TROPONIN I 0.04 NG/ML (< 0.10)
[2020-05-04] MEDS ORDERED: CETACAINE SPRAY 5GM As Ordered ONE (15:42)
[2020-05-04] MEDS ORDERED: LIDOCAINE VISCOUS 2% SOLN 15ML UDC As Ordered ONE (15:42)
[2020-05-04 16:41] LABS: MAGNESIUM LEVEL 1.6 MG/DL (1.8-2.4); POTASSIUM SERUM 3.5 MEQ/L (3.5-5.1)
[2020-05-04] MEDS ORDERED: propofoL 200 MG/20 ML VIAL As Ordered ONE (16:54)
[2020-05-04] MEDS ORDERED: LIDOCAINE 2% 100MG/5ML SDV (FOR ANES.) As Ordered ONE (16:54)
[2020-05-04 16:56] LABS: CK-MB VALUE MASS 40.4 NG/ML (<3.6); MB/CK RELATIVE INDEX 13.93 (< OR =4); TROPONIN I 14.7 NG/ML (< 0.10)
[2020-05-04] MEDS ORDERED: hydrALAZINE 20MG/ML 1ML VIAL (J0360 PER 20MG) IV SCH (17:00)
[2020-05-04] MEDS ORDERED: LOVE0.6I2 SC (18:25)
[2020-05-04] MEDS ORDERED: MORP4INJ2 IV (18:25)
[2020-05-04] MEDS ORDERED: METOCLOPRAMIDE INJection IV (18:25)
[2020-05-04] MEDS ORDERED: HYDR20VI2 IV (18:25)
[2020-05-04] MEDS ORDERED: KEPP500I IV (19:06)
[2020-05-04] MEDS ORDERED: ASPIRIN 325 MG TAB PO ONE (19:15)
--- NOTE | 2020-05-04 19:21 | DS.PDOC ---
Discharge Summary General Date of Admission May 02, 2020 at 07:50 Date of Discharge 05/04/2020 Discharge Summary PROCEDURES PERFORMED DURING STAY: [None]. ADMITTING DIAGNOSES / DISCHARGE DIAGNOSES: Chest pain - likely 2/2 NSTEMI Bilateral multiple acute stroke - Question of seizure Intractable back pain - likely 2/2 L2 vertebral fracture - likely a result of her osteoporosis Hypertensive urgency Osteoporosis with recent C2 and T5 fractures s/p Hypokalemia Leukocytosis Crohns disease CKD NIDDM Paroxysmal atrial fibrillation Dyslipidemia Depression / Anxiety Iron Deficiency Anemia DVT prophylaxis COMPLICATIONS/CHIEF COMPLAINT: Low back HISTORY OF PRESENT ILLNESS: Patient is a 79-year-old female with PMHx Paroxysmal A. 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 She was reported to be at home for one week until she began experiencing worsening lower back pain that prompted her to come to the ER for further evaluation. Upon arrival to emergency room, patient had imaging completed via x-ray that suggested a new L2 compression fracture. Hospital services called for evaluation and admission. MRI imaging completed head reveals evidence of L2 compression fracture as well as questionable cauda equina syndrome; over addendum to report has shown that this is consistent with prior imaging from 1999 818 orthopedic surgery has seen and evaluated the patient, who has agreed that this is unlikely cauda equina syndrome given that the symptomatology does not match. On 05/04, patient had reported chest pain and EKG was acquired, which is not significant change from baseline and troponin was 0.06. Patient reported reso lution of her chest pain. However, repeat troponin on 6 hour follow-up had revealed significant elevation at 14.7. I have discussed the case with patient's son, Caleb Vicente and discussed the necessity for transfer to a higher level of care for likely cardiac catheterization/evaluation. Patient and son agree to the transfer. I have addressed all their questions and concerns. HOSPITAL COURSE: Chest pain - likely 2/2 NSTEMI - History of CAD s/p stent (2016) - Initially this morning patient had complaint of chest pain, reported has typical in nature, pressure-like, occurring in the center of her sternum - EKG was acquired and was not significantly different compared to admission. EKG on 05/02 - Troponin this morning was 0.06; repeat troponin this afternoon was 14.7 - EKG repeated this afternoon has revealed T-wave inversions in V2,3,4,5 - Currently patient denies any chest pain , appears to be laying comfortably in bed - Blood pressure is 160 systolic - Patient is currently on therapeutic Lovenox; Atorvastatin, Metoprolol; have been given a dose of ASA 325 - Patient will be transferred to [facility] for likely cardiac catheterization Bilateral multiple acute stroke - - On 05/03 patient was reporting blurred vision, change in her baseline mentation - Patient remains oriented to person, place, time, president - MRI Brain 05/03: Multiple tiny, acute infarcts in more than one vascular territory, most likely embolic. - CT head 05/03: 1. No intracranial hemorrhage or acute findings. 2. Sphenoid sinusitis. - CTA neck 05/04: No significant cervical arterial stenosis. - CTA head 05/04: No large vessel stenosis or occlusion. - Case has been discussed with neurology; patient has been taken off of Eliquis and transitioned to therapeutic Lovenox - Patient was about to receive a chance esophageal echocardiogram today, however, this was aborted after troponin was noted to be significantly elevated Question of seizure - On the evening of 05/03, patient was reported to be blank staring and unresponsive. However, returned back to her baseline - Prolactin noted to be elevated at 193.3 - Patient has received EEG; report is unavailable - Case has been discussed with neurology was recommended that the patient be continued on Keppra 500 IV BID Intractable back pain - likely 2/2 L2 vertebral fracture - likely a result of her osteoporosis - Initially presented to the ER with complaints of back pain - No bladder/stool incontinence - Physical reveals sphincter tone that is intact - Neurological examination remains intact and unchanged since admission - MRI 05/02: 1. Severe multilevel degenerative changes causing variable degrees of spinal canal and neuroforaminal narrowing as described above. There is severe spinal canal stenosis at L4/5 with obvious compression of the cauda equina nerve roots. Please correlate with any symptoms referrable to cauda equina syndrome. Neurosurgical consultation is recommended. 2. There is mild depression of the superior endplate of the L2 vertebra consistent with recent compression fracture. 3. There is what likely represents a large hemangioma within the T12 vertebra. 4. High signal abnormality within the L3/4 disc space is likely degenerative in nature. Infection is considered much less likely. As a precaution, clinical and imaging followup is recommended. ------ ADDENDUM: Comparison is now made to a prior MRI from [facility] dated October 07, 2017: 1. L2 compression fracture is new compared to prior study. 2. Severe spinal canal stenosis at L4/5 is without significant interval change compared to prior study. 3. High signal abnormality within the L3/4 intervertebral disc is new since prior study. - Patient has been evaluated by orthopedic surgery; Dr. Flaherty, spinal surgeon; will continue with pain control and physical therapy - Discussed plan with son; Caleb Vicente at Hypertensive urgency - Will allow for permissive hypertension in the setting of acute stroke - Blood pressure target of 160-180 - c/w IV hydralazine for now and Metoprolol PO Osteoporosis with recent C2 and T5 fractures - c/w Vitamin D s/p Hypokalemia Leukocytosis - Remains hemodynamically stable and afebrile - No signs of infection Crohns disease -c/w home mesalamine -stable with no recent reported issues on review CKD - Cr appears to be slightly elevated from baseline - Will avoid nephrotoxic agents - Will provide N-acetylcysteine - c/w IV fluid hydration NIDDM - c/w ISS Paroxysmal atrial fibrillation - c/w rate and rhythm control with metoprolol, amiodarone - c/w full anticoagulation with Lovenox therapeutic; s/p Eliquis Dyslipidemia - c/w atorvastatin Depression / Anxiety - c/w Citalopram and Xanax Iron Deficiency Anemia - Hg remains stable - c/w ferrous sulfate DVT prophylaxis - c/w full anticoagulation with Therapeutic Lovenox DISCHARGE MEDICATIONS: Please see below. ALLERGIES: Please see below. PHYSICAL EXAMINATION ON DISCHARGE: Vitals (See below) General: Lying in bed, AAOx3 HEENT: NC, AT CVS: +S1S2 Lungs: Fair air entry b/l, no appreciable wheezing / rhonchi / crackles Abdomen: Soft, ND, NT Extremities: Trace edema, - Calf tenderness Neuro: Feet remain 5/5 bilaterally, however 4/5 at legs; sensation remains intact bilaterally; 4/5 bilateral UE strength LABORATORY DATA: Please see below. ACTIVITY: [As tolerated]. DISCHARGE PLAN: Follow up with Dr. Whitehead and Cardiology upon transfer to [facility] Remain compliant with treatment plan and medications Return to the ER if you experience any problems DISPOSITION: Transfer to [facility] DISCHARGE CONDITION: [Stable]. TIME SPENT ON DISCHARGE: 45 minutes Vital Signs/I&Os Vital Signs Date Time Temp Pulse Resp B/P (MAP) Pulse Ox O2 Delivery O2 Flow Rate FiO2 05/04/20 16:00 97.3 69 16 174/68 (103) 92 Room Air 05/04/20 04:00 2.0 I&O- Last 24 Hours up to 6 AM 05/04/20 06:00 Intake Total 620 ml Output Total 450 ml Balance 170 ml Laboratory Data Labs 24H Laboratory Tests 2 05/03/20 19:47: Bedside Glucose (Misc Panel) 114H 05/03/20 21:20: Bedside Glucose (Misc Panel) 114H 05/03/20 21:49: Prolactin 193.3 05/04/20 05:52: Immature Granulocyte % (Auto) 0.7, Neutrophils (%) (Auto) 76.6H, Lymphocytes (%) (Auto) 13.4L, Monocytes (%) (Auto) 8.9H, Eosinophils (%) (Auto) 0.2, Basophils (%) (Auto) 0.2, Neutrophils # (Auto) 9.3H, Lymphocytes # (Auto) 1.6, Monocytes # (Auto) 1.1H, Eosinophils # (Auto) 0.0, Basophils # (Auto) 0.0, Nucleated Red Blood Cells % (auto) 0.0, Erythrocyte Sedimentation Rate 49H, Anion Gap 9, Glomerular Filtration Rate 40.0, Calcium Level 8.5L, Magnesium Level 1.9, C- Reactive Protein, Quantitative 8.18H 05/04/20 08:54: Total Creatine Kinase 43, Creatine Kinase MB 1.5, Creatine Kinase MB Relative Index 3.49, Troponin I 0.04 05/04/20 10:49: Coronavirus (COVID-19)(PCR) NEGATIVE 05/04/20 12:11: Bedside Glucose (Misc Panel) 136H 05/04/20 16:08: Total Creatine Kinase 290#H, Creatine Kinase MB 40.4H, Creatine Kinase MB Relative Index 13.93H, Troponin I 14.70#*H, Magnesium Level 1.6L CBC/BMP Laboratory Tests 05/04/20 05:52 05/04/20 16:08 FSBS Laboratory Tests Test 05/03/20 19:47 05/03/20 21:20 05/04/20 12:11 Range/Units Bedside Glucose (Misc Panel) 114 114 136 83-110 MG/DL Discharge Medications Scheduled Acetaminophen (Acetaminophen) 500 Mg Tablet, 1,000 MG PO TID, (Reported) Amiodarone HCl (Amiodarone HCl) 200 Mg Tablet, 200 MG PO DAILY, (Reported) Atorvastatin Calcium (Atorvastatin Calcium) 40 Mg Tablet, 40 MG PO QHS, (Reported) Cholecalciferol (Vitamin D3) (Vitamin D3) 1,000 Unit Tablet, 1,000 UNITS PO DAILY, (Reported) Citalopram Hydrobromide (Celexa) 20 Mg Tablet, 30 MG PO QHS, (Reported) Enoxaparin Sodium (Lovenox) 80 Mg/0.8 Ml Syringe, 75 MG SC Q12H Ferrous Sulfate (Ferrous Sulfate) 325 Mg Tablet.dr, 325 MG PO 3XW, (Reported) THURSDAY, THURSDAY AND THURSDAY Fluticasone Propionate (Fluticasone Propionate) 15.8 Ml [place].susp, 1 SPRAY NA BID, (Reported) Hydralazine HCl (Hydralazine HCl) 20 Mg/1 Ml Vial, 20 MG IV Q8H Magnesium Oxide (Magnesium Oxide) 400 Mg Tablet, 400 MG PO BID, (Reported) Mesalamine (Pentasa) 500 Mg Capsule.er, 500 MG PO TID, (Reported) Metoclopramide HCl (Metoclopramide HCl) 10 Mg Tablet, 10 MG PO QID, (Reported) Metoprolol Tartrate (Metoprolol Tartrate) 25 Mg Tablet, 25 MG PO BID, (Reported) Mirtazapine (Mirtazapine) 7.5 Mg Tablet, 7.5 MG PO QHS, (Reported) NEW MEDICATION, PATIENT HAS NOT STARTED Omeprazole (Omeprazole) 40 Mg Capsule.dr, 40 MG PO DAILY, (Reported) Prednisone (Prednisone) 5 Mg Tablet, 15 MG PO DAILY, (Reported) Propylene Glycol/Peg 400/Pf (Systane 0.3-0.4% Eye Drop) 1 Each Droperette, 1 DROP OU QID, (Reported) Vitamin B Complex (Vitamin B Complex) 1 Each Tablet, 1 TAB PO DAILY, (Reported) Scheduled PRN Alprazolam (Alprazolam) 0.25 Mg Tablet, 0.25 MG PO BID PRN for ANXIETY, (Reported) Morphine Sulfate (Morphine Sulfate) 4 Mg/1 Ml Vial, 4 MG IV Q4HP PRN for SEVERE PAIN (PS 8-10) [METOCLOPRAMIDE INJection] 10 MG/2 ML SOLN, 10 MG IV Q8HP PRN for NAUSEA OR VOMITING Allergies Coded Allergies: hydrocodone (Verified Allergy, Intermediate, 01/03/20) Sulfa (Sulfonamide Antibiotics) (Verified Allergy, Unknown, 07/03/19) hydrochlorothiazide (Verified Allergy, Unknown, 07/03/19) MINE FAYE MD May 04, 2020 19:21
--- NOTE | 2020-05-05 09:36 | ECGEPIP ---
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
--- NOTE | 2020-05-05 09:45 | ECGEPIP ---
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
--- NOTE | 2020-05-07 06:56 | ECHO ---
DATE OF PROCEDURE: 05/04/2020 Age: 79 Gender: Female Height: 63 inches Weight: 167 pounds Body surface area: 1.79 m2 PATIENT LOCATION: Inpatient progressive care unit (PCU), Room 3224. REFERRING PHYSICIAN: Lola Bourgeois M.D. INDICATION: Chest pain. MEASUREMENTS: 2D Measurements: RV 3.5 cm LV 4.2 cm Septum 1.4 cm Posterior wall 1.3 cm Aortic Root 3.6 cm LA 4.2 cm LVEF 80% Doppler Measurements: AV 2.32 m/s LVOT 1.21 m/s LVOT diameter 1.8 cm Mean AV systolic gradient 12 mmHg Dimensionless index 0.54 MV-E 61, A 110, E/A ratio 0.6 Early mitral deceleration time 155 m/s PV 1.1 m/s Pulmonary artery acceleration time 113 m/s PASP 32 mmHg IVC 1.7 cm COMMENTS: Normal sinus rhythm without intraventricular conduction disturbance. M-mode and two-dimensional echocardiography was performed with pulsed, continuous wave, color flow Doppler studies. Tissue Doppler was not performed by the technologist. Mild concentric left ventricular hypertrophy with hyperkinetic wall motion. Mildly dilated left atrium with grade 1 left ventricular (LV) diastolic dysfunction. Could not estimate her current mean left atrial pressure as tissue Doppler study was not performed. Normal right heart chamber sizes and motion with Doppler evidence of borderline pulmonary hypertension. Normal inferior vena cava (IVC) size and collapse against an elevated central venous pressure. Normal aortic dimensions. Moderate aortic valvular sclerosis without stenosis (rapid velocity is related to hyperkinetic left ventricular (LV) function rather than left ventricular (LV) outflow tract obstruction). Mild aortic insufficiency. Mild degenerative changes of her mitral valvular apparatus without inflow tract obstruction, but mild insufficiency. Normal appearing tricuspid valve with mild insufficiency. No separate intracardiac mass or pericardial effusion. MTDD
--- NOTE | 2020-05-07 08:32 | CR ---
DATE OF CONSULTATION: 05/02/2020 ATTENDING PHYSICIANS: Dr. East and Dr. Flaherty CHIEF COMPLAINT: Back pain. HISTORY: This is a 79-year-old female patient who presented to the emergency room with worsening back pain approximately 1 week after discharged from the [facility] after completing rehabilitation for a C2 fracture she had sustained on 01/14/2020. She had a prior thoracic compression fracture on 12/12/2019 as well. She was seen in the emergency room, where x-rays were consistent with an L2 compression fracture. She was admitted by the hospitalist service, and orthopedics was consulted. Her MRI was consistent with tight stenosis at 4-5. There is a spondylolisthesis at that level. There is also inferior endplate changes consistent with a compression fracture at L1 as well as uptake in the superior endplate of L2 consistent with a compression fracture. On comparison, her stenosis is very similar to 2018. May be slightly worsened but overall relatively unchanged. At home prior to the incident with the T5 compression and the C2 compression fracture, patient did live alone and was a household ambulator mainly. She did use a walker for stability and pain control at home prior to the last two compression fractures. When she went home from the hospital, she used mainly a wheelchair. Sometimes tried to use a walker but she felt that she was just still too week to be able to use a walker at that juncture when she went home. When she was initially admitted, she had been improving, and then back pain began and her symptoms seemed to worsen, so she presented to the emergency room. She denies any leg symptoms, denies any changes in her bowel or bladder habits. She does feel her legs have been weak for years and does not feel any significant change. Denies any traumatic injuries. No falls. She notes pain mainly in her back, mainly with weightbearing activities but some pain in her back even with rest. MEDICAL HISTORY: 1. Atrial fibrillation. 2. Coronary artery disease, status post stenting. 3. Hypertension. 4. Elevated lipids. 5. Ncq-Tvnvsje-lhsxwolad diabetes. 6. Chronic kidney disease, stage III. 7. Mesenteric artery stenosis. 8. Crohn's disease. 9. History of a gastrointestinal (GI) bleed. 10. Osteoporosis. 11. History of a T5 compression fracture as well as a C2 fracture. CURRENT MEDICATIONS: Fosamax as well as Xanax, Lipitor, Celexa, Remeron, Lopressor, Eliquis, insulin, Apresoline, potassium chloride, amiodarone, vitamin D, Pentasa, Reglan, Protonix, oral iron tablets. ALLERGIES: SULFA, HYDROCHLOROTHIAZIDE, and HYDROCODONE. REVIEW OF SYSTEMS: As noted in the history of present illness (HPI), to include denies any current chest pain. No difficulty breathing, no abdominal pain. Denies any leg symptoms currently. Denies change in her bowel or bladder habits. FAMILY HISTORY: Noncontributory. SOCIAL HISTORY: She does not smoke. She does not use alcohol. She did live alone at home. Prior to this she was a household ambulator at best prior to the events starting in December. PHYSICAL EXAMINATION: Reveals somewhat confused patient in a hospital bed. Patient is in no acute distress and well nourished. She is lying in about 30- degree slant in the bed. There is no clonus on exam. Pineda's is negative. There is tenderness from L2 down to L3 on exam but no breaks in the skin. No erythema, edema, or ecchymosis. Deep tendon reflexes are absent at the knees, absent at the ankles, absent in the upper extremities. Spurling's is negative on exam today. Straight raise leg testing is negative in the bed. No irritability with hip roll. The calves are soft and nontender to palpation. Muscle strength seems grossly 5/5, equal and symmetric in the major muscle groups. On exam, though, there is some breakthrough pain, particularly with quadriceps and hamstring testing on exam. She is able to appreciate light touch on the lower extremities. Dorsalis pedis and posterior tibial pulses are palpable. Well- perfused lower extremities. Her rectal tone is intact today. The sensation in intact in the perivaginal and perirectal area on exam today. There is symmetric rise and fall of the chest. Unlabored breathing. The abdomen is not distended. Current vital signs are 99.4 temperature, pulse 74, respirations 19, blood pressure 204/91, pulse 96 on room air. MRI, x-rays as above in the HPI. IMPRESSION: Acute L1 and L2 compression fracture with no loss of height with underlying severe spinal stenosis at 4-5 with a spondylolisthesis at 4-5. PLAN: I reviewed the case with Dr. Flaherty. He also reviewed the MRIs, and we did compare to 2018 as very little change from 2018. Plan at this point is bed to chair for now. Apparently she does already have a TLSO at home, so they are gong to call the call the family members and see if they can bring that brace in. It might be needs the brace for mobilization, but for now will do [id number]. If she does have a brace, we may discuss having her up with physical therapy once her pain is controlled. In the meantime, she will continue to monitor her symptoms. Dr. Flaherty will put further input after this discussion if needed with a further addendum to the note, but currently for now there are no signs of cauda equina. Her symptoms do not fit with cauda equina. Her rectal tone is intact. Her findings on her MRI are relatively unchanged from 2018, and her symptoms are primarily back pain and not leg symptoms, so at this point recommendations are bed to chair at this point, pain control, deep venous thrombosis (DVT) prophylaxis per the primary team. We will continue to follow her while she is inpatient at this juncture. MARISSA
[2020-05-09 11:17] LABS: DRVV SCREEN 166.2 SEC
[2020-05-09 11:41] LABS: DRVV CONFIRM 110.1 SEC; LUPUS CONFIRM RATIO 2.9
[2020-05-09 11:44] LABS: NORMALIZED RATIO 1.38 (0.00-1.20)
[2020-05-11 17:13] LABS: ANTINUCLEAR ANTIBODIES DIRECT Negative (Negative); CARDIOLIPIN IGA ANTIBODY <9 APL U/mL (0-11); CARDIOLIPIN IGG ANTIBODY <9 GPL U/mL (0-14); CARDIOLIPIN IGM ANTIBODY <9 MPL U/mL (0-12); HOMOCYST(E)INE SERUM 12.2 umol/L (0.0-19.2); PROTEIN C ANTIGEN 120 % (60-150); PROTEIN S ANTIGEN FREE 71 % (57-157); PROTEIN S ANTIGEN TOTAL 92 % (60-150)
--- NOTE | 2020-05-13 16:26 | EEG ---
DATE: 05/04/2020 REFERRING PHYSICIAN: Dr. Lola Bourgeois DIAGNOSIS: Altered mental status, rule out seizure. EEG# [id number] HISTORY: The patient is a 79-year-old woman who presented to [facility] due to lower back pain. The patient had acute change in her mental status and stopped speaking and stopped following commands. The patient stares straight ahead and stopped tracking movements. About 15 minutes later she became more alert and started following simple commands. This EEG was done to rule out epileptic potential. She is currently taking Keppra, Amiodarone, Celexa, mirtazapine, Protonix, mesalamine. TECHNICAL DESCRIPTION: This baseline EEG was recorded by 21-scalp, ear, and two EKG electrodes and was reviewed in bipolar and referential montages following reformatting in 10-20 international electrode placement system. INTERPRETATION: Patient was noted to be in mostly drowsy state during this EEG. Background rhythm consisted of 6-7 Hz activity measuring 15-40 microvolts in amplitude which was symmetric bilaterally in readable portion of this EEG. Excessive muscle artifact was noted in bilateral frontal and temporal head regions almost continuously throughout this EEG. Stage 2 sleep was identified based on symmetric K complexes bilaterally. Hyperventilation could not be performed. Photic stimulation remained unremarkable. EKG revealed normal sinus rhythm. No focal, lateralizing, or epileptiform abnormalities were seen. No relevant clinical activity was noted. CONCLUSION: This EEG in mostly drowsy, stage 2 sleep is abnormal due to the presence of mild generalized slowing and disorganization of background consistent with nonspecific diffuse cerebral dysfunction suggesting an encephalopathy due to multiple potential causes. Excessive muscle artifact was noted in bilateral frontal and temporal head regions. Clinical correlation is recommended. MTDD
--- NOTE | 2020-05-14 19:40 | ECGEPIP ---
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
[2020-05-29 06:44] LABS: HEXAGONAL PHASE PHOSPHOLIPID 10
== END 2020-05-04 19:05 | disposition short-term general hospital (02) | DRG 542 ==
LOC: M ED 04:40 → M ED INP 07:50 → ENRESERV 08:20 → M MS5PR 10:35 → M PCU 18:50
PROVIDERS: ADMIT Internal Medicine; ATTEND Internal Medicine
DX: M80.08XA Age-related osteoporosis with current pathological fracture, vertebra(e), initial encounter for fracture (principal); I21.4 Non-ST elevation (NSTEMI) myocardial infarction; I63.49 Cerebral infarction due to embolism of other cerebral artery; K50.90 Crohn's disease, unspecified, without complications; I48.0 Paroxysmal atrial fibrillation; I25.10 Atherosclerotic heart disease of native coronary artery without angina pectoris; K64.8 Other hemorrhoids; I12.9 Hypertensive chronic kidney disease with stage 1 through stage 4 chronic kidney disease, or unspecified chronic kidney disease; E78.5 Hyperlipidemia, unspecified; R56.9 Unspecified convulsions; E11.22 Type 2 diabetes mellitus with diabetic chronic kidney disease; K21.9 Gastro-esophageal reflux disease without esophagitis; I16.0 Hypertensive urgency; F41.9 Anxiety disorder, unspecified; E11.51 Type 2 diabetes mellitus with diabetic peripheral angiopathy without gangrene; F32.9 Major depressive disorder, single episode, unspecified; E87.6 Hypokalemia; D50.9 Iron deficiency anemia, unspecified; Z66 Do not resuscitate; Z79.01 Long term (current) use of anticoagulants; Z95.5 Presence of coronary angioplasty implant and graft; Z88.8 Allergy status to other drugs, medicaments and biological substances; N18.3 Chronic kidney disease, stage 3 (moderate); Z79.899 Other long term (current) drug therapy; Z79.52 Long term (current) use of systemic steroids; Z88.2 Allergy status to sulfonamides; Z88.5 Allergy status to narcotic agent